=== PATIENT | female | born 1935 | race Caucasian/White ===

== ENCOUNTER 2020-02-01 05:01 | Outpatient (REF) | payer MEDICARE, SELFPAY ==
[2020-02-01 11:12] LABS: Red Blood Count 3.31 X10*6/uL (4.20-5.50)
[2020-02-01 11:15] LABS: Hematocrit 33.3 % (37-47); Hemoglobin 9.2 g/dl (12.0-16.0); Mean Corpuscular HGB Conc 27.6 g/dl (31.0-35.0); Mean Corpuscular Hemoglobin 27.8 pg (27.0-33.0); Mean Corpuscular Volume 100.6 fL (80-98); Platelet Count 144 X10*3/uL (160-400); Red Cell Distribution Width 21.3 % (11.0-16.0)
[2020-02-01 11:29] LABS: NRBC Pct Auto 1.9 /100WBC (0.0-0.2); PLT ABN DIST 1; WBC ABN SCTR FOR CBC 1
[2020-02-01 12:50] LABS: Band Neutrophils Percent 9 % (3-5); Blast Percent 2 %; Lymphocytes Percent Manual 9 % (20-40); Metamyelocytes Percent 5 %; Monocytes Percent Manual 3 % (2-11); Myelocytes Percent 2 %; Neutrophils Percent Manual 70 % (45-73); RBC Morphology NOTED
[2020-02-01 12:51] LABS: Macrocytosis 1+; Tear Drop Cells 1+
[2020-02-01 12:52] LABS: Acanthocytes 1+; Ovalocytes 1+; Schistocytes 1+
[2020-02-01 12:53] LABS: Platelet Estimate SLIGHTLY DECREASED (NORMAL)
[2020-02-01 13:25] LABS: Blastocytes Absolute 0.2 X10*3/uL; Lymphocytes Absolute Manual 0.7 X10*3/uL (0.6-4.8); Metamyelocytes Absolute 0.4 X10*3/uL; Monocytes Absolute Manual 0.2 X10*3/uL (0.0-1.2); Myelocytes Absolute 0.2 X10*/uL; Neutrophils Absolute Manual 6.2 X10*3/uL (2.2-7.9); White Blood Count 7.9 X10*3/uL (4.8-10.8)
[2020-02-01 13:27] LABS: Platelet Morphology Comment NORMAL
== END 2020-02-01 05:02 | disposition home or self-care (01) ==
LOC: HO.LHD 05:01
PROVIDERS: Visit Provider Internal Medicine Medical Oncology
DX: D64.9 Anemia, unspecified (principal)
CPT/HCPCS: 36415; 85007; 85025; 85027

== ENCOUNTER 2020-02-08 04:37 | Outpatient (REF) | payer MEDICARE, SELFPAY ==
[2020-02-08 10:26] LABS: Hemoglobin 9.6 g/dl (12.0-16.0); Mean Corpuscular Volume 99.7 fL (80-98)
[2020-02-08 10:28] LABS: Hematocrit 33.9 % (37-47); Mean Corpuscular HGB Conc 28.3 g/dl (31.0-35.0); Mean Corpuscular Hemoglobin 28.2 pg (27.0-33.0); PLT ABN DIST 1; Red Cell Distribution Width 21.4 % (11.0-16.0)
[2020-02-08 11:37] LABS: Atypical Lymphs Percent Manual 2 % (0-6); Band Neutrophils Percent 23 % (3-5); Basophils Percent Manual 1 % (0-1); Blast Percent 2 %; Eosinophils Percent Manual 1 % (0-4); Lymphocytes Percent Manual 6 % (20-40); Metamyelocytes Percent 4 %; Monocytes Percent Manual 2 % (2-11); Myelocytes Percent 2 %; Neutrophils Percent Manual 56 % (45-73); Nucleated Red Blood Cells 3 /100WBC (0-0); Promyelocytes Percent 1 %
[2020-02-08 11:38] LABS: Acanthocytes 1+; Macrocytosis 1+; Ovalocytes 1+; Platelet Estimate NORMAL (NORMAL); Platelet Morphology Comment NORMAL; Polychromasia 1+; RBC Morphology NOTED
[2020-02-08 11:39] LABS: Hypochromasia 1+; Large Platelet PRESENT; Stomatocytes 1+; Tear Drop Cells 1+
[2020-02-08 11:40] LABS: Atypical Lymph Absolute Manual 0.2 x10*3/uL; Basophils Abs Manual 0.1 X10*3/uL (0.0-0.3); Blastocytes Absolute 0.2 X10*3/uL; Eosinophils Absolute Manual 0.1 X10*3/UL (0.0-0.8); Lymphocytes Absolute Manual 0.6 X10*3/uL (0.6-4.8); Metamyelocytes Absolute 0.4 X10*3/uL; Monocytes Absolute Manual 0.2 X10*3/uL (0.0-1.2); Myelocytes Absolute 0.2 X10*/uL; Neutrophils Absolute Manual 7.9 X10*3/uL (2.2-7.9); Platelet Count 164 X10*3/uL (160-400); Promyelocytes Absolute 0.1 X10*3/uL
== END 2020-02-08 04:38 | disposition home or self-care (01) ==
LOC: HO.LHD 04:37
PROVIDERS: Visit Provider Internal Medicine Medical Oncology
DX: D46.9 Myelodysplastic syndrome, unspecified (principal)
CPT/HCPCS: 36415; 85007; 85027

== ENCOUNTER 2020-02-15 04:30 | Outpatient (REF) | payer MEDICARE, SELFPAY ==
[2020-02-15 10:44] LABS: Red Blood Count 3.52 X10*6/uL (4.20-5.50); Red Cell Distribution Width 21.2 % (11.0-16.0)
[2020-02-15 10:46] LABS: Hematocrit 35.4 % (37-47); Hemoglobin 9.8 g/dl (12.0-16.0); Mean Corpuscular HGB Conc 27.7 g/dl (31.0-35.0); Mean Corpuscular Hemoglobin 27.8 pg (27.0-33.0); Mean Corpuscular Volume 100.6 fL (80-98); Mean Platelet Volume 13.6 fL (9.4-12.3); Platelet Count 137 X10*3/uL (160-400); White Blood Count 8.5 X10*3/uL (4.8-10.8)
[2020-02-15 10:50] LABS: NRBC Pct Auto 1.2 /100WBC (0.0-0.2)
[2020-02-15 10:51] LABS: PLT ABN DIST 1
[2020-02-15 11:14] LABS: Alanine Aminotransferase 12 U/L (0-31); Albumin Level 3.8 g/dL (3.5-5.0); Alkaline Phosphatase 69 U/L (39-117); Anion Gap 13 (12-20); Aspartate Amino Transferase 16 U/L (5-31); Bilirubin Total 0.7 mg/dL (0.0-1.0); Blood Urea Nitrogen 14 mg/dL (9-16); Calcium 8.6 mg/dL (8.4-10.2); Carbon Dioxide 27 mmol/L (22-29); Chloride 105 mmol/L (96-108); Estimated Glomerular Filt Rate 58; Glucose Random 69 mg/dL (60-115); Potassium 3.9 mmol/l (3.3-5.1); Sodium 141 mmol/L (135-145); Total Protein 6.4 g/dL (6.5-8.0)
[2020-02-15 11:18] LABS: Band Neutrophils Percent 17 % (3-5); Basophils Abs Manual 0.1 X10*3/uL (0.0-0.3); Basophils Percent Manual 1 % (0-1); Blast Percent 1 %; Blastocytes Absolute 0.1 X10*3/uL; Eosinophils Absolute Manual 0.1 X10*3/UL (0.0-0.8); Eosinophils Percent Manual 1 % (0-4); Lymphocytes Absolute Manual 0.4 X10*3/uL (0.6-4.8); Lymphocytes Percent Manual 5 % (20-40); Metamyelocytes Absolute 0.3 X10*3/uL; Metamyelocytes Percent 3 %; Monocytes Absolute Manual 0.2 X10*3/uL (0.0-1.2); Monocytes Percent Manual 2 % (2-11); Myelocytes Absolute 0.3 X10*/uL; Myelocytes Percent 4 %; Neutrophils Percent Manual 65 % (45-73); Nucleated Red Blood Cells 1 /100WBC (0-0); Promyelocytes Absolute 0.1 X10*3/uL; Promyelocytes Percent 1 %
[2020-02-15 11:19] LABS: Macrocytosis 1+; Polychromasia 1+; RBC Morphology NOTED
[2020-02-15 11:20] LABS: Acanthocytes 1+; Giant Platelet PRESENT; Large Platelet PRESENT; Ovalocytes 1+; Platelet Estimate SLIGHTLY DECREASED (NORMAL); Platelet Morphology Comment NOTED; Schistocytes 1+
[2020-02-15 11:21] LABS: Tear Drop Cells 1+
== END 2020-02-15 04:31 | disposition home or self-care (01) ==
LOC: HO.LHD 04:30
PROVIDERS: Visit Provider Internal Medicine Medical Oncology
DX: D46.9 Myelodysplastic syndrome, unspecified (principal)
CPT/HCPCS: 36415; 80053; 85007; 85027

== ENCOUNTER 2020-02-22 | Outpatient (REF) | payer MEDICARE, SELFPAY ==
[2020-02-22 10:32] LABS: Hematocrit 33.5 % (37-47); Hemoglobin 9.6 g/dl (12.0-16.0); Mean Corpuscular HGB Conc 28.7 g/dl (31.0-35.0); Mean Corpuscular Hemoglobin 28.7 pg (27.0-33.0); Mean Platelet Volume 13.4 fL (9.4-12.3); Platelet Count 152 X10*3/uL (160-400); Red Blood Count 3.35 X10*6/uL (4.20-5.50); White Blood Count 10.4 X10*3/uL (4.8-10.8)
[2020-02-22 10:34] LABS: NRBC Pct Auto 1.4 /100WBC (0.0-0.2); PLT ABN DIST 1
[2020-02-22 11:10] LABS: Band Neutrophils Percent 12 % (3-5); Basophils Abs Manual 0.2 X10*3/uL (0.0-0.3); Basophils Percent Manual 2 % (0-1); Blast Percent 3 %; Blastocytes Absolute 0.3 X10*3/uL; Eosinophils Absolute Manual 0.1 X10*3/UL (0.0-0.8); Eosinophils Percent Manual 1 % (0-4); Lymphocytes Absolute Manual 0.7 X10*3/uL (0.6-4.8); Lymphocytes Percent Manual 7 % (20-40); Metamyelocytes Absolute 0.4 X10*3/uL; Metamyelocytes Percent 4 %; Myelocytes Absolute 0.3 X10*/uL; Myelocytes Percent 3 %; Neutrophils Absolute Manual 8.3 X10*3/uL (2.2-7.9); Neutrophils Percent Manual 68 % (45-73); Nucleated Red Blood Cells 1 /100WBC (0-0)
[2020-02-22 11:11] LABS: Giant Platelet PRESENT; Large Platelet PRESENT; Macrocytosis 1+; Platelet Estimate SLIGHTLY DECREASED (NORMAL); Platelet Morphology Comment NOTED; RBC Morphology NOTED
[2020-02-22 11:12] LABS: Acanthocytes 2+; Ovalocytes 2+; Polychromasia 2+; Stomatocytes 1+; Tear Drop Cells 2+
== END 2020-02-22 00:01 | disposition home or self-care (01) ==
LOC: HO.LHD
PROVIDERS: Visit Provider Internal Medicine Medical Oncology
DX: D64.9 Anemia, unspecified (principal); D46.9 Myelodysplastic syndrome, unspecified
CPT/HCPCS: 36415; 85007; 85027

== ENCOUNTER 2020-02-28 04:10 | Outpatient (REF) | payer MEDICARE, SELFPAY ==
[2020-02-28 10:53] LABS: Hematocrit 34.2 % (37-47); Hemoglobin 9.6 g/dl (12.0-16.0); Mean Corpuscular HGB Conc 28.1 g/dl (31.0-35.0); Mean Corpuscular Hemoglobin 28.3 pg (27.0-33.0); Mean Corpuscular Volume 100.9 fL (80-98); Mean Platelet Volume 13.3 fL (9.4-12.3); Platelet Count 141 X10*3/uL (160-400); Red Blood Count 3.39 X10*6/uL (4.20-5.50); Red Cell Distribution Width 20.5 % (11.0-16.0); White Blood Count 10.3 X10*3/uL (4.8-10.8)
[2020-02-28 10:54] LABS: NRBC Pct Auto 1.6 /100WBC (0.0-0.2)
[2020-02-28 11:08] LABS: Band Neutrophils Percent 3 % (3-5); Blast Percent 2 %; Blastocytes Absolute 0.2 X10*3/uL; Eosinophils Absolute Manual 0.2 X10*3/UL (0.0-0.8); Eosinophils Percent Manual 2 % (0-4); Lymphocytes Absolute Manual 0.7 X10*3/uL (0.6-4.8); Lymphocytes Percent Manual 7 % (20-40); Metamyelocytes Absolute 0.3 X10*3/uL; Metamyelocytes Percent 3 %; Myelocytes Absolute 0.5 X10*/uL; Myelocytes Percent 5 %; Neutrophils Absolute Manual 8.3 X10*3/uL (2.2-7.9); Neutrophils Percent Manual 78 % (45-73)
[2020-02-28 11:09] LABS: Macrocytosis 3+; RBC Morphology NOTED
[2020-02-28 11:10] LABS: Polychromasia 2+; Stomatocytes 1+; Tear Drop Cells 2+
[2020-02-28 11:11] LABS: Large Platelet PRESENT; Microcytosis 2+; Platelet Estimate DECREASED (NORMAL); Platelet Morphology Comment NOTED
== END 2020-02-28 04:11 | disposition home or self-care (01) ==
LOC: HO.LHD 04:10
PROVIDERS: Visit Provider Internal Medicine Medical Oncology
DX: D46.9 Myelodysplastic syndrome, unspecified (principal)
CPT/HCPCS: 36415; 85007; 85025; 85027

== ENCOUNTER 2020-03-07 06:44 | Outpatient (REF) | payer MEDICARE, SELFPAY ==
[2020-03-07 10:52] LABS: Hematocrit 35.5 % (37-47); Hemoglobin 10.2 g/dl (12.0-16.0); Mean Corpuscular HGB Conc 28.7 g/dl (31.0-35.0); Mean Corpuscular Hemoglobin 28.1 pg (27.0-33.0); Mean Corpuscular Volume 97.8 fL (80-98); Platelet Count 247 X10*3/uL (160-400); Red Blood Count 3.63 X10*6/uL (4.20-5.50); Red Cell Distribution Width 19.9 % (11.0-16.0); White Blood Count 10.8 X10*3/uL (4.8-10.8)
[2020-03-07 10:57] LABS: NRBC Pct Auto 1.3 /100WBC (0.0-0.2)
[2020-03-07 11:17] LABS: Band Neutrophils Percent 6 % (3-5); Blast Percent 4 %; Blastocytes Absolute 0.4 X10*3/uL; Lymphocytes Absolute Manual 0.8 X10*3/uL (0.6-4.8); Lymphocytes Percent Manual 7 % (20-40); Metamyelocytes Absolute 0.5 X10*3/uL; Metamyelocytes Percent 5 %; Monocytes Absolute Manual 0.3 X10*3/uL (0.0-1.2); Monocytes Percent Manual 3 % (2-11); Myelocytes Absolute 0.8 X10*/uL; Myelocytes Percent 7 %; Neutrophils Percent Manual 68 % (45-73); Nucleated Red Blood Cells 1 /100WBC (0-0)
[2020-03-07 11:18] LABS: Ovalocytes 1+; Polychromasia 2+; RBC Morphology NOTED; Tear Drop Cells 1+
[2020-03-07 11:19] LABS: Large Platelet PRESENT; Macrocytosis 1+; Platelet Estimate NORMAL (NORMAL); Platelet Morphology Comment NORMAL
== END 2020-03-07 06:45 | disposition home or self-care (01) ==
LOC: HO.LHD 06:44
PROVIDERS: Visit Provider Internal Medicine Medical Oncology
DX: D46.9 Myelodysplastic syndrome, unspecified (principal)
CPT/HCPCS: 36415; 85007; 85025; 85027

== ENCOUNTER 2020-03-14 05:18 | Outpatient (REF) | payer MEDICARE, SELFPAY ==
[2020-03-14 10:13] LABS: Hematocrit 31.3 % (37-47); Hemoglobin 9.2 g/dl (12.0-16.0); Mean Corpuscular HGB Conc 29.4 g/dl (31.0-35.0); Mean Corpuscular Hemoglobin 28.2 pg (27.0-33.0); Red Blood Count 3.26 X10*6/uL (4.20-5.50)
[2020-03-14 10:15] LABS: Mean Platelet Volume 13.1 fL (9.4-12.3); NRBC Pct Auto 0.8 /100WBC (0.0-0.2); Platelet Count 140 X10*3/uL (160-400); White Blood Count 11.2 X10*3/uL (4.8-10.8)
[2020-03-14 10:20] LABS: PLT ABN DIST 1
[2020-03-14 11:46] LABS: Band Neutrophils Percent 13 % (3-5); Basophils Abs Manual 0.2 X10*3/uL (0.0-0.3); Basophils Percent Manual 2 % (0-1); Blast Percent 3 %; Blastocytes Absolute 0.3 X10*3/uL; Eosinophils Absolute Manual 0.1 X10*3/UL (0.0-0.8); Eosinophils Percent Manual 1 % (0-4); Lymphocytes Absolute Manual 0.4 X10*3/uL (0.6-4.8); Lymphocytes Percent Manual 4 % (20-40); Metamyelocytes Absolute 0.3 X10*3/uL; Metamyelocytes Percent 3 %; Monocytes Absolute Manual 0.2 X10*3/uL (0.0-1.2); Monocytes Percent Manual 2 % (2-11); Myelocytes Absolute 0.2 X10*/uL; Myelocytes Percent 2 %; Neutrophils Absolute Manual 9.3 X10*3/uL (2.2-7.9); Neutrophils Percent Manual 70 % (45-73); Nucleated Red Blood Cells 1 /100WBC (0-0)
[2020-03-14 11:47] LABS: Macrocytosis 1+; RBC Morphology NOTED
[2020-03-14 11:48] LABS: Hypochromasia 1+; Ovalocytes 1+; Tear Drop Cells 1+
[2020-03-14 11:49] LABS: Large Platelet PRESENT; Platelet Estimate SLIGHTLY DECREASED (NORMAL); Platelet Morphology Comment NORMAL
== END 2020-03-14 05:19 | disposition home or self-care (01) ==
LOC: HO.LHD 05:18
PROVIDERS: Visit Provider Internal Medicine Medical Oncology
DX: D46.9 Myelodysplastic syndrome, unspecified (principal)
CPT/HCPCS: 36415; 85007; 85025; 85027

== ENCOUNTER 2020-03-21 | Outpatient (REF) | payer MEDICARE, SELFPAY ==
[2020-03-21 10:50] LABS: Hemoglobin 8.7 g/dl (12.0-16.0)
[2020-03-21 10:52] LABS: Hematocrit 30.4 % (37-47); Mean Corpuscular HGB Conc 28.6 g/dl (31.0-35.0); Mean Corpuscular Hemoglobin 27.6 pg (27.0-33.0); Mean Corpuscular Volume 96.5 fL (80-98); NRBC Pct Auto 0.5 /100WBC (0.0-0.2); Platelet Count 150 X10*3/uL (160-400); Red Blood Count 3.15 X10*6/uL (4.20-5.50); Red Cell Distribution Width 19.3 % (11.0-16.0); White Blood Count 16.1 X10*3/uL (4.8-10.8)
[2020-03-21 10:53] LABS: PLT ABN DIST 1
[2020-03-21 11:18] LABS: Alanine Aminotransferase 12 U/L (0-31); Albumin Level 3.5 g/dL (3.5-5.0); Alkaline Phosphatase 68 U/L (39-117); Anion Gap 11 (12-20); Aspartate Amino Transferase 16 U/L (5-31); Bilirubin Total 0.4 mg/dL (0.0-1.0); Blood Urea Nitrogen 15 mg/dL (9-16); Calcium 8.6 mg/dL (8.4-10.2); Carbon Dioxide 30 mmol/L (22-29); Chloride 102 mmol/L (96-108); Estimated Glomerular Filt Rate > 60; Glucose Random 75 mg/dL (60-115); Potassium 4.2 mmol/l (3.3-5.1); Sodium 139 mmol/L (135-145); Total Protein 6.1 g/dL (6.5-8.0)
[2020-03-21 11:19] LABS: Atypical Lymph Absolute Manual 0.3 x10*3/uL; Atypical Lymphs Percent Manual 2 % (0-6); Band Neutrophils Percent 14 % (3-5); Basophils Abs Manual 0.3 X10*3/uL (0.0-0.3); Basophils Percent Manual 2 % (0-1); Blast Percent 1 %; Blastocytes Absolute 0.2 X10*3/uL; Eosinophils Absolute Manual 0.2 X10*3/UL (0.0-0.8); Eosinophils Percent Manual 1 % (0-4); Lymphocytes Absolute Manual 0.6 X10*3/uL (0.6-4.8); Lymphocytes Percent Manual 4 % (20-40); Metamyelocytes Absolute 0.3 X10*3/uL; Metamyelocytes Percent 2 %; Monocytes Absolute Manual 0.3 X10*3/uL (0.0-1.2); Monocytes Percent Manual 2 % (2-11); Myelocytes Absolute 0.3 X10*/uL; Myelocytes Percent 2 %; Neutrophils Absolute Manual 13.5 X10*3/uL (2.2-7.9); Neutrophils Percent Manual 70 % (45-73); Nucleated Red Blood Cells 1 /100WBC (0-0)
[2020-03-21 11:21] LABS: Giant Platelet PRESENT; Hypochromasia 1+; Large Platelet PRESENT; Ovalocytes 1+; Platelet Estimate SLIGHTLY DECREASED (NORMAL); Platelet Morphology Comment NOTED; Polychromasia 1+; RBC Morphology NOTED; Tear Drop Cells 2+
== END 2020-03-21 00:01 | disposition home or self-care (01) ==
LOC: HO.LHD
PROVIDERS: Visit Provider Internal Medicine Medical Oncology
DX: D64.9 Anemia, unspecified (principal)
CPT/HCPCS: 36415; 80053; 85007; 85027

== ENCOUNTER 2020-03-27 05:15 | Outpatient (REF) | payer MEDICARE, SELFPAY ==
[2020-03-27 11:08] LABS: Hematocrit 30.2 % (37-47); Hemoglobin 8.6 g/dl (12.0-16.0); Mean Corpuscular HGB Conc 28.5 g/dl (31.0-35.0); Mean Corpuscular Hemoglobin 27.7 pg (27.0-33.0); Mean Corpuscular Volume 97.4 fL (80-98); Mean Platelet Volume 13.2 fL (9.4-12.3); Platelet Count 212 X10*3/uL (160-400); Red Cell Distribution Width 20.6 % (11.0-16.0); White Blood Count 17.4 X10*3/uL (4.8-10.8)
[2020-03-27 11:12] LABS: NRBC Pct Auto 1.5 /100WBC (0.0-0.2)
[2020-03-27 11:43] LABS: Band Neutrophils Percent 13 % (3-5); Basophils Abs Manual 0.2 X10*3/uL (0.0-0.3); Basophils Percent Manual 1 % (0-1); Blast Percent 4 %; Blastocytes Absolute 0.7 X10*3/uL; Eosinophils Absolute Manual 0.3 X10*3/UL (0.0-0.8); Eosinophils Percent Manual 2 % (0-4); Lymphocytes Percent Manual 6 % (20-40); Metamyelocytes Absolute 0.9 X10*3/uL; Metamyelocytes Percent 5 %; Monocytes Absolute Manual 0.2 X10*3/uL (0.0-1.2); Monocytes Percent Manual 1 % (2-11); Myelocytes Absolute 0.5 X10*/uL; Myelocytes Percent 3 %; Neutrophils Absolute Manual 13.6 X10*3/uL (2.2-7.9); Neutrophils Percent Manual 65 % (45-73); Nucleated Red Blood Cells 1 /100WBC (0-0)
[2020-03-27 11:47] LABS: Hypochromasia 2+; Large Platelet PRESENT; Macrocytosis 1+; Ovalocytes 1+; Platelet Estimate NORMAL (NORMAL); Platelet Morphology Comment NOTED; Polychromasia 1+; RBC Morphology NOTED; Tear Drop Cells 1+
== END 2020-03-27 05:16 | disposition home or self-care (01) ==
LOC: HO.LHD 05:15
PROVIDERS: Visit Provider Internal Medicine Medical Oncology
DX: D46.9 Myelodysplastic syndrome, unspecified (principal); D63.8 Anemia in other chronic diseases classified elsewhere
CPT/HCPCS: 36415; 85007; 85027

== ENCOUNTER 2020-04-04 | Outpatient (REF) | payer MEDICARE, SELFPAY ==
[2020-04-04 10:44] LABS: Hemoglobin 8.5 g/dl (12.0-16.0); Red Blood Count 3.04 X10*6/uL (4.20-5.50); Red Cell Distribution Width 19.9 % (11.0-16.0)
[2020-04-04 10:46] LABS: Hematocrit 29.7 % (37-47); Mean Corpuscular HGB Conc 28.6 g/dl (31.0-35.0); Mean Corpuscular Volume 97.7 fL (80-98); Platelet Count 151 X10*3/uL (160-400); White Blood Count 14.3 X10*3/uL (4.8-10.8)
[2020-04-04 10:50] LABS: NRBC Pct Auto 1.6 /100WBC (0.0-0.2); PLT ABN DIST 1
[2020-04-04 11:22] LABS: Band Neutrophils Percent 14 % (3-5); Blast Percent 1 %; Blastocytes Absolute 0.1 X10*3/uL; Lymphocytes Absolute Manual 0.7 X10*3/uL (0.6-4.8); Lymphocytes Percent Manual 5 % (20-40); Metamyelocytes Absolute 0.6 X10*3/uL; Metamyelocytes Percent 4 %; Monocytes Absolute Manual 0.6 X10*3/uL (0.0-1.2); Monocytes Percent Manual 4 % (2-11); Myelocytes Absolute 0.1 X10*/uL; Myelocytes Percent 1 %; Neutrophils Percent Manual 70 % (45-73); Promyelocytes Absolute 0.1 X10*3/uL; Promyelocytes Percent 1 %
[2020-04-04 11:23] LABS: Nucleated Red Blood Cells 1 /100WBC (0-0)
[2020-04-04 11:24] LABS: Large Platelet PRESENT; Macrocytosis 1+; Microcytosis 1+; Platelet Estimate SLIGHTLY DECREASED (NORMAL); Platelet Morphology Comment NOTED; RBC Morphology NOTED; Tear Drop Cells 1+
[2020-04-04 11:25] LABS: Basophilic Stippling 1+; Ovalocytes 1+
== END 2020-04-04 00:01 | disposition home or self-care (01) ==
LOC: HO.LHD
PROVIDERS: Visit Provider Internal Medicine Medical Oncology
DX: D46.9 Myelodysplastic syndrome, unspecified (principal)
CPT/HCPCS: 36415; 85007; 85027

== ENCOUNTER 2020-04-11 | Outpatient (REF) | payer MEDICARE, SELFPAY ==
[2020-04-11 11:08] LABS: Hemoglobin 8.6 g/dl (12.0-16.0)
[2020-04-11 11:10] LABS: Hematocrit 30.1 % (37-47); Mean Corpuscular HGB Conc 28.6 g/dl (31.0-35.0); PLT CLUMP 1; Red Blood Count 3.07 X10*6/uL (4.20-5.50); Red Cell Distribution Width 20.2 % (11.0-16.0)
[2020-04-11 11:13] LABS: NRBC Pct Auto 1.3 /100WBC (0.0-0.2); PLT ABN DIST 1; WBC ABN SCTR FOR CBC 1
[2020-04-11 11:35] LABS: Band Neutrophils Percent 12 % (3-5); Basophils Percent Manual 2 % (0-1); Blast Percent 4 %; Lymphocytes Percent Manual 4 % (20-40); Metamyelocytes Percent 3 %; Monocytes Percent Manual 4 % (2-11); Myelocytes Percent 4 %; Neutrophils Percent Manual 65 % (45-73); Nucleated Red Blood Cells 3 /100WBC (0-0); Platelet Estimate NORMAL (NORMAL); Promyelocytes Percent 2 %
[2020-04-11 11:36] LABS: Large Platelet PRESENT; Platelet Morphology Comment NOTED; RBC Morphology NOTED
[2020-04-11 11:38] LABS: Basophilic Stippling 1+; Ovalocytes 1+
[2020-04-11 11:39] LABS: Basophils Abs Manual 0.4 X10*3/uL (0.0-0.3); Blastocytes Absolute 0.8 X10*3/uL; Lymphocytes Absolute Manual 0.8 X10*3/uL (0.6-4.8); Metamyelocytes Absolute 0.6 X10*3/uL; Monocytes Absolute Manual 0.8 X10*3/uL (0.0-1.2); Myelocytes Absolute 0.8 X10*/uL; Neutrophils Absolute Manual 14.6 X10*3/uL (2.2-7.9); Platelet Count 180 X10*3/uL (160-400); Promyelocytes Absolute 0.4 X10*3/uL; Tear Drop Cells 1+; White Blood Count 18.9 X10*3/uL (4.8-10.8)
== END 2020-04-11 00:01 | disposition home or self-care (01) ==
LOC: HO.LHD
PROVIDERS: Visit Provider Internal Medicine Medical Oncology
DX: D46.9 Myelodysplastic syndrome, unspecified (principal)
CPT/HCPCS: 36415; 85007; 85027

== ENCOUNTER 2020-04-17 08:18 | Outpatient (REF) | payer MEDICARE, SELFPAY ==
[2020-04-17 10:56] LABS: Mean Platelet Volume 13.6 fL (9.4-12.3)
[2020-04-17 10:58] LABS: Hematocrit 31.1 % (37-47); Hemoglobin 8.8 g/dl (12.0-16.0); Mean Corpuscular HGB Conc 28.3 g/dl (31.0-35.0); Mean Corpuscular Hemoglobin 27.4 pg (27.0-33.0); Mean Corpuscular Volume 96.9 fL (80-98); Platelet Count 248 X10*3/uL (160-400); Red Blood Count 3.21 X10*6/uL (4.20-5.50); White Blood Count 22.4 X10*3/uL (4.8-10.8)
[2020-04-17 11:07] LABS: NRBC Pct Auto 2.2 /100WBC (0.0-0.2); PLT ABN DIST 1
[2020-04-17 11:24] LABS: Alanine Aminotransferase 9 U/L (0-31); Albumin Level 3.7 g/dL (3.5-5.0); Alkaline Phosphatase 71 U/L (39-117); Anion Gap 16 (12-20); Aspartate Amino Transferase 21 U/L (5-31); Bilirubin Total 0.3 mg/dL (0.0-1.0); Blood Urea Nitrogen 19 mg/dL (9-16); Calcium 8.9 mg/dL (8.4-10.2); Carbon Dioxide 23 mmol/L (22-29); Chloride 102 mmol/L (96-108); Estimated Glomerular Filt Rate 41; Glucose Random 73 mg/dL (60-115); Sodium 136 mmol/L (135-145); Total Protein 6.6 g/dL (6.5-8.0)
[2020-04-17 12:09] LABS: Band Neutrophils Percent 21 % (3-5); Basophils Abs Manual 0.2 X10*3/uL (0.0-0.3); Basophils Percent Manual 1 % (0-1); Blast Percent 4 %; Blastocytes Absolute 0.9 X10*3/uL; Lymphocytes Absolute Manual 0.7 X10*3/uL (0.6-4.8); Lymphocytes Percent Manual 3 % (20-40); Metamyelocytes Absolute 0.4 X10*3/uL; Metamyelocytes Percent 2 %; Myelocytes Absolute 0.7 X10*/uL; Myelocytes Percent 3 %; Neutrophils Absolute Manual 19.3 X10*3/uL (2.2-7.9); Neutrophils Percent Manual 65 % (45-73); Nucleated Red Blood Cells 2 /100WBC (0-0); Promyelocytes Absolute 0.2 X10*3/uL; Promyelocytes Percent 1 %
[2020-04-17 12:10] LABS: Hypochromasia 1+; Macrocytosis 1+; Microcytosis 1+; Polychromasia 1+; RBC Morphology NOTED; Tear Drop Cells 1+
[2020-04-17 12:11] LABS: Large Platelet PRESENT; Platelet Estimate NORMAL (NORMAL); Platelet Morphology Comment NORMAL; Schistocytes 1+
== END 2020-04-17 08:19 | disposition home or self-care (01) ==
LOC: HO.LHD 08:18
PROVIDERS: Visit Provider Internal Medicine Medical Oncology
DX: D46.9 Myelodysplastic syndrome, unspecified (principal)
CPT/HCPCS: 36415; 80053; 85007; 85025; 85027

== ENCOUNTER 2020-04-24 05:23 | Outpatient (REF) | payer MEDICARE, SELFPAY ==
[2020-04-24 10:56] LABS: Hematocrit 32.9 % (37-47); Hemoglobin 9.3 g/dl (12.0-16.0); Mean Corpuscular HGB Conc 28.3 g/dl (31.0-35.0); Mean Corpuscular Hemoglobin 28.2 pg (27.0-33.0); Mean Corpuscular Volume 99.7 fL (80-98); Platelet Count 159 X10*3/uL (160-400); Red Cell Distribution Width 21.3 % (11.0-16.0); White Blood Count 20.2 X10*3/uL (4.8-10.8)
[2020-04-24 10:58] LABS: NRBC Pct Auto 2.3 /100WBC (0.0-0.2); PLT ABN DIST 1
[2020-04-24 11:49] LABS: Band Neutrophils Percent 18 % (3-5); Basophils Abs Manual 0.2 X10*3/uL (0.0-0.3); Basophils Percent Manual 1 % (0-1); Blast Percent 1 %; Blastocytes Absolute 0.2 X10*3/uL; Eosinophils Absolute Manual 0.2 X10*3/UL (0.0-0.8); Eosinophils Percent Manual 1 % (0-4); Lymphocytes Absolute Manual 0.6 X10*3/uL (0.6-4.8); Lymphocytes Percent Manual 3 % (20-40); Metamyelocytes Absolute 1.2 X10*3/uL; Metamyelocytes Percent 6 %; Myelocytes Absolute 0.6 X10*/uL; Myelocytes Percent 3 %; Neutrophils Percent Manual 66 % (45-73); Nucleated Red Blood Cells 2 /100WBC (0-0); Promyelocytes Absolute 0.2 X10*3/uL; Promyelocytes Percent 1 %
[2020-04-24 11:52] LABS: Acanthocytes 1+; Hypochromasia 1+; Macrocytosis 1+; Microcytosis 1+; Ovalocytes 1+; Platelet Estimate NORMAL (NORMAL); Platelet Morphology Comment NORMAL; Polychromasia 2+; RBC Morphology NOTED; Tear Drop Cells 1+
== END 2020-04-24 05:24 | disposition home or self-care (01) ==
LOC: HO.LHD 05:23
PROVIDERS: Visit Provider Internal Medicine Medical Oncology
DX: D46.9 Myelodysplastic syndrome, unspecified (principal)
CPT/HCPCS: 36415; 85007; 85027

== ENCOUNTER 2020-05-01 10:24 | Outpatient (REF) | payer MEDICARE, SELFPAY ==
[2020-05-01 11:30] LABS: Red Cell Distribution Width 21.2 % (11.0-16.0)
[2020-05-01 11:32] LABS: Hematocrit 33.4 % (37-47); Hemoglobin 9.5 g/dl (12.0-16.0); Mean Corpuscular HGB Conc 28.4 g/dl (31.0-35.0); Mean Corpuscular Hemoglobin 28.4 pg (27.0-33.0); Mean Platelet Volume 13.5 fL (9.4-12.3); Platelet Count 189 X10*3/uL (160-400); Red Blood Count 3.34 X10*6/uL (4.20-5.50); White Blood Count 15.9 X10*3/uL (4.8-10.8)
[2020-05-01 11:33] LABS: NRBC Pct Auto 1.2 /100WBC (0.0-0.2); PLT ABN DIST 1
[2020-05-01 11:52] LABS: Band Neutrophils Percent 1 % (3-5); Basophils Abs Manual 0.3 X10*3/uL (0.0-0.3); Basophils Percent Manual 2 % (0-1); Blast Percent 1 %; Blastocytes Absolute 0.2 X10*3/uL; Eosinophils Absolute Manual 0.6 X10*3/UL (0.0-0.8); Eosinophils Percent Manual 4 % (0-4); Lymphocytes Absolute Manual 0.8 X10*3/uL (0.6-4.8); Lymphocytes Percent Manual 5 % (20-40); Metamyelocytes Absolute 0.6 X10*3/uL; Metamyelocytes Percent 4 %; Monocytes Absolute Manual 0.2 X10*3/uL (0.0-1.2); Monocytes Percent Manual 1 % (2-11); Myelocytes Absolute 1.1 X10*/uL; Myelocytes Percent 7 %; Neutrophils Absolute Manual 12.1 X10*3/uL (2.2-7.9); Neutrophils Percent Manual 75 % (45-73); Nucleated Red Blood Cells 3 /100WBC (0-0); RBC Morphology NOTED
[2020-05-01 11:53] LABS: Macrocytosis 1+; Ovalocytes 1+; Tear Drop Cells 2+
[2020-05-01 11:54] LABS: Large Platelet PRESENT; Platelet Estimate NORMAL (NORMAL); Platelet Morphology Comment NOTED; Polychromasia 2+
== END 2020-05-01 10:25 | disposition home or self-care (01) ==
LOC: HO.LHD 10:24
PROVIDERS: Visit Provider Internal Medicine Medical Oncology
DX: D64.9 Anemia, unspecified (principal); D46.9 Myelodysplastic syndrome, unspecified
CPT/HCPCS: 36415; 85007; 85027

== ENCOUNTER 2020-05-09 | Outpatient (REF) | payer MEDICARE, SELFPAY ==
[2020-05-09 10:44] LABS: Hemoglobin 9.1 g/dl (12.0-16.0); Red Cell Distribution Width 20.4 % (11.0-16.0)
[2020-05-09 10:46] LABS: Hematocrit 32.4 % (37-47); Mean Corpuscular HGB Conc 28.1 g/dl (31.0-35.0); Mean Corpuscular Hemoglobin 27.7 pg (27.0-33.0); Mean Corpuscular Volume 98.8 fL (80-98); PLT ABN DIST 1; Platelet Count 146 X10*3/uL (160-400); Red Blood Count 3.28 X10*6/uL (4.20-5.50); White Blood Count 20.4 X10*3/uL (4.8-10.8)
[2020-05-09 11:49] LABS: Band Neutrophils Percent 20 % (3-5); Blast Percent 2 %; Blastocytes Absolute 0.4 X10*3/uL; Lymphocytes Absolute Manual 1.2 X10*3/uL (0.6-4.8); Lymphocytes Percent Manual 6 % (20-40); Metamyelocytes Absolute 0.6 X10*3/uL; Metamyelocytes Percent 3 %; Neutrophils Absolute Manual 18.2 X10*3/uL (2.2-7.9); Neutrophils Percent Manual 69 % (45-73); Nucleated Red Blood Cells 2 /100WBC (0-0)
[2020-05-09 11:50] LABS: Macrocytosis 1+; RBC Morphology NOTED
[2020-05-09 11:51] LABS: Microcytosis 1+
[2020-05-09 11:52] LABS: Ovalocytes 1+; Tear Drop Cells 1+
[2020-05-09 11:53] LABS: Platelet Estimate SLIGHTLY DECREASED (NORMAL); Platelet Morphology Comment NORMAL; Polychromasia 1+
== END 2020-05-09 00:01 ==
LOC: HO.LHD
PROVIDERS: Visit Provider Internal Medicine Medical Oncology
DX: D46.9 Myelodysplastic syndrome, unspecified (principal)
CPT/HCPCS: 36415; 85007; 85027

== ENCOUNTER 2020-05-16 05:02 | Outpatient (REF) | payer MEDICARE, SELFPAY ==
[2020-05-16 11:20] LABS: Mean Corpuscular Volume 98.8 fL (80-98)
[2020-05-16 11:22] LABS: Hematocrit 33.3 % (37-47); Hemoglobin 9.5 g/dl (12.0-16.0); Mean Corpuscular HGB Conc 28.5 g/dl (31.0-35.0); Mean Corpuscular Hemoglobin 28.2 pg (27.0-33.0); Mean Platelet Volume 13.7 fL (9.4-12.3); PLT CLUMP 1; Red Blood Count 3.37 X10*6/uL (4.20-5.50)
[2020-05-16 11:23] LABS: NRBC Pct Auto 1.4 /100WBC (0.0-0.2); PLT ABN DIST 1; White Blood Count 24.2 X10*3/uL (4.8-10.8)
[2020-05-16 11:57] LABS: Band Neutrophils Percent 5 % (3-5); Basophils Abs Manual 0.2 X10*3/uL (0.0-0.3); Basophils Percent Manual 1 % (0-1); Blast Percent 1 %; Blastocytes Absolute 0.2 X10*3/uL; Lymphocytes Absolute Manual 0.2 X10*3/uL (0.6-4.8); Lymphocytes Percent Manual 1 % (20-40); Metamyelocytes Absolute 1.7 X10*3/uL; Metamyelocytes Percent 7 %; Myelocytes Absolute 1.2 X10*/uL; Myelocytes Percent 5 %; Neutrophils Absolute Manual 20.3 X10*3/uL (2.2-7.9); Neutrophils Percent Manual 79 % (45-73); Nucleated Red Blood Cells 2 /100WBC (0-0); Promyelocytes Absolute 0.2 X10*3/uL; Promyelocytes Percent 1 %
[2020-05-16 11:58] LABS: Basophilic Stippling 1+; Large Platelet PRESENT
[2020-05-16 11:59] LABS: Ovalocytes 1+; RBC Morphology NOTED; Tear Drop Cells 2+
[2020-05-16 12:00] LABS: Microcytosis 1+
[2020-05-16 12:02] LABS: Platelet Morphology Comment NOTE
[2020-05-16 12:03] LABS: Platelet Estimate NORMAL (NORMAL)
[2020-05-16 12:04] LABS: Polychromasia 1+
[2020-05-16 14:00] LABS: Platelet Count 163 X10*3/uL (160-400)
== END 2020-05-16 05:03 | disposition home or self-care (01) ==
LOC: HO.LHD 05:02
PROVIDERS: Visit Provider Internal Medicine Medical Oncology
DX: D64.9 Anemia, unspecified (principal); D46.9 Myelodysplastic syndrome, unspecified
CPT/HCPCS: 36415; 85007; 85027

== ENCOUNTER 2020-05-23 05:09 | Outpatient (REF) | payer MEDICARE, SELFPAY ==
[2020-05-23 11:44] LABS: Hematocrit 32.1 % (37-47); Hemoglobin 9.1 g/dl (12.0-16.0); Immature Retic Fraction 36.6 % (3.0-15.9); Mean Corpuscular HGB Conc 28.3 g/dl (31.0-35.0); Mean Corpuscular Hemoglobin 27.8 pg (27.0-33.0); Mean Corpuscular Volume 98.2 fL (80-98); Mean Platelet Volume 13.4 fL (9.4-12.3); NRBC Pct Auto 1.2 /100WBC (0.0-0.2); Platelet Count 169 X10*3/uL (160-400); Red Blood Count 3.27 X10*6/uL (4.20-5.50); Red Cell Distribution Width 19.8 % (11.0-16.0); Retic HGB Equivalent 23.2 pg (30.0-35.0); Reticulocyte Percent 6.1 % (0.5-1.8); Reticulocytes Absolute 0.201 X10*6/uL (0.026-0.095); White Blood Count 24.2 X10*3/uL (4.8-10.8)
[2020-05-23 11:49] LABS: Alanine Aminotransferase 10 U/L (0-31); Albumin Level 3.6 g/dL (3.5-5.0); Alkaline Phosphatase 65 U/L (39-117); Anion Gap 14 (12-20); Aspartate Amino Transferase 20 U/L (5-31); Bilirubin Total 0.5 mg/dL (0.0-1.0); Blood Urea Nitrogen 10 mg/dL (9-16); Calcium 8.5 mg/dL (8.4-10.2); Carbon Dioxide 29 mmol/L (22-29); Chloride 100 mmol/L (96-108); Estimated Glomerular Filt Rate > 60; Glucose Random 99 mg/dL (60-115); Potassium 4.1 mmol/l (3.3-5.1); Sodium 139 mmol/L (135-145); Total Protein 6.1 g/dL (6.5-8.0)
[2020-05-23 12:01] LABS: B Type Natriuretic Peptide 444 pg/mL (<100)
[2020-05-23 12:10] LABS: Ferritin 198 ng/mL (10-250); Free T4 (Free Thyroxine) 1.21 ng/dL (0.71-1.85); Thyroid Stimulating Hormone 2.09 uIU/mL (0.32-4.0); Vitamin D 25-OH Total 43.6 ng/mL (>30)
[2020-05-23 12:38] LABS: Folate 19.7 ng/mL (> or = 4.0); Vitamin B12 > 2000 pg/mL (200-900)
[2020-05-23 13:22] LABS: Atypical Lymph Absolute Manual 0.7 x10*3/uL; Atypical Lymphs Percent Manual 3 % (0-6); Band Neutrophils Percent 16 % (3-5); Basophils Abs Manual 0.2 X10*3/uL (0.0-0.3); Basophils Percent Manual 1 % (0-1); Blast Percent 3 %; Blastocytes Absolute 0.7 X10*3/uL; Eosinophils Absolute Manual 0.2 X10*3/UL (0.0-0.8); Eosinophils Percent Manual 1 % (0-4); Lymphocytes Absolute Manual 0.7 X10*3/uL (0.6-4.8); Lymphocytes Percent Manual 3 % (20-40); Metamyelocytes Absolute 1.5 X10*3/uL; Metamyelocytes Percent 6 %; Monocytes Absolute Manual 1.2 X10*3/uL (0.0-1.2); Monocytes Percent Manual 5 % (2-11); Myelocytes Absolute 0.2 X10*/uL; Myelocytes Percent 1 %; Neutrophils Absolute Manual 18.6 X10*3/uL (2.2-7.9); Neutrophils Percent Manual 61 % (45-73)
[2020-05-23 13:23] LABS: Hypochromasia 1+; Nucleated Red Blood Cells 1 /100WBC (0-0); RBC Morphology NOTED; Schistocytes 1+
[2020-05-23 13:24] LABS: Macrocytosis 1+; Microcytosis 1+; Ovalocytes 1+; Platelet Estimate NORMAL (NORMAL); Platelet Morphology Comment NOTED; Tear Drop Cells 1+
[2020-05-23 13:25] LABS: Large Platelet PRESENT
== END 2020-05-23 05:10 | disposition home or self-care (01) ==
LOC: HO.LHD 05:09
PROVIDERS: Internal Medicine; Visit Provider Internal Medicine Medical Oncology
DX: D46.9 Myelodysplastic syndrome, unspecified (principal); D64.9 Anemia, unspecified; I11.0 Hypertensive heart disease with heart failure; I50.22 Chronic systolic (congestive) heart failure; E03.9 Hypothyroidism, unspecified
CPT/HCPCS: 36415; 80053; 82306; 82607; 82728; 82746; 83880; 84439; 84443; 85007; 85027; 85045

== ENCOUNTER 2020-05-30 | Outpatient (REF) | payer MEDICARE, SELFPAY ==
[2020-05-30 09:53] LABS: Hematocrit 32.6 % (37-47); Hemoglobin 9.3 g/dl (12.0-16.0); Mean Corpuscular HGB Conc 28.5 g/dl (31.0-35.0); Mean Corpuscular Hemoglobin 27.8 pg (27.0-33.0); Mean Corpuscular Volume 97.3 fL (80-98); PLT CLUMP 1; Red Blood Count 3.35 X10*6/uL (4.20-5.50); Red Cell Distribution Width 19.4 % (11.0-16.0)
[2020-05-30 09:54] LABS: NRBC Pct Auto 1.3 /100WBC (0.0-0.2)
[2020-05-30 10:51] LABS: Band Neutrophils Percent 19 % (3-5); Basophils Percent Manual 1 % (0-1); Blast Percent 3 %; Lymphocytes Percent Manual 4 % (20-40); Metamyelocytes Percent 4 %; Monocytes Percent Manual 2 % (2-11); Neutrophils Percent Manual 64 % (45-73); Promyelocytes Percent 3 %
[2020-05-30 10:52] LABS: Macrocytosis 1+; Microcytosis 1+; RBC Morphology NOTED
[2020-05-30 10:53] LABS: Polychromasia 1+; Tear Drop Cells 1+
[2020-05-30 10:54] LABS: Hypochromasia 1+; Large Platelet PRESENT; Platelet Estimate SLIGHTLY DECREASED (NORMAL); Platelet Morphology Comment NOTED; Stomatocytes 1+
[2020-05-30 11:48] LABS: Basophils Abs Manual 0.2 X10*3/uL (0.0-0.3); Blastocytes Absolute 0.7 X10*3/uL; Mean Platelet Volume 13.4 fL (9.4-12.3); Monocytes Absolute Manual 0.5 X10*3/uL (0.0-1.2); Neutrophils Absolute Manual 20.4 X10*3/uL (2.2-7.9); Platelet Count 158 X10*3/uL (160-400); Promyelocytes Absolute 0.7 X10*3/uL; White Blood Count 24.6 X10*3/uL (4.8-10.8)
== END 2020-05-30 00:01 | disposition home or self-care (01) ==
LOC: HO.LHD
PROVIDERS: Visit Provider Internal Medicine Medical Oncology
DX: D46.9 Myelodysplastic syndrome, unspecified (principal)
CPT/HCPCS: 36415; 85007; 85027

== ENCOUNTER 2020-06-06 13:50 | Outpatient (REF) | payer MEDICARE, SELFPAY ==
[2020-06-06 11:19] LABS: Hematocrit 31.6 % (37-47); Hemoglobin 9.1 g/dl (12.0-16.0); Mean Corpuscular HGB Conc 28.8 g/dl (31.0-35.0); Mean Corpuscular Hemoglobin 27.7 pg (27.0-33.0); Mean Platelet Volume 13.9 fL (9.4-12.3); Platelet Count 171 X10*3/uL (160-400); Red Blood Count 3.29 X10*6/uL (4.20-5.50); Red Cell Distribution Width 19.6 % (11.0-16.0)
[2020-06-06 11:20] LABS: NRBC Pct Auto 1.7 /100WBC (0.0-0.2); PLT ABN DIST 1; WBC ABN SCTR FOR CBC 1
[2020-06-06 11:21] LABS: White Blood Count 26.1 X10*3/uL (4.8-10.8)
[2020-06-06 11:48] LABS: Band Neutrophils Percent 2 % (3-5); Basophils Abs Manual 0.8 X10*3/uL (0.0-0.3); Basophils Percent Manual 3 % (0-1); Eosinophils Absolute Manual 0.3 X10*3/UL (0.0-0.8); Eosinophils Percent Manual 1 % (0-4); Lymphocytes Percent Manual 4 % (20-40); Metamyelocytes Absolute 1.6 X10*3/uL; Metamyelocytes Percent 6 %; Myelocytes Absolute 1.8 X10*/uL; Myelocytes Percent 7 %; Neutrophils Absolute Manual 19.8 X10*3/uL (2.2-7.9); Neutrophils Percent Manual 74 % (45-73)
[2020-06-06 11:49] LABS: Blast Percent 3 %; Blastocytes Absolute 0.8 X10*3/uL; Nucleated Red Blood Cells 3 /100WBC (0-0); Ovalocytes 1+; RBC Morphology NOTED; Tear Drop Cells 2+
[2020-06-06 11:50] LABS: Large Platelet PRESENT; Macrocytosis 1+; Platelet Estimate NORMAL (NORMAL); Platelet Morphology Comment NOTED; Polychromasia 1+
== END 2020-06-06 13:51 | disposition home or self-care (01) ==
LOC: HO.LHD 13:50
PROVIDERS: Visit Provider Internal Medicine Medical Oncology
DX: D46.9 Myelodysplastic syndrome, unspecified (principal); D64.9 Anemia, unspecified
CPT/HCPCS: 36415; 85007; 85027

== ENCOUNTER 2020-06-13 05:08 | Outpatient (REF) | payer MEDICARE, SELFPAY ==
[2020-06-13 10:15] LABS: Hematocrit 31.3 % (37-47); Hemoglobin 9.1 g/dl (12.0-16.0); Mean Corpuscular HGB Conc 29.1 g/dl (31.0-35.0); Mean Corpuscular Hemoglobin 27.8 pg (27.0-33.0); Mean Corpuscular Volume 95.7 fL (80-98); Platelet Count 153 X10*3/uL (160-400); Red Blood Count 3.27 X10*6/uL (4.20-5.50); Red Cell Distribution Width 19.7 % (11.0-16.0); White Blood Count 24.3 X10*3/uL (4.8-10.8)
[2020-06-13 10:16] LABS: NRBC Pct Auto 2.1 /100WBC (0.0-0.2)
[2020-06-13 10:50] LABS: Atypical Lymph Absolute Manual 0.2 x10*3/uL; Atypical Lymphs Percent Manual 1 % (0-6); Band Neutrophils Percent 10 % (3-5); Basophils Abs Manual 0.5 X10*3/uL (0.0-0.3); Basophils Percent Manual 2 % (0-1); Blast Percent 2 %; Blastocytes Absolute 0.5 X10*3/uL; Lymphocytes Percent Manual 4 % (20-40); Metamyelocytes Percent 4 %; Monocytes Absolute Manual 1.2 X10*3/uL (0.0-1.2); Monocytes Percent Manual 5 % (2-11); Myelocytes Percent 4 %; Neutrophils Percent Manual 68 % (45-73); Nucleated Red Blood Cells 2 /100WBC (0-0)
[2020-06-13 10:55] LABS: Large Platelet PRESENT; Platelet Estimate SLIGHTLY DECREASED (NORMAL); RBC Morphology NOTED
[2020-06-13 10:56] LABS: Basophilic Stippling 1+; Hypochromasia 2+; Macrocytosis 1+; Microcytosis 1+; Platelet Morphology Comment NOTE; Polychromasia 1+; Tear Drop Cells 1+
== END 2020-06-13 05:09 | disposition home or self-care (01) ==
LOC: HO.LHD 05:08
PROVIDERS: Visit Provider Internal Medicine Medical Oncology
DX: D64.9 Anemia, unspecified (principal); D46.9 Myelodysplastic syndrome, unspecified
CPT/HCPCS: 36415; 85007; 85025; 85027

== ENCOUNTER 2020-06-20 05:00 | Outpatient (REF) | payer MEDICARE, SELFPAY ==
[2020-06-20 11:12] LABS: Mean Corpuscular Hemoglobin 27.8 pg (27.0-33.0); Mean Corpuscular Volume 95.8 fL (80-98); Red Cell Distribution Width 19.8 % (11.0-16.0)
[2020-06-20 11:14] LABS: Hematocrit 33.8 % (37-47); Hemoglobin 9.8 g/dl (12.0-16.0); Mean Platelet Volume 13.7 fL (9.4-12.3); PLT CLUMP 1; Red Blood Count 3.53 X10*6/uL (4.20-5.50)
[2020-06-20 11:16] LABS: NRBC Pct Auto 2.3 /100WBC (0.0-0.2)
[2020-06-20 11:17] LABS: PLT ABN DIST 1
[2020-06-20 11:35] LABS: Band Neutrophils Percent 6 % (3-5); Basophils Percent Manual 1 % (0-1); Blast Percent 2 %; Lymphocytes Percent Manual 2 % (20-40); Metamyelocytes Percent 6 %; Myelocytes Percent 7 %; Neutrophils Percent Manual 76 % (45-73); Nucleated Red Blood Cells 1 /100WBC (0-0)
[2020-06-20 11:36] LABS: Basophilic Stippling 1+; Polychromasia 2+; RBC Morphology NOTED
[2020-06-20 11:37] LABS: Large Platelet PRESENT; Macrocytosis 1+; Ovalocytes 1+; Platelet Estimate NORMAL (NORMAL); Platelet Morphology Comment NOTED; Tear Drop Cells 1+
[2020-06-20 11:38] LABS: Basophils Abs Manual 0.3 X10*3/uL (0.0-0.3); Blastocytes Absolute 0.5 X10*3/uL; Lymphocytes Absolute Manual 0.5 X10*3/uL (0.6-4.8); Metamyelocytes Absolute 1.6 X10*3/uL; Myelocytes Absolute 1.8 X10*/uL; Neutrophils Absolute Manual 21.6 X10*3/uL (2.2-7.9); Platelet Count 159 X10*3/uL (160-400); White Blood Count 26.4 X10*3/uL (4.8-10.8)
== END 2020-06-20 05:01 | disposition home or self-care (01) ==
LOC: HO.LHD 05:00
PROVIDERS: Visit Provider Internal Medicine Medical Oncology
DX: D46.9 Myelodysplastic syndrome, unspecified (principal)
CPT/HCPCS: 36415; 85007; 85027

== ENCOUNTER 2020-06-21 10:05 | Outpatient (REF) | payer MEDICARE, SELFPAY ==
--- NOTE | ~2020-06-21 | XR_ITS ---
EXAMINATION: XR SHOULDER, RIGHT CLINICAL INFORMATION: Right shoulder pain COMPARISON: None TECHNIQUE: Right shoulder is imaged in 3 views. FINDINGS: There is no fracture or dislocation or destructive process. There is mild narrowing glenohumeral joint with spurring inferior glenoid likely at origin inferior glenohumeral ligament. The acromioclavicular alignment is normal. There is some chondrocalcinosis acromioclavicular joint and benign-appearing mineralization superior periarticular soft tissues. No erosive change or periostitis. XR/XR shoulder RT min 2V IMPRESSION: 1. Mild degenerative changes glenohumeral joint and acromioclavicular joint. 2. Chondrocalcinosis acromioclavicular joint. 3. No rotator cuff calcification.
== END 2020-06-21 10:06 | disposition home or self-care (01) ==
LOC: HO.XRAY 10:05
PROVIDERS: Visit Provider Internal Medicine Medical Oncology
DX: M25.511 Pain in right shoulder (principal)
CPT/HCPCS: 73030

== ENCOUNTER 2020-06-27 01:55 | Outpatient (REF) | payer MEDICARE, SELFPAY ==
[2020-06-27 11:41] LABS: Hematocrit 33.5 % (37-47); Red Cell Distribution Width 19.9 % (11.0-16.0)
[2020-06-27 11:43] LABS: Hemoglobin 9.4 g/dl (12.0-16.0); Mean Corpuscular HGB Conc 28.1 g/dl (31.0-35.0); Mean Corpuscular Volume 96.3 fL (80-98); Mean Platelet Volume 13.5 fL (9.4-12.3); NRBC Pct Auto 1.8 /100WBC (0.0-0.2); PLT ABN DIST 1; PLT CLUMP 1; Red Blood Count 3.48 X10*6/uL (4.20-5.50); WBC ABN SCTR FOR CBC 1
[2020-06-27 13:38] LABS: Band Neutrophils Percent 12 % (3-5); Basophils Percent Manual 3 % (0-1); Blast Percent 2 %; Eosinophils Percent Manual 1 % (0-4); Lymphocytes Percent Manual 7 % (20-40); Metamyelocytes Percent 3 %; Monocytes Percent Manual 2 % (2-11); Myelocytes Percent 6 %; Neutrophils Percent Manual 64 % (45-73); Nucleated Red Blood Cells 3 /100WBC (0-0)
[2020-06-27 13:44] LABS: Macrocytosis 1+; Microcytosis 1+; RBC Morphology NOTED
[2020-06-27 13:45] LABS: Hypochromasia 1+; Ovalocytes 1+; Polychromasia 1+; Tear Drop Cells 1+
[2020-06-27 13:46] LABS: Platelet Estimate NORMAL (NORMAL); Stomatocytes 1+
[2020-06-27 13:47] LABS: Large Platelet PRESENT; Platelet Morphology Comment NOTED
[2020-06-27 13:49] LABS: Basophils Abs Manual 0.8 X10*3/uL (0.0-0.3); Blastocytes Absolute 0.5 X10*3/uL; Eosinophils Absolute Manual 0.3 X10*3/UL (0.0-0.8); Lymphocytes Absolute Manual 1.9 X10*3/uL (0.6-4.8); Metamyelocytes Absolute 0.8 X10*3/uL; Monocytes Absolute Manual 0.5 X10*3/uL (0.0-1.2); Myelocytes Absolute 1.6 X10*/uL; Neutrophils Absolute Manual 20.4 X10*3/uL (2.2-7.9); Platelet Count 154 X10*3/uL (160-400); White Blood Count 26.9 X10*3/uL (4.8-10.8)
== END 2020-06-27 01:56 | disposition home or self-care (01) ==
LOC: HO.LHD 01:55
PROVIDERS: Visit Provider Internal Medicine Medical Oncology
DX: D46.9 Myelodysplastic syndrome, unspecified (principal)
CPT/HCPCS: 36415; 85007; 85027

== ENCOUNTER 2020-07-04 00:26 | Outpatient (REF) | payer MEDICARE, SELFPAY ==
[2020-07-04 10:32] LABS: Mean Corpuscular Volume 95.3 fL (80-98); Platelet Count 137 X10*3/uL (160-400)
[2020-07-04 10:34] LABS: Hematocrit 32.7 % (37-47); Hemoglobin 9.5 g/dl (12.0-16.0); Mean Corpuscular HGB Conc 29.1 g/dl (31.0-35.0); Mean Corpuscular Hemoglobin 27.7 pg (27.0-33.0); Red Blood Count 3.43 X10*6/uL (4.20-5.50)
[2020-07-04 10:35] LABS: NRBC Pct Auto 1.9 /100WBC (0.0-0.2)
[2020-07-04 10:36] LABS: PLT ABN DIST 1; WBC ABN SCTR FOR CBC 1
[2020-07-04 11:08] LABS: Band Neutrophils Percent 23 % (3-5); Blast Percent 2 %; Lymphocytes Percent Manual 1 % (20-40); Metamyelocytes Percent 5 %; Monocytes Percent Manual 3 % (2-11); Myelocytes Percent 2 %; Neutrophils Percent Manual 61 % (45-73); Nucleated Red Blood Cells 5 /100WBC (0-0); Promyelocytes Percent 3 %
[2020-07-04 11:10] LABS: Platelet Estimate DECREASED (NORMAL)
[2020-07-04 11:13] LABS: Large Platelet PRESENT; Platelet Morphology Comment NOTED
[2020-07-04 11:14] LABS: Macrocytosis 1+; RBC Morphology NOTED
[2020-07-04 11:15] LABS: Acanthocytes 1+; Giant Platelet PRESENT; Ovalocytes 1+; Polychromasia 1+; Stomatocytes 1+; Tear Drop Cells 1+
[2020-07-04 11:18] LABS: Microcytosis 1+
[2020-07-04 12:26] LABS: Blastocytes Absolute 0.6 X10*3/uL; Lymphocytes Absolute Manual 0.3 X10*3/uL (0.6-4.8); Metamyelocytes Absolute 1.4 X10*3/uL; Monocytes Absolute Manual 0.8 X10*3/uL (0.0-1.2); Myelocytes Absolute 0.6 X10*/uL; Neutrophils Absolute Manual 23.8 X10*3/uL (2.2-7.9); Promyelocytes Absolute 0.8 X10*3/uL; White Blood Count 28.3 X10*3/uL (4.8-10.8)
== END 2020-07-04 00:27 | disposition home or self-care (01) ==
LOC: HO.LHD 00:26
PROVIDERS: Visit Provider Internal Medicine Medical Oncology
DX: D46.9 Myelodysplastic syndrome, unspecified (principal); D64.9 Anemia, unspecified
CPT/HCPCS: 36415; 85007; 85027

== ENCOUNTER → 2020-07-10 08:11 | Outpatient (BNVA) | payer MEDICARE, SELFPAY | PROVIDERS: PCP Internal Medicine; Visit Provider Nurse Practitioner Family | DX: M19.011 Primary osteoarthritis, right shoulder (principal); Z79.899 Other long term (current) drug therapy | CPT/HCPCS: 99202 ==

== ENCOUNTER 2020-07-11 00:13 | Outpatient (REF) | payer MEDICARE, SELFPAY ==
[2020-07-11 10:54] LABS: Hemoglobin 9.1 g/dl (12.0-16.0); PLT CLUMP 1
[2020-07-11 10:56] LABS: Hematocrit 31.4 % (37-47); Mean Corpuscular Hemoglobin 27.5 pg (27.0-33.0); Mean Corpuscular Volume 94.9 fL (80-98); Platelet Count 124 X10*3/uL (160-400); Red Blood Count 3.31 X10*6/uL (4.20-5.50)
[2020-07-11 10:57] LABS: NRBC Pct Auto 2.4 /100WBC (0.0-0.2); PLT ABN DIST 1; WBC ABN SCTR FOR CBC 1
[2020-07-11 11:43] LABS: Band Neutrophils Percent 16 % (3-5); Lymphocytes Percent Manual 2 % (20-40); Metamyelocytes Percent 6 %; Monocytes Percent Manual 3 % (2-11); Myelocytes Percent 4 %; Neutrophils Percent Manual 61 % (45-73); Promyelocytes Percent 3 %
[2020-07-11 11:44] LABS: Blast Percent 5 %; Nucleated Red Blood Cells 10 /100WBC (0-0)
[2020-07-11 11:46] LABS: Ovalocytes 1+; Platelet Estimate SLIGHTLY DECREASED (NORMAL); Platelet Morphology Comment NORMAL; RBC Morphology NOTED; Spherocytes 1+; Stomatocytes 1+; Tear Drop Cells 1+
[2020-07-11 11:47] LABS: Macrocytosis 1+; Polychromasia 1+
[2020-07-11 11:48] LABS: Microcytosis 1+
[2020-07-11 11:49] LABS: Blastocytes Absolute 1.2 X10*3/uL; Lymphocytes Absolute Manual 0.5 X10*3/uL (0.6-4.8); Metamyelocytes Absolute 1.5 X10*3/uL; Monocytes Absolute Manual 0.7 X10*3/uL (0.0-1.2); Neutrophils Absolute Manual 18.9 X10*3/uL (2.2-7.9); Promyelocytes Absolute 0.7 X10*3/uL; White Blood Count 24.6 X10*3/uL (4.8-10.8)
== END 2020-07-11 00:14 | disposition home or self-care (01) ==
LOC: HO.LHD 00:13
PROVIDERS: Visit Provider Internal Medicine Medical Oncology
DX: D46.9 Myelodysplastic syndrome, unspecified (principal)
CPT/HCPCS: 36415; 85007; 85027

== ENCOUNTER 2020-07-18 01:14 | Outpatient (REF) | payer MEDICARE, SELFPAY ==
[2020-07-18 11:30] LABS: Hematocrit 34.2 % (37-47)
[2020-07-18 11:31] LABS: Hemoglobin 9.8 g/dl (12.0-16.0); Mean Corpuscular HGB Conc 28.7 g/dl (31.0-35.0); Mean Corpuscular Hemoglobin 27.4 pg (27.0-33.0); Mean Corpuscular Volume 95.5 fL (80-98); PLT CLUMP 1; Red Blood Count 3.58 X10*6/uL (4.20-5.50); Red Cell Distribution Width 20.2 % (11.0-16.0)
[2020-07-18 11:32] LABS: NRBC Pct Auto 2.3 /100WBC (0.0-0.2); PLT ABN DIST 1; WBC ABN SCTR FOR CBC 1
[2020-07-18 12:59] LABS: Band Neutrophils Percent 21 % (3-5); Basophils Percent Manual 1 % (0-1); Blast Percent 3 %; Lymphocytes Percent Manual 4 % (20-40); Metamyelocytes Percent 4 %; Myelocytes Percent 1 %; Neutrophils Percent Manual 66 % (45-73); Nucleated Red Blood Cells 3 /100WBC (0-0)
[2020-07-18 13:01] LABS: Macrocytosis 1+ (5-14) /OIF; Microcytosis 1+ (5-14) /OIF; RBC Morphology NOTED
[2020-07-18 13:02] LABS: Platelet Estimate SLIGHTLY DECREASED (NORMAL); Schistocytes 1+ (0-2) /OIF; Stomatocytes 1+ (5-14) /OIF
[2020-07-18 13:03] LABS: Large Platelet PRESENT; Platelet Morphology Comment NOTED
[2020-07-18 13:14] LABS: Basophils Abs Manual 0.3 X10*3/uL (0.0-0.3); Blastocytes Absolute 0.8 X10*3/uL; Lymphocytes Absolute Manual 1.1 X10*3/uL (0.6-4.8); Metamyelocytes Absolute 1.1 X10*3/uL; Myelocytes Absolute 0.3 X10*/uL; Neutrophils Absolute Manual 24.1 X10*3/uL (2.2-7.9); Platelet Count 129 X10*3/uL (160-400); White Blood Count 27.7 X10*3/uL (4.8-10.8)
== END 2020-07-18 01:15 | disposition home or self-care (01) ==
LOC: HO.LHD 01:14
PROVIDERS: Visit Provider Internal Medicine Medical Oncology
DX: D46.9 Myelodysplastic syndrome, unspecified (principal)
CPT/HCPCS: 36415; 85007; 85027

== ENCOUNTER 2020-07-25 07:58 | Outpatient (REF) | payer MEDICARE, SELFPAY ==
[2020-07-25 12:06] LABS: Hematocrit 32.5 % (37-47); Hemoglobin 9.3 g/dl (12.0-16.0); Mean Corpuscular HGB Conc 28.6 g/dl (31.0-35.0); Mean Corpuscular Hemoglobin 27.2 pg (27.0-33.0); Platelet Count 139 X10*3/uL (160-400); Red Blood Count 3.42 X10*6/uL (4.20-5.50); Red Cell Distribution Width 20.7 % (11.0-16.0)
[2020-07-25 12:08] LABS: NRBC Pct Auto 2.8 /100WBC (0.0-0.2); WBC ABN SCTR FOR CBC 1
[2020-07-25 12:17] LABS: Alanine Aminotransferase 8 U/L (0-31); Albumin Level 3.7 g/dL (3.5-5.0); Alkaline Phosphatase 59 U/L (39-117); Anion Gap 14 (12-20); Aspartate Amino Transferase 21 U/L (5-31); Bilirubin Total 0.4 mg/dL (0.0-1.0); Blood Urea Nitrogen 14 mg/dL (9-16); Calcium 8.8 mg/dL (8.4-10.2); Carbon Dioxide 27 mmol/L (22-29); Chloride 103 mmol/L (96-108); Estimated Glomerular Filt Rate > 60; Glucose Random 72 mg/dL (60-115); Sodium 140 mmol/L (135-145); Total Protein 6.2 g/dL (6.5-8.0)
[2020-07-25 12:21] LABS: Band Neutrophils Percent 11 % (3-5); Blast Percent 5 %; Lymphocytes Percent Manual 3 % (20-40); Metamyelocytes Percent 5 %; Monocytes Percent Manual 1 % (2-11); Myelocytes Percent 3 %; Neutrophils Percent Manual 71 % (45-73); Nucleated Red Blood Cells 1 /100WBC (0-0); Promyelocytes Percent 1 %
[2020-07-25 12:22] LABS: Macrocytosis 1+ (5-14) /OIF; RBC Morphology NOTED
[2020-07-25 12:23] LABS: Hypochromasia 1+ (5-14) /OIF; Large Platelet PRESENT; Microcytosis 1+ (5-14) /OIF; Platelet Estimate SLIGHTLY DECREASED (NORMAL); Platelet Morphology Comment NOTED; Polychromasia 1+ (0-2) /OIF
[2020-07-25 12:24] LABS: Schistocytes 1+ (0-2) /OIF; Stomatocytes 1+ (5-14) /OIF
[2020-07-25 12:25] LABS: Blastocytes Absolute 1.5 X10*3/uL; Lymphocytes Absolute Manual 0.9 X10*3/uL (0.6-4.8); Metamyelocytes Absolute 1.5 X10*3/uL; Monocytes Absolute Manual 0.3 X10*3/uL (0.0-1.2); Myelocytes Absolute 0.9 X10*/uL; Neutrophils Absolute Manual 24.5 X10*3/uL (2.2-7.9); Promyelocytes Absolute 0.3 X10*3/uL; White Blood Count 29.9 X10*3/uL (4.8-10.8)
== END 2020-07-25 07:59 | disposition home or self-care (01) ==
LOC: HO.LHD 07:58
PROVIDERS: Visit Provider Internal Medicine
DX: D64.9 Anemia, unspecified (principal); I10 Essential (primary) hypertension
CPT/HCPCS: 36415; 80053; 85007; 85025; 85027

== ENCOUNTER 2020-08-01 07:15 | Outpatient (REF) | payer MEDICARE, SELFPAY ==
[2020-08-01 11:47] LABS: Hematocrit 34.3 % (37-47); Mean Corpuscular HGB Conc 29.2 g/dl (31.0-35.0); Mean Corpuscular Hemoglobin 27.2 pg (27.0-33.0); Mean Corpuscular Volume 93.5 fL (80-98); Platelet Count 138 X10*3/uL (160-400); Red Blood Count 3.67 X10*6/uL (4.20-5.50); Red Cell Distribution Width 20.1 % (11.0-16.0)
[2020-08-01 12:08] LABS: NRBC Pct Auto 2.5 /100WBC (0.0-0.2); WBC ABN SCTR FOR CBC 1
[2020-08-01 12:09] LABS: PLT ABN DIST 1
[2020-08-01 12:23] LABS: Band Neutrophils Percent 20 % (3-5); Basophils Abs Manual 0.3 X10*3/uL (0.0-0.3); Basophils Percent Manual 1 % (0-1); Blast Percent 2 %; Blastocytes Absolute 0.6 X10*3/uL; Lymphocytes Absolute Manual 1.2 X10*3/uL (0.6-4.8); Lymphocytes Percent Manual 4 % (20-40); Metamyelocytes Absolute 0.9 X10*3/uL; Metamyelocytes Percent 3 %; Monocytes Absolute Manual 0.9 X10*3/uL (0.0-1.2); Monocytes Percent Manual 3 % (2-11); Myelocytes Absolute 0.9 X10*/uL; Myelocytes Percent 3 %; Neutrophils Absolute Manual 25.4 X10*3/uL (2.2-7.9); Neutrophils Percent Manual 62 % (45-73); Nucleated Red Blood Cells 3 /100WBC (0-0); Promyelocytes Absolute 0.6 X10*3/uL; Promyelocytes Percent 2 %
[2020-08-01 12:24] LABS: Macrocytosis 1+ (5-14) /OIF; Microcytosis 1+ (5-14) /OIF; RBC Morphology NOTED; Stomatocytes 1+ (5-14) /OIF
[2020-08-01 12:25] LABS: Ovalocytes 1+ (5-14) /OIF; Platelet Estimate SLIGHTLY DECREASED (NORMAL); Spherocytes 1+ (0-2) /OIF; Tear Drop Cells 1+ (0-2) /OIF
[2020-08-01 12:26] LABS: Large Platelet PRESENT; Platelet Morphology Comment NOTED
== END 2020-08-01 07:16 | disposition home or self-care (01) ==
LOC: HO.LHD 07:15
PROVIDERS: Visit Provider Internal Medicine Medical Oncology
DX: D46.9 Myelodysplastic syndrome, unspecified (principal)
CPT/HCPCS: 36415; 85007; 85025; 85027

== ENCOUNTER 2020-08-08 01:02 | Outpatient (REF) | payer MEDICARE, SELFPAY ==
[2020-08-08 11:07] LABS: Hematocrit 33.4 % (37-47); Hemoglobin 9.6 g/dl (12.0-16.0); Mean Corpuscular HGB Conc 28.7 g/dl (31.0-35.0); Mean Corpuscular Volume 94.1 fL (80-98); Platelet Count 125 X10*3/uL (160-400); Red Blood Count 3.55 X10*6/uL (4.20-5.50); Red Cell Distribution Width 20.4 % (11.0-16.0)
[2020-08-08 11:08] LABS: NRBC Pct Auto 2.6 /100WBC (0.0-0.2); PLT ABN DIST 1; WBC ABN SCTR FOR CBC 1
[2020-08-08 11:50] LABS: Band Neutrophils Percent 18 % (3-5); Blast Percent 4 %; Lymphocytes Percent Manual 3 % (20-40); Metamyelocytes Percent 9 %; Monocytes Percent Manual 5 % (2-11); Myelocytes Percent 4 %; Neutrophils Percent Manual 56 % (45-73); Nucleated Red Blood Cells 2 /100WBC (0-0); Promyelocytes Percent 1 %
[2020-08-08 11:52] LABS: Macrocytosis 1+ (5-14) /OIF; RBC Morphology NOTED
[2020-08-08 11:53] LABS: Microcytosis 1+ (5-14) /OIF; Polychromasia 1+ (0-2) /OIF; Tear Drop Cells 1+ (0-2) /OIF
[2020-08-08 11:55] LABS: Ovalocytes 1+ (5-14) /OIF; Schistocytes 1+ (0-2) /OIF
[2020-08-08 11:56] LABS: Large Platelet PRESENT; Platelet Estimate NORMAL (NORMAL); Platelet Morphology Comment NOTED
[2020-08-08 11:58] LABS: Blastocytes Absolute 1.5 X10*3/uL; Lymphocytes Absolute Manual 1.1 X10*3/uL (0.6-4.8); Metamyelocytes Absolute 3.3 X10*3/uL; Monocytes Absolute Manual 1.8 X10*3/uL (0.0-1.2); Myelocytes Absolute 1.5 X10*/uL; Neutrophils Absolute Manual 27.2 X10*3/uL (2.2-7.9); Promyelocytes Absolute 0.4 X10*3/uL
[2020-08-08 12:05] LABS: White Blood Count 36.8 X10*3/uL (4.8-10.8)
== END 2020-08-08 01:03 | disposition home or self-care (01) ==
LOC: HO.LHD 01:02
PROVIDERS: Visit Provider Internal Medicine Medical Oncology
DX: D46.9 Myelodysplastic syndrome, unspecified (principal)
CPT/HCPCS: 36415; 85007; 85027

== ENCOUNTER 2020-08-13 06:25 | Outpatient (REF) | payer MEDICARE, SELFPAY ==
--- NOTE | ~2020-08-13 | FL_ITS ---
EXAMINATION: XR FLUOROSCOPY WITH IMAGES CLINICAL INFORMATION: Primary osteoarthritis right shoulder COMPARISON: Previous x-ray June 2020 TECHNIQUE: Fluoroscopy performed by Betsy Echeverria NP. Fluoroscopy time: 0.2 minutes DAP: 0.15 Gycm2 Images: 1 FINDINGS: Fluoroscopy guidance was provided for right shoulder arthrogram. FL/FL guidance in treatment room IMPRESSION: Fluoroscopy guidance for right shoulder arthrogram.
== END 2020-08-13 06:26 | disposition home or self-care (01) ==
LOC: HO.RADIR 06:25
PROVIDERS: Visit Provider Anesthesiology
DX: M19.011 Primary osteoarthritis, right shoulder (principal)
CPT/HCPCS: 20610; J3300; Q9967

== ENCOUNTER 2020-08-15 01:53 | Outpatient (REF) | payer MEDICARE, SELFPAY ==
[2020-08-15 13:08] LABS: Hemoglobin 9.4 g/dl (12.0-16.0)
[2020-08-15 13:10] LABS: Hematocrit 32.6 % (37-47); Mean Corpuscular HGB Conc 28.8 g/dl (31.0-35.0); Mean Corpuscular Hemoglobin 27.4 pg (27.0-33.0); Platelet Count 187 X10*3/uL (160-400); Red Blood Count 3.43 X10*6/uL (4.20-5.50); Red Cell Distribution Width 20.8 % (11.0-16.0)
[2020-08-15 13:28] LABS: PLT ABN DIST 1; WBC ABN SCTR FOR CBC 1
[2020-08-15 13:29] LABS: White Blood Count 86.4 X10*3/uL (4.8-10.8)
[2020-08-15 13:58] LABS: Band Neutrophils Percent 7 % (3-5); Basophils Abs Manual 0.9 X10*3/uL (0.0-0.3); Basophils Percent Manual 1 % (0-1); Blast Percent 1 %; Blastocytes Absolute 0.9 X10*3/uL; Lymphocytes Absolute Manual 1.7 X10*3/uL (0.6-4.8); Lymphocytes Percent Manual 2 % (20-40); Macrocytosis 1+ (5-14) /OIF; Metamyelocytes Absolute 2.6 X10*3/uL; Metamyelocytes Percent 3 %; Microcytosis 1+ (5-14) /OIF; Myelocytes Absolute 5.2 X10*/uL; Myelocytes Percent 6 %; Neutrophils Absolute Manual 75.2 X10*3/uL (2.2-7.9); Neutrophils Percent Manual 80 % (45-73); Polychromasia 1+ (0-2) /OIF; RBC Morphology NOTED; Tear Drop Cells 1+ (0-2) /OIF
[2020-08-15 13:59] LABS: Large Platelet PRESENT; Nucleated Red Blood Cells 1 /100WBC (0-0); Platelet Estimate NORMAL (NORMAL); Platelet Morphology Comment NORMAL
== END 2020-08-15 01:54 | disposition home or self-care (01) ==
LOC: HO.LHD 01:53
PROVIDERS: Visit Provider Internal Medicine Medical Oncology
DX: D46.9 Myelodysplastic syndrome, unspecified (principal)
CPT/HCPCS: 36415; 85007; 85025; 85027

== ENCOUNTER 2020-08-18 17:37 | Emergency (ER) | payer MEDICARE, SELFPAY ==
--- NOTE | ~2020-08-18 | US_ITS ---
EXAMINATION: US VENOUS ULTRASOUND WITH DOPPLER LOWER EXTREMITY, BILATERAL CLINICAL INFORMATION: Aches and pain COMPARISON: None TECHNIQUE: Ultrasound of the deep veins is performed from the hip to the calf with compression sonography and color and pulse Doppler assessment. Spectral analysis with color-flow imaging is performed. FINDINGS: RIGHT: There is normal venous compression and respiratory variation and augmented flow. The visualized common femoral vein, superficial femoral vein, profunda femoral vein, popliteal vein, and the trifurcation region shows no evidence of deep venous thrombosis. There is no significant popliteal fossa cyst. LEFT: There is normal venous compression and respiratory variation and augmented flow. The visualized common femoral vein, superficial femoral vein, profunda femoral vein, popliteal vein, and the trifurcation region shows no evidence of deep venous thrombosis. There is no significant popliteal fossa cyst. If the patient's symptoms persist, followup ultrasound in 5 days 7 days might be of value to exclude proximal propagation from a non-visualized calf vein. US/US venous duplex LE BI IMPRESSION: No DVT demonstrated in the both lower extremity.
--- NOTE | 2020-08-18 17:56 | ED.GENADULT ---
HPI - General Adult General Chief complaint: General Medical Stated complaint: bilateral leg pain Time Seen by Provider: 08/18/20 17:48 Source: patient and EMS Mode of arrival: EMS Limitations: no limitations History of Present Illness HPI narrative: 85 yo female from home with past medical history of Congestive heart failure, COPD (chronic obstructive pulmonary disease), CVA (cerebral vascular accident) w/ Left-sided weakness December 2008, Degenerative disc disease (Cervical and lumbar), left femoral neck fracture, Hypercholesterolemia, Hypertension, Hypothyroid, Lumbar stenosis March 2016/epidural injection, Myelodysplastic syndrome, Neurogenic bladder, Nonischemic cardiomyopathy, Osteoporosis, Peripheral neuropathy here with complaints of bilateral lower extremity muscle aches x 3 days. No calf pain, or swelling. No shortness of breath or chest pain. No fevers or chills. The patient is 2 weeks status post J and J vaccine. She tells me she is here to get checked out as she has a scheduled bone marrow biopsy on Wednesday with Dr. Lopez. 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 She is on Procrit. in the past not a candidate for chemotherapy. However increasing WBC counts with Concern for acute leukemia. Plan for repeat bone marrow biopsy on Wednesday Related Data Home Medications Medication Instructions Recorded Confirmed carvedilol 1 tab PO BID 03/15/20 08/14/20 fluticasone propion-salmeterol 1 puff PO BID 03/15/20 08/14/20 [Advair Diskus] hydrocortisone [Proctozone-HC] 1 applic NH BID 03/15/20 08/14/20 levothyroxine 1 tab PO QAM 03/15/20 08/14/20 naloxone [Narcan] 4 mg INTRANASAL DIRECTED 03/15/20 08/14/20 Previous Rx's Medication Instructions Recorded lisinopril 20 mg tablet 20 mg PO DAILY #90 cap 04/04/20 pregabalin 25 mg capsule 25 mg PO Q8H 30 Days #90 cap 07/19/20 oxycodone 5 mg tablet 5 mg PO Q4-6H 28 Days #168 tab 07/30/20 Allergies Allergy/AdvReac Type Severity Reaction Status Date / Time mercury (elemental) Allergy Severe SWELLING, Verified 08/13/20 08:43 [Mercury (Elemental)] GENERALIZED WELTS amoxicillin Allergy Unknown Diarrhea Verified 08/13/20 08:43 antibiotic ointment Allergy Unknown Swelling Verified 08/13/20 08:43 aspirin [Aggrenox] Allergy Unknown Gastrointestinal Verified 08/13/20 08:43 Upset atorvastatin [ATORVASTATIN] Allergy Unknown UNKNOWN Verified 08/13/20 08:43 clavulanic acid [Augmentin] Allergy Unknown Diarrhea Verified 08/13/20 08:43 clindamycin [CLINDAMYCIN] Allergy Unknown UNKNOWN Verified 08/13/20 08:43 dipyridamole [From AGGRENOX] Allergy Unknown HEADACHE Verified 08/13/20 08:43 duloxetine [Cymbalta] Allergy Unknown Unknown Verified 08/13/20 08:43 ezetimibe [From ZETIA] Allergy Unknown UNKNOWN Verified 08/13/20 08:43 nabumetone Allergy Unknown Unknown Verified 08/13/20 08:43 pravastatin [PRAVASTATIN] Allergy Unknown UNKNOWN Verified 08/13/20 08:43 silver sulfadiazine Allergy Unknown rash Verified 08/13/20 08:43 simvastatin [SIMVASTATIN] Allergy Unknown UNKNOWN Verified 08/13/20 08:43 zinc [ZINC] Allergy Unknown BURN, Verified 08/13/20 08:43 itching Review of Systems Review of Systems: Yes all other systems are reviewed and are negative Constitutional: Constitutional: Reports no additional constitutional complaints, Denies body ache(s), Denies chills, Denies fever(s), Denies headache(s) and Denies weakness Eyes: Eyes: Reports no additional eye complaints and Denies change in vision ENT: Reports system reviewed and no additional complaints, except as documented, Denies dizziness, Denies headache(s), Denies nasal congestion, Denies nasal discharge and Denies neck pain Cardiovascular: Cardiovascular: Reports no additional cardiovascular complaints, Denies chest pain, Denies leg edema and Denies dyspnea Respiratory: Respiratory: Reports no additional respiratory complaints, Denies cough and Denies dyspnea Gastrointestinal: Gastrointestinal: Reports no additional gastrointestinal complaints, Denies abdominal pain, Denies diarrhea, Denies nausea and Denies vomiting Genitourinary: Genitourinary: Reports no additional female genitourinary complaints and Denies urinary incontinence Musculoskeletal: Musculoskeletal: Reports no additional musculoskeletal complaints, Denies back pain, Denies arthralgias, Denies joint swelling, Denies neck pain, Denies numbness and Denies tingling Comments: +muscle aches Integumentary/Breasts: Skin/Breast: Reports system reviewed and no additional complaints, except as docu and Denies rash Neurologic: Reports system reviewed and no additional complaints, except as documented, Denies Abnormal speech present, Denies dizziness, Denies headache(s), Denies numbness, Denies tingling and Denies weakness [facility] Past Medical History Attestation statement: The following information was validated with the patient. Source: old records reviewed and nursing notes reviewed Medical History Congestive heart failure COPD (chronic obstructive pulmonary disease) CVA (cerebral vascular accident) Degenerative disc disease Femoral neck fracture Hypercholesterolemia Hypertension Hypothyroid Lumbar stenosis Myelodysplastic syndrome Neurogenic bladder Nonischemic cardiomyopathy Osteoporosis Peripheral neuropathy Right lower lobe pulmonary nodule Surgical History History of back surgery History of hip surgery Social History Social History Alcohol intake: former Smoking Status: Former smoker Advance Directives: No Advance Directives Information Provided: No Advance Directives Date on File: 02/01/20 Physical Exam Vital Signs: Vital Signs: Last Vital Signs Temp 97.9 F 08/18/20 18:35 Pulse 62 08/18/20 20:01 Resp 16 08/18/20 20:01 BP 184/73 H 08/18/20 20:01 Pulse Ox 95 08/18/20 20:01 Body Mass Index 17.2 Const: Other: Thin-appearing General: cooperative Orientation/consciousness: patient oriented x3 Limitations: no limitations HENMT: Head: Yes normal to inspection Ears: hearing grossly normal bilaterally General nose exam: Normal external nose present Face and sinus: Yes normal facial exam Mouth: Normal oral and palatal mucosa present Throat: Yes posterior oropharynx normal Eyes: General: appearance normal, both eyes and all related structures Pupils: Equal, round and reactive pupils present Neck: Neck: Yes normal visual inspection Chest: Chest palpation & inspection: normal inspection of the chest Resp: Effort & Inspection: normal respiratory effort Auscultation: clear to auscultation bilaterally Cardio: Rate: regular rate Rhythm: regular rhythm Peripheral pulses: Peripheral pulses 2+ throughout GI: Inspection: Yes normal to inspection Palpation (GI): Soft to palpation and nontender Auscultation: normal bowel sounds Back/Spine/Pelvis: Thoracic/Lumbar Spine: thoracic and lumbar spine normal to inspection Skin: General skin exam: no rashes or lesions noted Neuro: General: patient oriented x3, no focal motor deficits and normal sensation to monofilament Cranial nerves: Yes Equal, round and reactive pupils present Cognition (Neuro): normal cognition Speech: No Abnormal speech present Gait exam (Neuro): Normal gait present Motor exam (neuro): 5/5 motor strength present throughout Extrem: Other: Unable to elicit pain on exam General: Yes normal to inspection, Yes no pedal edema and Yes no calf tenderness Course Course Course Narrative: 85-year-old female here with the muscle aches the lower extremities x3 days with no injury or trauma. No leg swelling or calf pain on exam. Patient is 14 days status post J&J vaccine. Tells me she is here for an evaluation as she has an upcoming bone marrow biopsy and she wants to make sure that nothing is going to cause her to cancel this. Will check labs, ultrasound. 1944-ultrasound negative for DVT. Leukocytosis which is actually improved from previous and is likely secondary to underlying MDS versus leukemia which is being worked up outpatient. Platelets at baseline for patient. All other labs unremarkable. Reviewed findings with the patient. Reviewed worrisome signs and symptoms and when to return to the emergency department. Comfortable discharge home. Medical Decision Making Medical Records Medical records reviewed: Yes I reviewed the patient's medical records. Lab Data Lab results reviewed: Yes I reviewed the patient's lab results. Result diagrams: 08/18/20 18:56 08/18/20 18:56 Labs: Lab Results 08/18/20 08/18/20 08/18/20 Range/Units 18:56 18:56 18:56 WBC 54.6 H* (4.8-10.8) X10*3/uL RBC 3.85 L (4.20-5.50) X10*6/uL Hgb 10.4 L (12.0-16.0) g/dl Hct 36.3 L (37-47) % MCV 94.3 (80-98) fL MCH 27.0 (27.0-33.0) pg MCHC 28.7 L (31.0-35.0) g/dl RDW 21.1 H (11.0-16.0) % Plt Count 147 L (160-400) X10*3/uL MPV 13.5 H (9.4-12.3) fL Immature Gran % (Auto) Cancelled Neut % (Auto) Cancelled Lymph % (Auto) Cancelled [place] % (Auto) Cancelled Eos % (Auto) Cancelled Baso % (Auto) Cancelled Lymph # (Auto) Cancelled [place] # (Auto) Cancelled Eos # (Auto) Cancelled Baso # (Auto) Cancelled Abs Immat Gran (auto) Cancelled Absolute Neuts (auto) Cancelled Absolute Nucleated RBC 3.680 H (0.0-0.012) X10*3/uL Nucleated RBC % (auto) 6.7 H (0.0-0.2) /100WBC Neutrophils % (Manual) 77 H (45-73) % Band Neutrophils % 5 (3-5) % Lymphocytes % (Manual) 2 L (20-40) % Monocytes % (Manual) 3 (2-11) % Metamyelocytes % 7 % Myelocytes % 5 % Promyelocytes % 1 % Abs Neuts (Manual) 44.8 H (2.2-7.9) X10*3/uL Lymphocytes # (Manual) 1.1 (0.6-4.8) X10*3/uL Monocytes # (Manual) 1.6 H (0.0-1.2) X10*3/uL Metamyelocytes # 3.8 X10*3/uL Myelocytes # 2.7 X10*/uL Promyelocytes # 0.5 X10*3/uL Nucleated RBCs 6 H (0-0) /100WBC Platelet Estimate SLIGHTLY DECREASED (NORMAL) Plt Morphology Comment NORMAL RBC Morphology NOTED Polychromasia 2+ (3-5) /OIF Microcytosis 1+ (5-14) /OIF Macrocytosis 1+ (5-14) /OIF Tear Drop Cells 2+ (3-5) /OIF [place] Cells 2+ ( /OIF Hold Blue Top SEE NOTE Sodium 142 (135-145) mmol/L Potassium 3.4 (3.3-5.1) mmol/L Chloride 105 (96-108) mmol/L Carbon Dioxide 25 (22-29) mmol/L Anion Gap 15 (12-20) BUN 20 H (9-16) mg/dL Creatinine 0.95 (0.5-1.4) mg/dL Estim Creat Clear Calc 26.4 Estimated GFR 56 Random Glucose 82 (60-115) mg/dL Calcium 8.8 (8.4-10.2) mg/dL Magnesium 1.9 (1.6-2.6) mg/dL Total Bilirubin 0.8 (0.0-1.0) mg/dL Direct Bilirubin 0.3 (0.0-0.5) mg/dL AST 26 (5-31) U/L ALT 14 (0-31) U/L Alkaline Phosphatase 62 (39-117) U/L Total Creatine Kinase 13 L (26-140) U/L Total Protein 6.4 L (6.5-8.0) g/dL Albumin 3.7 (3.5-5.0) g/dL Imaging Data Venous US: Attestation: I personally reviewed and interpreted this imaging study as follows: Radiologist's impression: TECHNIQUE: Ultrasound of the deep veins is performed from the hip to the calf with compression sonography and color and pulse Doppler assessment. Spectral analysis with color-flow imaging is performed. FINDINGS: RIGHT: There is normal venous compression and respiratory variation and augmented flow. The visualized common femoral vein, superficial femoral vein, profunda femoral vein, popliteal vein, and the trifurcation region shows no evidence of deep venous thrombosis. There is no significant popliteal fossa cyst. LEFT: There is normal venous compression and respiratory variation and augmented flow. The visualized common femoral vein, superficial femoral vein, profunda femoral vein, popliteal vein, and the trifurcation region shows no evidence of deep venous thrombosis. There is no significant popliteal fossa cyst. If the patient's symptoms persist, followup ultrasound in 5 days 7 days might be of value to exclude proximal propagation from a non-visualized calf vein. US/US venous duplex LE BI IMPRESSION: No DVT demonstrated in the both lower extremity. Discharge Plan Discharge Clinical Impression: Muscle ache of extremity Patient Disposition: Home, Self-Care Instructions: Musculoskeletal Pain (ED) Additional Instructions: Your ultrasound was negative for a blood clot. Your blood work is at baseline for you. Prescriptions: No Action lisinopril 20 mg tablet 20 mg PO DAILY Qty: 90 RF: 3 pregabalin 25 mg capsule 25 mg PO Q8H 30 Days Qty: 90 RF: 1 oxycodone 5 mg tablet 5 mg PO Q4-6H 28 Days Qty: 168 RF: 0 carvedilol 25 mg tablet 1 tab PO BID RF: 0 hydrocortisone [Proctozone-HC] 2.5 % cream with perineal applicator 1 applic NH BID RF: 0 levothyroxine 50 mcg tablet 1 tab PO QAM RF: 0 fluticasone propion-salmeterol [Advair Diskus] 100-50 mcg/dose blister with device 1 puff PO BID RF: 0 Narcan 4 mg/actuation spray,non-aerosol 4 mg intranasal DIRECTED RF: 0 Referrals: Physician,Unknown [Primary Care Provider] - 2 days
[2020-08-18 17:57] VITALS: BP 175/86; PULSE 80; O2SAT 96
[2020-08-18 18:35] VITALS: BP 167/88; PULSE 90; RESP 18; TEMP 36.6; O2SAT 97; BMI 17.2
--- NOTE | 2020-08-18 18:50 | PC.NURSE ---
identification technician at bedside to obtain labs.
[2020-08-18 19:25] LABS: PLT CLUMP 1
[2020-08-18 19:27] LABS: Hematocrit 36.3 % (37-47); Hemoglobin 10.4 g/dl (12.0-16.0); Mean Corpuscular HGB Conc 28.7 g/dl (31.0-35.0); Mean Corpuscular Volume 94.3 fL (80-98); Mean Platelet Volume 13.5 fL (9.4-12.3); Platelet Count 147 X10*3/uL (160-400); Red Blood Count 3.85 X10*6/uL (4.20-5.50); Red Cell Distribution Width 21.1 % (11.0-16.0)
[2020-08-18 19:29] LABS: NRBC Pct Auto 6.7 /100WBC (0.0-0.2); PLT ABN DIST 1; WBC ABN SCTR FOR CBC 1
[2020-08-18 19:31] LABS: White Blood Count 54.6 X10*3/uL (4.8-10.8)
[2020-08-18 19:50] LABS: Alanine Aminotransferase 14 U/L (0-31); Albumin Level 3.7 g/dL (3.5-5.0); Alkaline Phosphatase 62 U/L (39-117); Anion Gap 15 (12-20); Aspartate Amino Transferase 26 U/L (5-31); Bilirubin Direct 0.3 mg/dL (0.0-0.5); Bilirubin Total 0.8 mg/dL (0.0-1.0); Blood Urea Nitrogen 20 mg/dL (9-16); Calcium 8.8 mg/dL (8.4-10.2); Carbon Dioxide 25 mmol/L (22-29); Chloride 105 mmol/L (96-108); Creatinine Clr Calc Pharmacy 26.4; Estimated Glomerular Filt Rate 56; Glucose Random 82 mg/dL (60-115); Magnesium 1.9 mg/dL (1.6-2.6); Potassium 3.4 mmol/L (3.3-5.1); Sodium 142 mmol/L (135-145); Total Protein 6.4 g/dL (6.5-8.0)
[2020-08-18 20:01] VITALS: BP 184/73; PULSE 62; RESP 16; O2SAT 95
[2020-08-18 20:21] LABS: Band Neutrophils Percent 5 % (3-5); Lymphocytes Absolute Manual 1.1 X10*3/uL (0.6-4.8); Lymphocytes Percent Manual 2 % (20-40); Macrocytosis 1+ (5-14) /OIF; Metamyelocytes Absolute 3.8 X10*3/uL; Metamyelocytes Percent 7 %; Microcytosis 1+ (5-14) /OIF; Monocytes Absolute Manual 1.6 X10*3/uL (0.0-1.2); Monocytes Percent Manual 3 % (2-11); Myelocytes Absolute 2.7 X10*/uL; Myelocytes Percent 5 %; Neutrophils Absolute Manual 44.8 X10*3/uL (2.2-7.9); Neutrophils Percent Manual 77 % (45-73); Nucleated Red Blood Cells 6 /100WBC (0-0); Polychromasia 2+ (3-5) /OIF; Promyelocytes Absolute 0.5 X10*3/uL; Promyelocytes Percent 1 %; RBC Morphology NOTED; Tear Drop Cells 2+ (3-5) /OIF
[2020-08-18 20:22] LABS: Platelet Estimate SLIGHTLY DECREASED (NORMAL); Platelet Morphology Comment NORMAL
== END 2020-08-18 20:45 | disposition home or self-care (01) ==
PROVIDERS: Nurse Practitioner Family; Emergency Provider Internal Medicine
DX: M79.605 Pain in left leg (principal); M79.604 Pain in right leg; R60.0 Localized edema; M79.10 Myalgia, unspecified site; I10 Essential (primary) hypertension; Z87.891 Personal history of nicotine dependence; Z79.899 Other long term (current) drug therapy
CPT/HCPCS: 36415; 80048; 80076; 82550; 83735; 85007; 85027; 93970; 99283

== ENCOUNTER 2020-08-20 12:58 | Day surgery (SDC) | payer MEDICARE, SELFPAY ==
[2020-08-20 13:44] VITALS: BMI 16.0
[2020-08-20 13:46] VITALS: BP 169/63; PULSE 66; RESP 20; TEMP 37.1; O2SAT 98
[2020-08-20 13:56] VITALS: BP 169/63; PULSE 66; RESP 20; TEMP 37.1; O2SAT 98
--- NOTE | 2020-08-20 14:01 | P.CONAN_ITS ---
[facility] Active Problems Active Problems: All Active Problems (Updated 08/19/20 @ 00:01 by Elías Abdi) Osteoarthritis of right shoulder (Acute) Chronic low back pain (Acute) RAEB (refractory anemia with excess blasts) (Acute) RAEB (refractory anemia with excess blasts) (Acute) Myelodysplastic syndrome (Acute) Hypothyroid (Acute) Degenerative disc disease (Acute) Hypertension (Acute) Congestive heart failure (Acute) Nonischemic cardiomyopathy (Acute) Hypercholesterolemia (Acute) COPD (chronic obstructive pulmonary disease) (Acute) Past Medical History Medical History Congestive heart failure COPD (chronic obstructive pulmonary disease) CVA (cerebral vascular accident) Degenerative disc disease Femoral neck fracture Hypercholesterolemia Hypertension Hypothyroid Lumbar stenosis Myelodysplastic syndrome Neurogenic bladder Nonischemic cardiomyopathy Osteoporosis Peripheral neuropathy Right lower lobe pulmonary nodule Surgical History Surgical History History of back surgery History of hip surgery Social History Social History Alcohol intake: former Smoking Status: Former smoker Smoking Quit Date: quit 45 years ago Use of substances other than those prescribed or required for medical reasons: No Advance Directives: Yes Advance Directives on File: Yes Advance Directives Date on File: 02/01/20 Meds Allergies Allergy/AdvReac Type Severity Reaction Status Date / Time mercury (elemental) Allergy Severe SWELLING, Verified 08/13/20 08:43 [Mercury (Elemental)] GENERALIZED WELTS amoxicillin Allergy Unknown Diarrhea Verified 08/13/20 08:43 antibiotic ointment Allergy Unknown Swelling Verified 08/13/20 08:43 aspirin [Aggrenox] Allergy Unknown Gastrointestinal Verified 08/13/20 08:43 Upset atorvastatin [ATORVASTATIN] Allergy Unknown UNKNOWN Verified 08/13/20 08:43 clavulanic acid [Augmentin] Allergy Unknown Diarrhea Verified 08/13/20 08:43 clindamycin [CLINDAMYCIN] Allergy Unknown UNKNOWN Verified 08/13/20 08:43 dipyridamole [From AGGRENOX] Allergy Unknown HEADACHE Verified 08/13/20 08:43 duloxetine [Cymbalta] Allergy Unknown Unknown Verified 08/13/20 08:43 ezetimibe [From ZETIA] Allergy Unknown UNKNOWN Verified 08/13/20 08:43 nabumetone Allergy Unknown Unknown Verified 08/13/20 08:43 pravastatin [PRAVASTATIN] Allergy Unknown UNKNOWN Verified 08/13/20 08:43 silver sulfadiazine Allergy Unknown rash Verified 08/13/20 08:43 simvastatin [SIMVASTATIN] Allergy Unknown UNKNOWN Verified 08/13/20 08:43 zinc [ZINC] Allergy Unknown BURN, Verified 08/13/20 08:43 itching Home Medications Medication Instructions Recorded Confirmed Last Taken Type carvedilol 1 tab PO BID 03/15/20 08/14/20 Unknown History fluticasone propion-salmeterol 1 puff PO BID 03/15/20 08/14/20 08/20/20 07:00 History [Advair Diskus] hydrocortisone [Proctozone-HC] 1 applic HI BID 03/15/20 08/14/20 Unknown History levothyroxine 1 tab PO QAM 03/15/20 08/14/20 Unknown History naloxone [Narcan] 4 mg INTRANASAL DIRECTED 03/15/20 08/14/20 Unknown History Exam Exam Date and Time: August 20, 2020 1401 Height,Weight and Vital Signs: Height 5 ft 2 in Weight 39.916 kg Last Vital Signs Temp 98.7 F 08/20/20 13:46 Pulse 66 08/20/20 13:46 Resp 20 08/20/20 13:46 BP 169/63 H 08/20/20 13:46 Pulse Ox 98 08/20/20 13:46 Airway Mallampati Class: II Partial: Upper Loose/Missing/Broken Teeth: Yes Heart: RRR Lungs: CTA Assessment and Plan Assessment Anesthesia Assessment: Anesthesia Plan Discussed and Chart Reviewed Final Anesthetic Review NPO: Yes ASA Class: III Final Preanesthetic Review: Meds/Allgs Chart Reviewed, Consent Obtained/Reviewed and Anes Risks/Benef Reviewed Patient Risk: Intermediate Procedure Risk: Low Anesthetic Plan Anesthetic Plan: MAC: Disposition: Standard PACU
[2020-08-20] MEDS: Lactated Ringers 1,000 ML 20 ML IVCONT (14:15)
[2020-08-20 14:58] VITALS: BP 163/73; PULSE 70; RESP 18; TEMP 37; O2SAT 98
[2020-08-20 15:03] VITALS: BP 154/62; PULSE 71; RESP 16; O2SAT 96
--- NOTE | 2020-08-20 15:09 | PM.HEMONCBM ---
Bone Marrow Aspiration - Bone Marrow Aspiration Procedure:: *Service Date: [08/20/20] Pre Op Diagnosis:: RAEB. Post Op Diagnosis:: RAEB. Surgeon:: Valerie Lopez Anesthesia:: MAC. Consent:: Informed consent obtained from the patient for the procedure. Pros and cons of biopsy explained. The patient was willing to proceed with the procedure under local anesthesia and MAC. Procedure in Detail:: *Service Date: 08/20/20. *Procedure: Bone marrow aspirate and a biopsy *Pre Op Dx: RAEB. *Post Op Dx: RAEB *Surgeon: Dr. Valerie Lopez. CBC today: WBC 39, HGB 9.3, HCT 32.6, PLT 119. The patient was positioned prone and the left posterior superior iliac spine prepped and draped. Under aseptic precautions, 5 ml of 1% lidocaine used for local anesthesia. Bone marrow aspirate was performed. It appeared diluted more like a dry tap. With the Jamshidi needle, a core biopsy obtained without any complications. Specimens were sent for [place] stain, flow cytometry and cytogenetics. Biopsy was sent for histology. The patient tolerated the procedure well. Bandage was applied and patient was positioned on her back for 10 to 15 minutes after the procedure. Will send peripheral blood for flow cytometry and cytogenetics as well. The patient was advised to call us if she develops any pain or swelling at the surgical site. Follow up in 1 week. Thanks, CC: Dr. Bangura
[2020-08-20 15:13] VITALS: BP 154/62; PULSE 71; RESP 17; O2SAT 97
[2020-08-20 15:16] LABS: Bone Marrow SEE SEPARATE REPORT
[2020-08-20 15:28] VITALS: BP 147/62; PULSE 63; RESP 17; TEMP 37; O2SAT 98
[2020-08-20 15:44] LABS: Hemoglobin 9.3 g/dl (12.0-16.0); PLT CLUMP 1
[2020-08-20 15:46] LABS: Hematocrit 32.6 % (37-47); Mean Corpuscular HGB Conc 28.5 g/dl (31.0-35.0); Mean Corpuscular Hemoglobin 27.1 pg (27.0-33.0); Platelet Count 119 X10*3/uL (160-400); Red Blood Count 3.43 X10*6/uL (4.20-5.50); Red Cell Distribution Width 21.6 % (11.0-16.0)
[2020-08-20 15:47] LABS: NRBC Pct Auto 4.7 /100WBC (0.0-0.2); PLT ABN DIST 1; WBC ABN SCTR FOR CBC 1
[2020-08-20 15:49] LABS: White Blood Count 39.1 X10*3/uL (4.8-10.8)
[2020-08-20 16:11] LABS: Alanine Aminotransferase 10 U/L (0-31); Albumin Level 3.6 g/dL (3.5-5.0); Alkaline Phosphatase 54 U/L (39-117); Anion Gap 12 (12-20); Aspartate Amino Transferase 23 U/L (5-31); Bilirubin Total 0.8 mg/dL (0.0-1.0); Blood Urea Nitrogen 18 mg/dL (9-16); Calcium 9.5 mg/dL (8.4-10.2); Carbon Dioxide 27 mmol/L (22-29); Chloride 105 mmol/L (96-108); Creatinine Clr Calc Pharmacy 31.2; Estimated Glomerular Filt Rate > 60; Glucose Random 81 mg/dL (60-115); Potassium 4.3 mmol/L (3.3-5.1); Sodium 140 mmol/L (135-145); Total Protein 6.1 g/dL (6.5-8.0)
[2020-08-20 16:12] LABS: Band Neutrophils Percent 10 % (3-5); Large Platelet PRESENT; Lymphocytes Absolute Manual 1.6 X10*3/uL (0.6-4.8); Lymphocytes Percent Manual 4 % (20-40); Metamyelocytes Absolute 2.7 X10*3/uL; Metamyelocytes Percent 7 %; Monocytes Absolute Manual 1.2 X10*3/uL (0.0-1.2); Monocytes Percent Manual 3 % (2-11); Myelocytes Absolute 1.6 X10*/uL; Myelocytes Percent 4 %; Neutrophils Absolute Manual 32.1 X10*3/uL (2.2-7.9); Neutrophils Percent Manual 72 % (45-73); Nucleated Red Blood Cells 4 /100WBC (0-0); Platelet Estimate NORMAL (NORMAL); Platelet Morphology Comment NORMAL; RBC Morphology NOTED; Tear Drop Cells 1+ (0-2) /OIF
== END 2020-08-20 16:30 | disposition home or self-care (01) ==
PROVIDERS: PCP Internal Medicine; Visit Provider Internal Medicine Medical Oncology
PROC: (CPT 38221; principal; 2020-08-20 14:00)
DX: D46.20 Refractory anemia with excess of blasts, unspecified (principal); J44.9 Chronic obstructive pulmonary disease, unspecified; I11.0 Hypertensive heart disease with heart failure; I50.9 Heart failure, unspecified; Z79.51 Long term (current) use of inhaled steroids; Z79.899 Other long term (current) drug therapy; Z87.891 Personal history of nicotine dependence; Z88.0 Allergy status to penicillin; Z88.8 Allergy status to other drugs, medicaments and biological substances
CPT/HCPCS: 38222; 36415; 80053; 81219; 81270; 81279; 81314; 81339; 85007; 85027; 85097; 88184; 88185; 88230; 88237; 88262; 88264; 88280; 88305; 88311; 88313; 88342; J1642; J3010

== ENCOUNTER 2020-08-22 06:46 | Outpatient (REF) | payer MEDICARE, SELFPAY ==
[2020-08-22 12:06] LABS: Hemoglobin 8.1 g/dl (12.0-16.0); Red Cell Distribution Width 21.3 % (11.0-16.0)
[2020-08-22 12:08] LABS: Hematocrit 27.7 % (37-47); Mean Corpuscular HGB Conc 29.2 g/dl (31.0-35.0); Mean Corpuscular Hemoglobin 27.8 pg (27.0-33.0); Mean Corpuscular Volume 95.2 fL (80-98); PLT CLUMP 1; Red Blood Count 2.91 X10*6/uL (4.20-5.50)
[2020-08-22 12:22] LABS: NRBC Pct Auto 4.1 /100WBC (0.0-0.2); PLT ABN DIST 1; Platelet Count 139 X10*3/uL (160-400)
[2020-08-22 12:24] LABS: White Blood Count 41.2 X10*3/uL (4.8-10.8)
[2020-08-22 12:57] LABS: Band Neutrophils Percent 13 % (3-5); Lymphocytes Absolute Manual 2.1 X10*3/uL (0.6-4.8); Lymphocytes Percent Manual 5 % (20-40); Macrocytosis 1+ (5-14) /OIF; Metamyelocytes Absolute 2.5 X10*3/uL; Metamyelocytes Percent 6 %; Microcytosis 2+ (15-30) /OIF; Myelocytes Absolute 1.6 X10*/uL; Myelocytes Percent 4 %; Neutrophils Absolute Manual 34.2 X10*3/uL (2.2-7.9); Neutrophils Percent Manual 70 % (45-73); Nucleated Red Blood Cells 6 /100WBC (0-0); Platelet Estimate NORMAL (NORMAL); Platelet Morphology Comment NORMAL; Polychromasia 1+ (0-2) /OIF; Promyelocytes Absolute 0.8 X10*3/uL; Promyelocytes Percent 2 %; RBC Morphology NOTED
[2020-08-22 12:58] LABS: Tear Drop Cells 2+ (3-5) /OIF
== END 2020-08-22 06:47 | disposition home or self-care (01) ==
LOC: HO.LHD 06:46
PROVIDERS: Visit Provider Internal Medicine Medical Oncology
DX: D64.9 Anemia, unspecified (principal)
CPT/HCPCS: 36415; 85007; 85025; 85027

== ENCOUNTER 2020-08-29 00:44 | Outpatient (REF) | payer MEDICARE, SELFPAY ==
[2020-08-29 11:40] LABS: Hematocrit 27.8 % (37-47); Hemoglobin 7.9 g/dl (12.0-16.0); Mean Corpuscular HGB Conc 28.4 g/dl (31.0-35.0); Mean Corpuscular Hemoglobin 27.8 pg (27.0-33.0); Mean Corpuscular Volume 97.9 fL (80-98); Mean Platelet Volume 12.8 fL (9.4-12.3); Platelet Count 133 X10*3/uL (160-400); Red Blood Count 2.84 X10*6/uL (4.20-5.50); Red Cell Distribution Width 22.7 % (11.0-16.0)
[2020-08-29 11:48] LABS: NRBC Pct Auto 2.2 /100WBC (0.0-0.2)
[2020-08-29 11:59] LABS: White Blood Count 33.2 X10*3/uL (4.8-10.8)
[2020-08-29 12:12] LABS: Band Neutrophils Percent 16 % (3-5); Basophils Abs Manual 0.7 X10*3/uL (0.0-0.3); Basophils Percent Manual 2 % (0-1); Lymphocytes Absolute Manual 1.3 X10*3/uL (0.6-4.8); Lymphocytes Percent Manual 4 % (20-40); Metamyelocytes Absolute 2.3 X10*3/uL; Metamyelocytes Percent 7 %; Monocytes Absolute Manual 0.7 X10*3/uL (0.0-1.2); Monocytes Percent Manual 2 % (2-11); Myelocytes Absolute 2.3 X10*/uL; Myelocytes Percent 7 %; Neutrophils Absolute Manual 25.6 X10*3/uL (2.2-7.9); Neutrophils Percent Manual 61 % (45-73); Nucleated Red Blood Cells 1 /100WBC (0-0); Promyelocytes Absolute 0.3 X10*3/uL; Promyelocytes Percent 1 %
[2020-08-29 12:14] LABS: Hypochromasia 1+ (5-14) /OIF; Large Platelet PRESENT; Macrocytosis 1+ (5-14) /OIF; Microcytosis 1+ (5-14) /OIF; Ovalocytes 1+ (5-14) /OIF; Platelet Estimate DECREASED (NORMAL); Platelet Morphology Comment NOTED; Polychromasia 1+ (0-2) /OIF; RBC Morphology NOTED; Tear Drop Cells 1+ (0-2) /OIF
== END 2020-08-29 00:45 | disposition home or self-care (01) ==
LOC: HO.LHD 00:44
PROVIDERS: Visit Provider Internal Medicine Medical Oncology
DX: D46.9 Myelodysplastic syndrome, unspecified (principal)
CPT/HCPCS: 36415; 85007; 85027

== ENCOUNTER 2020-09-05 00:53 | Outpatient (REF) | payer MEDICARE, SELFPAY ==
[2020-09-05 11:15] LABS: Mean Corpuscular HGB Conc 30.6 g/dl (31.0-35.0)
[2020-09-05 11:17] LABS: Hematocrit 39.6 % (37-47); Hemoglobin 12.1 g/dl (12.0-16.0); Mean Corpuscular Hemoglobin 29.1 pg (27.0-33.0); Mean Corpuscular Volume 95.2 fL (80-98); Mean Platelet Volume 13.9 fL (9.4-12.3); NRBC Pct Auto 0.3 /100WBC (0.0-0.2); PLT CLUMP 1; Red Blood Count 4.16 X10*6/uL (4.20-5.50)
[2020-09-05 11:34] LABS: PLT ABN DIST 1; WBC ABN SCTR FOR CBC 1
[2020-09-05 13:36] LABS: Band Neutrophils Percent 19 % (3-5); Blast Percent 2 %; Lymphocytes Percent Manual 3 % (20-40); Metamyelocytes Percent 8 %; Monocytes Percent Manual 2 % (2-11); Myelocytes Percent 2 %; Neutrophils Percent Manual 63 % (45-73); Promyelocytes Percent 1 %
[2020-09-05 13:39] LABS: Macrocytosis 1+ (5-14) /OIF; Microcytosis 1+ (5-14) /OIF; Platelet Estimate DECREASED (NORMAL); RBC Morphology NOTED
[2020-09-05 13:40] LABS: Acanthocytes 1+ (0-2) /OIF; Hypochromasia 1+ (5-14) /OIF; Ovalocytes 1+ (5-14) /OIF; Platelet Morphology Comment NORMAL; Tear Drop Cells 1+ (0-2) /OIF
[2020-09-05 13:41] LABS: Polychromasia 1+ (0-2) /OIF
[2020-09-05 13:43] LABS: Platelet Count 145 X10*3/uL (160-400)
[2020-09-05 13:45] LABS: Blastocytes Absolute 0.8 X10*3/uL; Lymphocytes Absolute Manual 1.2 X10*3/uL (0.6-4.8); Metamyelocytes Absolute 3.3 X10*3/uL; Monocytes Absolute Manual 0.8 X10*3/uL (0.0-1.2); Myelocytes Absolute 0.8 X10*/uL; Neutrophils Absolute Manual 33.5 X10*3/uL (2.2-7.9); Promyelocytes Absolute 0.4 X10*3/uL; White Blood Count 40.8 X10*3/uL (4.8-10.8)
== END 2020-09-05 00:54 | disposition home or self-care (01) ==
LOC: HO.LHD 00:53
PROVIDERS: Visit Provider Internal Medicine Medical Oncology
DX: D46.9 Myelodysplastic syndrome, unspecified (principal)
CPT/HCPCS: 36415; 85007; 85027

== ENCOUNTER 2020-09-12 00:51 | Outpatient (REF) | payer MEDICARE, SELFPAY ==
[2020-09-12 11:35] LABS: Hematocrit 36.6 % (37-47); Hemoglobin 11.1 g/dl (12.0-16.0); Mean Corpuscular HGB Conc 30.3 g/dl (31.0-35.0); Mean Corpuscular Hemoglobin 29.1 pg (27.0-33.0); Mean Corpuscular Volume 96.1 fL (80-98); Mean Platelet Volume 13.7 fL (9.4-12.3); NRBC Pct Auto 0.3 /100WBC (0.0-0.2); PLT CLUMP 1; Red Blood Count 3.81 X10*6/uL (4.20-5.50); Red Cell Distribution Width 18.4 % (11.0-16.0)
[2020-09-12 11:36] LABS: WBC ABN SCTR FOR CBC 1
[2020-09-12 12:05] LABS: Band Neutrophils Percent 24 % (3-5); Blast Percent 3 %; Lymphocytes Percent Manual 8 % (20-40); Metamyelocytes Percent 1 %; Monocytes Percent Manual 2 % (2-11); Myelocytes Percent 4 %; Neutrophils Percent Manual 57 % (45-73); Promyelocytes Percent 1 %
[2020-09-12 12:07] LABS: Giant Platelet PRESENT; Large Platelet PRESENT; Macrocytosis 1+ (5-14) /OIF; Microcytosis 1+ (5-14) /OIF; Platelet Estimate NORMAL (NORMAL); Platelet Morphology Comment NOTED; RBC Morphology NOTED
[2020-09-12 12:08] LABS: Acanthocytes 1+ (0-2) /OIF; Ovalocytes 1+ (5-14) /OIF; Schistocytes 2+ (3-5) /OIF; Tear Drop Cells 2+ (3-5) /OIF
[2020-09-12 12:09] LABS: Blastocytes Absolute 0.8 X10*3/uL; Lymphocytes Absolute Manual 2.2 X10*3/uL (0.6-4.8); Metamyelocytes Absolute 0.3 X10*3/uL; Monocytes Absolute Manual 0.6 X10*3/uL (0.0-1.2); Myelocytes Absolute 1.1 X10*/uL; Neutrophils Absolute Manual 22.4 X10*3/uL (2.2-7.9); Promyelocytes Absolute 0.3 X10*3/uL; White Blood Count 27.7 X10*3/uL (4.8-10.8)
[2020-09-12 12:10] LABS: Platelet Count 148 X10*3/uL (160-400)
== END 2020-09-12 00:52 | disposition home or self-care (01) ==
LOC: HO.LHD 00:51
PROVIDERS: Visit Provider Internal Medicine Medical Oncology
DX: D64.9 Anemia, unspecified (principal); D46.9 Myelodysplastic syndrome, unspecified
CPT/HCPCS: 36415; 85007; 85027

== ENCOUNTER → 2020-09-18 10:11 | Outpatient (BNVA) | payer MEDICARE, SELFPAY | PROVIDERS: PCP Internal Medicine; Visit Provider Nurse Practitioner Family | DX: M19.011 Primary osteoarthritis, right shoulder (principal) | CPT/HCPCS: Q3014 ==

== ENCOUNTER 2020-09-19 00:52 | Outpatient (REF) | payer MEDICARE, SELFPAY ==
[2020-09-19 12:25] LABS: Hematocrit 31.2 % (37-47); Hemoglobin 9.6 g/dl (12.0-16.0); Mean Corpuscular HGB Conc 30.8 g/dl (31.0-35.0); Mean Corpuscular Hemoglobin 29.2 pg (27.0-33.0); Mean Corpuscular Volume 94.8 fL (80-98); Red Blood Count 3.29 X10*6/uL (4.20-5.50); Red Cell Distribution Width 18.1 % (11.0-16.0)
[2020-09-19 12:27] LABS: NRBC Pct Auto 0.3 /100WBC (0.0-0.2); PLT ABN DIST 1; PLT CLUMP 1; WBC ABN SCTR FOR CBC 1
[2020-09-19 13:23] LABS: Band Neutrophils Percent 14 % (3-5); Basophils Percent Manual 1 % (0-1); Blast Percent 6 %; Large Platelet PRESENT; Lymphocytes Percent Manual 4 % (20-40); Macrocytosis 1+ (5-14) /OIF; Metamyelocytes Percent 3 %; Microcytosis 1+ (5-14) /OIF; Monocytes Percent Manual 1 % (2-11); Myelocytes Percent 6 %; Neutrophils Percent Manual 64 % (45-73); Platelet Estimate NORMAL (NORMAL); Platelet Morphology Comment NORMAL; Promyelocytes Percent 1 %; RBC Morphology NOTED; Schistocytes 2+ (3-5) /OIF; Tear Drop Cells 2+ (3-5) /OIF
[2020-09-19 14:11] LABS: Basophils Abs Manual 0.3 X10*3/uL (0.0-0.3); Blastocytes Absolute 1.8 X10*3/uL; Lymphocytes Absolute Manual 1.2 X10*3/uL (0.6-4.8); Metamyelocytes Absolute 0.9 X10*3/uL; Monocytes Absolute Manual 0.3 X10*3/uL (0.0-1.2); Myelocytes Absolute 1.8 X10*/uL; Neutrophils Absolute Manual 23.5 X10*3/uL (2.2-7.9); Platelet Count 127 X10*3/uL (160-400); Promyelocytes Absolute 0.3 X10*3/uL; White Blood Count 30.1 X10*3/uL (4.8-10.8)
== END 2020-09-19 00:53 | disposition home or self-care (01) ==
LOC: HO.LHD 00:52
PROVIDERS: Visit Provider Internal Medicine Medical Oncology
DX: D46.9 Myelodysplastic syndrome, unspecified (principal)
CPT/HCPCS: 36415; 85007; 85027

== ENCOUNTER 2020-09-26 01:05 | Outpatient (REF) | payer MEDICARE, SELFPAY ==
[2020-09-26 10:39] LABS: Hemoglobin 9.7 g/dl (12.0-16.0); Mean Platelet Volume 13.4 fL (9.4-12.3); Red Cell Distribution Width 18.7 % (11.0-16.0)
[2020-09-26 10:41] LABS: Hematocrit 31.9 % (37-47); Mean Corpuscular HGB Conc 30.4 g/dl (31.0-35.0); Mean Corpuscular Hemoglobin 28.7 pg (27.0-33.0); Mean Corpuscular Volume 94.4 fL (80-98); PLT CLUMP 1; Red Blood Count 3.38 X10*6/uL (4.20-5.50)
[2020-09-26 10:55] LABS: NRBC Pct Auto 1.3 /100WBC (0.0-0.2); PLT ABN DIST 1; WBC ABN SCTR FOR CBC 1
[2020-09-26 11:21] LABS: Band Neutrophils Percent 21 % (3-5); Basophils Percent Manual 1 % (0-1); Blast Percent 2 %; Lymphocytes Percent Manual 1 % (20-40); Metamyelocytes Percent 9 %; Monocytes Percent Manual 1 % (2-11); Myelocytes Percent 4 %; Neutrophils Percent Manual 59 % (45-73); Nucleated Red Blood Cells 4 /100WBC (0-0); Promyelocytes Percent 2 %
[2020-09-26 11:22] LABS: Large Platelet PRESENT; Platelet Estimate NORMAL (NORMAL)
[2020-09-26 11:24] LABS: RBC Morphology NOTED
[2020-09-26 11:25] LABS: Basophilic Stippling 1+ (0-2) /OIF; Macrocytosis 1+ (5-14) /OIF; Microcytosis 1+ (5-14) /OIF; Ovalocytes 1+ (5-14) /OIF; Platelet Morphology Comment NOTE; Polychromasia 1+ (0-2) /OIF; Tear Drop Cells 1+ (0-2) /OIF
[2020-09-26 11:26] LABS: Platelet Count 227 X10*3/uL (160-400)
[2020-09-26 11:30] LABS: Basophils Abs Manual 0.4 X10*3/uL (0.0-0.3); Blastocytes Absolute 0.9 X10*3/uL; Lymphocytes Absolute Manual 0.4 X10*3/uL (0.6-4.8); Monocytes Absolute Manual 0.4 X10*3/uL (0.0-1.2); Myelocytes Absolute 1.8 X10*/uL; Neutrophils Absolute Manual 35.7 X10*3/uL (2.2-7.9); Promyelocytes Absolute 0.9 X10*3/uL; White Blood Count 44.6 X10*3/uL (4.8-10.8)
== END 2020-09-26 01:06 | disposition home or self-care (01) ==
LOC: HO.LHD 01:05
PROVIDERS: Visit Provider Internal Medicine Medical Oncology
DX: D46.9 Myelodysplastic syndrome, unspecified (principal)
CPT/HCPCS: 36415; 85007; 85025; 85027

== ENCOUNTER 2020-10-03 00:17 | Outpatient (REF) | payer MEDICARE, SELFPAY ==
[2020-10-03 11:27] LABS: Hemoglobin 9.7 g/dl (12.0-16.0)
[2020-10-03 11:29] LABS: Hematocrit 32.6 % (37-47); Mean Corpuscular HGB Conc 29.8 g/dl (31.0-35.0); Mean Corpuscular Hemoglobin 28.9 pg (27.0-33.0); Mean Platelet Volume 13.3 fL (9.4-12.3); PLT CLUMP 1; Red Blood Count 3.36 X10*6/uL (4.20-5.50); Red Cell Distribution Width 20.5 % (11.0-16.0)
[2020-10-03 11:30] LABS: PLT ABN DIST 1; WBC ABN SCTR FOR CBC 1
[2020-10-03 12:11] LABS: Band Neutrophils Percent 28 % (3-5); Basophils Percent Manual 2 % (0-1); Blast Percent 2 %; Eosinophils Percent Manual 2 % (0-4); Lymphocytes Percent Manual 5 % (20-40); Metamyelocytes Percent 3 %; Monocytes Percent Manual 8 % (2-11); Myelocytes Percent 2 %; Neutrophils Percent Manual 46 % (45-73); Nucleated Red Blood Cells 4 /100WBC (0-0); Promyelocytes Percent 2 %
[2020-10-03 12:12] LABS: RBC Morphology NOTED
[2020-10-03 12:13] LABS: Howell Jolly Bodies PRESENT; Macrocytosis 1+ (5-14) /OIF
[2020-10-03 12:14] LABS: Acanthocytes 1+ (0-2) /OIF; Polychromasia 1+ (0-2) /OIF; Tear Drop Cells 1+ (0-2) /OIF
[2020-10-03 12:15] LABS: Large Platelet PRESENT; Platelet Estimate NORMAL (NORMAL); Platelet Morphology Comment NOTED
[2020-10-03 12:18] LABS: Lymphocytes Absolute Manual 2.4 X10*3/uL (0.6-4.8); Metamyelocytes Absolute 1.4 X10*3/uL; Monocytes Absolute Manual 3.8 X10*3/uL (0.0-1.2); Neutrophils Absolute Manual 35.2 X10*3/uL (2.2-7.9); White Blood Count 47.5 X10*3/uL (4.8-10.8)
[2020-10-03 12:19] LABS: Platelet Count 218 X10*3/uL (160-400)
== END 2020-10-03 00:18 | disposition home or self-care (01) ==
LOC: HO.LHD 00:17
PROVIDERS: Visit Provider Internal Medicine Medical Oncology
DX: D46.9 Myelodysplastic syndrome, unspecified (principal)
CPT/HCPCS: 36415; 85007; 85027

== ENCOUNTER 2020-10-10 06:35 | Outpatient (REF) | payer MEDICARE, SELFPAY ==
[2020-10-10 10:59] LABS: Mean Corpuscular Volume 98.6 fL (80-98)
[2020-10-10 11:01] LABS: Hematocrit 34.7 % (37-47); Hemoglobin 10.3 g/dl (12.0-16.0); Mean Corpuscular HGB Conc 29.7 g/dl (31.0-35.0); Mean Corpuscular Hemoglobin 29.3 pg (27.0-33.0); PLT CLUMP 1; Red Blood Count 3.52 X10*6/uL (4.20-5.50); Red Cell Distribution Width 21.1 % (11.0-16.0)
[2020-10-10 11:03] LABS: NRBC Pct Auto 3.5 /100WBC (0.0-0.2)
[2020-10-10 11:04] LABS: PLT ABN DIST 1; WBC ABN SCTR FOR CBC 1
[2020-10-10 11:35] LABS: Band Neutrophils Percent 25 % (3-5); Basophils Percent Manual 2 % (0-1); Blast Percent 3 %; Eosinophils Percent Manual 1 % (0-4); Lymphocytes Percent Manual 3 % (20-40); Metamyelocytes Percent 2 %; Monocytes Percent Manual 3 % (2-11); Myelocytes Percent 1 %; Neutrophils Percent Manual 57 % (45-73); Nucleated Red Blood Cells 2 /100WBC (0-0); Promyelocytes Percent 3 %
[2020-10-10 11:37] LABS: Macrocytosis 1+ (5-14) /OIF; RBC Morphology NOTED; Tear Drop Cells 1+ (0-2) /OIF
[2020-10-10 11:39] LABS: Basophilic Stippling 1+ (0-2) /OIF; Platelet Estimate SLIGHTLY DECREASED (NORMAL); Platelet Morphology Comment NORMAL; Polychromasia 1+ (0-2) /OIF
[2020-10-10 11:42] LABS: Blastocytes Absolute 1.4 X10*3/uL; Eosinophils Absolute Manual 0.5 X10*3/UL (0.0-0.8); Lymphocytes Absolute Manual 1.4 X10*3/uL (0.6-4.8); Monocytes Absolute Manual 1.4 X10*3/uL (0.0-1.2); Myelocytes Absolute 0.5 X10*/uL; Neutrophils Absolute Manual 39.5 X10*3/uL (2.2-7.9); Promyelocytes Absolute 1.4 X10*3/uL
[2020-10-10 11:43] LABS: Platelet Count 169 X10*3/uL (160-400)
[2020-10-10 11:58] LABS: White Blood Count 48.2 X10*3/uL (4.8-10.8)
== END 2020-10-10 06:36 | disposition home or self-care (01) ==
LOC: HO.LHD 06:35
PROVIDERS: Visit Provider Internal Medicine Medical Oncology
DX: D46.9 Myelodysplastic syndrome, unspecified (principal)
CPT/HCPCS: 36415; 85007; 85025; 85027

== ENCOUNTER 2020-10-17 00:19 | Outpatient (REF) | payer MEDICARE, SELFPAY ==
[2020-10-17 12:04] LABS: Mean Corpuscular Hemoglobin 28.5 pg (27.0-33.0)
[2020-10-17 12:06] LABS: Hematocrit 37.4 % (37-47); Hemoglobin 10.9 g/dl (12.0-16.0); Mean Corpuscular HGB Conc 29.1 g/dl (31.0-35.0); Mean Corpuscular Volume 97.9 fL (80-98); PLT CLUMP 1; Red Blood Count 3.82 X10*6/uL (4.20-5.50); Red Cell Distribution Width 19.5 % (11.0-16.0)
[2020-10-17 12:10] LABS: NRBC Pct Auto 1.7 /100WBC (0.0-0.2); PLT ABN DIST 1; WBC ABN SCTR FOR CBC 1
[2020-10-17 12:35] LABS: Band Neutrophils Percent 20 % (3-5); Basophils Percent Manual 1 % (0-1); Eosinophils Percent Manual 3 % (0-4); Lymphocytes Percent Manual 3 % (20-40); Metamyelocytes Percent 3 %; Monocytes Percent Manual 3 % (2-11); Myelocytes Percent 2 %; Neutrophils Percent Manual 56 % (45-73); Promyelocytes Percent 2 %
[2020-10-17 12:36] LABS: Blast Percent 7 %; Nucleated Red Blood Cells 1 /100WBC (0-0)
[2020-10-17 12:37] LABS: Large Platelet PRESENT; Platelet Estimate DECREASED (NORMAL); Platelet Morphology Comment NOTED
[2020-10-17 12:39] LABS: Macrocytosis 1+ (5-14) /OIF; Ovalocytes 1+ (5-14) /OIF; Polychromasia 1+ (0-2) /OIF; RBC Morphology NOTED; Tear Drop Cells 1+ (0-2) /OIF
[2020-10-17 12:40] LABS: Platelet Count 129 X10*3/uL (160-400)
[2020-10-17 13:14] LABS: Basophils Abs Manual 0.5 X10*3/uL (0.0-0.3); Blastocytes Absolute 3.6 X10*3/uL; Eosinophils Absolute Manual 1.5 X10*3/UL (0.0-0.8); Lymphocytes Absolute Manual 1.5 X10*3/uL (0.6-4.8); Metamyelocytes Absolute 1.5 X10*3/uL; Monocytes Absolute Manual 1.5 X10*3/uL (0.0-1.2); Neutrophils Absolute Manual 38.8 X10*3/uL (2.2-7.9)
== END 2020-10-17 00:20 | disposition home or self-care (01) ==
LOC: HO.LHD 00:19
PROVIDERS: Visit Provider Internal Medicine Medical Oncology
DX: D46.9 Myelodysplastic syndrome, unspecified (principal)
CPT/HCPCS: 36415; 85007; 85025; 85027

== ENCOUNTER 2020-10-24 00:32 | Outpatient (REF) | payer MEDICARE, SELFPAY ==
[2020-10-24 11:53] LABS: PLT CLUMP 1; Red Blood Count 3.39 X10*6/uL (4.20-5.50)
[2020-10-24 11:55] LABS: Hematocrit 32.2 % (37-47); Hemoglobin 9.7 g/dl (12.0-16.0); Mean Corpuscular HGB Conc 30.1 g/dl (31.0-35.0); Mean Corpuscular Hemoglobin 28.6 pg (27.0-33.0); NRBC Pct Auto 0.8 /100WBC (0.0-0.2); Red Cell Distribution Width 18.1 % (11.0-16.0)
[2020-10-24 11:58] LABS: Platelet Count 95 X10*3/uL (160-400); WBC ABN SCTR FOR CBC 1
[2020-10-24 11:59] LABS: PLT ABN DIST 1
[2020-10-24 12:00] LABS: White Blood Count 50.4 X10*3/uL (4.8-10.8)
[2020-10-24 12:16] LABS: Band Neutrophils Percent 12 % (3-5); Blast Percent 5 %; Blastocytes Absolute 2.5 X10*3/uL; Lymphocytes Absolute Manual 1.5 X10*3/uL (0.6-4.8); Lymphocytes Percent Manual 3 % (20-40); Metamyelocytes Absolute 3.5 X10*3/uL; Metamyelocytes Percent 7 %; Myelocytes Percent 2 %; Neutrophils Absolute Manual 40.3 X10*3/uL (2.2-7.9); Neutrophils Percent Manual 68 % (45-73); Promyelocytes Absolute 1.5 X10*3/uL; Promyelocytes Percent 3 %
[2020-10-24 12:18] LABS: Large Platelet PRESENT; Platelet Estimate DECREASED (NORMAL)
[2020-10-24 12:19] LABS: Basophilic Stippling 1+ (0-2) /OIF; Hypochromasia 1+ (5-14) /OIF
[2020-10-24 12:20] LABS: Macrocytosis 1+ (5-14) /OIF; RBC Morphology NOTED
[2020-10-24 12:21] LABS: Microcytosis 1+ (5-14) /OIF
[2020-10-24 12:22] LABS: Platelet Morphology Comment NOTE; Polychromasia 1+ (0-2) /OIF
[2020-10-24 12:23] LABS: Tear Drop Cells 1+ (0-2) /OIF
== END 2020-10-24 00:33 | disposition home or self-care (01) ==
LOC: HO.LHD 00:32
PROVIDERS: Visit Provider Internal Medicine Medical Oncology
DX: D46.9 Myelodysplastic syndrome, unspecified (principal)
CPT/HCPCS: 36415; 85007; 85027

== ENCOUNTER 2020-10-31 00:35 | Outpatient (REF) | payer MEDICARE, SELFPAY ==
[2020-10-31 10:55] LABS: Hematocrit 28.6 % (37-47); Hemoglobin 8.5 g/dl (12.0-16.0); Mean Corpuscular HGB Conc 29.7 g/dl (31.0-35.0); Mean Corpuscular Hemoglobin 28.2 pg (27.0-33.0); Red Blood Count 3.01 X10*6/uL (4.20-5.50); Red Cell Distribution Width 18.8 % (11.0-16.0)
[2020-10-31 10:56] LABS: Platelet Count 99 X10*3/uL (160-400); WBC ABN SCTR FOR CBC 1
[2020-10-31 11:59] LABS: Band Neutrophils Percent 23 % (3-5); Basophils Percent Manual 1 % (0-1); Blast Percent 2 %; Lymphocytes Percent Manual 2 % (20-40); Metamyelocytes Percent 5 %; Monocytes Percent Manual 5 % (2-11); Myelocytes Percent 3 %; Neutrophils Percent Manual 58 % (45-73); Nucleated Red Blood Cells 2 /100WBC (0-0); Promyelocytes Percent 1 %
[2020-10-31 12:00] LABS: RBC Morphology NOTED; Tear Drop Cells 1+ (0-2) /OIF
[2020-10-31 12:01] LABS: Polychromasia 1+ (0-2) /OIF
[2020-10-31 12:03] LABS: Basophilic Stippling 1+ (0-2) /OIF
[2020-10-31 12:04] LABS: Platelet Estimate SLIGHTLY DECREASED (NORMAL); Schistocytes 1+ (0-2) /OIF
[2020-10-31 12:05] LABS: Platelet Morphology Comment NORMAL
[2020-10-31 12:06] LABS: Large Platelet PRESENT
[2020-10-31 12:10] LABS: Basophils Abs Manual 0.5 X10*3/uL (0.0-0.3); Metamyelocytes Absolute 2.5 X10*3/uL; Monocytes Absolute Manual 2.5 X10*3/uL (0.0-1.2); Myelocytes Absolute 1.5 X10*/uL; Neutrophils Absolute Manual 40.5 X10*3/uL (2.2-7.9); Promyelocytes Absolute 0.5 X10*3/uL
== END 2020-10-31 00:36 | disposition home or self-care (01) ==
LOC: HO.LHD 00:35
PROVIDERS: Visit Provider Internal Medicine Medical Oncology
DX: D46.9 Myelodysplastic syndrome, unspecified (principal)
CPT/HCPCS: 36415; 85007; 85027

== ENCOUNTER 2020-11-07 01:02 | Outpatient (REF) | payer MEDICARE, SELFPAY ==
[2020-11-07 11:12] LABS: Mean Corpuscular Hemoglobin 28.4 pg (27.0-33.0)
[2020-11-07 11:14] LABS: Hematocrit 28.9 % (37-47); Hemoglobin 8.5 g/dl (12.0-16.0); Mean Corpuscular HGB Conc 29.4 g/dl (31.0-35.0); Mean Corpuscular Volume 96.7 fL (80-98); Mean Platelet Volume 13.4 fL (9.4-12.3); Platelet Count 138 X10*3/uL (160-400); Red Blood Count 2.99 X10*6/uL (4.20-5.50); Red Cell Distribution Width 19.9 % (11.0-16.0)
[2020-11-07 11:23] LABS: NRBC Pct Auto 4.2 /100WBC (0.0-0.2); PLT ABN DIST 1; WBC ABN SCTR FOR CBC 1
[2020-11-07 11:25] LABS: White Blood Count 46.4 X10*3/uL (4.8-10.8)
[2020-11-07 12:13] LABS: Band Neutrophils Percent 20 % (3-5); Blast Percent 2 %; Blastocytes Absolute 0.9 X10*3/uL; Eosinophils Absolute Manual 0.9 X10*3/UL (0.0-0.8); Eosinophils Percent Manual 2 % (0-4); Lymphocytes Absolute Manual 2.8 X10*3/uL (0.6-4.8); Lymphocytes Percent Manual 6 % (20-40); Metamyelocytes Absolute 4.6 X10*3/uL; Metamyelocytes Percent 10 %; Monocytes Absolute Manual 1.4 X10*3/uL (0.0-1.2); Monocytes Percent Manual 3 % (2-11); Myelocytes Absolute 1.4 X10*/uL; Myelocytes Percent 3 %; Neutrophils Absolute Manual 33.4 X10*3/uL (2.2-7.9); Neutrophils Percent Manual 52 % (45-73); Nucleated Red Blood Cells 4 /100WBC (0-0); Promyelocytes Absolute 0.9 X10*3/uL; Promyelocytes Percent 2 %
[2020-11-07 12:14] LABS: Platelet Estimate SLIGHTLY DECREASED (NORMAL); Platelet Morphology Comment NORMAL
[2020-11-07 12:16] LABS: Acanthocytes 1+ (0-2) /OIF; Macrocytosis 1+ (5-14) /OIF; RBC Morphology NOTED; Schistocytes 1+ (0-2) /OIF; Tear Drop Cells 1+ (0-2) /OIF
[2020-11-07 12:17] LABS: Basophilic Stippling 1+ (0-2) /OIF; Polychromasia 1+ (0-2) /OIF
== END 2020-11-07 01:03 | disposition home or self-care (01) ==
LOC: HO.LHD 01:02
PROVIDERS: Visit Provider Internal Medicine Medical Oncology
DX: D64.9 Anemia, unspecified (principal)
CPT/HCPCS: 36415; 85007; 85027

== ENCOUNTER 2020-11-14 | Outpatient (REF) | payer MEDICARE, SELFPAY ==
[2020-11-14 10:58] LABS: Hemoglobin 9.6 g/dl (12.0-16.0); PLT CLUMP 1
[2020-11-14 11:00] LABS: Hematocrit 33.8 % (37-47); Mean Corpuscular HGB Conc 28.4 g/dl (31.0-35.0); Mean Corpuscular Hemoglobin 28.2 pg (27.0-33.0); Mean Corpuscular Volume 99.4 fL (80-98); Platelet Count 142 X10*3/uL (160-400); Red Cell Distribution Width 20.5 % (11.0-16.0)
[2020-11-14 11:09] LABS: PLT ABN DIST 1
[2020-11-14 11:10] LABS: NRBC Pct Auto 4.5 /100WBC (0.0-0.2); WBC ABN SCTR FOR CBC 1
[2020-11-14 11:13] LABS: White Blood Count 48.2 X10*3/uL (4.8-10.8)
[2020-11-14 12:40] LABS: Acanthocytes 2+ (3-5) /OIF; Band Neutrophils Percent 24 % (3-5); Basophils Abs Manual 0.5 X10*3/uL (0.0-0.3); Basophils Percent Manual 1 % (0-1); Blast Percent 2 %; Lymphocytes Absolute Manual 0.5 X10*3/uL (0.6-4.8); Lymphocytes Percent Manual 1 % (20-40); Metamyelocytes Absolute 1.9 X10*3/uL; Metamyelocytes Percent 4 %; Monocytes Percent Manual 2 % (2-11); Myelocytes Percent 2 %; Neutrophils Percent Manual 59 % (45-73); Nucleated Red Blood Cells 13 /100WBC (0-0); Promyelocytes Absolute 2.4 X10*3/uL; Promyelocytes Percent 5 %; RBC Morphology NOTED
[2020-11-14 12:41] LABS: Basophilic Stippling 1+ (0-2) /OIF; Hypochromasia 1+ (5-14) /OIF; Ovalocytes 1+ (5-14) /OIF; Platelet Estimate SLIGHTLY DECREASED (NORMAL); Platelet Morphology Comment L; Schistocytes 1+ (0-2) /OIF
== END 2020-11-14 00:01 | disposition home or self-care (01) ==
LOC: HO.LHD
PROVIDERS: Visit Provider Internal Medicine Medical Oncology
DX: D46.9 Myelodysplastic syndrome, unspecified (principal)
CPT/HCPCS: 36415; 85007; 85025; 85027

== ENCOUNTER 2020-11-21 07:23 | Outpatient (REF) | payer MEDICARE, SELFPAY ==
[2020-11-21 12:16] LABS: Mean Corpuscular HGB Conc 27.9 g/dl (31.0-35.0); Mean Corpuscular Volume 100.6 fL (80-98)
[2020-11-21 12:18] LABS: Hematocrit 34.4 % (37-47); Hemoglobin 9.6 g/dl (12.0-16.0); Mean Corpuscular Hemoglobin 28.1 pg (27.0-33.0); Mean Platelet Volume 13.9 fL (9.4-12.3); PLT CLUMP 1; Red Blood Count 3.42 X10*6/uL (4.20-5.50); Red Cell Distribution Width 20.8 % (11.0-16.0)
[2020-11-21 12:26] LABS: NRBC Pct Auto 3.6 /100WBC (0.0-0.2); PLT ABN DIST 1; WBC ABN SCTR FOR CBC 1
[2020-11-21 12:27] LABS: Platelet Count 141 X10*3/uL (160-400)
[2020-11-21 12:29] LABS: White Blood Count 61.2 X10*3/uL (4.8-10.8)
[2020-11-21 12:53] LABS: Free T4 (Free Thyroxine) 0.94 ng/dL (0.71-1.85); Thyroid Stimulating Hormone 7.54 uIU/mL (0.32-4.0)
[2020-11-21 14:16] LABS: Band Neutrophils Percent 23 % (3-5); Basophils Abs Manual 1.8 X10*3/uL (0.0-0.3); Basophils Percent Manual 3 % (0-1); Blast Percent 4 %; Blastocytes Absolute 2.4 X10*3/uL; Eosinophils Absolute Manual 1.2 X10*3/UL (0.0-0.8); Eosinophils Percent Manual 2 % (0-4); Lymphocytes Absolute Manual 1.8 X10*3/uL (0.6-4.8); Lymphocytes Percent Manual 3 % (20-40); Metamyelocytes Absolute 4.3 X10*3/uL; Metamyelocytes Percent 7 %; Monocytes Absolute Manual 0.6 X10*3/uL (0.0-1.2); Monocytes Percent Manual 1 % (2-11); Myelocytes Absolute 1.2 X10*/uL; Myelocytes Percent 2 %; Neutrophils Absolute Manual 47.1 X10*3/uL (2.2-7.9); Neutrophils Percent Manual 54 % (45-73); Promyelocytes Absolute 0.6 X10*3/uL; Promyelocytes Percent 1 %
[2020-11-21 14:17] LABS: Macrocytosis 1+ (5-14) /OIF; Nucleated Red Blood Cells 4 /100WBC (0-0); RBC Morphology NOTED
[2020-11-21 14:18] LABS: Polychromasia 1+ (0-2) /OIF
[2020-11-21 14:19] LABS: Acanthocytes 1+ (0-2) /OIF; Ovalocytes 1+ (5-14) /OIF; Spherocytes 1+ (0-2) /OIF
[2020-11-21 14:20] LABS: Platelet Estimate SLIGHTLY DECREASED (NORMAL); Platelet Morphology Comment NORMAL; Tear Drop Cells 1+ (0-2) /OIF
== END 2020-11-21 07:24 | disposition home or self-care (01) ==
LOC: HO.LHD 07:23
PROVIDERS: Internal Medicine; Visit Provider Internal Medicine Medical Oncology
DX: E03.9 Hypothyroidism, unspecified (principal); D46.9 Myelodysplastic syndrome, unspecified
CPT/HCPCS: 36415; 84439; 84443; 85007; 85027

== ENCOUNTER 2020-11-28 07:07 | Outpatient (REF) | payer MEDICARE, SELFPAY ==
[2020-11-28 10:44] LABS: Hemoglobin 9.7 g/dl (12.0-16.0); PLT CLUMP 1; Red Cell Distribution Width 20.4 % (11.0-16.0)
[2020-11-28 10:46] LABS: Mean Corpuscular HGB Conc 28.5 g/dl (31.0-35.0); Mean Corpuscular Hemoglobin 27.7 pg (27.0-33.0); Mean Corpuscular Volume 97.1 fL (80-98); Platelet Count 140 X10*3/uL (160-400)
[2020-11-28 11:20] LABS: NRBC Pct Auto 3.1 /100WBC (0.0-0.2); PLT ABN DIST 1; WBC ABN SCTR FOR CBC 1
[2020-11-28 11:21] LABS: White Blood Count 51.9 X10*3/uL (4.8-10.8)
[2020-11-28 12:24] LABS: Band Neutrophils Percent 27 % (3-5); Basophils Abs Manual 0.5 X10*3/uL (0.0-0.3); Basophils Percent Manual 1 % (0-1); Blast Percent 4 %; Blastocytes Absolute 2.1 X10*3/uL; Lymphocytes Absolute Manual 0.5 X10*3/uL (0.6-4.8); Lymphocytes Percent Manual 1 % (20-40); Metamyelocytes Absolute 5.7 X10*3/uL; Metamyelocytes Percent 11 %; Monocytes Percent Manual 2 % (2-11); Myelocytes Absolute 3.6 X10*/uL; Myelocytes Percent 7 %; Neutrophils Absolute Manual 37.9 X10*3/uL (2.2-7.9); Neutrophils Percent Manual 46 % (45-73); Nucleated Red Blood Cells 3 /100WBC (0-0); Promyelocytes Absolute 0.5 X10*3/uL; Promyelocytes Percent 1 %
[2020-11-28 12:25] LABS: Large Platelet PRESENT; Platelet Estimate DECREASED (NORMAL); Platelet Morphology Comment NOTED
[2020-11-28 12:27] LABS: Acanthocytes 1+ (0-2) /OIF; Ovalocytes 1+ (5-14) /OIF; Polychromasia 1+ (0-2) /OIF; RBC Morphology NOTED; Spherocytes 1+ (0-2) /OIF; Tear Drop Cells 1+ (0-2) /OIF
== END 2020-11-28 07:08 | disposition home or self-care (01) ==
LOC: HO.LHD 07:07
PROVIDERS: Visit Provider Internal Medicine Medical Oncology
DX: D46.9 Myelodysplastic syndrome, unspecified (principal)
CPT/HCPCS: 36415; 85007; 85025; 85027

== ENCOUNTER 2020-12-05 07:15 | Outpatient (REF) | payer MEDICARE, SELFPAY ==
[2020-12-05 11:26] LABS: Red Cell Distribution Width 20.6 % (11.0-16.0)
[2020-12-05 11:28] LABS: Hematocrit 34.3 % (37-47); Hemoglobin 9.9 g/dl (12.0-16.0); Mean Corpuscular HGB Conc 28.9 g/dl (31.0-35.0); Mean Corpuscular Hemoglobin 28.2 pg (27.0-33.0); Mean Corpuscular Volume 97.7 fL (80-98); PLT CLUMP 1; Red Blood Count 3.51 X10*6/uL (4.20-5.50)
[2020-12-05 11:33] LABS: NRBC Pct Auto 3.6 /100WBC (0.0-0.2); PLT ABN DIST 1; WBC ABN SCTR FOR CBC 1
[2020-12-05 11:34] LABS: White Blood Count 51.9 X10*3/uL (4.8-10.8)
[2020-12-05 12:07] LABS: Band Neutrophils Percent 25 % (3-5); Blast Percent 3 %; Blastocytes Absolute 1.6 X10*3/uL; Lymphocytes Absolute Manual 2.6 X10*3/uL (0.6-4.8); Lymphocytes Percent Manual 5 % (20-40); Metamyelocytes Absolute 5.2 X10*3/uL; Metamyelocytes Percent 10 %; Monocytes Absolute Manual 0.5 X10*3/uL (0.0-1.2); Monocytes Percent Manual 1 % (2-11); Myelocytes Absolute 2.1 X10*/uL; Myelocytes Percent 4 %; Neutrophils Absolute Manual 39.4 X10*3/uL (2.2-7.9); Neutrophils Percent Manual 51 % (45-73); Nucleated Red Blood Cells 6 /100WBC (0-0); Promyelocytes Absolute 0.5 X10*3/uL; Promyelocytes Percent 1 %
[2020-12-05 12:10] LABS: Acanthocytes 1+ (0-2) /OIF; Large Platelet PRESENT; Macrocytosis 1+ (5-14) /OIF; Ovalocytes 1+ (5-14) /OIF; Platelet Estimate DECREASED (NORMAL); Platelet Morphology Comment NOTED; Polychromasia 1+ (0-2) /OIF; RBC Morphology NOTED; Spherocytes 1+ (0-2) /OIF
[2020-12-05 12:11] LABS: Platelet Count 130 X10*3/uL (160-400)
== END 2020-12-05 07:16 | disposition home or self-care (01) ==
LOC: HO.LHD 07:15
PROVIDERS: Visit Provider Internal Medicine Medical Oncology
DX: D46.9 Myelodysplastic syndrome, unspecified (principal)
CPT/HCPCS: 36415; 85007; 85027

== ENCOUNTER 2020-12-12 06:08 | Outpatient (REF) | payer MEDICARE, SELFPAY ==
[2020-12-12 10:56] LABS: PLT CLUMP 1
[2020-12-12 10:58] LABS: Hematocrit 33.9 % (37-47); Hemoglobin 9.8 g/dl (12.0-16.0); Mean Corpuscular HGB Conc 28.9 g/dl (31.0-35.0); Mean Corpuscular Hemoglobin 27.5 pg (27.0-33.0); Mean Corpuscular Volume 95.2 fL (80-98); Platelet Count 110 X10*3/uL (160-400); Red Blood Count 3.56 X10*6/uL (4.20-5.50); Red Cell Distribution Width 19.1 % (11.0-16.0)
[2020-12-12 10:59] LABS: NRBC Pct Auto 1.6 /100WBC (0.0-0.2); PLT ABN DIST 1; WBC ABN SCTR FOR CBC 1
[2020-12-12 11:00] LABS: White Blood Count 50.4 X10*3/uL (4.8-10.8)
[2020-12-12 12:12] LABS: Band Neutrophils Percent 21 % (3-5); Basophils Abs Manual 0.5 X10*3/uL (0.0-0.3); Basophils Percent Manual 1 % (0-1); Eosinophils Absolute Manual 0.5 X10*3/UL (0.0-0.8); Eosinophils Percent Manual 1 % (0-4); Lymphocytes Percent Manual 2 % (20-40); Metamyelocytes Absolute 3.5 X10*3/uL; Metamyelocytes Percent 7 %; Monocytes Absolute Manual 2.5 X10*3/uL (0.0-1.2); Monocytes Percent Manual 5 % (2-11); Myelocytes Percent 6 %; Neutrophils Absolute Manual 35.3 X10*3/uL (2.2-7.9); Neutrophils Percent Manual 49 % (45-73); Promyelocytes Percent 4 %
[2020-12-12 12:13] LABS: Blast Percent 4 %; Nucleated Red Blood Cells 3 /100WBC (0-0)
[2020-12-12 12:14] LABS: Macrocytosis 2+ (15-30) /OIF; Microcytosis 1+ (5-14) /OIF; RBC Morphology NOTED
[2020-12-12 12:15] LABS: Acanthocytes 3+ (>5) /OIF; Giant Platelet PRESENT; Large Platelet PRESENT; Ovalocytes 1+ (5-14) /OIF; Platelet Estimate NORMAL (NORMAL); Platelet Morphology Comment NOTED
[2020-12-12 12:16] LABS: Schistocytes 2+ (3-5) /OIF; Tear Drop Cells 2+ (3-5) /OIF
== END 2020-12-12 06:09 | disposition home or self-care (01) ==
LOC: HO.LHD 06:08
PROVIDERS: Visit Provider Internal Medicine Medical Oncology
DX: D46.9 Myelodysplastic syndrome, unspecified (principal)
CPT/HCPCS: 36415; 85007; 85025; 85027

== ENCOUNTER 2020-12-19 06:26 | Outpatient (REF) | payer MEDICARE, SELFPAY | END 2020-12-19 06:27 | disposition home or self-care (01) | LOC: HO.LHD 06:26 | PROVIDERS: Visit Provider Internal Medicine Medical Oncology | DX: Z13.89 Encounter for screening for other disorder (principal) ==

== ENCOUNTER 2020-12-24 08:31 | Inpatient (IN) | payer MEDICARE, SELFPAY ==
[2020-12-24] VITALS (7 sets, daily range): BP systolic 112–186; BP diastolic 55–85; PULSE 71–108; RESP 18–20; TEMP 36.5–37.3; O2SAT 94–100; BMI 15.1; BMI 15.7
--- NOTE | ~2020-12-24 | CT_ITS ---
EXAMINATION: CT ANGIOGRAM OF THE CHEST WITH AND WITHOUT CONTRAST (CT PULMONARY ANGIOGRAM FOR PE) CLINICAL INFORMATION: Reason for Exam dyspnea r/o mass, clot, PE COMPARISON: None TECHNIQUE: Prior to contrast administration, noncontrast localization images were obtained. Subsequently, multidetector volumetric imaging was performed from the thoracic inlet to below the diaphragms following the administration of 80 mL Omnipaque 350 intravenous contrast. No contrast reaction reported Sagittal, coronal, and MIP oblique sagittal reformatted images were obtained on the CT workstation, uploaded to PACS, and reviewed. This CT examination was performed using dose optimization techniques as appropriate, variously including the following: *Automated exposure control *Adjustment of mA and/or kV according to patient size (this includes techniques or standardized protocols for targeted exams where dose is matched to indication/reason for exam; i.e. extremities or head) *Use of iterative reconstruction technique Total exam dose-length product 184 mGy-cm FINDINGS: QUALITY OF STUDY/CONTRAST BOLUS: Satisfactory. PULMONARY ARTERIES: No central or segmental pulmonary emboli. THORACIC AORTA: No aneurysm or dissection. LUNG: There is centrilobular emphysema with bilateral apical pleural thickening and parenchymal scarring. PLEURA: There is small to moderate left pleural effusion. There is minimal right posterior pleural effusion. No pleural calcification seen. There is a loculated fluid in the right upper major fissure measuring 4. 504.2 cm long. MEDIASTINUM: The heart size enlarged. No pericardial effusion seen. Mild coronary artery calcifications are present. Central trachea and bronchi are widely patent. No abnormal size mediastinal or hilar lymph nodes seen. CHEST WALL/AXILLA: No axillary or internal mammary lymphadenopathy. OSSEOUS STRUCTURES: No lytic or sclerotic process seen. UPPER ABDOMEN: Visualized liver, spleen and left adrenal gland is unremarkable. No reflux of contrast into the hepatic veins to suggest elevated right heart pressures. CT/CT angio chest PE protocol IMPRESSION: No evidence of PE. No evidence of aortic aneurysm or dissection. Diffuse emphysema without acute consolidation. Small to moderate left and small right pleural effusions. Mild cardiomegaly. VTE: negative.
--- NOTE | 2020-12-24 08:41 | ECG_ITS ---
Test Reason : SOB Blood Pressure : / mmHG Vent. Rate : 081 BPM Atrial Rate : 081 BPM P-R Int : 132 ms QRS Dur : 092 ms QT Int : 384 ms P-R-T Axes : 048 019 060 degrees QTc Int : 446 ms Normal sinus rhythm Possible Left atrial enlargement Nonspecific T wave abnormality Abnormal ECG When compared with ECG of 16-JUN-2019 20:45, Nonspecific T wave abnormality, improved in Lateral leads Referred By: Laura Moses Electronically Signed By:NOREEN NAIK
--- NOTE | 2020-12-24 08:43 | ED.SOB ---
HPI - SOB/Dyspnea General Chief Complaint: Dyspnea Stated Complaint: SOB Time Seen by Provider: 12/24/20 08:40 Source: patient, EMS and old records reviewed Mode of arrival: EMS Limitations: no limitations History of Present Illness MD elicited complaint: shortness of breath Pertinent past history: asthma, congestive heart failure and pneumonia Onset (ago): week(s) (couple ) Context: other (states she had a cough for a few weeks but never got it checked out) Timing: intermittent and progressively worsening Severity: mild Exacerbating factors: coughing Relieving factors: rest Known history of: asthma and congestive heart failure Associated symptoms: cough Treatment prior to arrival: none Related Data Home Medications Medication Instructions Recorded Confirmed carvedilol 25 mg tablet 25 mg PO BID 03/15/20 12/24/20 fluticasone 100 mcg-salmeterol 50 1 puff PO BID 03/15/20 12/24/20 mcg/dose blistr powdr for inhalation (Advair Diskus) albuterol sulfate 90 mcg/actuation 2 puff INHALATION Q6H PRN 12/24/20 12/24/20 aerosol inhaler (ProAir HFA) geriatric [id number] 1 tab PO DAILY 12/24/20 12/24/20 oxycodone 5 mg tablet 5 mg PO Q4-6H PRN 12/24/20 12/24/20 Previous Rx's Medication Instructions Recorded lisinopril 20 mg tablet 20 mg PO DAILY #90 cap 04/04/20 ondansetron HCl 4 mg tablet 4 mg PO Q8H PRN #20 tab 11/20/20 pregabalin 25 mg capsule 25 mg PO TID 90 Days #270 cap 11/20/20 levothyroxine 75 mcg tablet 75 mcg PO QAM 90 Days #90 tab 11/21/20 Allergies Allergy/AdvReac Type Severity Reaction Status Date / Time mercury (elemental) Allergy Severe SWELLING, Verified 11/20/20 14:18 [Mercury (Elemental)] GENERALIZED WELTS amoxicillin Allergy Unknown Diarrhea Verified 11/20/20 14:18 antibiotic ointment Allergy Unknown Swelling Verified 11/20/20 14:18 aspirin [Aggrenox] Allergy Unknown Gastrointestinal Verified 11/20/20 14:18 Upset atorvastatin [ATORVASTATIN] Allergy Unknown UNKNOWN Verified 11/20/20 14:18 clavulanic acid [Augmentin] Allergy Unknown Diarrhea Verified 11/20/20 14:18 clindamycin [CLINDAMYCIN] Allergy Unknown UNKNOWN Verified 11/20/20 14:18 dipyridamole [From AGGRENOX] Allergy Unknown HEADACHE Verified 11/20/20 14:18 duloxetine [Cymbalta] Allergy Unknown Unknown Verified 11/20/20 14:18 ezetimibe [From ZETIA] Allergy Unknown UNKNOWN Verified 11/20/20 14:18 nabumetone Allergy Unknown Unknown Verified 11/20/20 14:18 pravastatin [PRAVASTATIN] Allergy Unknown UNKNOWN Verified 11/20/20 14:18 silver sulfadiazine Allergy Unknown rash Verified 11/20/20 14:18 simvastatin [SIMVASTATIN] Allergy Unknown UNKNOWN Verified 11/20/20 14:18 zinc [ZINC] Allergy Unknown BURN, Verified 11/20/20 14:18 itching dronabinol [From Marinol] AdvReac Intermediate Nausea Verified 11/20/20 14:52 Review of Systems Review of Systems: Constitutional : No Fever, No Chills ENT/Mouth : No sore throat, No Rhinorrhea, No Swallowing Difficulty Eyes: No Eye Pain, No Swelling, No Redness Cardiovascular : No Chest Pain, positive SOB, No Orthopnea, positive Edema Respiratory : pos Cough, No Sputum, No Wheezing, positive dyspnea Gastrointestinal : No Nausea, No Vomiting, No Diarrhea, No abdominal Pain, No Hematochezia, No Melena Genitourinary : No Dysuria, No Urinary Frequency, No Hematuria Musculoskeletal : No joint pain, pos Myalgias Skin : No Skin Lesions, No rash Neuro : No Weakness, No Numbness, No Dizziness, No Headache Psych : No Anxiety/Panic, No Depression Heme/Lymph: No Bruising, No Lymphadenopathy Endocrine : No Polyuria, No Polydipsia All other systems reviewed and are negative [facility] Past Medical History Attestation statement: The following information was validated with the patient. Medical History Congestive heart failure COPD (chronic obstructive pulmonary disease) CVA (cerebral vascular accident) Degenerative disc disease Femoral neck fracture Hypercholesterolemia Hypertension Hypothyroid Lumbar stenosis Myelodysplastic syndrome Neurogenic bladder Nonischemic cardiomyopathy Osteoporosis Peripheral neuropathy Right lower lobe pulmonary nodule Surgical History History of back surgery History of hip surgery Family History Family History (Updated 09/20/20 @ 09:15 by Shalonda So) Daughter Hypertension Son Hypertension Diabetes Maternal Grandfather Lymphoma Social History Social History Housing: House Alcohol intake: former Patient Tobacco Use Status: Former Tobacco user Tobacco use type: Cigarette e-Cigarette/Vaping Use: Never Used Second Hand Smoke Exposure: No Advance Directives: Yes Advance Directives Information Provided: No Advance Directives on File: No Advance Directives Date on File: 02/01/20 service: No Current occupational status: retired Physical Exam Vital Signs: Vital Signs: Last Vital Signs Temp 97.9 F 12/24/20 08:42 Pulse 85 12/24/20 08:42 Resp 18 12/24/20 08:42 BP 181/76 H 12/24/20 08:42 Pulse Ox 95 12/24/20 08:42 Body Mass Index 15.1 Appearance: Alert. Oriented X3. No acute distress. Eyes: Pupils equal, round and reactive to light. ENT: Pharynx normal. Neck: Normal inspection. Neck supple. CVS: Normal heart rate and rhythm. Pulses normal. Respiratory: No respiratory distress. Breath sounds rales noted left lung base Abdomen: Soft and non-tender. Skin: Skin warm and dry. pale skin color. Normal skin turgor. Extremities: No lower extremity edema. No calf ttp Neuro: Oriented X 3. No motor deficit. No sensory deficit. Course Course Course Narrative: WBC elevated due to MDS and not infection or severe sepsis markedly high BNP with effusions, IV lasix ordered admit for diuresis given sig increase in BNP with effusions MDM - SOB/Dyspnea MDM Narrative Medical decision making narrative: 85 yo female with MDS, chronic anemia, HTN, CHF, COPD, HLD, arthritis here with weeks of shortness of breath no chest pain - at this time could be CHF though clinically no LE edema, PE, mass, anemia from MDS - labs, CTA, cultures, COVID swab. Dispo per results and findings. Lab Data Result diagrams: 12/24/20 09:06 12/24/20 09:06 Labs: Lab Results 12/24/20 12/24/20 12/24/20 Range/Units 09:02 09:04 09:05 WBC (4.8-10.8) X10*3/uL RBC (4.20-5.50) X10*6/uL Hgb (12.0-16.0) g/dl Hct (37-47) % MCV (80-98) fL MCH (27.0-33.0) pg MCHC (31.0-35.0) g/dl RDW (11.0-16.0) % Plt Count (160-400) X10*3/uL MPV (9.4-12.3) fL Immature Gran % (Auto) Neut % (Auto) Lymph % (Auto) [place] % (Auto) Eos % (Auto) Baso % (Auto) Lymph # (Auto) [place] # (Auto) Eos # (Auto) Baso # (Auto) Abs Immat Gran (auto) Absolute Neuts (auto) Absolute Nucleated RBC (0.0-0.012) X10*3/uL Nucleated RBC % (auto) (0.0-0.2) /100WBC Neutrophils % (Manual) (45-73) % Band Neutrophils % (3-5) % Lymphocytes % (Manual) (20-40) % Monocytes % (Manual) (2-11) % Metamyelocytes % % Myelocytes % % Promyelocytes % % Abs Neuts (Manual) (2.2-7.9) X10*3/uL Lymphocytes # (Manual) (0.6-4.8) X10*3/uL Monocytes # (Manual) (0.0-1.2) X10*3/uL Metamyelocytes # X10*3/uL Myelocytes # X10*/uL Promyelocytes # X10*3/uL Nucleated RBCs (0-0) /100WBC Platelet Estimate (NORMAL) Large Platelets Plt Morphology Comment RBC Morphology Polychromasia /OIF Basophilic Stippling /OIF Tear Drop Cells /OIF Ovalocytes /OIF PT (9.9-13.0) SEC INR (0.9-1.1) APTT (24.1-38.0) SEC Sodium (135-145) mmol/L Potassium (3.3-5.1) mmol/L Chloride (96-108) mmol/L Carbon Dioxide (22-29) mmol/L Anion Gap (12-20) BUN (9-16) mg/dL Creatinine (0.5-1.4) mg/dL Estim Creat Clear Calc Estimated GFR Random Glucose (60-115) mg/dL Lactic Acid 1.1 (0.5-2.0) mmol/L Calcium (8.4-10.2) mg/dL Magnesium (1.6-2.6) mg/dL Total Bilirubin (0.0-1.0) mg/dL Direct Bilirubin (0.0-0.5) mg/dL AST (5-31) U/L ALT (0-31) U/L Alkaline Phosphatase (39-117) U/L Troponin I High Sens (<3.5-17.0) ng/L B-Natriuretic Peptide (<100) pg/mL Total Protein (6.5-8.0) g/dL Albumin (3.5-5.0) g/dL COVID-19 (CAROL) Negative (Negative) COVID-19 Clin Com See Note Blood Type A Positive Antibody Screen NEGATIVE 12/24/20 12/24/20 12/24/20 Range/Units 09:06 09:06 09:06 WBC 57.2 H* (4.8-10.8) X10*3/uL RBC 3.46 L (4.20-5.50) X10*6/uL Hgb 9.5 L (12.0-16.0) g/dl Hct 31.6 L (37-47) % MCV 91.3 (80-98) fL MCH 27.5 (27.0-33.0) pg MCHC 30.1 L (31.0-35.0) g/dl RDW 20.0 H (11.0-16.0) % Plt Count 174 D (160-400) X10*3/uL MPV 13.3 H (9.4-12.3) fL Immature Gran % (Auto) Cancelled Neut % (Auto) Cancelled Lymph % (Auto) Cancelled [place] % (Auto) Cancelled Eos % (Auto) Cancelled Baso % (Auto) Cancelled Lymph # (Auto) Cancelled [place] # (Auto) Cancelled Eos # (Auto) Cancelled Baso # (Auto) Cancelled Abs Immat Gran (auto) Cancelled Absolute Neuts (auto) Cancelled Absolute Nucleated RBC 1.370 H (0.0-0.012) X10*3/uL Nucleated RBC % (auto) 2.4 H (0.0-0.2) /100WBC Neutrophils % (Manual) 68 (45-73) % Band Neutrophils % 17 H (3-5) % Lymphocytes % (Manual) 5 L (20-40) % Monocytes % (Manual) 2 (2-11) % Metamyelocytes % 3 % Myelocytes % 4 % Promyelocytes % 1 % Abs Neuts (Manual) 48.6 H (2.2-7.9) X10*3/uL Lymphocytes # (Manual) 2.9 (0.6-4.8) X10*3/uL Monocytes # (Manual) 1.1 (0.0-1.2) X10*3/uL Metamyelocytes # 1.7 X10*3/uL Myelocytes # 2.3 X10*/uL Promyelocytes # 0.6 X10*3/uL Nucleated RBCs 2 H (0-0) /100WBC Platelet Estimate NORMAL (NORMAL) Large Platelets PRESENT Plt Morphology Comment Not Reportable RBC Morphology NOTED Polychromasia 2+ (3-5) /OIF Basophilic Stippling 1+ (0-2) /OIF Tear Drop Cells 1+ (0-2) /OIF Ovalocytes 1+ (5-14) /OIF PT 14.0 H (9.9-13.0) SEC INR 1.2 H (0.9-1.1) APTT 34.5 (24.1-38.0) SEC Sodium 137 (135-145) mmol/L Potassium 4.6 (3.3-5.1) mmol/L Chloride 105 (96-108) mmol/L Carbon Dioxide 19 L (22-29) mmol/L Anion Gap 18 (12-20) BUN 9 (9-16) mg/dL Creatinine 0.76 (0.5-1.4) mg/dL Estim Creat Clear Calc 32.1 Estimated GFR > 60 Random Glucose 98 (60-115) mg/dL Lactic Acid (0.5-2.0) mmol/L Calcium 8.6 D (8.4-10.2) mg/dL Magnesium 2.0 (1.6-2.6) mg/dL Total Bilirubin 0.8 (0.0-1.0) mg/dL Direct Bilirubin 0.2 (0.0-0.5) mg/dL AST 49 H D (5-31) U/L ALT 10 (0-31) U/L Alkaline Phosphatase 62 (39-117) U/L Troponin I High Sens (<3.5-17.0) ng/L B-Natriuretic Peptide (<100) pg/mL Total Protein 6.5 (6.5-8.0) g/dL Albumin 3.4 L (3.5-5.0) g/dL COVID-19 (CAROL) (Negative) COVID-19 Clin Com Blood Type Antibody Screen 12/24/20 Range/Units 09:06 WBC (4.8-10.8) X10*3/uL RBC (4.20-5.50) X10*6/uL Hgb (12.0-16.0) g/dl Hct (37-47) % MCV (80-98) fL MCH (27.0-33.0) pg MCHC (31.0-35.0) g/dl RDW (11.0-16.0) % Plt Count (160-400) X10*3/uL MPV (9.4-12.3) fL Immature Gran % (Auto) Neut % (Auto) Lymph % (Auto) [place] % (Auto) Eos % (Auto) Baso % (Auto) Lymph # (Auto) [place] # (Auto) Eos # (Auto) Baso # (Auto) Abs Immat Gran (auto) Absolute Neuts (auto) Absolute Nucleated RBC (0.0-0.012) X10*3/uL Nucleated RBC % (auto) (0.0-0.2) /100WBC Neutrophils % (Manual) (45-73) % Band Neutrophils % (3-5) % Lymphocytes % (Manual) (20-40) % Monocytes % (Manual) (2-11) % Metamyelocytes % % Myelocytes % % Promyelocytes % % Abs Neuts (Manual) (2.2-7.9) X10*3/uL Lymphocytes # (Manual) (0.6-4.8) X10*3/uL Monocytes # (Manual) (0.0-1.2) X10*3/uL Metamyelocytes # X10*3/uL Myelocytes # X10*/uL Promyelocytes # X10*3/uL Nucleated RBCs (0-0) /100WBC Platelet Estimate (NORMAL) Large Platelets Plt Morphology Comment RBC Morphology Polychromasia /OIF Basophilic Stippling /OIF Tear Drop Cells /OIF Ovalocytes /OIF PT (9.9-13.0) SEC INR (0.9-1.1) APTT (24.1-38.0) SEC Sodium (135-145) mmol/L Potassium (3.3-5.1) mmol/L Chloride (96-108) mmol/L Carbon Dioxide (22-29) mmol/L Anion Gap (12-20) BUN (9-16) mg/dL Creatinine (0.5-1.4) mg/dL Estim Creat Clear Calc Estimated GFR Random Glucose (60-115) mg/dL Lactic Acid (0.5-2.0) mmol/L Calcium (8.4-10.2) mg/dL Magnesium (1.6-2.6) mg/dL Total Bilirubin (0.0-1.0) mg/dL Direct Bilirubin (0.0-0.5) mg/dL AST (5-31) U/L ALT (0-31) U/L Alkaline Phosphatase (39-117) U/L Troponin I High Sens 11.9 (<3.5-17.0) ng/L B-Natriuretic Peptide 2348 H (<100) pg/mL Total Protein (6.5-8.0) g/dL Albumin (3.5-5.0) g/dL COVID-19 (CAROL) (Negative) COVID-19 Clin Com Blood Type Antibody Screen ECG Data Attestation: I personally reviewed and interpreted this ECG as follows: ECG interpretation date: 12/24/20 ECG interpretation time: 09:21 Interpretation: Rate: 81 Rhythm: NSR [place]: normal Normal P waves. Normal COLE. Normal QRS complex. ST T wave : nonspecific, no LILLIAN qTC: normal prior studies: no acute ischemia The study has been interpreted contemporaneously by me. . Discharge Plan Discharge Clinical Impression: Congestive heart failure, Acute dyspnea, Elevated WBC count Patient Disposition: Admitted As Inpatient Prescriptions: No Action lisinopril 20 mg tablet 20 mg PO DAILY Qty: 90 RF: 3 levothyroxine 75 mcg tablet 75 mcg PO QAM 90 Days Qty: 90 RF: 0 oxycodone 5 mg tablet 5 mg PO Q4-6H 28 Days Qty: 168 RF: 0 carvedilol 25 mg tablet 25 mg PO BID RF: 0 fluticasone propion-salmeterol [Advair Diskus] 100-50 mcg/dose blister with device 1 puff PO BID RF: 0 dronabinol [Marinol] 2.5 mg Capsule 2.5 mg PO BID Qty: 60 RF: 4 pregabalin 25 mg capsule 25 mg PO TID 90 Days Qty: 270 RF: 1 ondansetron HCl 4 mg tablet 4 mg PO Q8H PRN (Reason: nausea and vomiting) Qty: 20 RF: 0
[2020-12-24 09:12] LABS: Hemoglobin 9.5 g/dl (12.0-16.0); Mean Corpuscular Hemoglobin 27.5 pg (27.0-33.0); Red Blood Count 3.46 X10*6/uL (4.20-5.50)
[2020-12-24 09:14] LABS: Hematocrit 31.6 % (37-47); Mean Corpuscular HGB Conc 30.1 g/dl (31.0-35.0); Mean Corpuscular Volume 91.3 fL (80-98); Mean Platelet Volume 13.3 fL (9.4-12.3); PLT CLUMP 1
[2020-12-24 09:19] LABS: INTERNATIONAL NORM RATIO 1.2 (0.9-1.1); NRBC Pct Auto 2.4 /100WBC (0.0-0.2); PLT ABN DIST 1; Platelet Count 174 X10*3/uL (160-400); WBC ABN SCTR FOR CBC 1
[2020-12-24 09:20] LABS: White Blood Count 57.2 X10*3/uL (4.8-10.8)
[2020-12-24 09:22] LABS: Partial Thromboplastin Time 34.5 SEC (24.1-38.0)
[2020-12-24 09:29] LABS: COVID-19 Test Negative (Negative); IDNOW Serial# 9DD0AD1C
[2020-12-24 09:32] LABS: Lactic Acid 1.1 mmol/L (0.5-2.0)
[2020-12-24 09:36] LABS: Band Neutrophils Percent 17 % (3-5); Lymphocytes Absolute Manual 2.9 X10*3/uL (0.6-4.8); Lymphocytes Percent Manual 5 % (20-40); Metamyelocytes Absolute 1.7 X10*3/uL; Metamyelocytes Percent 3 %; Monocytes Absolute Manual 1.1 X10*3/uL (0.0-1.2); Monocytes Percent Manual 2 % (2-11); Myelocytes Absolute 2.3 X10*/uL; Myelocytes Percent 4 %; Neutrophils Absolute Manual 48.6 X10*3/uL (2.2-7.9); Neutrophils Percent Manual 68 % (45-73); Promyelocytes Absolute 0.6 X10*3/uL; Promyelocytes Percent 1 %
[2020-12-24 09:38] LABS: RBC Morphology NOTED
[2020-12-24 09:40] LABS: B Type Natriuretic Peptide 2348 pg/mL (<100); Troponin-I High Sensitivity 11.9 ng/L (<3.5-17.0)
[2020-12-24 09:42] LABS: Basophilic Stippling 1+ (0-2) /OIF; Ovalocytes 1+ (5-14) /OIF; Polychromasia 2+ (3-5) /OIF; Tear Drop Cells 1+ (0-2) /OIF
[2020-12-24 09:43] LABS: Alanine Aminotransferase 10 U/L (0-31); Albumin Level 3.4 g/dL (3.5-5.0); Alkaline Phosphatase 62 U/L (39-117); Anion Gap 18 (12-20); Aspartate Amino Transferase 49 U/L (5-31); Bilirubin Direct 0.2 mg/dL (0.0-0.5); Bilirubin Total 0.8 mg/dL (0.0-1.0); Blood Urea Nitrogen 9 mg/dL (9-16); Calcium 8.6 mg/dL (8.4-10.2); Carbon Dioxide 19 mmol/L (22-29); Chloride 105 mmol/L (96-108); Creatinine Clr Calc Pharmacy 32.1; Estimated Glomerular Filt Rate > 60; Glucose Random 98 mg/dL (60-115); Large Platelet PRESENT; Platelet Estimate NORMAL (NORMAL); Potassium 4.6 mmol/L (3.3-5.1); Sodium 137 mmol/L (135-145); Total Protein 6.5 g/dL (6.5-8.0)
[2020-12-24 09:44] LABS: Nucleated Red Blood Cells 2 /100WBC (0-0)
[2020-12-24] MEDS: iohexoL 350 MG/ML 100 ML INFUS..BTL IV (10:12)
--- NOTE | 2020-12-24 10:40 | PHA.MEDREC ---
Pharmacy Consult ? Medication Reconciliation Pharmacy has completed the medication reconciliation.
[2020-12-24] MEDS: Furosemide 20 MG/2 ML VIAL IVPUSH (10:59)
[2020-12-24 11:34] LABS: Glucose Urine UA NEG (NEG); Leukocyte Esterase Urine NEG (NEG); Nitrite Urine NEG (NEG); PH 6.5 (5.0-8.0); Specific Gravity - Urine <= 1.005 (1.005-1.025); Urine Blood NEG (NEG); Urine Ketones NEG (NEG); Urine Protein TRACE MG/DL (NEG-TRACE)
--- NOTE | 2020-12-24 11:34 | PM.IMHP ---
History of Present Illness Date of Service: 12/24/20 Chief Complaint: Progressive SOB This is an 85 yo F with a PMH of MDS, RAEB with weekly procrit injections who presents to the hospital with complaints of progressive shortness of breath over the last 1 week. Patient, who is mainly wheel chair bound, reports that she was unable to make it to her bathroom without significant STERLING nor was she able to have normal conversations without significant STERLING. SHe reports that she tried to ignore it for a week but it became severe so she presented to the hospital. She dnies any leg edema, PND, orthopnea -- in fact she says her symptoms are better when she lays flat. She endorses a previous diagnosis of CHF and used to follow up with Dr. Covarrubias, but has not done so in 1 year because she reports that she was stable from that perspective. She denies being on any current diuretic therapy. In the ED, she underwent work up which included a CTA which showed diffuse emphysema without acute consolidiations. There were bilateral pleural effusion L > R. Her cardiac BNP >2000. She was given IV lasix without improvement in her symptoms and so will be admitted for further testing and management. Review of Systems Review of Systems: General - denies fevers or chills, +weakness/generalized malaise, +weight loss HEENT -denies blurred vision, denies headache, denies sore throat Cardiovascular - denies chest pain or palpitations, denies edema, denies orthopnea / PND Respiratory - +shortness of breath, initially STERLING now even at rest Gastrointestinal - denies abdominal pain, nausea, vomiting, diarrhea - reports urgency, frequency -- started after IV lasix Musculoskeletal - denies back pain, denies hip pain, denies knee pain, denies shoulder pain Neurological - denies any focal weakness or numbness Skin, denies any bruising or redness Psychiatric - denies any suicidal ideation, hallucinations, homicidal ideation Endocrinology - denies intolerance to hot / cold temperatures [facility] Medical History Congestive heart failure COPD (chronic obstructive pulmonary disease) CVA (cerebral vascular accident) Degenerative disc disease Femoral neck fracture Hypercholesterolemia Hypertension Hypothyroid Lumbar stenosis Myelodysplastic syndrome Neurogenic bladder Nonischemic cardiomyopathy Osteoporosis Peripheral neuropathy Right lower lobe pulmonary nodule Family History (Updated 09/20/20 @ 09:15 by Shalonda So) Daughter Hypertension Son Hypertension Diabetes Maternal Grandfather Lymphoma Surgical History History of back surgery History of hip surgery Social History Housing: House Alcohol intake: former Patient Tobacco Use Status: Former Tobacco user Tobacco use type: Cigarette e-Cigarette/Vaping Use: Never Used Second Hand Smoke Exposure: No Advance Directives: Yes Advance Directives Information Provided: No Advance Directives on File: No Advance Directives Date on File: 02/01/20 service: No Current occupational status: retired Meds Allergies Allergy/AdvReac Type Severity Reaction Status Date / Time mercury (elemental) Allergy Severe SWELLING, Verified 11/20/20 14:18 [Mercury (Elemental)] GENERALIZED WELTS amoxicillin Allergy Unknown Diarrhea Verified 11/20/20 14:18 antibiotic ointment Allergy Unknown Swelling Verified 11/20/20 14:18 aspirin [Aggrenox] Allergy Unknown Gastrointestinal Verified 11/20/20 14:18 Upset atorvastatin [ATORVASTATIN] Allergy Unknown UNKNOWN Verified 11/20/20 14:18 clavulanic acid [Augmentin] Allergy Unknown Diarrhea Verified 11/20/20 14:18 clindamycin [CLINDAMYCIN] Allergy Unknown UNKNOWN Verified 11/20/20 14:18 dipyridamole [From AGGRENOX] Allergy Unknown HEADACHE Verified 11/20/20 14:18 duloxetine [Cymbalta] Allergy Unknown Unknown Verified 11/20/20 14:18 ezetimibe [From ZETIA] Allergy Unknown UNKNOWN Verified 11/20/20 14:18 nabumetone Allergy Unknown Unknown Verified 11/20/20 14:18 pravastatin [PRAVASTATIN] Allergy Unknown UNKNOWN Verified 11/20/20 14:18 silver sulfadiazine Allergy Unknown rash Verified 11/20/20 14:18 simvastatin [SIMVASTATIN] Allergy Unknown UNKNOWN Verified 11/20/20 14:18 zinc [ZINC] Allergy Unknown BURN, Verified 11/20/20 14:18 itching dronabinol [From Marinol] AdvReac Intermediate Nausea Verified 11/20/20 14:52 Active Medications: Current Medications Generic Name Dose Route Start Last Admin Trade Name Freq PRN Reason Stop Dose Admin Acetaminophen 650 mg 12/24/20 11:27 Acetaminophen 325 Mg Tablet PO Q6H PRN Pain, Mild (Pain Scale 1-3) Carvedilol 25 mg 12/24/20 21:00 Carvedilol 25 Mg Tablet PO BID [facility] Protocol Enoxaparin Sodium 40 mg 12/24/20 12:00 Enoxaparin Sodium 40 Mg/0.4 Ml Syringe SUBCUT Q24H [facility] Levothyroxine Sodium 75 mcg 12/25/20 06:30 Levothyroxine Sodium 75 Mcg Tablet PO QAM [facility] Lisinopril 20 mg 12/25/20 09:00 Lisinopril 20 Mg Tablet PO DAILY [facility] Protocol Ondansetron HCl 4 mg 12/24/20 11:27 Ondansetron Hcl 4 Mg/2 Ml Vial IVPUSH Q8H PRN Nausea and Vomiting Pharmacy Consult 1 each 12/24/20 08:40 Consult Rx Perform Med Rec MISCELLANE ONCE PRN Consult order Sodium Chloride 3 ml 12/24/20 16:00 0.9 % Sodium Chloride Flush 3 Ml Syringe IVFLUSH QSHIFT [facility] Home Medications Medication Instructions Recorded Confirmed Last Taken Type carvedilol 25 mg tablet 25 mg PO BID 03/15/20 12/24/20 12/24/20 History fluticasone 100 mcg-salmeterol 50 1 puff PO BID 03/15/20 12/24/20 12/24/20 History mcg/dose blistr powdr for inhalation (Advair Diskus) albuterol sulfate 90 mcg/actuation 2 puff INHALATION Q6H PRN 12/24/20 12/24/20 Unknown History aerosol inhaler (ProAir HFA) geriatric [id number] 1 tab PO DAILY 12/24/20 12/24/20 12/24/20 History oxycodone 5 mg tablet 5 mg PO Q4-6H PRN 12/24/20 12/24/20 12/24/20 History Physical Exam Vital Signs and Narrative: Vital Signs: Last Vital Signs Temp 97.9 F 12/24/20 11:04 Pulse 87 12/24/20 11:04 Resp 20 12/24/20 11:04 BP 183/78 H 12/24/20 11:04 Pulse Ox 94 12/24/20 11:04 Body Mass Index 15.1 Const: Other: Constitutional - Awake and Alert, No apparent distress Eyes - PERRLA, EOMI Cardiovascular - S1S2, RRR, No edema Respiratory - diminished sounds throughout, mild accessory muscle usage Gastrointestinal - NT / ND; +BS; No rebound or guarding - No CVA tenderness Extremities - no calf tenderness bilaterally, no swelling Musculoskeletal - Normal inspection, normal ROM Skin - Warm/Dry Neurological - Alert & oriented x3, No focal deficit Psychological - Appropriate affect Results Labs CBC and Chem 7: 12/24/20 09:06 12/24/20 09:06 Labs: Laboratory Results - last 24 hr 12/24/20 12/24/20 12/24/20 09:02 09:04 09:05 MCV MCH MCHC RDW Plt Count MPV Immature Gran % (Auto) Neut % (Auto) Lymph % (Auto) Dukes % (Auto) Eos % (Auto) Baso % (Auto) Lymph # (Auto) [place]ukes # (Auto) Eos # (Auto) Baso # (Auto) Abs Immat Gran (auto) Absolute Neuts (auto) Absolute Nucleated RBC Nucleated RBC % (auto) Neutrophils % (Manual) Band Neutrophils % Lymphocytes % (Manual) Monocytes % (Manual) Metamyelocytes % Myelocytes % Promyelocytes % Abs Neuts (Manual) Lymphocytes # (Manual) Monocytes # (Manual) Metamyelocytes # Myelocytes # Promyelocytes # Nucleated RBCs Platelet Estimate Large Platelets Plt Morphology Comment RBC Morphology Polychromasia Basophilic Stippling Tear Drop Cells Ovalocytes PT INR APTT Anion Gap Estim Creat Clear Calc Estimated GFR Random Glucose Lactic Acid 1.1 Calcium Magnesium Total Bilirubin Direct Bilirubin AST ALT Alkaline Phosphatase Troponin I High Sens B-Natriuretic Peptide Total Protein Albumin COVID-19 (CAROL) Negative COVID-19 Clin Com See Note Blood Type A Positive Antibody Screen NEGATIVE 12/24/20 12/24/20 12/24/20 09:06 09:06 09:06 MCV 91.3 MCH 27.5 MCHC 30.1 L RDW 20.0 H Plt Count 174 D MPV 13.3 H Immature Gran % (Auto) Cancelled Neut % (Auto) Cancelled Lymph % (Auto) Cancelled [place] % (Auto) Cancelled Eos % (Auto) Cancelled Baso % (Auto) Cancelled Lymph # (Auto) Cancelled [place] # (Auto) Cancelled Eos # (Auto) Cancelled Baso # (Auto) Cancelled Abs Immat Gran (auto) Cancelled Absolute Neuts (auto) Cancelled Absolute Nucleated RBC 1.370 H Nucleated RBC % (auto) 2.4 H Neutrophils % (Manual) 68 Band Neutrophils % 17 H Lymphocytes % (Manual) 5 L Monocytes % (Manual) 2 Metamyelocytes % 3 Myelocytes % 4 Promyelocytes % 1 Abs Neuts (Manual) 48.6 H Lymphocytes # (Manual) 2.9 Monocytes # (Manual) 1.1 Metamyelocytes # 1.7 Myelocytes # 2.3 Promyelocytes # 0.6 Nucleated RBCs 2 H Platelet Estimate NORMAL Large Platelets PRESENT Plt Morphology Comment Not Reportable RBC Morphology NOTED Polychromasia 2+ (3-5) Basophilic Stippling 1+ (0-2) Tear Drop Cells 1+ (0-2) Ovalocytes 1+ (5-14) PT 14.0 H INR 1.2 H APTT 34.5 Anion Gap 18 Estim Creat Clear Calc 32.1 Estimated GFR > 60 Random Glucose 98 Lactic Acid Calcium 8.6 D Magnesium 2.0 Total Bilirubin 0.8 Direct Bilirubin 0.2 AST 49 H D ALT 10 Alkaline Phosphatase 62 Troponin I High Sens B-Natriuretic Peptide Total Protein 6.5 Albumin 3.4 L COVID-19 (CAROL) COVID-[employer] Blood Type Antibody Screen 12/24/20 09:06 MCV MCH MCHC RDW Plt Count MPV Immature Gran % (Auto) Neut % (Auto) Lymph % (Auto) [place] % (Auto) Eos % (Auto) Baso % (Auto) Lymph # (Auto) [place]ukes # (Auto) Eos # (Auto) Baso # (Auto) Abs Immat Gran (auto) Absolute Neuts (auto) Absolute Nucleated RBC Nucleated RBC % (auto) Neutrophils % (Manual) Band Neutrophils % Lymphocytes % (Manual) Monocytes % (Manual) Metamyelocytes % Myelocytes % Promyelocytes % Abs Neuts (Manual) Lymphocytes # (Manual) Monocytes # (Manual) Metamyelocytes # Myelocytes # Promyelocytes # Nucleated RBCs Platelet Estimate Large Platelets Plt Morphology Comment RBC Morphology Polychromasia Basophilic Stippling Tear Drop Cells Ovalocytes PT INR APTT Anion Gap Estim Creat Clear Calc Estimated GFR Random Glucose Lactic Acid Calcium Magnesium Total Bilirubin Direct Bilirubin AST ALT Alkaline Phosphatase Troponin I High Sens 11.9 B-Natriuretic Peptide 2348 H Total Protein Albumin COVID-19 (CAROL) COVID-[employer] Blood Type Antibody Screen Imaging Radiologist's Impressions: Impressions Chest CTA 12/24/20 08:41 IMPRESSION: No evidence of PE. No evidence of aortic aneurysm or dissection. Diffuse emphysema without acute consolidation. Small to moderate left and small right pleural effusions. Mild cardiomegaly. VTE: negative. Assessment and Plan (1) Congestive heart failure: Status: Acute This is an 85 yo F with MDS / RAEB, CHF - presumed diastolic not currently on diuretic therapy, Emphysema by imaging studies, who presents to the hospital with complaints of progressive shortness of breath over the last 1 week. Her imaging studies and blood work reveal bilateral pleural effusion with an elevated BNP suggestive of CHF as the cause of her symptoms. However, clinically she does not appear to be significantly volume overloaded but is clearly in respiratory distress with minimal exertion, even talking. She will be admitted for further work up and treatment. 1. Progressive shortness of breath secondary to CHF vs COPD vs other cause will start empiric IV lasix and get 2d Echo + cardiology evaluation will also treat her COPD with PRN updrafts suspect more CHF over COPD given her elevation on BNP and plueral effusions 2. Uncontrolled BP restart her home meds, uptitrate as needed coreg + lisinopril 3. 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 COPD continue baseline inhalers, replace non-formularly ones duonebs PRN 5. Severe protein calorie malnutrition supplements 6. Neuropathy continue Pregabalin 7. Leukocytosis due to her MDS, not from infection DNR/DNI DVT pptx, Lovenox Daughter Zaira is HCP Quality Stroke Does the patient have a stroke diagnosis?: No VTE Prior VTE?: No VTE Risk Level:: Medical - moderate - high VTE Device Contraindication: Treatment Not Indicated VTE Drug Contraindication: N/A - Med Ordered
[2020-12-24 11:37] LABS: Appearance Urine CLEAR; Color Urine YELLOW
[2020-12-24] MEDS: Enoxaparin Sodium 40 MG/0.4 ML SYRINGE SUBCUT (11:50)
[2020-12-24] MEDS: Acetaminophen 325 MG TABLET 650 MG PO ×2 (11:50→20:37)
[2020-12-24] MEDS: oxyCODONE HCl Immed Release 5 MG TABLET PO ×2 (13:57→20:38)
[2020-12-24] MEDS: Pregabalin 25 MG CAPSULE PO ×2 (13:57→20:38)
[2020-12-24] MEDS: carvediloL 25 MG TABLET PO (20:38)
[2020-12-24] MEDS: 0.9 % Sodium Chloride Flush 3 ML SYRINGE IVFLUSH ×2 (20:41→20:43)
[2020-12-24] MEDS: traZODone HCL 25 MG HALFTAB PO (21:29)
[2020-12-25] VITALS (8 sets, daily range): BP systolic 112–170; BP diastolic 56–86; PULSE 60–87; RESP 16–20; TEMP 36.1–37.1; O2SAT 96–98; BMI 15.7
[2020-12-25] MEDS: oxyCODONE HCl Immed Release 5 MG TABLET PO ×4 (01:56→22:39)
[2020-12-25] MEDS: Acetaminophen 325 MG TABLET 650 MG PO ×2 (01:57→22:40)
[2020-12-25] MEDS: Levothyroxine Sodium 75 MCG TABLET PO (05:24)
[2020-12-25 06:43] LABS: Hemoglobin 8.3 g/dl (12.0-16.0)
[2020-12-25 06:45] LABS: Hematocrit 27.8 % (37-47); Mean Corpuscular HGB Conc 29.9 g/dl (31.0-35.0); Mean Corpuscular Volume 90.6 fL (80-98); Mean Platelet Volume 14.1 fL (9.4-12.3); PLT CLUMP 1; Red Blood Count 3.07 X10*6/uL (4.20-5.50); Red Cell Distribution Width 19.9 % (11.0-16.0)
[2020-12-25 06:58] LABS: NRBC Pct Auto 2.9 /100WBC (0.0-0.2); PLT ABN DIST 1; WBC ABN SCTR FOR CBC 1
[2020-12-25 07:14] LABS: Blood Urea Nitrogen 11 mg/dL (9-16); Calcium 8.4 mg/dL (8.4-10.2); Creatinine Clr Calc Pharmacy 34.1; Estimated Glomerular Filt Rate > 60; Glucose Random 72 mg/dL (60-115)
[2020-12-25 07:32] LABS: White Blood Count 44.4 X10*3/uL (4.8-10.8)
[2020-12-25 07:33] LABS: Platelet Count 156 X10*3/uL (160-400)
[2020-12-25 07:37] LABS: Band Neutrophils Percent 9 % (3-5); Basophils Abs Manual 0.4 X10*3/uL (0.0-0.3); Basophils Percent Manual 1 % (0-1); Blast Percent 3 %; Blastocytes Absolute 1.3 X10*3/uL; Lymphocytes Absolute Manual 1.8 X10*3/uL (0.6-4.8); Lymphocytes Percent Manual 4 % (20-40); Metamyelocytes Absolute 1.8 X10*3/uL; Metamyelocytes Percent 4 %; Monocytes Absolute Manual 1.8 X10*3/uL (0.0-1.2); Monocytes Percent Manual 4 % (2-11); Myelocytes Absolute 0.4 X10*/uL; Myelocytes Percent 1 %; Neutrophils Percent Manual 72 % (45-73); Nucleated Red Blood Cells 4 /100WBC (0-0); Promyelocytes Absolute 0.9 X10*3/uL; Promyelocytes Percent 2 %
[2020-12-25 07:43] LABS: Large Platelet PRESENT; Macrocytosis 1+ (5-14) /OIF; Microcytosis 1+ (5-14) /OIF; Platelet Estimate NORMAL (NORMAL)
[2020-12-25 07:44] LABS: Platelet Morphology Comment NOTE; RBC Morphology NOTED
[2020-12-25 07:45] LABS: Anion Gap 14 (12-20); Carbon Dioxide 25 mmol/L (22-29); Chloride 101 mmol/L (96-108); Potassium 2.9 mmol/L (3.3-5.1); Sodium 137 mmol/L (135-145)
[2020-12-25 07:46] LABS: Hypochromasia 1+ (5-14) /OIF; Polychromasia 1+ (0-2) /OIF; Tear Drop Cells 1+ (0-2) /OIF
[2020-12-25 07:47] LABS: Basophilic Stippling 1+ (0-2) /OIF
--- NOTE | 2020-12-25 09:35 | P.CDIC_ITS ---
CDI Concurrent Query Service Date: 12/25/20 Documentation Clarification: Please clarify if you are treating a proba ble/suspected/likely or confirmed: Labs: Hypokalemia Other, please specify if known Hypokalemia Provider Response: Other Other Diagnosis: Hypokalemia PLEASE DO NOT DELETE/MODIFY EXISTING CONTENT Additional information is needed in order to code to the highest accuracy and appropriate Severity of Illness (SOI). Please clarify the information noted below in your progress notes and discharge summary. Risk Factors/Clinical Indicators/Treatments LAB: potassium 2.9 L* IV Fluids CDS: María See [facility], [facility] Contact Number: [phone] Please Review the information above and exercise your independent professional judgment in responding to the query. If you concur, pleas document in the PROGRESS NOTES and DISCHARGE SUMMARY. If you do not agree with the query, please document in the query above. THIS QUERY IS PART OF THE PERMANENT MEDICAL RECORD
--- NOTE | 2020-12-25 09:37 | P.CDIC_ITS ---
CDI Concurrent Query Service Date: 12/25/20 Documentation Clarification: Please clarify if you are treating a proba ble/suspected/likely or confirmed: Chronic obstructive pulmonary disease Chronic obstructive pulmonary disease exacerbation Other, if known possible to specify COPD, as mentioned in the H&P Provider Response: COPD Other Diagnosis: COPD, as mentioned in the H&P PLEASE DO NOT DELETE/MODIFY EXISTING CONTENT Additional information is needed in order to code to the highest accuracy and appropriate Severity of Illness (SOI). Please clarify the information noted below in your progress notes and discharge summary. Risk Factors/Clinical Indicators/Treatments Respiratory distress/SOB/STERLING H&P - CHF - suspect more CHF vs. COPD, treat COPD with PRN updrafts. CTA showed diffuse emphysema. Bilateral pleural effusions. IV Lasix without improvement. CDS: María See [facility], [facility] Contact Number: [phone] Please Review the information above and exercise your independent professional judgment in responding to the query. If you concur, pleas document in the PROGRESS NOTES and DISCHARGE SUMMARY. If you do not agree with the query, please document in the query above. THIS QUERY IS PART OF THE PERMANENT MEDICAL RECORD
[2020-12-25] MEDS: Potassium Chloride Packet 20 MEQ PACKET 40 MEQ PO ×2 (09:41→13:23)
[2020-12-25] MEDS: Pregabalin 25 MG CAPSULE PO ×3 (09:42→20:36)
[2020-12-25] MEDS: lisinopriL 20 MG TABLET PO (09:42)
[2020-12-25] MEDS: carvediloL 25 MG TABLET PO ×2 (09:43→20:36)
[2020-12-25] MEDS: 0.9 % Sodium Chloride Flush 3 ML SYRINGE IVFLUSH ×2 (09:44→16:46)
--- NOTE | 2020-12-25 09:46 | MHC.CM.PN ---
IMM 12/25/20 Female 85 DX SOB Patient's son lives with her. He assists with Set up for ADLs. Patient is WC bound. She can transfer safely, per pt report. She has had [facility] in the past. If Home services are ordered, Pts preference is [facility]. They are following. HCP is on file. PCP is Dr Irwin. CM will follow.
--- NOTE | 2020-12-25 10:13 | HO.PM.IMPN ---
Subjective Subjective Date of Service: 12/25/20 Interval History: seen and examined this AM feels better says she is able to talk in full sentences without feeling SOB denies chest pain Review of Systems General - no fevers or chills Cardiovascular - no chest pain Respiratory - no shortness of breath or cough Abdominal- no abdominal pain, nausea, vomiting, diarrhea Physical Exam Vital Signs: Vital Signs: Last Vital Signs Temp 97 F 12/25/20 07:11 Pulse 76 12/25/20 09:43 Resp 20 12/25/20 07:11 BP 170/86 H 12/25/20 09:43 Pulse Ox 97 12/25/20 07:11 Body Mass Index 15.7 Const: Other: General - no acute distress, appears comfortable Cardiovascular - regular rate and rhythm, S1-S2 Lungs - normal respiratory effort, clear to auscultation bilaterally, no wheezing Abdomen - soft, nontender, no rebound or guarding Extremities - no edema bilaterally Neuro - awake and alert, no focal deficits Objective Data Current Medications Generic Name Dose Route Start Last Admin Trade Name Archieq PRN Reason Stop Dose Admin Acetaminophen 650 mg 12/24/20 11:27 12/25/20 01:57 Acetaminophen 325 Mg Tablet PO 650 mg Q6H PRN Administration Pain, Mild (Pain Scale 1-3) Carvedilol 25 mg 12/24/20 21:00 12/25/20 09:43 Carvedilol 25 Mg Tablet PO 25 mg BID [facility] Administration Protocol Enoxaparin Sodium 40 mg 12/24/20 12:00 12/24/20 11:50 Enoxaparin Sodium 40 Mg/0.4 Ml Syringe SUBCUT 40 mg Q24H BELIA Administration Fluticasone/Vilanterol 1 puff 12/25/20 08:00 Fluticasone/Vilanterol 100/25 Blst.W.Dev INHALE RDAILY [facility] Levothyroxine Sodium 75 mcg 12/25/20 06:30 12/25/20 05:24 Levothyroxine Sodium 75 Mcg Tablet PO 75 mcg DAILY@0630 BELIA Administration Lisinopril 20 mg 12/25/20 09:00 12/25/20 09:42 Lisinopril 20 Mg Tablet PO 20 mg DAILY [facility] Administration Protocol Ondansetron HCl 4 mg 12/24/20 11:27 Ondansetron Hcl 4 Mg/2 Ml Vial IVPUSH Q8H PRN Nausea and Vomiting Oxycodone HCl 5 mg 12/24/20 11:32 12/25/20 09:43 Oxycodone Hcl Immed Release 5 Mg Tablet PO 5 mg Q6H PRN Administration Pain (Scale Score 4-6) Pharmacy Consult 1 each 12/24/20 08:40 Consult Rx Perform Med Rec MISCELLANE ONCE PRN Consult order Potassium Chloride 40 meq 12/25/20 12:00 Potassium Chloride Packet 20 Meq Packet PO 12/25/20 12:01 ONCE ONE Pregabalin 25 mg 12/24/20 15:00 12/25/20 09:42 Pregabalin 25 Mg Capsule PO 25 mg TID BELIA Administration Sodium Chloride 3 ml 12/24/20 16:00 12/25/20 09:44 0.9 % Sodium Chloride Flush 3 Ml Syringe IVFLUSH 3 ml QSHIFT BELIA Administration Labs CBC & Chem 7: 12/25/20 05:20 12/25/20 05:20 Labs: Laboratory Results - last 24 hr 12/24/20 12/25/20 12/25/20 11:15 05:20 05:20 MCV 90.6 MCH 27.0 MCHC 29.9 L RDW 19.9 H Plt Count 156 L MPV 14.1 H Immature Gran % (Auto) Cancelled Neut % (Auto) Cancelled Lymph % (Auto) Cancelled [place] % (Auto) Cancelled Eos % (Auto) Cancelled Baso % (Auto) Cancelled Lymph # (Auto) Cancelled [place] # (Auto) Cancelled Eos # (Auto) Cancelled Baso # (Auto) Cancelled Abs Immat Gran (auto) Cancelled Absolute Neuts (auto) Cancelled Absolute Nucleated RBC 1.270 H Nucleated RBC % (auto) 2.9 H Neutrophils % (Manual) 72 Band Neutrophils % 9 H Lymphocytes % (Manual) 4 L Monocytes % (Manual) 4 Basophils % (Manual) 1 Metamyelocytes % 4 Myelocytes % 1 Promyelocytes % 2 Blast Cells % (Manual) 3 Abs Neuts (Manual) 36.0 H Lymphocytes # (Manual) 1.8 Monocytes # (Manual) 1.8 H Basophils # (Manual) 0.4 H Metamyelocytes # 1.8 Myelocytes # 0.4 Promyelocytes # 0.9 Blast Cells # 1.3 Nucleated RBCs 4 H Platelet Estimate NORMAL Large Platelets PRESENT Plt Morphology Comment NOTE RBC Morphology NOTED Polychromasia 1+ (0-2) Hypochromasia 1+ (5-14) Basophilic Stippling 1+ (0-2) Microcytosis 1+ (5-14) Macrocytosis 1+ (5-14) Tear Drop Cells 1+ (0-2) Anion Gap 14 Estim Creat Clear Calc 34.1 Estimated GFR > 60 Random Glucose 72 Calcium 8.4 Urine Color YELLOW Urine Appearance CLEAR Urine pH 6.5 Ur Specific [place] <= 1.005 Urine Protein TRACE Urine Glucose (UA) NEG Urine Ketones NEG Urine Blood NEG Urine Nitrite NEG Ur Leukocyte Esterase NEG Assessment and Plan (1) Congestive heart failure: Status: Acute Assessment and Plan: This is an 85 yo F with MDS / RAEB, CHF - presumed diastolic not currently on diuretic therapy, Emphysema by imaging studies, who presents to the hospital with complaints of progressive shortness of breath over the last 1 week. Her imaging studies and blood work reveal bilateral pleural effusion with an elevated BNP suggestive of CHF as the cause of her symptoms. However, clinically she does not appear to be significantly volume overloaded but is clearly in respiratory distress with minimal exertion, even talking. She will be admitted for further work up and treatment. 1. Progressive shortness of breath suspected due to acute CHF clinically improved continue IV lasix echo today, cardiology eval today 2. Uncontrolled BP continue coreg + lisinopril (will increase this from 20mg to 30mg) 3. 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 COPD, not in exacerbation continue baseline inhalers, replace non-formularly ones duonebs PRN 5. Severe protein calorie malnutrition supplements 6. Neuropathy continue Pregabalin 7. Leukocytosis due to her MDS, not from infection 8. HypoK, 2.9 replete oral 40meq x 2 check Mag DNR/DNI DVT pptx, Lovenox Daughter Zaira is HCP Quality Stroke Does the patient have a stroke diagnosis?: No VTE Prior VTE?: No VTE Risk Level:: Medical - moderate - high VTE Device Contraindication: Treatment Not Indicated VTE Drug Contraindication: N/A - Med Ordered
[2020-12-25] MEDS: Furosemide 20 MG/2 ML VIAL IVPUSH (11:18)
[2020-12-25] MEDS: lisinopriL 10 MG TABLET PO (11:18)
[2020-12-25] MEDS: Enoxaparin Sodium 40 MG/0.4 ML SYRINGE SUBCUT (13:25)
--- NOTE | 2020-12-25 15:49 | MHC.CLN ---
NUTRITION DISLIKES ENSURE ENLIVE SUPPLEMENT. CHANGED SUPPLEMENT TO ENSURE CLEAR 240 ML TID, PROVIDES 720 KCAL AND 24 G PROTEIN.
--- NOTE | 2020-12-25 15:59 | P.CONCA_ITS ---
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 She also has background of nonisch emic cardiomyopathy. She is presenting for shortness of breath. She was noticed to be in congestive heart failure. She was given IV diuretics and is feeling much better. She is not very active and mostly stays in wheelchair. She said she was unable to speak in full sentences and is improving now after diuretics. Blood pressure was elevated but improving. [facility] Past Medical History Medical History Congestive heart failure COPD (chronic obstructive pulmonary disease) CVA (cerebral vascular accident) Degenerative disc disease Femoral neck fracture Hypercholesterolemia Hypertension Hypothyroid Lumbar stenosis Myelodysplastic syndrome Neurogenic bladder Nonischemic cardiomyopathy Osteoporosis Peripheral neuropathy Right lower lobe pulmonary nodule Family History Family History Daughter Hypertension Son Hypertension Diabetes Maternal Grandfather Lymphoma Surgical History Surgical History History of back surgery History of hip surgery Social History Social History Household Members: Children Household Members Other:: son Housing: House Do you presently have visiting nurse or other home services: No Alcohol intake: former Patient Tobacco Use Status: Former Tobacco user Tobacco use type: Cigarette e-Cigarette/Vaping Use: Never Used Second Hand Smoke Exposure: No Advance Directives Date on File: 02/01/20 service: No Current occupational status: retired Meds Allergies Allergy/AdvReac Type Severity Reaction Status Date / Time mercury (elemental) Allergy Severe SWELLING, Verified 11/20/20 14:18 [Mercury (Elemental)] GENERALIZED WELTS amoxicillin Allergy Unknown Diarrhea Verified 11/20/20 14:18 antibiotic ointment Allergy Unknown Swelling Verified 11/20/20 14:18 aspirin [Aggrenox] Allergy Unknown Gastrointestinal Verified 11/20/20 14:18 Upset atorvastatin [ATORVASTATIN] Allergy Unknown UNKNOWN Verified 11/20/20 14:18 clavulanic acid [Augmentin] Allergy Unknown Diarrhea Verified 11/20/20 14:18 clindamycin [CLINDAMYCIN] Allergy Unknown UNKNOWN Verified 11/20/20 14:18 dipyridamole [From AGGRENOX] Allergy Unknown HEADACHE Verified 11/20/20 14:18 duloxetine [Cymbalta] Allergy Unknown Unknown Verified 11/20/20 14:18 ezetimibe [From ZETIA] Allergy Unknown UNKNOWN Verified 11/20/20 14:18 nabumetone Allergy Unknown Unknown Verified 11/20/20 14:18 pravastatin [PRAVASTATIN] Allergy Unknown UNKNOWN Verified 11/20/20 14:18 silver sulfadiazine Allergy Unknown rash Verified 11/20/20 14:18 simvastatin [SIMVASTATIN] Allergy Unknown UNKNOWN Verified 11/20/20 14:18 zinc [ZINC] Allergy Unknown BURN, Verified 11/20/20 14:18 itching dronabinol [From Marinol] AdvReac Intermediate Nausea Verified 11/20/20 14:52 Active Medications: Current Medications Generic Name Dose Route Start Last Admin Trade Name Freq PRN Reason Stop Dose Admin Acetaminophen 650 mg 12/24/20 11:27 12/25/20 01:57 Acetaminophen 325 Mg Tablet PO 650 mg Q6H PRN Administration Pain, Mild (Pain Scale 1-3) Carvedilol 25 mg 12/24/20 21:00 12/25/20 09:43 Carvedilol 25 Mg Tablet PO 25 mg BID BELIA Administration Protocol Enoxaparin Sodium 40 mg 12/24/20 12:00 12/25/20 13:25 Enoxaparin Sodium 40 Mg/0.4 Ml Syringe SUBCUT 40 mg Q24H BELIA Administration Fluticasone/Vilanterol 1 puff 12/25/20 08:00 Fluticasone/Vilanterol 100/25 Blst.W.Dev INHALE RDAILY BELIA Furosemide 20 mg 12/25/20 10:30 12/25/20 11:18 Furosemide 20 Mg/2 Ml Vial IVPUSH 20 mg DAILY BELIA Administration Protocol Levothyroxine Sodium 75 mcg 12/25/20 06:30 12/25/20 05:24 Levothyroxine Sodium 75 Mcg Tablet PO 75 mcg DAILY@0630 BELIA Administration Lisinopril 30 mg 12/26/20 09:00 Lisinopril 10 Mg Tablet PO DAILY BELIA Protocol Ondansetron HCl 4 mg 12/24/20 11:27 Ondansetron Hcl 4 Mg/2 Ml Vial IVPUSH Q8H PRN Nausea and Vomiting Oxycodone HCl 5 mg 12/24/20 11:32 12/25/20 09:43 Oxycodone Hcl Immed Release 5 Mg Tablet PO 5 mg Q6H PRN Administration Pain (Scale Score 4-6) Pharmacy Consult 1 each 12/24/20 08:40 Consult Rx Perform Med Rec MISCELLANE ONCE PRN Consult order Pregabalin 25 mg 12/24/20 15:00 12/25/20 09:42 Pregabalin 25 Mg Capsule PO 25 mg TID BELIA Administration Sodium Chloride 3 ml 12/24/20 16:00 12/25/20 09:44 0.9 % Sodium Chloride Flush 3 Ml Syringe IVFLUSH 3 ml QSHIFT BELIA Administration Home Medications Medication Instructions Recorded Confirmed Last Taken Type carvedilol 25 mg tablet 25 mg PO BID 03/15/20 12/24/20 12/24/20 History fluticasone 100 mcg-salmeterol 50 1 puff PO BID 03/15/20 12/24/20 12/24/20 History mcg/dose blistr powdr for inhalation (Advair Diskus) albuterol sulfate 90 mcg/actuation 2 puff INHALATION Q6H PRN 12/24/20 12/24/20 Unknown History aerosol inhaler (ProAir HFA) geriatric [id number] 1 tab PO DAILY 12/24/20 12/24/20 12/24/20 History oxycodone 5 mg tablet 5 mg PO Q4-6H PRN 12/24/20 12/24/20 12/24/20 History Physical Exam Vital Signs: Vital Signs: Last Vital Signs Temp 98.8 F 12/25/20 15:01 Pulse 79 12/25/20 15:01 Resp 18 12/25/20 15:01 BP 164/82 H 12/25/20 15:01 Pulse Ox 98 12/25/20 15:01 Body Mass Index 15.7 GENERAL APPEARANCE: in no acute distress, pleasant. Frail. NECK: no carotid bruit, no jugular venous distention. SKIN: no suspicious lesions, warm and dry. HEART: no murmurs, regular rate and rhythm. LUNGS: clear to auscultation bilaterally. ABDOMEN: soft, nontender. EXTREMITIES: no edema. PERIPHERAL PULSES: equal. NEUROLOGIC: No gross deficits, AAO X 3 Results Labs and Meds Result diagrams: 12/25/20 05:20 12/25/20 05:20 Lab results: Laboratory Results - last 24 hr 12/25/20 12/25/20 12/25/20 05:20 05:20 08:41 WBC 44.4 H* RBC 3.07 L Hgb 8.3 L Hct 27.8 L MCV 90.6 MCH 27.0 MCHC 29.9 L RDW 19.9 H Plt Count 156 L MPV 14.1 H Immature Gran % (Auto) Cancelled Neut % (Auto) Cancelled Lymph % (Auto) Cancelled [place] % (Auto) Cancelled Eos % (Auto) Cancelled Baso % (Auto) Cancelled Lymph # (Auto) Cancelled [place] # (Auto) Cancelled Eos # (Auto) Cancelled Baso # (Auto) Cancelled Abs Immat Gran (auto) Cancelled Absolute Neuts (auto) Cancelled Absolute Nucleated RBC 1.270 H Nucleated RBC % (auto) 2.9 H Neutrophils % (Manual) 72 Band Neutrophils % 9 H Lymphocytes % (Manual) 4 L Monocytes % (Manual) 4 Basophils % (Manual) 1 Metamyelocytes % 4 Myelocytes % 1 Promyelocytes % 2 Blast Cells % (Manual) 3 Abs Neuts (Manual) 36.0 H Lymphocytes # (Manual) 1.8 Monocytes # (Manual) 1.8 H Basophils # (Manual) 0.4 H Metamyelocytes # 1.8 Myelocytes # 0.4 Promyelocytes # 0.9 Blast Cells # 1.3 Nucleated RBCs 4 H Platelet Estimate NORMAL Large Platelets PRESENT Plt Morphology Comment NOTE RBC Morphology NOTED Polychromasia 1+ (0-2) Hypochromasia 1+ (5-14) Basophilic Stippling 1+ (0-2) Microcytosis 1+ (5-14) Macrocytosis 1+ (5-14) Tear Drop Cells 1+ (0-2) Sodium 137 Potassium 2.9 L D Chloride 101 Carbon Dioxide 25 Anion Gap 14 BUN 11 Creatinine 0.74 Estim Creat Clear Calc 34.1 Estimated GFR > 60 Random Glucose 72 Calcium 8.4 Magnesium 2.0 Assessment and Plan (1) Congestive heart failure: Status: Acute 85-year-old female with background of heart failure who is presenting for shortness of breath. She is wheelchair-bound and is quite frail. She said she had trouble speaking in full sentences. Clinically she was in heart failure. Also noticed to have elevated blood pressures. Elevated blood pressures are seen with Procrit injections. She seems clinically euvolemic right now. I think she can be changed to oral Lasix. Her blood pressure needs to be better controlled. Add 30 mg Imdur once a day. Thank you for allowing me to participate in the care of your patient. Please feel free to contact me if you have any questions. Procedures Date of Service Date of Service: 12/25/20
[2020-12-25] MEDS: Isosorbide Mononitrate 30 MG TAB.ER.24H PO (16:43)
--- NOTE | 2020-12-25 17:00 | CA_ITS ---
Transthoracic Echocardiogram Patient (Last, First, Middle): Nivia Porras B Gender: Female Date of : 1935 Age: 85 Procedure Date: 12/25/2020 Procedure Type: Transthoracic Echocardiogram Location: [facility] [place] Height: 157.48 cm Weight: 38.56 kg BSA: 1.33 m2 Heart Rate: bpm BP: 154 / 68 mmHg Fabric Worker Leader: KEVIN Referring MD: Jose Parsons MD Symptoms: shortness of breath, ? diastolic CHF Study Quality: Good ECG Rhythm: Sinus Conclusions: - The left ventricular systolic function is moderately decreased. The visually estimated ejection fraction is between 30-35%. - Normal right ventricular cavity size and systolic function. - The left atrium is severely dilated. - Mild pulmonary hypertension is present. - There is a small loculated pericardial effusion overlying the left ventricle. There are no definitive echocardiographic findings of tamponade physiology. Findings Left Ventricle Normal left ventricular cavity size. There is normal left ventricular wall thickness. The left ventricular systolic function is moderately decreased. The visually estimated ejection fraction is between 30-35%. Abnormal diastolic function is noted. Spectral Doppler is indicative of a pseudonormal filling pattern. E/E prime ratio is >15, consistent with elevated filling pressures. Right Ventricle Normal right ventricular cavity size and systolic function. Atria The left atrium is severely dilated. The right atrium is normal in size. Aortic Valve There is a normal trileaflet aortic valve. There is mild thickening of the aortic valve. There is no aortic valve stenosis. There is no aortic valve regurgitation. Mitral Valve There is mild anterior and posterior mitral leaflet thickening. There is moderate mitral valve regurgitation. There is no mitral valve stenosis. Pulmonic Valve The pulmonic valve is likely normal. Tricuspid Valve Normal tricuspid valve structure and function. There is trace tricuspid valve regurgitation. Normal right atrial pressure. Mild pulmonary hypertension is present. Great Vessels All visible segments of the aorta are normal in size. The visualized portions of the pulmonary artery and branches are normal. Venous The inferior vena cava is normal in size and collapses greater than 50% with inspiration. Pericardium/Pleural There is a small loculated pericardial effusion overlying the left ventricle. There are no definitive echocardiographic findings of tamponade physiology. Prior Study Comparison Changes noted compared to prior study dated: 07/29/2018. EF 30-35% now. Measurements 2D Linear Measurements IVSd: 0.81 0.6-0.9/0.6-1.0 cm LVIDd: 4.57 3.9-5.3/4.2-5.9 cm LVIDd Index: 3.44 2.4-3.2/2.2-3.1 cm/m2 LVIDs: 3.75 2.0-3.6 cm LVPWd: 0.83 0.7-1.1 cm Ao Root: 3.00 2.1-3.5 cm LA Diam: 3.70 2.7-3.8/3.0-4.0 cm LAIDs Index: 2.78 1.5-2.3 cm/m2 LV Mass: 149.68 67-162/88-224 g LV Mass Index: 112.54 43-95/49-115 g/m2 LVOT Diam: 2.00 3.0+(-)1.3 cm 2D Systolic Function EF 4C: 47.20 >55% EF 2C: 48.70 >55% Mitral Valve MV VTI: 0.25 MV Pk Luis Angel: 1.43 MV Mn Luis Angel: 0.73 MV Pk Grad: 8.00 MV Mn Grad: 2.00 MV Pk E: 1.17 MV PK A: 0.59 MV Decel Time: 192.00 E/A: 2.00 E'Lateral: 5.77 E'Medial: 4.24 E/E' Med: 27.60 E/E' Lat: 20.30 PHT: 56.00 MVA PHT: 3.93 MVA Continuity: 1.83 Decel Riley: 6.10 Aortic Valve AoV Pk Luis Angel: 1.30 AoV Mn Luis Angel: 0.87 AoV VTI: 0.24 AoV Pk Grad: 7.00 Aov Mn Grad: 3.00 CLAUDIO Cont.VTI: 1.92 LVOT LVOT Pk Luis Angel: 0.62 LVOT Mn Luis Angel: 0.42 LVOT VTI: 0.15 LVOT Pk Grad: 2.00 LVOT Mn Grad: 1.00 LVOT Diam: 2.00 LVOT Area: 3.14 Diastolic Function MV Pk E: 1.17 MV Pk A: 0.59 E/A: 2.00 E'Medial: 4.24 E/E' Med: 27.60 E' Laterial: 5.77 E/E' Lat: 20.30 Tricuspid Valve TR Pk Luis Angel: 3.19 TR Pk Grad: 41.00 RA Press: 3.00 RVSP: 44.00 Great Vessels Aorta Ao Root-2D: 3.00 2.0-3.7 cm Ao Asc: 2.80 2.1-3.4 cm Ao Arch: 2.10 Updated in Other Vendor System with Status of Final Harrison Mcrae MD electronically signed on 12/26/2020 10:31:48 AM with status of Final
[2020-12-26] MEDS: 0.9 % Sodium Chloride Flush 3 ML SYRINGE IVFLUSH ×2 (00:29→08:55)
[2020-12-26] MEDS: Melatonin 3 MG TABLET 6 MG PO (01:06)
[2020-12-26 03:28] VITALS: BP 149/71; PULSE 72; RESP 16; TEMP 36.5; O2SAT 98
[2020-12-26] MEDS: Levothyroxine Sodium 75 MCG TABLET PO (06:37)
[2020-12-26] MEDS: oxyCODONE HCl Immed Release 5 MG TABLET PO ×2 (06:37→12:17)
[2020-12-26 07:03] VITALS: BP 154/70; PULSE 82; RESP 18; TEMP 36.6; O2SAT 100
[2020-12-26 08:49] VITALS: PULSE 80; O2SAT 92
[2020-12-26] MEDS: Fluticasone/Vilanterol 100/25 BLST.W.DEV 1 PUFF INHALE (08:49)
[2020-12-26 08:55] VITALS: BP 154/70; PULSE 82
[2020-12-26] MEDS: lisinopriL 10 MG TABLET 30 MG PO (08:55)
[2020-12-26] MEDS: Pregabalin 25 MG CAPSULE PO (08:55)
[2020-12-26 08:56] VITALS: BP 154/70; PULSE 82
[2020-12-26] MEDS: carvediloL 25 MG TABLET PO (08:56)
[2020-12-26] MEDS: Isosorbide Mononitrate 30 MG TAB.ER.24H PO (08:56)
[2020-12-26 09:16] LABS: Hematocrit 30.6 % (37-47); Hemoglobin 9.2 g/dl (12.0-16.0); Mean Corpuscular HGB Conc 30.1 g/dl (31.0-35.0); Mean Corpuscular Hemoglobin 27.1 pg (27.0-33.0); Mean Corpuscular Volume 90.3 fL (80-98); Mean Platelet Volume 12.3 fL (9.4-12.3); Platelet Count 162 X10*3/uL (160-400); Red Blood Count 3.39 X10*6/uL (4.20-5.50); Red Cell Distribution Width 19.7 % (11.0-16.0)
[2020-12-26 09:29] LABS: WBC ABN SCTR FOR CBC 1
[2020-12-26 09:35] LABS: White Blood Count 61.5 X10*3/uL (4.8-10.8)
[2020-12-26 09:40] LABS: Anion Gap 13 (12-20); Blood Urea Nitrogen 12 mg/dL (9-16); Calcium 8.9 mg/dL (8.4-10.2); Carbon Dioxide 25 mmol/L (22-29); Chloride 101 mmol/L (96-108); Estimated Glomerular Filt Rate > 60; Glucose Random 138 mg/dL (60-115); Potassium 3.9 mmol/L (3.3-5.1); Sodium 135 mmol/L (135-145)
[2020-12-26] MEDS: Furosemide 20 MG TABLET PO (10:15)
--- NOTE | 2020-12-26 10:57 | P.DS_ITS ---
DS: Providers Provider Date of Service: 12/26/20 Date of admission: 12/24/20 11:27 Primary care physician: Elida Irwin MD Consults: 12/24/20 11:30 Consult to Cardiology Routine Consulting [place] [facility] [place] [facility] Reason for consultation: elevated bnp, sob, ? CHF DS: Diagnosis Discharge Diagnosis (1) Congestive heart failure: Status: Acute DS: Medications Discharge Medications Home Medications: Home Medications Medication Instructions Recorded Confirmed carvedilol 25 mg tablet 25 mg PO BID 03/15/20 12/24/20 fluticasone 100 mcg-salmeterol 50 1 puff PO BID 03/15/20 12/24/20 mcg/dose blistr powdr for inhalation (Advair Diskus) albuterol sulfate 90 mcg/actuation 2 puff INHALATION Q6H PRN 12/24/20 12/24/20 aerosol inhaler (ProAir HFA) geriatric [id number] 1 tab PO DAILY 12/24/20 12/24/20 oxycodone 5 mg tablet 5 mg PO Q4-6H PRN 12/24/20 12/24/20 Previous Rx's Medication Instructions Recorded ondansetron HCl 4 mg tablet 4 mg PO Q8H PRN #20 tab 11/20/20 pregabalin 25 mg capsule 25 mg PO TID 90 Days #270 cap 11/20/20 levothyroxine 75 mcg tablet 75 mcg PO QAM 90 Days #90 tab 11/21/20 furosemide 20 mg tablet 20 mg PO DAILY 30 Days #30 tab 12/26/20 isosorbide mononitrate 30 mg 30 mg PO DAILY 30 Days #30 tab 12/26/20 tablet,extended release 24 hr lisinopril 40 mg tablet 40 mg PO DAILY 30 Days #30 tab 12/26/20 DS: Summary Hospital Course Hospital Course: From H&P on day of admission This is an 85 yo F with a PMH of MDS, CHIRAG with weekly procrit injections who presents to the hospital with complaints of progressive shortness of breath over the last 1 week. Patient, who is mainly wheel chair bound, reports that she was unable to make it to her bathroom without significant STERLING nor was she able to have normal conversations without significant STERLING. SHe reports that she tried to ignore it for a week but it became severe so she presented to the hospital. She dnies any leg edema, PND, orthopnea -- in fact she says her symptoms are better when she lays flat. She endorses a previous diagnosis of CHF and used to follow up with Dr. Cvoarrubias, but has not done so in 1 year because she reports that she was stable from that perspective. She denies being on any current diuretic therapy. In the ED, she underwent work up which included a CTA which showed diffuse emphysema without acute consolidiations. There were bilateral pleural effusion L > R. Her cardiac BNP >2000. She was given IV lasix without improvement in her symptoms and so will be admitted for further testing and management. Acute on chronic systolic CHF. Patient was started on IV Lasix. Her respirato ry status improved with diuresis. She was evaluated by cardiology and had an echocardiogram which showed reduced ejection fraction 30-35%. She will be discharged home daily Lasix. She should call to schedule follow-up appointment with Cardiology. Uncontrolled hypertension. Her dose of Lasix has been increased and Imdur has been added to her regimen. Her blood pressure has improved. She should follow up with the musculoskeletal physician as an outpatient for further titration of blood pressure medication. TSH was elevated at 7.54, Free T4 0.94. Recommend repeating thyroid function in a few weeks. Her Leukocytosis was chronic in the setting of MDS/RAEB. There was no evidence of infection Time Spent with Patient Time attestation: Total time spent providing and/or coordinating discharge services: Discharge coordination time: Greater than 30 minutes Quality: Stroke Does the patient have a stroke diagnosis?: No Physical Exam Vital Signs: Vital Signs: Last Vital Signs Temp 97.8 F 12/26/20 07:03 Pulse 82 12/26/20 08:56 Resp 18 12/26/20 07:03 BP 154/70 H 12/26/20 08:56 Pulse Ox 100 12/26/20 07:03 Body Mass Index 15.7 Const: General: comfortable, no acute distress, alert and awake Nutritional Appearance: thin and underweight Orientation/consciousness: patient oriented x3 HENMT: Head: Yes normocephalic and Yes atraumatic Eyes: Sclerae: sclerae normal Resp: Effort & Inspection: normal respiratory effort and no respiratory distress Cardio: Rate: regular rate Rhythm: regular rhythm GI: Palpation (GI): Soft to palpation and nontender Neuro: General: patient oriented x3 Cranial nerves: Yes CN's II-XII intact bilaterally and Yes Bilaterally intact EOM present DS: Data Data Completed and Pending Labs on day of discharge: Laboratory Results - last 24 hr 12/26/20 12/26/20 09:04 09:04 WBC 61.5 H* RBC 3.39 L Hgb 9.2 L Hct 30.6 L MCV 90.3 MCH 27.1 MCHC 30.1 L RDW 19.7 H Plt Count 162 MPV 12.3 Absolute Nucleated RBC 1.240 H Nucleated RBC % (auto) 2.0 H Sodium 135 Potassium 3.9 D Chloride 101 Carbon Dioxide 25 Anion Gap 13 BUN 12 Creatinine 0.84 Estim Creat Clear Calc 30.0 Estimated GFR > 60 Random Glucose 138 H D Calcium 8.9 Discharge Plan Discharge Patient Disposition: Home, Self-Care Discharge Diagnosis: acute on chronic systolic heart failure uncontrolled HTN MDS Referrals: Po,Elida Borja MD [Primary Care Provider] - 1 Week Sal Covarrubias MD [Physician] - 1 Week Discharge Medications: New isosorbide mononitrate 30 mg Tablet Extended Release 24 Hr 30 mg PO DAILY 30 Days Qty: 30 RF: 0 furosemide 20 mg Tablet 20 mg PO DAILY 30 Days Qty: 30 RF: 0 lisinopril 40 mg tablet 40 mg PO DAILY 30 Days Qty: 30 RF: 0 Continued levothyroxine 75 mcg tablet 75 mcg PO QAM 90 Days Qty: 90 RF: 0 carvedilol 25 mg tablet 25 mg PO BID RF: 0 fluticasone propion-salmeterol [Advair Diskus] 100-50 mcg/dose blister with device 1 puff PO BID RF: 0 albuterol sulfate [ProAir HFA] 90 mcg/actuation Hfa Aerosol Inhaler 2 puff INHALATION Q6H PRN (Reason: Shortness Of Breath) RF: 0 geriatric iswdyaao-zwae-jamm Tablet 1 tab PO DAILY RF: 0 oxycodone 5 mg tablet 5 mg PO Q4-6H PRN (Reason: Pain (Scale Score 4-6)) RF: 0 pregabalin 25 mg capsule 25 mg PO TID 90 Days Qty: 270 RF: 1 ondansetron HCl 4 mg tablet 4 mg PO Q8H PRN (Reason: nausea and vomiting) Qty: 20 RF: 0 Discontinued lisinopril 20 mg tablet 20 mg PO DAILY Qty: 90 RF: 3 Discharge Orders: Discharge Order (Routine); Ordered 12/26/20 Ordered By: Nannette Mathur Activity on Discharge: As tolerated Stand Alone Forms: Patient Portal Discharge page Care Plan Goals: See below Health Concerns: Heart Failure Hypertension Plan of Treatment: Heart failure- you have been started on a water pill called Lasix. Please take daily as prescribed. Call to schedule a follow-up appointment with Dr. Covarrubias your musculoskeletal physician Hypertension - your blood pressure was elevated. Your dose of lisinopril has been increased to 40 mg daily, a new medication Imdur has been added as well. You should have your thyroid function recheck in a few weeks, call to schedule a follow up appointment with your PCP Assessment: See discharge summary
--- NOTE | 2020-12-26 11:02 | MHC.CM.PN ---
IMM 12/26/20 Female 85 DX HF is discharged today to home no services needed or ordered. Family will provide transportation home.
--- NOTE | 2020-12-26 11:10 | P.PNCA_ITS ---
Subjective Subjective Date of Service: 12/26/20 Principal diagnosis: CHF Interval history: Cardiology follow up for CHF. Seen at 0950. Today she reports that her breathing is better than normal . She denies PND, orthopnea, cough. Not needing O2 supplement. No chest pains, palpitations, dizziness, edema. Slept well, ate breakfast. Is hoping to be able to go home today. Review of Systems Review of Systems as above Yes all other systems are reviewed and are negative Physical Exam Vital Signs: Last Vital Signs Temp 97.8 F 12/26/20 07:03 Pulse 82 12/26/20 08:56 Resp 18 12/26/20 07:03 BP 154/70 H 12/26/20 08:56 Pulse Ox 100 12/26/20 07:03 Body Mass Index 15.7 Const Other: frail elderly female General: cooperative, no acute distress, alert and awake Orientation/consciousness: patient oriented x3 Neck Neck: Yes normal visual inspection and Yes no JVD Resp Effort & Inspection: normal respiratory effort, able to speak in complete sentences and not labored Auscultation: clear to auscultation bilaterally, rales (Few faint rales noted right base), no rhonchi and no wheezes Cardio Palpation: normal PMI Rate: regular rate Rhythm: regular rhythm Heart sounds: S1 normal heart sound present and S2 normal heart sound present Peripheral pulses: Peripheral pulses 2+ throughout GI Inspection: Yes normal to inspection Neuro General: patient oriented x3 Extrem General: Yes normal to inspection and No edema Results Labs and Meds Result diagrams: 12/26/20 09:04 12/26/20 09:04 Lab results: Laboratory Results - last 24 hr 12/26/20 12/26/20 09:04 09:04 WBC 61.5 H* RBC 3.39 L Hgb 9.2 L Hct 30.6 L MCV 90.3 MCH 27.1 MCHC 30.1 L RDW 19.7 H Plt Count 162 MPV 12.3 Absolute Nucleated RBC 1.240 H Nucleated RBC % (auto) 2.0 H Sodium 135 Potassium 3.9 D Chloride 101 Carbon Dioxide 25 Anion Gap 13 BUN 12 Creatinine 0.84 Estim Creat Clear Calc 30.0 Estimated GFR > 60 Random Glucose 138 H D Calcium 8.9 Progress Note: A&P Assessment and plan (1) Congestive heart failure: Status: Acute Assessment and Plan: Admit with increased sob and found to have acute on chronic systolic CHF. BNP up to 2348. Echo shows EF 30-35%, LA severely dilated, mild pulm HTN, small loculated pericardial effusion, no tamponade. Prior Echo 07/2018 shows EF 50- 55%. Hx of Nonischemic CMP. Was given IV lasix with improvement in condition. Today she reports breathing is better than her normal. Fluid balance neg 700 cc since admit. Now on low dose PO lasix. Imdur was added. RecAppears Euvolemic on exam. Had hypokalemia yesterday and did receive supplement. Recommend recheck. Can be discharged from a cardiology perspective. We will arrange for outpt cardiology follow up. (2) Nonischemic cardiomyopathy: Status: Acute Assessment and Plan: On Carvedilol and Lisinopril for neurohormonal modulation. Cr 0.74. Tele showing SR with isolated PVCs and brief runs of atrial tachycardia, rates typically are 60s- 90. (3) Hypertension: Status: Acute Assessment and Plan: BP elevated on admit. imdur added to her Carvedilol, lisinopril. Diuresed. BP this am 139/64 and 154/70. Continue current mgt. Fall Risk Details Current Medications: Current Medications Generic Name Dose Route Start Last Admin Trade Name Freq PRN Reason Stop Dose Admin Acetaminophen 650 mg 12/24/20 11:27 12/25/20 22:40 Acetaminophen 325 Mg Tablet PO 650 mg Q6H PRN Administration Pain, Mild (Pain Scale 1-3) Carvedilol 25 mg 12/24/20 21:00 12/26/20 08:56 Carvedilol 25 Mg Tablet PO 25 mg BID BELIA Administration Protocol Enoxaparin Sodium 40 mg 12/24/20 12:00 12/25/20 13:25 Enoxaparin Sodium 40 Mg/0.4 Ml Syringe SUBCUT 40 mg Q24H BELIA Administration Fluticasone/Vilanterol 1 puff 12/25/20 08:00 12/26/20 08:49 Fluticasone/Vilanterol 100/25 Blst.W.Dev INHALE 1 puff RDAILY BELIA Administration Furosemide 20 mg 12/26/20 09:00 12/26/20 10:15 Furosemide 20 Mg Tablet PO 20 mg DAILY BELIA Administration Protocol Isosorbide Mononitrate 30 mg 12/25/20 16:15 12/26/20 08:56 Isosorbide Mononitrate 30 Mg Tab.Er.24h PO 30 mg DAILY BELIA Administration Protocol Levothyroxine Sodium 75 mcg 12/25/20 06:30 12/26/20 06:37 Levothyroxine Sodium 75 Mcg Tablet PO 75 mcg DAILY@0630 BELIA Administration Lisinopril 30 mg 12/26/20 09:00 12/26/20 08:55 Lisinopril 10 Mg Tablet PO 30 mg DAILY BELIA Administration Protocol Ondansetron HCl 4 mg 12/24/20 11:27 Ondansetron Hcl 4 Mg/2 Ml Vial IVPUSH Q8H PRN Nausea and Vomiting Oxycodone HCl 5 mg 12/24/20 11:32 12/26/20 06:37 Oxycodone Hcl Immed Release 5 Mg Tablet PO 5 mg Q6H PRN Administration Pain (Scale Score 4-6) Pharmacy Consult 1 each 12/24/20 08:40 Consult Rx Perform Med Rec MISCELLANE ONCE PRN Consult order Pregabalin 25 mg 12/24/20 15:00 12/26/20 08:55 Pregabalin 25 Mg Capsule PO 25 mg TID BELIA Administration Sodium Chloride 3 ml 12/24/20 16:00 12/26/20 08:55 0.9 % Sodium Chloride Flush 3 Ml Syringe IVFLUSH 3 ml QSHIFT BELIA Administration Time Spent With Patient Time: Total time spent is greater than 50% in coordination of care (as documented) at patient's floor/unit and/or counseling patient: Time with patient: 15 - 24 minutes Progress Note: Quality Stroke Does the patient have a stroke diagnosis?: No Procedures Date of Service Date of Service: 12/26/20
[2020-12-26 11:38] VITALS: BP 110/55; PULSE 81; RESP 17; TEMP 37.2; O2SAT 98
[2020-12-26] MEDS: Enoxaparin Sodium 40 MG/0.4 ML SYRINGE SUBCUT (12:14)
== END 2020-12-26 14:03 | disposition home or self-care (01) | DRG 291 ==
LOC: HO.ED 10:42 → HO.EDOVER 11:44 → HO.IMC 11:58
PROVIDERS: Physician Assistant Medical; Admitting Provider Family Medicine; Emergency Provider Emergency Medicine; PCP Internal Medicine; Visit Provider Family Medicine
DX: I11.0 Hypertensive heart disease with heart failure (principal); E43 Unspecified severe protein-calorie malnutrition; I69.954 Hemiplegia and hemiparesis following unspecified cerebrovascular disease affecting left non-dominant side; Z68.1 Body mass index [BMI] 19.9 or less, adult; E03.9 Hypothyroidism, unspecified; I50.23 Acute on chronic systolic (congestive) heart failure; E87.6 Hypokalemia; D46.20 Refractory anemia with excess of blasts, unspecified; J43.9 Emphysema, unspecified; Z20.822 Contact with and (suspected) exposure to COVID-19; Z87.891 Personal history of nicotine dependence; Z99.3 Dependence on wheelchair; Z79.51 Long term (current) use of inhaled steroids; Z79.890 Hormone replacement therapy; Z79.891 Long term (current) use of opiate analgesic; Z79.899 Other long term (current) drug therapy; Z66 Do not resuscitate
CPT/HCPCS: 36415; 71275; 80048; 80076; 81003; 83605; 83735; 83880; 84484; 85007; 85025; 85027; 85610; 85730; 86850; 86900; 86901; 87635; 93005; 93306; 96375; 99284; 99285; J1650; J1940; Q9967

== ENCOUNTER 2020-12-27 09:00 | Outpatient (RCR) | payer MEDICARE, SELFPAY ==
[2020-02-02 09:33] VITALS: BMI 16.7
[2020-02-02 09:34] VITALS: BP 157/67; PULSE 83; RESP 16; TEMP 36.6; O2SAT 98
[2020-02-02] MEDS: Epoetin Alfa 40,000 UNIT/ML VIAL 40000 UNIT SUBCUT (09:46)
--- NOTE | 2020-02-02 09:52 | MHC.HEMONC ---
pt here for Procrit. Labs from home draw yesterday reviewed. HGB 9.2. Procrit given today per Dr Lopez. Return next week.
[2020-02-09 09:22] VITALS: BP 162/71; PULSE 79; RESP 18; TEMP 36.6; O2SAT 97; BMI 16.8
[2020-02-09] MEDS: Epoetin Alfa 40,000 UNIT/ML VIAL 40000 UNIT SUBCUT (09:26)
--- NOTE | 2020-02-09 09:31 | MHC.HEMONC ---
home lab draw yesterday - HGB 9.6. Pt for Procrit injection today.
[2020-02-16 09:22] VITALS: PULSE 77; RESP 20; TEMP 36.3; O2SAT 97
[2020-02-16 09:23] VITALS: BP 146/82
[2020-02-16] MEDS: Epoetin Alfa 40,000 UNIT/ML VIAL 40000 UNIT SUBCUT (09:24)
--- NOTE | 2020-02-16 09:33 | MHC.HEMONC ---
HGB 9.8 yesterday. Procrit given today per Dr Lopez. No new c/o today.
[2020-02-16 09:34] VITALS: BMI 16.7
[2020-02-23 09:02] VITALS: BP 171/77; PULSE 85; RESP 16; TEMP 36.7; O2SAT 96
[2020-02-23 09:06] VITALS: BMI 16.7
[2020-02-23 09:21] VITALS: BP 160/70
[2020-02-23] MEDS: Epoetin Alfa 40,000 UNIT/ML VIAL 40000 UNIT SUBCUT (09:27)
--- NOTE | 2020-02-23 09:35 | MHC.HEMONC ---
pt labs from 02/21 reviewed. HGB 9.6. Procrit ordered and given. Pt PCP has increased frequency of her pain rx. No new concerns today.
[2020-03-01 09:40] VITALS: BP 152/76; PULSE 80; RESP 16
[2020-03-01] MEDS: Epoetin Alfa 40,000 UNIT/ML VIAL 40000 UNIT SUBCUT (09:45)
--- NOTE | 2020-03-01 09:52 | MHC.HEMONC ---
Pt here for Tyra. Lab from Wed reviewed. HGB 9.6. DEVYN baseline. Has more pain relief with new dosing of narcotic per Po. May be going to Pain Clinic Consult.
[2020-03-15 09:16] VITALS: BP 169/72; PULSE 78; RESP 18; TEMP 36.6; O2SAT 98
[2020-03-15 09:18] VITALS: BMI 16.7
[2020-03-15] MEDS: Epoetin Alfa 40,000 UNIT/ML VIAL 40000 UNIT SUBCUT (09:37)
--- NOTE | 2020-03-15 10:20 | P.PNHO_ITS ---
Medical Summary - Medical Summary Chief complaint: follow-up for MDS. Medical Summary: DIAGNOSIS: RAEB. CURRENT THERAPY: PROCRIT WEEKLY. Interval History Interval history: This is a pleasant 84-year-old lady here for a follow-up visit and for her P rocrit. She tells me she has more energy, now that the pain in her joints has improved. She has history of arthritis of shoulders and upper arms. She has had pain in her left leg and foot. She has neuropathy really bad. She has been taking oxycodone every 6 hours, and an extra 1 in the middle of night if she has pain. She denies headache nor dizziness. She has no fever nor chills. No chest pain or trouble breathing. Denies abdominal pain nausea vomiting heartburn indigestion. Her bowels are working without any gross blood in it. Her appetite is good. Her weight is stable. She is in good spirits. Rest of the review of systems is unremarkable. Review of Systems - Constitutional Reports system reviewed and no additional complaints, except as documented, Reports fatigue, Denies fever(s) - Eyes Reports system reviewed and no additional complaints, except as documented - ENT Reports system reviewed and no additional complaints, except as documented - Cardiovascular Reports system reviewed and no additional complaints, except as documented - Respiratory Reports no additional respiratory complaints - Gastrointestinal Reports system reviewed and no additional complaints, except as documented - Genitourinary Reports no additional female genitourinary complaints - Integumentary/Breasts Skin/Breast: Reports no additional skin complaints - Neurologic Reports system reviewed and no additional complaints, except as documented - Psychiatric Reports system reviewed and no additional complaints, except as documented - Endocrine Reports no additional endocrine complaints Home Medications and Allergies Home Medications Medication Instructions Recorded Confirmed Type carvedilol 1 tab PO BID 03/15/20 03/15/20 History fluticasone propion-salmeterol 1 puff PO BID 03/15/20 03/15/20 History [Advair Diskus] hydrocortisone [Proctozone-HC] 1 applic ME BID 03/15/20 03/15/20 History levothyroxine 1 tab PO QAM 03/15/20 03/15/20 History levothyroxine 1 tab PO QAM 03/15/20 03/15/20 History lisinopril 1 tab PO DAILY 03/15/20 03/15/20 History naloxone [Narcan] 4 mg INTRANASAL DIRECTED 03/15/20 03/15/20 History oxycodone 1 tab PO Q6H PRN 03/15/20 03/15/20 History pregabalin 25 mg PO TID 03/15/20 03/15/20 History Allergies Allergy/AdvReac Type Severity Reaction Status Date / Time mercury (elemental) Allergy Severe SWELLING, Unverified 01/18/20 14:37 [Mercury (Elemental)] GENERALIZED WELTS amoxicillin Allergy Unknown Unverified 09/29/19 00:00 antibiotic ointment Allergy Unknown Unverified 09/29/19 00:00 aspirin [Aggrenox] Allergy Unknown Verified 09/29/19 00:00 atorvastatin [ATORVASTATIN] Allergy Unknown UNKNOWN Unverified 01/18/20 14:37 clavulanic acid [Augmentin] Allergy Unknown Verified 09/29/19 00:00 clindamycin [CLINDAMYCIN] Allergy Unknown UNKNOWN Unverified 01/18/20 14:37 Clindamycin HCl Allergy Unknown Unverified 09/29/19 00:00 dipyridamole [From AGGRENOX] Allergy Unknown HEADACHE Unverified 01/18/20 14:37 duloxetine [Cymbalta] Allergy Unknown Verified 09/29/19 00:00 ezetimibe [From ZETIA] Allergy Unknown UNKNOWN Unverified 01/18/20 14:37 Mercury Ammoniated Allergy Unknown Unverified 09/29/19 00:00 nabumetone Allergy Unknown Verified 12/30/18 00:00 pravastatin [PRAVASTATIN] Allergy Unknown UNKNOWN Unverified 01/18/20 14:37 silver sulfadiazine Allergy Unknown rash Verified 09/29/19 00:00 simvastatin [SIMVASTATIN] Allergy Unknown UNKNOWN Unverified 01/18/20 14:37 zinc [ZINC] Allergy Unknown BURN, Unverified 01/18/20 14:37 itching Mercury Detox Allergy Unknown Uncoded 12/30/18 00:00 Nabumetone Allergy Unknown Uncoded 09/29/19 00:00 Statins Support Allergy Unknown Uncoded 12/30/18 00:00 Zinc Allergy Unknown rash,itch Uncoded 09/29/19 00:00 Exam Vital signs: Vital Signs Temp 97.8 F 03/15/20 09:16 Pulse 78 03/15/20 09:16 Resp 18 03/15/20 09:16 BP 169/72 H 03/15/20 09:16 Pulse Ox 98 03/15/20 09:16 Intake & Output 03/14/20 03/15/20 03/15/20 18:59 06:59 18:59 Other: Weight 41.6 kg Weight 41.6 kg Body Mass Index 16.7 - Constitutional Present: no acute distress - Routine HEENT Exam Head: Present: normal inspection ENT: Present: mucous membranes moist - Routine Neck Exam Present: full ROM - Routine Respiratory Exam Present: CTAB - Routine Cardiovascular Exam Cardiovascular: Present: RRR, S1, S2 - Routine Extremities Exam Present: nontender - Routine Skin Exam Present: intact - Routine Neurological Exam Present: alert, oriented X3 - Detailed Neurological Exam: Coma Scale Eye Opening: Spontaneous (4) - Routine Psychiatric Exam Present: normal affect Progress Note: A/P (1) RAEB (refractory anemia with excess blasts) Status: Acute Assessment and plan: This is a very pleasant 84 year-old lady who presented to the hospital in July of last year, with rather acute attacks , of weakness, achiness, headaches, that progressed to fever. She was noted to have a Pneumonia. Septic parameters were elevated, including lactic acid and Procalcitonin. She was noted to have an elevated white count 70,000. She had the left shift, with 18% bands and vacoules in the neutrophils, indicative of acute infection. 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 I checked BCR/ABL gene transcript on the peripheral blood. This came back as zero. LDH: 331. She was pancultured and started on broad-spectrum antibiotics, Zosyn. Her WBC count showed a downward trend. Lactic acid went down.This was a sign of response to antibiotics. However her Hemoglobin declined. It went down to 6.4. She required 2 units of packed RBCs July 28, 2018. Her peripheral smear revealed some abnormalities including: Mild granulocytic dysplasia (hypogranular cells,pseudo Pelger Huet cells,abnormal segmentation. Also seen are frequent immature granulocytes (myelocytes stage). Hypersegmented neutrophils are also present. Reactive appearing lymphocytes and large granular T-cells and large platelets. 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 A bone marrow exam, revealed RAEB-1. She had flow cytometry sent on peripheral blood on February 17th, this revealed: GRANULOCYTOSIS WITH LEFT-SHIFT, 1% BLASTS. Granulocytes are increased with an increase in immature/left-shifted forms. However, no aberrant marker expression is noted. Blasts comprise 1% of WBCs. She was deemed not a candidate for chemotherapy, in view of her age and frailty. 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 It does appear to have helped. Her last transfusion was back in July, of last year, although she did need a transfusion back on June 17, while in house. She is doing really well. I reassured her that her blast count has not gone up, which is reassuring. Her energy level has improved. The Procrit is helping to maintain her quality of life. DATA BASE; From 03/14: WBC 11.2, HGB 9.2, HCT 31.3, PLT 140. Profile: lytes: WNL, BUN 14, CONTINUOUS IMPROVEMENT FACILITATOR 0.92. LFTs: 0.3/69/16/12. PLAN: Her hemoglobin was 8.4, yesterday. She is here for to receive the Procrit therapy. The plan is to keep hemoglobin over 10 grams. Will continue to follow her CBC weekly at home, to assess the need for Procrit. Will check her profile monthly. She will return in one month for a follow-up visit. All her questions were answered to her satisfaction. Thank you, CC: Dr. Irwin. - Time Spent With Patient Total time spent is greater than 50% in coordination of care (as documented) at patient's floor/unit and/or counseling patient: 25 - 35 minutes
--- NOTE | 2020-03-15 14:05 | MHC.HEMONC ---
Pt here for Procrit injection. HGB 9.2. Tolerated injection well. Feeling well today, taking oxycodone as needed for pain.
[2020-03-22 09:29] VITALS: BMI 16.9
[2020-03-22 09:30] VITALS: BP 156/67; PULSE 80; RESP 18; TEMP 37.1; O2SAT 97
[2020-03-22] MEDS: Epoetin Alfa 40,000 UNIT/ML VIAL 40000 UNIT SUBCUT (09:36)
--- NOTE | 2020-03-22 10:38 | MHC.HEMONC ---
Pt here for Procrit injection. States feeling well today. Tolerated injection well.
--- NOTE | 2020-04-01 13:44 | MHC.HEMONCMA ---
Patient called and inquired about her bloodwork results. She wanted to know what her hemoglobin was, i let her know that it was 8.6.
[2020-04-05 09:22] VITALS: BP 128/56; PULSE 80; RESP 18; TEMP 37; O2SAT 98; BMI 17.1
[2020-04-05] MEDS: Epoetin Alfa 40,000 UNIT/ML VIAL 40000 UNIT SUBCUT (09:27)
--- NOTE | 2020-04-05 09:37 | MHC.HEMONC ---
Patient arrived for Procrit injection. Injection given as documented. Follow-ups booked for two weeks.
--- NOTE | 2020-04-11 13:07 | MHC.HEMONCMA ---
PAtient called to see what her blood work showed for today, I let her know that her hemoglobin was 8.3 and that she is good for tomorrow's Procrit injection.
[2020-04-12 09:21] VITALS: BP 140/60; PULSE 86; RESP 18; TEMP 37.1; O2SAT 100
[2020-04-12] MEDS: Epoetin Alfa 40,000 UNIT/ML VIAL 40000 UNIT SUBCUT (09:47)
--- NOTE | 2020-04-12 11:19 | MHC.HEMONC ---
Pt here for procrit injection. Hematocrit 8.6. Pt does c/o pain to right shoulder, which she attributes to arthritis. Has referral to pain clinic by Dr Irwin, which is scheduled for 07/2020. To return in one week for procrit
[2020-04-19] MEDS: Epoetin Alfa 40,000 UNIT/ML VIAL 40000 UNIT SUBCUT (09:34)
[2020-04-19 09:37] VITALS: BP 152/58; PULSE 70; RESP 18; TEMP 36.9; O2SAT 98; BMI 16.2
--- NOTE | 2020-04-19 09:41 | MHC.HEMONC ---
Patient seen for injection. Vitals, height,weight and injection given as documented. Follow-up given.
[2020-04-25 09:21] VITALS: BP 197/72; PULSE 73; RESP 18; TEMP 37.1; O2SAT 99; BMI 16.9
[2020-04-25 09:25] VITALS: BP 160/62
[2020-04-25] MEDS: Epoetin Alfa 40,000 UNIT/ML VIAL 40000 UNIT SUBCUT (09:26)
--- NOTE | 2020-04-25 09:32 | MHC.HEMONC ---
BP baseline. HGB 9.3 yesterday. Procrit a/o.
[2020-05-02 09:20] VITALS: BP 122/57; PULSE 73; RESP 18; TEMP 36.6; O2SAT 97; BMI 16.9
[2020-05-02] MEDS: Epoetin Alfa 40,000 UNIT/ML VIAL 40000 UNIT SUBCUT (09:26)
--- NOTE | 2020-05-09 14:27 | MHC.HEMONCMA ---
Patient called in for her hemoglobin levels, i let her know that her hemoglobin is 9.1. She will be in tomorrow for her procrit.
[2020-05-10 09:48] VITALS: BP 172/74; PULSE 79; RESP 16
[2020-05-10] MEDS: Epoetin Alfa 40,000 UNIT/ML VIAL 40000 UNIT SUBCUT (09:49)
--- NOTE | 2020-05-10 10:02 | MHC.HEMONC ---
Pt here for Procrit. HGB 9.1 yesterday. BP was elevated - Dr Lopez aware. OK to proceed with injection. She had been upset prior to coming in over another MD televisit.
[2020-05-17] MEDS: Epoetin Alfa 40,000 UNIT/ML VIAL 40000 UNIT SUBCUT (09:29)
[2020-05-17 09:52] VITALS: BP 151/64; PULSE 81; RESP 81; TEMP 37.2; O2SAT 95
[2020-05-24 09:28] VITALS: BP 190/84; PULSE 78; RESP 18; TEMP 36.9; O2SAT 98; BMI 16.5
[2020-05-24] MEDS: Epoetin Alfa 40,000 UNIT/ML VIAL 40000 UNIT SUBCUT (09:30)
--- NOTE | 2020-05-24 09:36 | MHC.HEMONC ---
Patient here for injection. Injection given as ordered/documented. Follow-up given.
[2020-05-31 09:36] VITALS: BP 152/80; PULSE 82; RESP 16; TEMP 36.8; O2SAT 98; BMI 16.7
[2020-05-31] MEDS: Epoetin Alfa 40,000 UNIT/ML VIAL 40000 UNIT SUBCUT (09:46)
--- NOTE | 2020-05-31 09:55 | MHC.HEMONC ---
Pt here for procrit injection. 9.3. Dr Lopez aware. Procrit given as ordered. Follow up appointment made
[2020-06-07 09:34] VITALS: BP 168/74; PULSE 77; RESP 18; TEMP 36.3; O2SAT 98; BMI 16.2
[2020-06-07] MEDS: Epoetin Alfa 40,000 UNIT/ML VIAL 40000 UNIT SUBCUT (09:40)
[2020-06-07 09:43] VITALS: BP 158/70
--- NOTE | 2020-06-07 09:59 | MHC.HEMONC ---
Hemoglobin 9.1 - POrocrit administered to right upper arm and well tolerated.
[2020-06-14 09:33] VITALS: BP 164/78; PULSE 80; RESP 16
[2020-06-14] MEDS: Epoetin Alfa 40,000 UNIT/ML VIAL 40000 UNIT SUBCUT (09:37)
--- NOTE | 2020-06-14 09:47 | MHC.HEMONC ---
pt VSS. Here for Procrit B 9.[address] Lopez next week.
[2020-06-21 09:27] VITALS: BP 160/67; PULSE 74; RESP 18; TEMP 37; O2SAT 99; BMI 16.2
[2020-06-21] MEDS: Epoetin Alfa 40,000 UNIT/ML VIAL 40000 UNIT SUBCUT (09:37)
--- NOTE | 2020-06-21 10:05 | MHC.HEMONC ---
Patient here for follow-up and injection. Injection given as ordered/documented for lab result. Clinical summary updated with nurse. Provider seen patient.
--- NOTE | 2020-06-21 12:01 | P.PNHO_ITS ---
Medical Summary - Medical Summary Date of Service: 06/21/20 Chief complaint: Follow-up for: MDS. RAEB. Medical Summary: DIAGNOSIS: RAEB. CURRENT THERAPY: PROCRIT WEEKLY. Interval History Interval history: This is a pleasant 84-year-old lady here for a follow-up visit and for her Procrit. She tells me she has more energy, now that the pain in her joints has improved. However her right shoulder has been hurting her. It gets really painful. Sometimes it is towards the back sometimes on top and sometimes up into the arm. She has history of arthritis of shoulders and upper arms. Her neuropathy bothers her at times. She has been taking oxycodone every 6 hours, and an extra 1 in the middle of night if she has pain. She denies headache nor dizziness. She has no fever nor chills. No chest pain or trouble breathing. Denies abdominal pain nausea vomiting heartburn indigestion. Her bowels are working without any gross blood in it. Her appetite is good. Her weight is stable. She is in good spirits. Rest of the review of systems is unremarkable. Review of Systems - Constitutional Reports no additional constitutional complaints, Reports lack of energy - Eyes Reports no additional eye complaints - ENT Reports no additional ear, nose, mouth, and throat complaints - Cardiovascular Reports no additional cardiovascular complaints - Respiratory Reports no additional respiratory complaints - Gastrointestinal Reports no additional gastrointestinal complaints - Genitourinary Reports no additional female genitourinary complaints - Musculoskeletal Reports no additional musculoskeletal complaints, Reports joint pain Comments: Pain in her right shoulder. - Integumentary/Breasts Skin/Breast: Reports no additional skin complaints - Neurologic Reports no additional neurologic complaints - Psychiatric Reports no additional psychiatric complaints - Endocrine Reports no additional endocrine complaints - Hematologic/Lymphatic Reports no additional hematologic/lymphatic complaints - Allergic/Immunologic Reports no additional allergic/immunologic complaints [facility] Medical History: Medical History (Last Reviewed 06/21/20 @ 09:32 by Jesenia Barraza RN) Congestive heart failure COPD (chronic obstructive pulmonary disease) CVA (cerebral vascular accident) Degenerative disc disease Femoral neck fracture Hypercholesterolemia Hypertension Hypothyroid Lumbar stenosis Myelodysplastic syndrome Neurogenic bladder Nonischemic cardiomyopathy Osteoporosis Peripheral neuropathy Right lower lobe pulmonary nodule Functional capacity: wheelchair bound Patient : No Surgical History: Surgical History (Last Updated 06/21/20 @ 09:32 by Jesenia Barraza RN) History of back surgery History of hip surgery Social History: Social History (Last Updated 06/21/20 @ 09:33 by Jesenia Barraza RN) Alcohol History: Alcohol intake: former Advance Directives: Advance Directives Date on File: 02/01/20 Smoking status: Former smoker Home Medications and Allergies Home Medications Medication Instructions Recorded Confirmed Type carvedilol 1 tab PO BID 03/15/20 06/21/20 History fluticasone propion-salmeterol 1 puff PO BID 03/15/20 06/21/20 History [Advair Diskus] hydrocortisone [Proctozone-HC] 1 applic [place] BID 03/15/20 06/21/20 History levothyroxine 1 tab PO QAM 03/15/20 06/21/20 History naloxone [Narcan] 4 mg INTRANASAL DIRECTED 03/15/20 06/21/20 History Allergies Allergy/AdvReac Type Severity Reaction Status Date / Time mercury (elemental) Allergy Severe SWELLING, Verified 06/21/20 09:34 [Mercury (Elemental)] GENERALIZED WELTS amoxicillin Allergy Unknown Diarrhea Verified 06/21/20 09:34 antibiotic ointment Allergy Unknown Swelling Verified 06/21/20 09:34 aspirin [Aggrenox] Allergy Unknown Gastrointestinal Verified 06/21/20 09:34 Upset atorvastatin [ATORVASTATIN] Allergy Unknown UNKNOWN Verified 06/21/20 09:34 clavulanic acid [Augmentin] Allergy Unknown Diarrhea Verified 06/21/20 09:34 clindamycin [CLINDAMYCIN] Allergy Unknown UNKNOWN Verified 06/21/20 09:34 Clindamycin HCl Allergy Unknown Diarrhea Verified 06/21/20 09:34 dipyridamole [From AGGRENOX] Allergy Unknown HEADACHE Verified 06/21/20 09:34 duloxetine [Cymbalta] Allergy Unknown Unknown Verified 06/21/20 09:34 ezetimibe [From ZETIA] Allergy Unknown UNKNOWN Verified 06/21/20 09:34 Mercury Ammoniated Allergy Unknown Swelling Verified 06/21/20 09:34 nabumetone Allergy Unknown Unknown Verified 06/21/20 09:34 pravastatin [PRAVASTATIN] Allergy Unknown UNKNOWN Verified 06/21/20 09:34 silver sulfadiazine Allergy Unknown rash Verified 06/21/20 09:34 simvastatin [SIMVASTATIN] Allergy Unknown UNKNOWN Verified 06/21/20 09:34 zinc [ZINC] Allergy Unknown BURN, Verified 06/21/20 09:34 itching Mercury Detox Allergy Unknown Swelling Uncoded 06/21/20 09:34 Nabumetone Allergy Unknown Unknown Uncoded 06/21/20 09:34 Statins Support Allergy Unknown Muscle Pain Uncoded 06/21/20 09:34 Zinc Allergy Unknown rash,itch Uncoded 06/21/20 09:34 Exam Vital signs: Vital Signs Temp 98.6 F 06/21/20 09:27 Pulse 74 06/21/20 09:27 Resp 18 06/21/20 09:27 BP 160/67 H 06/21/20 09:27 Pulse Ox 99 06/21/20 09:27 Intake & Output 06/20/20 06/21/20 06/21/20 18:59 06:59 18:59 Other: Weight 40.4 kg Lavinia Weight in Grams 28324 Weight 40.4 kg Body Mass Index 16.2 - Constitutional Present: no acute distress - Routine HEENT Exam Head: Present: normal inspection Eye: Present: normal appearance ENT: Present: mucous membranes moist - Routine Neck Exam Present: full ROM - Routine Respiratory Exam Present: CTAB - Routine Cardiovascular Exam Cardiovascular: Present: RRR, S1, S2 - Routine Abdominal Exam Present: soft, nontender - Routine Rectal Exam Patient deferred: digital exam - Routine Extremities Exam Present: nontender - Routine Back/Spine/Pelvis Exam Back/Spine: Present: full ROM - Routine Skin Exam Present: intact - Routine Neurological Exam Present: alert, oriented X3 - Detailed Neurological Exam: Coma Scale Eye Opening: Spontaneous (4) - Routine Psychiatric Exam Present: normal affect Data - Labs Labs: 02/02/20 09:45 Epoetin Alexy [Procrit] 40,000 unit SUBCUT ONCE ONE 02/09/20 08:15 Epoetin Alexy [Procrit] 40,000 unit SUBCUT ONCE ONE 02/16/20 09:00 Epoetin Alexy [Procrit] 40,000 unit SUBCUT ONCE ONE 02/23/20 09:15 Epoetin Alexy [Procrit] 40,000 unit SUBCUT ONCE ONE 03/01/20 09:45 Epoetin Alexy [Procrit] 40,000 unit SUBCUT ONCE ONE 03/15/20 09:30 Epoetin Alexy [Procrit] 40,000 unit SUBCUT ONCE ONE 03/22/20 09:14 SARS-COV-2 PCR Routine 03/22/20 09:30 Epoetin Alexy [Procrit] 40,000 unit SUBCUT ONCE ONE 04/05/20 09:00 Epoetin Alexy [Procrit] 40,000 unit SUBCUT ONCE ONE 04/12/20 09:45 Epoetin Alexy [Procrit] 40,000 unit SUBCUT ONCE ONE 04/19/20 09:30 Epoetin Alexy [Procrit] 40,000 unit SUBCUT ONCE ONE 04/25/20 09:15 Epoetin Alexy [Procrit] 40,000 unit SUBCUT ONCE ONE 05/02/20 09:00 Epoetin Alexy [Procrit] 40,000 unit SUBCUT ONCE ONE 05/10/20 09:30 Epoetin Alexy [Procrit] 40,000 unit SUBCUT ONCE ONE 05/17/20 09:30 Epoetin Alexy [Procrit] 40,000 unit SUBCUT ONCE ONE 05/24/20 09:00 Epoetin Alexy [Procrit] 40,000 unit SUBCUT ONCE ONE 05/31/20 09:30 Epoetin Alexy [Procrit] 40,000 unit SUBCUT ONCE ONE 06/07/20 09:20 Epoetin Alexy [Procrit] 40,000 unit SUBCUT ONCE ONE 06/07/20 09:30 Epoetin Alexy [Procrit] 40,000 unit SUBCUT ONCE ONE 06/14/20 09:30 Epoetin Alexy [Procrit] 40,000 unit SUBCUT ONCE ONE 06/21/20 09:15 Epoetin Alexy [Procrit] 40,000 unit SUBCUT ONCE ONE Laboratory Last Values COVID-19 PCR NOT DETECTED (NOT DETECTED) 03/22/20 09:14 Progress Note: A/P (1) RAEB (refractory anemia with excess blasts) Status: Acute (2) RAEB (refractory anemia with excess blasts) Status: Acute Assessment and plan: Database: CBC from yesterday: WBC 26.4, HGB 9.8, HCT 33.8, PLT 159. This is a very pleasant 84 year-old lady who presented to the hospital in July of last year, with rather acute attacks , of weakness, achiness, headaches, that progressed to fever. She was noted to have a Pneumonia. Septic parameters were elevated, including lactic acid and Procalcitonin. She was noted to have an elevated white count 70,000. She had the left shift, with 18% bands and vacoules in the neutrophils, indicative of acute infection. 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 I checked BCR/ABL gene transcript on the peripheral blood. This came back as zero. LDH: 331. She was pancultured and started on broad-spectrum antibiotics, Zosyn. Her WBC count showed a downward trend. Lactic acid went down.This was a sign of response to antibiotics. However her Hemoglobin declined. It went down to 6.4. She required 2 units of packed RBCs July 28, 2018. Her peripheral smear revealed some abnormalities including: Mild granulocytic dysplasia (hypogranular cells,pseudo Pelger Huet cells,abnormal segmentation. Also seen are frequent immature granulocytes (myelocytes stage). Hypersegmented neutrophils are also present. Reactive appearing lymphocytes and large granular T-cells and large platelets. 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 A bone marrow exam, revealed RAEB-1. She had flow cytometry sent on peripheral blood on June 19, this revealed: GRANULOCYTOSIS WITH LEFT-SHIFT, 1% BLASTS. Granulocytes are increased with an increase in immature/left-shifted forms. However, no aberrant marker expression is noted. Blasts comprise 1% of WBCs. She was deemed not a candidate for chemotherapy, in view of her age and frailty. 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 It does appear to have helped. Her last transfusion was back in July, of last year, although she did need a transfusion back on June 17, while in house. She is doing really well. I reassured her that her blast count has not gone up, which is reassuring. Her energy level has improved. The Procrit is helping to maintain her quality of life. DATA BAS: From 03/14: WBC 11.2, HGB 9.2, HCT 31.3, PLT 140. 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 LFTs: 0.3/69/16/12. PLAN: She was sent up for the x-ray of the right shoulder. This revealed: 1. Mild degenerative changes glenohumeral joint and acromioclavicular joint. 2. Chondrocalcinosis acromioclavicular joint. 3. No rotator cuff calcification. This will be forwarded to Dr. Irwin, to see if an orthopedist referral is in order for intra-articular injection. Her hemoglobin was 9.8. yesterday. She is here for to receive the Procrit therapy. The plan is to keep hemoglobin over 10 grams. Will continue to follow her CBC weekly at home, to assess the need for Procrit. Will check her profile monthly. She will return in one month for a follow-up visit. All her questions were answered to her satisfaction. Thank you, CC: Dr. Irwin. - Time Spent With Patient Total time spent is greater than 50% in coordination of care (as documented) at patient's floor/unit and/or counseling patient: 25 - 35 minutes
--- NOTE | 2020-06-21 12:42 | MHC.HEMONC ---
XRay report faxed to Dr Irwin's office per Dr Glez.
[2020-06-28 09:22] VITALS: BP 158/71; PULSE 80; RESP 18; TEMP 36.8; O2SAT 97; BMI 16.5
[2020-06-28] MEDS: Epoetin Alfa 40,000 UNIT/ML VIAL 40000 UNIT SUBCUT (09:23)
--- NOTE | 2020-06-28 09:41 | MHC.HEMONC ---
HGB 9.4 yesterday at home draw. No new changes. Her VSS Procrit given a/o.
[2020-07-05 09:14] VITALS: BP 165/71; PULSE 74; RESP 18; TEMP 36.3; O2SAT 98; BMI 16.2
[2020-07-05] MEDS: Epoetin Alfa 40,000 UNIT/ML VIAL 40000 UNIT SUBCUT (09:27)
--- NOTE | 2020-07-05 09:36 | MHC.HEMONC ---
Pt here for Procrit. HGB 9.5 yesterday. She is going for Pain Clinic Consult next week for shoulder pain.
--- NOTE | 2020-07-11 13:59 | MHC.HEMONCSW ---
procrit, no pa needed. insurance is medicare as primary.
[2020-07-12 09:36] VITALS: BP 160/70; PULSE 73; RESP 18; TEMP 36.7; O2SAT 98; BMI 16.6
[2020-07-12] MEDS: Epoetin Alfa 40,000 UNIT/ML VIAL 40000 UNIT SUBCUT (09:40)
--- NOTE | 2020-07-12 09:50 | MHC.HEMONC ---
Procrit given for hgb 9.1 yesterday. Pt to have steroid injection in shoulder upcoming
[2020-07-19 09:07] VITALS: BP 166/70; PULSE 80; RESP 18; TEMP 36.4; O2SAT 98; BMI 16.3
[2020-07-19] MEDS: Epoetin Alfa 40,000 UNIT/ML VIAL 40000 UNIT SUBCUT (09:23)
--- NOTE | 2020-07-19 09:28 | MHC.HEMONC ---
Pt here for injection. Injection given for hgb level as documented/ordered. Follow-up given.
--- NOTE | 2020-07-25 12:59 | HO.HEMONCPA ---
PA not required due to patient having Medicare as insurance
[2020-07-26 09:11] VITALS: BP 160/70; PULSE 76; RESP 18; TEMP 36.9; O2SAT 97
[2020-07-26] MEDS: Epoetin Alfa 40,000 UNIT/ML VIAL 40000 UNIT SUBCUT (09:12)
--- NOTE | 2020-07-26 09:20 | MHC.HEMONC ---
Pt here for injection. Injection given as ordered/documented. Follow-up given.
[2020-08-02 09:24] VITALS: BP 168/74; PULSE 81; RESP 18; TEMP 36.9
[2020-08-02] MEDS: Epoetin Alfa 40,000 UNIT/ML VIAL 40000 UNIT SUBCUT (09:25)
--- NOTE | 2020-08-02 09:40 | MHC.HEMONC ---
Pt here for injection. labs drawn at home. Injection given as ordered/documented per orders. Follow-up given. Pt and son made aware that she will also have a follow-up with Dr Lopez with next weeks appointment.
--- NOTE | 2020-08-08 12:20 | MHC.HEMONC ---
Critical WBC 36.8, Dr Lopez notified. Patient coming to office tomorrow for Procrit. HGB 9.6
[2020-08-09 09:35] VITALS: BP 171/80; PULSE 77; RESP 18; TEMP 36.6; O2SAT 98; BMI 16.1
[2020-08-09 09:42] VITALS: BP 160/68
[2020-08-09] MEDS: Epoetin Alfa 40,000 UNIT/ML VIAL 40000 UNIT SUBCUT (09:44)
--- NOTE | 2020-08-09 10:10 | P.PNHO_ITS ---
Medical Summary - Medical Summary Date of Service: 08/09/20 Chief complaint: Follow-up for: RAEB. Medical Summary: DIAGNOSIS: RAEB. CURRENT THERAPY: PROCRIT WEEKLY. Interval History Interval history: This is a pleasant 85 year-old lady here for a follow-up visit and for her Procrit. She tells me she feels about the same. Her energy, is about the same. The pain in her joints has improved. However her right shoulder has been hurting her. It gets really painful. Sometimes it is towards the back sometimes on top and sometimes up into the arm. She has history of arthritis of shoulders and upper arms. She will be going for a cortisone shot soon. She has been taking oxycodone every 6 hours, and an extra one in the middle of the night, if she has pain. Her neuropathy bothers her at times. She denies headache nor dizziness. She has no fever nor chills. No chest pain or trouble breathing. Denies abdominal pain nausea vomiting heartburn indigestion. Her bowels are working without any gross blood in it. Her appetite is good. Her weight is stable. She is in good spirits. Rest of the review of systems is unremarkable. Review of Systems - Constitutional Reports system reviewed and no additional complaints, except as documented, Reports lack of energy, Reports malaise - Eyes Reports system reviewed and no additional complaints, except as documented - ENT Reports system reviewed and no additional complaints, except as documented - Cardiovascular Reports system reviewed and no additional complaints, except as documented - Respiratory Reports no additional respiratory complaints - Gastrointestinal Reports system reviewed and no additional complaints, except as documented - Genitourinary Reports no additional female genitourinary complaints - Musculoskeletal Reports system reviewed and no additional complaints, except as documented - Integumentary/Breasts Skin/Breast: Reports no additional skin complaints - Neurologic Reports system reviewed and no additional complaints, except as documented - Psychiatric Reports system reviewed and no additional complaints, except as documented - Endocrine Reports no additional endocrine complaints - Hematologic/Lymphatic Reports system reviewed and no additional complaints, except as documented - Allergic/Immunologic Reports system reviewed and no additional complaints, except as documented PMF Medical History: Medical History (Last Reviewed 08/09/20 @ 09:37 by Jesenia Barraza RN) Congestive heart failure COPD (chronic obstructive pulmonary disease) CVA (cerebral vascular accident) Degenerative disc disease Femoral neck fracture Hypercholesterolemia Hypertension Hypothyroid Lumbar stenosis Myelodysplastic syndrome Neurogenic bladder Nonischemic cardiomyopathy Osteoporosis Peripheral neuropathy Right lower lobe pulmonary nodule Functional capacity: wheelchair bound Patient : No Surgical History: Surgical History (Last Reviewed 08/09/20 @ 09:37 by Jesenia Barraza RN) History of back surgery History of hip surgery Social History: Social History (Last Reviewed 08/09/20 @ 09:37 by Jesenia Barraza RN) Alcohol History: Alcohol intake: former Tobacco History: Smoking Status: Former smoker Advance Directives: Advance Directives: Yes Advance Directives on File: Yes Advance Directives Date on File: 02/01/20 Nutrition Assessment: Patient : No Smoking status: Former smoker Oncology Screenings - ECOG Performance Status ECOG Performance Status: 1 Home Medications and Allergies Home Medications Medication Instructions Recorded Confirmed Type carvedilol 1 tab PO BID 03/15/20 08/09/20 History fluticasone propion-salmeterol 1 puff PO BID 03/15/20 08/09/20 History [Advair Diskus] hydrocortisone [Proctozone-HC] 1 applic NM BID 03/15/20 08/09/20 History levothyroxine 1 tab PO QAM 03/15/20 08/09/20 History naloxone [Narcan] 4 mg INTRANASAL DIRECTED 03/15/20 08/09/20 History Allergies Allergy/AdvReac Type Severity Reaction Status Date / Time mercury (elemental) Allergy Severe SWELLING, Verified 08/09/20 09:38 [Mercury (Elemental)] GENERALIZED WELTS amoxicillin Allergy Unknown Diarrhea Verified 08/09/20 09:38 antibiotic ointment Allergy Unknown Swelling Verified 08/09/20 09:38 aspirin [Aggrenox] Allergy Unknown Gastrointestinal Verified 08/09/20 09:38 Upset atorvastatin [ATORVASTATIN] Allergy Unknown UNKNOWN Verified 08/09/20 09:38 clavulanic acid [Augmentin] Allergy Unknown Diarrhea Verified 08/09/20 09:38 clindamycin [CLINDAMYCIN] Allergy Unknown UNKNOWN Verified 08/09/20 09:38 dipyridamole [From AGGRENOX] Allergy Unknown HEADACHE Verified 08/09/20 09:38 duloxetine [Cymbalta] Allergy Unknown Unknown Verified 08/09/20 09:38 ezetimibe [From ZETIA] Allergy Unknown UNKNOWN Verified 08/09/20 09:38 nabumetone Allergy Unknown Unknown Verified 08/09/20 09:38 pravastatin [PRAVASTATIN] Allergy Unknown UNKNOWN Verified 08/09/20 09:38 silver sulfadiazine Allergy Unknown rash Verified 08/09/20 09:38 simvastatin [SIMVASTATIN] Allergy Unknown UNKNOWN Verified 08/09/20 09:38 zinc [ZINC] Allergy Unknown BURN, Verified 08/09/20 09:38 itching Exam Vital signs: Vital Signs Temp 97.9 F 08/09/20 09:35 Pulse 77 08/09/20 09:35 Resp 18 08/09/20 09:35 BP 160/68 H 08/09/20 09:42 Pulse Ox 98 08/09/20 09:35 Intake & Output 08/08/20 08/09/20 08/09/20 18:59 06:59 18:59 Other: Weight 40 kg Weight in Grams 15477 Weight 40 kg Body Mass Index 16.1 - Constitutional Present: no acute distress - Routine HEENT Exam Head: Present: normal inspection Eye: Present: normal appearance ENT: Present: mucous membranes moist - Routine Neck Exam Present: full ROM - Routine Respiratory Exam Present: CTAB - Routine Cardiovascular Exam Cardiovascular: Present: RRR, S1, S2 - Routine Abdominal Exam Present: soft, nontender - Routine Rectal Exam Patient deferred: digital exam - Routine Extremities Exam Present: nontender - Routine Back/Spine/Pelvis Exam Back/Spine: Present: full ROM - Routine Skin Exam Present: intact - Routine Neurological Exam Present: alert, oriented X3 - Detailed Neurological Exam: Coma Scale Eye Opening: Spontaneous (4) - Routine Psychiatric Exam Present: normal affect Data - Labs Labs: 02/02/20 09:45 Epoetin Alexy [Procrit] 40,000 unit SUBCUT ONCE ONE 02/09/20 08:15 Epoetin Alexy [Procrit] 40,000 unit SUBCUT ONCE ONE 02/16/20 09:00 Epoetin Alexy [Procrit] 40,000 unit SUBCUT ONCE ONE 02/23/20 09:15 Epoetin Alexy [Procrit] 40,000 unit SUBCUT ONCE ONE 03/01/20 09:45 Epoetin Alexy [Procrit] 40,000 unit SUBCUT ONCE ONE 03/15/20 09:30 Epoetin Alexy [Procrit] 40,000 unit SUBCUT ONCE ONE 03/22/20 09:14 SARS-COV-2 PCR Routine 03/22/20 09:30 Epoetin Alexy [Procrit] 40,000 unit SUBCUT ONCE ONE 04/05/20 09:00 Epoetin Alexy [Procrit] 40,000 unit SUBCUT ONCE ONE 04/12/20 09:45 Epoetin Alexy [Procrit] 40,000 unit SUBCUT ONCE ONE 04/19/20 09:30 Epoetin Alexy [Procrit] 40,000 unit SUBCUT ONCE ONE 04/25/20 09:15 Epoetin Alexy [Procrit] 40,000 unit SUBCUT ONCE ONE 05/02/20 09:00 Epoetin Alexy [Procrit] 40,000 unit SUBCUT ONCE ONE 05/10/20 09:30 Epoetin Alexy [Procrit] 40,000 unit SUBCUT ONCE ONE 05/17/20 09:30 Epoetin Alexy [Procrit] 40,000 unit SUBCUT ONCE ONE 05/24/20 09:00 Epoetin Alexy [Procrit] 40,000 unit SUBCUT ONCE ONE 05/31/20 09:30 Epoetin Alexy [Procrit] 40,000 unit SUBCUT ONCE ONE 06/07/20 09:20 Epoetin Alexy [Procrit] 40,000 unit SUBCUT ONCE ONE 06/07/20 09:30 Epoetin Alexy [Procrit] 40,000 unit SUBCUT ONCE ONE 06/14/20 09:30 Epoetin Alexy [Procrit] 40,000 unit SUBCUT ONCE ONE 06/21/20 09:15 Epoetin Alexy [Procrit] 40,000 unit SUBCUT ONCE ONE Laboratory Last Values COVID-19 PCR NOT DETECTED (NOT DETECTED) 03/22/20 09:14 Progress Note: A/P (1) RAEB (refractory anemia with excess blasts) Status: Acute (2) RAEB (refractory anemia with excess blasts) Status: Acute Assessment and plan: Database: CBC from yesterday: WBC 26.4, HGB 9.8, HCT 33.8, PLT 159. This is a very pleasant 84 year-old lady who presented to the hospital in July of last year, with rather acute attacks , of weakness, achiness, headaches, that progressed to fever. She was noted to have a Pneumonia. Septic parameters were elevated, including lactic acid and Procalcitonin. She was noted to have an elevated white count 70,000. She had the left shift, with 18% bands and vacoules in the neutrophils, indicative of acute infection. 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 I checked BCR/ABL gene transcript on the peripheral blood. This came back as zero. LDH: 331. She was pancultured and started on broad-spectrum antibiotics, Zosyn. Her WBC count showed a downward trend. Lactic acid went down.This was a sign of response to antibiotics. However her Hemoglobin declined. It went down to 6.4. She required 2 units of packed RBCs July 28, 2018. Her peripheral smear revealed some abnormalities including: Mild granulocytic dysplasia (hypogranular cells,pseudo Pelger Huet cells,abnormal segmentation. Also seen are frequent immature granulocytes (myelocytes stage). Hypersegmented neutrophils are also present. Reactive appearing lymphocytes and large granular T-cells and large platelets. 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 A bone marrow exam, revealed RAEB-1. She had flow cytometry sent on peripheral blood on June 19, this revealed: GRANULOCYTOSIS WITH LEFT-SHIFT, 1% BLASTS. Granulocytes are increased with an increase in immature/left-shifted forms. However, no aberrant marker expression is noted. Blasts comprise 1% of WBCs. She was deemed not a candidate for chemotherapy, in view of her age and frailty. 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 It does appear to have helped. Her last transfusion was back in July, of last year, although she did need a transfusion back on June 17, while in house. She is doing really well. I reassured her that her blast count has not gone up, which is reassuring. Her energy level has improved. The Procrit is helping to maintain her quality of life. DATA BASE: From 03/14: WBC 11.2, HGB 9.2, HCT 31.3, PLT 140. Profile: lytes: WNL, BUN 14, RAT EXTERMINATOR 0.92. LFTs: 0.3/69/16/12. She had x-ray of the right shoulder. This revealed: 1. Mild degenerative changes glenohumeral joint and acromioclavicular joint. 2. Chondrocalcinosis acromioclavicular joint. 3. No rotator cuff calcification. CBC: WBC 36.8, HGB 9.6, HCT 33.3, PLT 125. Her diff revealed a left shift and 4% blasts. PLAN: She is here for to receive the Procrit therapy. The plan is to keep hemoglobin over 10 grams. I shared the information with her son. I mention my concern that her disease is progressing. Offered her 5 azacitidine based therapy. She was given written information. She will give it some thought and let me know of her decision next week. Will continue to follow her CBC weekly at home, to assess the need for Procrit. Will check her profile monthly. She will return in one month for a follow-up visit. All her questions were answered to her satisfaction. Thank you, CC: Dr. Irwin. - Time Spent With Patient Total time spent is greater than 50% in coordination of care (as documented) at patient's floor/unit and/or counseling patient: 25 - 35 minutes
--- NOTE | 2020-08-09 10:35 | MHC.HEMONC ---
Pt here for injection and follow-up. labs drawn at home. Injection given as documented. Clinical summary updated with nurse. Provider seen patient. Follow-ups given.
[2020-08-16 09:13] VITALS: BP 170/80; PULSE 76; RESP 12; TEMP 36.8; O2SAT 99; BMI 15.3
[2020-08-16] MEDS: Epoetin Alfa 40,000 UNIT/ML VIAL 40000 UNIT SUBCUT (09:31)
--- NOTE | 2020-08-16 09:31 | P.PNHO_ITS ---
Medical Summary - Medical Summary Date of Service: 08/16/20 Chief complaint: Follow-up for: RAEB. Medical Summary: DIAGNOSIS: RAEB. CURRENT THERAPY: PROCRIT WEEKLY. Interval History Interval history: This is a pleasant 85 year-old lady here for a follow-up visit and for her Procrit. She tells me she feels pretty good. Her energy, is about the same. The pain in her joints has improved. She used to get right shoulder pain. However she got a cortisone shot a couple of days ago. Since then her pain has gotten so much better and she is able to move the shoulder around. She has history of arthritis of shoulders and upper arms. She has been taking oxycodone every 6 hours, and an extra one in the middle of the night, if she has pain. She denies headache nor dizziness. She has no fever nor chills. No chest pain or trouble breathing. Denies abdominal pain nausea vomiting heartburn indigestion. Her bowels are working without any gross blood in it. Her appetite is good. Her weight is stable. Her neuropathy bothers her at times. She is in good spirits. Rest of the review of systems is unremarkable. Review of Systems - Constitutional Reports no additional constitutional complaints, Reports lack of energy - Eyes Reports no additional eye complaints - ENT Reports no additional ear, nose, mouth, and throat complaints - Cardiovascular Reports no additional cardiovascular complaints - Respiratory Reports no additional respiratory complaints - Gastrointestinal Reports no additional gastrointestinal complaints - Genitourinary Reports no additional female genitourinary complaints - Musculoskeletal Reports no additional musculoskeletal complaints - Integumentary/Breasts Skin/Breast: Reports no additional skin complaints - Neurologic Reports no additional neurologic complaints - Psychiatric Reports no additional psychiatric complaints - Endocrine Reports no additional endocrine complaints - Hematologic/Lymphatic Reports no additional hematologic/lymphatic complaints - Allergic/Immunologic Reports no additional allergic/immunologic complaints [facility] Medical History: Medical History (Last Reviewed 08/16/20 @ 09:15 by Shalonda So) Congestive heart failure COPD (chronic obstructive pulmonary disease) CVA (cerebral vascular accident) Degenerative disc disease Femoral neck fracture Hypercholesterolemia Hypertension Hypothyroid Lumbar stenosis Myelodysplastic syndrome Neurogenic bladder Nonischemic cardiomyopathy Osteoporosis Peripheral neuropathy Right lower lobe pulmonary nodule Functional capacity: wheelchair bound Patient : No Surgical History: Surgical History (Last Reviewed 08/16/20 @ 09:15 by Shalonda So) History of back surgery History of hip surgery Social History: Social History (Last Reviewed 08/16/20 @ 09:15 by Shalonda So) Alcohol History: Alcohol intake: former Advance Directives: Advance Directives Date on File: 02/01/20 Smoking status: Former smoker Oncology Screenings - ECOG Performance Status ECOG Performance Status: 2 Home Medications and Allergies Current Medications: Current Medications Generic Name Dose Route Start Last Admin Trade Name Freq PRN Reason Stop Dose Admin Epoetin Alexy 40,000 unit 08/16/20 09:30 Epoetin Alexy 40,000 Unit/Ml Vial SUBCUT 08/16/20 09:31 ONCE ONE Home Medications Medication Instructions Recorded Confirmed Type carvedilol 1 tab PO BID 03/15/20 08/14/20 History fluticasone propion-salmeterol 1 puff PO BID 03/15/20 08/14/20 History [Advair Diskus] hydrocortisone [Proctozone-HC] 1 applic IA BID 03/15/20 08/14/20 History levothyroxine 1 tab PO QAM 03/15/20 08/14/20 History naloxone [Narcan] 4 mg INTRANASAL DIRECTED 03/15/20 08/14/20 History Allergies Allergy/AdvReac Type Severity Reaction Status Date / Time mercury (elemental) Allergy Severe SWELLING, Verified 08/13/20 08:43 [Mercury (Elemental)] GENERALIZED WELTS amoxicillin Allergy Unknown Diarrhea Verified 08/13/20 08:43 antibiotic ointment Allergy Unknown Swelling Verified 08/13/20 08:43 aspirin [Aggrenox] Allergy Unknown Gastrointestinal Verified 08/13/20 08:43 Upset atorvastatin [ATORVASTATIN] Allergy Unknown UNKNOWN Verified 08/13/20 08:43 clavulanic acid [Augmentin] Allergy Unknown Diarrhea Verified 08/13/20 08:43 clindamycin [CLINDAMYCIN] Allergy Unknown UNKNOWN Verified 08/13/20 08:43 dipyridamole [From AGGRENOX] Allergy Unknown HEADACHE Verified 08/13/20 08:43 duloxetine [Cymbalta] Allergy Unknown Unknown Verified 08/13/20 08:43 ezetimibe [From ZETIA] Allergy Unknown UNKNOWN Verified 08/13/20 08:43 nabumetone Allergy Unknown Unknown Verified 08/13/20 08:43 pravastatin [PRAVASTATIN] Allergy Unknown UNKNOWN Verified 08/13/20 08:43 silver sulfadiazine Allergy Unknown rash Verified 08/13/20 08:43 simvastatin [SIMVASTATIN] Allergy Unknown UNKNOWN Verified 08/13/20 08:43 zinc [ZINC] Allergy Unknown BURN, Verified 08/13/20 08:43 itching Exam Vital signs: Vital Signs Temp 98.2 F 08/16/20 09:13 Pulse 76 08/16/20 09:13 Resp 12 08/16/20 09:13 BP 170/80 H 08/16/20 09:13 Pulse Ox 99 08/16/20 09:13 Intake & Output 08/15/20 08/16/20 08/16/20 18:59 06:59 18:59 Other: Weight 38 kg Weight in Grams 48828 Weight 38 kg Body Mass Index 15.3 - Constitutional Present: no acute distress - Routine HEENT Exam Head: Present: normal inspection Eye: Present: normal appearance ENT: Present: mucous membranes moist - Routine Neck Exam Present: full ROM - Routine Respiratory Exam Present: CTAB - Routine Cardiovascular Exam Cardiovascular: Present: RRR, S1, S2 - Routine Abdominal Exam Present: soft, nontender - Routine Rectal Exam Patient deferred: digital exam - Routine Extremities Exam Present: nontender - Routine Back/Spine/Pelvis Exam Back/Spine: Present: full ROM - Routine Skin Exam Present: intact - Routine Neurological Exam Present: alert, oriented X3 - Detailed Neurological Exam: Coma Scale Eye Opening: Spontaneous (4) - Routine Psychiatric Exam Present: normal affect Data - Labs Labs: 02/02/20 09:45 Epoetin Alexy [Procrit] 40,000 unit SUBCUT ONCE ONE 02/09/20 08:15 Epoetin Alexy [Procrit] 40,000 unit SUBCUT ONCE ONE 02/16/20 09:00 Epoetin Alexy [Procrit] 40,000 unit SUBCUT ONCE ONE 02/23/20 09:15 Epoetin Alexy [Procrit] 40,000 unit SUBCUT ONCE ONE 03/01/20 09:45 Epoetin Alexy [Procrit] 40,000 unit SUBCUT ONCE ONE 03/15/20 09:30 Epoetin Alexy [Procrit] 40,000 unit SUBCUT ONCE ONE 03/22/20 09:14 SARS-COV-2 PCR Routine 03/22/20 09:30 Epoetin Alexy [Procrit] 40,000 unit SUBCUT ONCE ONE 04/05/20 09:00 Epoetin Alexy [Procrit] 40,000 unit SUBCUT ONCE ONE 04/12/20 09:45 Epoetin Alexy [Procrit] 40,000 unit SUBCUT ONCE ONE 04/19/20 09:30 Epoetin Alexy [Procrit] 40,000 unit SUBCUT ONCE ONE 04/25/20 09:15 Epoetin Alexy [Procrit] 40,000 unit SUBCUT ONCE ONE 05/02/20 09:00 Epoetin Alexy [Procrit] 40,000 unit SUBCUT ONCE ONE 05/10/20 09:30 Epoetin Alexy [Procrit] 40,000 unit SUBCUT ONCE ONE 05/17/20 09:30 Epoetin Alexy [Procrit] 40,000 unit SUBCUT ONCE ONE 05/24/20 09:00 Epoetin Alexy [Procrit] 40,000 unit SUBCUT ONCE ONE 05/31/20 09:30 Epoetin Alexy [Procrit] 40,000 unit SUBCUT ONCE ONE 06/07/20 09:20 Epoetin Alexy [Procrit] 40,000 unit SUBCUT ONCE ONE 06/07/20 09:30 Epoetin Alexy [Procrit] 40,000 unit SUBCUT ONCE ONE 06/14/20 09:30 Epoetin Alexy [Procrit] 40,000 unit SUBCUT ONCE ONE 06/21/20 09:15 Epoetin Alexy [Procrit] 40,000 unit SUBCUT ONCE ONE Laboratory Last Values COVID-19 PCR NOT DETECTED (NOT DETECTED) 03/22/20 09:14 Progress Note: A/P (1) RAEB (refractory anemia with excess blasts) Status: Acute (2) RAEB (refractory anemia with excess blasts) Status: Acute Assessment and plan: Database: CBC from yesterday: WBC 26.4, HGB 9.8, HCT 33.8, PLT 159. This is a very pleasant 84 year-old lady who presented to the hospital in July of last year, with rather acute attacks , of weakness, achiness, headaches, that progressed to fever. She was noted to have a Pneumonia. Septic parameters were elevated, including lactic acid and Procalcitonin. She was noted to have an elevated white count 70,000. She had the left shift, with 18% bands and vacoules in the neutrophils, indicative of acute infection. 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 I checked BCR/ABL gene transcript on the peripheral blood. This came back as zero. LDH: 331. She was pancultured and started on broad-spectrum antibiotics, Zosyn. Her WBC count showed a downward trend. Lactic acid went down.This was a sign of response to antibiotics. However her Hemoglobin declined. It went down to 6.4. She required 2 units of packed RBCs July 28, 2018. Her peripheral smear revealed some abnormalities including: Mild granulocytic dysplasia (hypogranular cells,pseudo Pelger Huet cells,abnormal segmentation. Also seen are frequent immature granulocytes (myelocytes stage). Hypersegmented neutrophils are also present. Reactive appearing lymphocytes and large granular T-cells and large platelets. 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 A bone marrow exam, revealed RAEB-1. She had flow cytometry sent on peripheral blood on June 19, this revealed: GRANULOCYTOSIS WITH LEFT-SHIFT, 1% BLASTS. Granulocytes are increased with an increase in immature/left-shifted forms. However, no aberrant marker expression is noted. Blasts comprise 1% of WBCs. She was deemed not a candidate for chemotherapy, in view of her age and frailty. 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 It does appear to have helped. Her last transfusion was back in July, of last year, although she did need a transfusion back on June 17, while in house. She is doing really well. I reassured her that her blast count has not gone up, which is reassuring. Her energy level has improved. The Procrit is helping to maintain her quality of life. DATA BASE: From 03/14: WBC 11.2, HGB 9.2, HCT 31.3, PLT 140. Profile: lytes: WNL, BUN 14, INVESTMENT DIRECTOR 0.92. LFTs: 0.3/69/16/12. She had x-ray of the right shoulder. This revealed: 1. Mild degenerative changes glenohumeral joint and acromioclavicular joint. 2. Chondrocalcinosis acromioclavicular joint. 3. No rotator cuff calcification. CBC: From 08/06 : WBC 36.8, HGB 9.6, HCT 33.3, PLT 125. Her diff revealed a left shift and 4% blasts. CBC: From today: WBC 86.4, HGB 9.4, HCT 32.6, PLT 187. It is surprising that her WBC count has more than doubled within a week. She does not have a fever nor are there any other signs of infection. She had mention something in the perianal area. I examined there she has hemorrhoids but no obvious perianal collection/abscess. My concern is that her RAEB has really taken off. 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 I had shared information regarding 5 azacitidine last week. Today her daughter is here as well and I gave her the information as well. I presented the option of proceeding with a bone marrow exam for definitive diagnosis and then to consider chemotherapy. She is willing. PLAN: Bone marrow has been scheduled for Wednesday at 02:30 under [facility]. She will receive the Procrit therapy. The plan is to keep hemoglobin over 10 grams. If she decides to go ahead with the 5 azacitidine will get prior authorization and set it up for the following week. In the meantime, will continue to follow her CBC weekly at home, to assess the need for Procrit. Will check her profile monthly. She will return in next week for a follow-up visit. All her her son and daughter's questions were answered to her satisfaction. Thank you, CC: Dr. Irwin. - Time Spent With Patient Total time spent is greater than 50% in coordination of care (as documented) at patient's floor/unit and/or counseling patient: 25 - 35 minutes
--- NOTE | 2020-08-16 11:09 | MHC.HEMONCMA ---
Pt presents to f/u for anemia. History reviewed and labs were done previous to office visit.
--- NOTE | 2020-08-16 12:44 | MHC.HEMONCMA ---
Patient told Dr Lopez that she is finally consenting to the bone marrow biopsy. I scheduled her for 08/20/2020 at 2pm in the OR under MAC. The patient is aware.
[2020-08-23 09:29] VITALS: BP 139/65; PULSE 80; RESP 18; TEMP 36.6; O2SAT 100; BMI 16.0
[2020-08-23] MEDS: Epoetin Alfa 40,000 UNIT/ML VIAL 40000 UNIT SUBCUT (09:31)
--- NOTE | 2020-08-23 09:41 | MHC.HEMONC ---
Pt here following home draw yesterday. Procrit eligible. She is baseline fatigued and will call if she feels she needs blood tx as her HGB is down significantly this week. Dr Lopez met with her and her son and dtr to discuss pending bone marrow bx results and proposed chemo. Return next week.
[2020-08-30] VITALS (7 sets, daily range): BP systolic 138–182; BP diastolic 51–85; PULSE 73–90; RESP 12–18; TEMP 36–37.3; O2SAT 97
[2020-08-30 14:52] LABS: Glucose Urine UA NEG (NEG); Leukocyte Esterase Urine NEG (NEG); Nitrite Urine NEG (NEG); PH 6.5 (5.0-8.0); Urine Blood NEG (NEG); Urine Ketones NEG (NEG); Urine Protein NEG (NEG-TRACE)
[2020-08-30 14:53] LABS: Appearance Urine CLEAR; Color Urine YELLOW
--- NOTE | 2020-08-30 15:57 | MHC.HEMONC ---
H/H 7.9/27.8- 2 units of RBCS ordered with type and screen. Consent obtained. Patient states she feels tired but denies SOB. 2 units well tolerated. No signs of transfusion reaction noted. No respiratory distress. Patient to return next for procrit depending on lab results. Patient instructed to call office if symptoms arise before next scheduled appt.
[2020-09-20 09:07] VITALS: BP 136/62; PULSE 82; RESP 12; TEMP 37.3; O2SAT 97; BMI 15.3
--- NOTE | 2020-09-20 09:11 | P.PNHO_ITS ---
Medical Summary - Medical Summary Date of Service: 09/20/20 Chief complaint: Follow-up for: MDS. Medical Summary: DIAGNOSIS: RAEB. CURRENT THERAPY: PROCRIT WEEKLY. Interval History Interval history: This is a pleasant 85 year-old lady here for a follow-up visit and for her Procrit. She tells me she feels about the same. Her energy, is rather low. The pain in her joints has improved. She used to get right shoulder pain. However she got a cortisone shot a couple of weeks ago. Since then her pain has gotten so much better and she is able to move the shoulder around. She has history of arthritis of shoulders. She has been taking oxycodone every 6 hours, and an extra one in the middle of the night, if she has pain. She denies headache nor dizziness. She has no fever nor chills. No chest pain or trouble breathing. Denies abdominal pain nausea vomiting heartburn indigestion. Her bowels are working without any gross blood in it. She does not have an appetite, at all. She has been losing her weight. Her neuropathy bothers her at times. She is in good spirits. Rest of the review of systems is unremarkable. Review of Systems - Constitutional Reports no additional constitutional complaints, Reports lack of energy, Reports malaise, Reports poor appetite, Reports weight loss - Eyes Reports no additional eye complaints - ENT Reports no additional ear, nose, mouth, and throat complaints - Cardiovascular Reports no additional cardiovascular complaints - Respiratory Reports no additional respiratory complaints - Gastrointestinal Reports no additional gastrointestinal complaints - Genitourinary Reports no additional female genitourinary complaints - Musculoskeletal Reports no additional musculoskeletal complaints Comments: Shoulder pain. - Integumentary/Breasts Skin/Breast: Reports no additional skin complaints - Neurologic Reports no additional neurologic complaints Comments: Neuropathy. - Psychiatric Reports no additional psychiatric complaints - Endocrine Reports no additional endocrine complaints - Hematologic/Lymphatic Reports no additional hematologic/lymphatic complaints - Allergic/Immunologic Reports no additional allergic/immunologic complaints [facility] Medical History: Medical History (Last Reviewed 09/20/20 @ 09:13 by Shalonda So) Congestive heart failure COPD (chronic obstructive pulmonary disease) CVA (cerebral vascular accident) Degenerative disc disease Femoral neck fracture Hypercholesterolemia Hypertension Hypothyroid Lumbar stenosis Myelodysplastic syndrome Neurogenic bladder Nonischemic cardiomyopathy Osteoporosis Peripheral neuropathy Right lower lobe pulmonary nodule Functional capacity: wheelchair bound Patient : No Family History: Family History (Last Updated 09/20/20 @ 09:15 by Shalonda So) Daughter Hypertension Son Hypertension Diabetes Maternal Grandfather Lymphoma Surgical History: Surgical History (Last Reviewed 09/20/20 @ 09:13 by Shalonda So) History of back surgery History of hip surgery Social History: Social History (Last Reviewed 09/20/20 @ 09:13 by Shalonda So) Alcohol History: Alcohol intake: former Tobacco History: Smoking Status: Former smoker Advance Directives: Advance Directives: Yes Advance Directives on File: Yes Advance Directives Date on File: 02/01/20 Nutrition Assessment: Patient : No Smoking status: Former smoker Oncology Screenings - ECOG Performance Status ECOG Performance Status: 2 Home Medications and Allergies Current Medications: Current Medications Generic Name Dose Route Start Last Admin Trade Name Freq PRN Reason Stop Dose Admin Epoetin Alexy 40,000 unit 09/20/20 09:15 Epoetin Alexy 40,000 Unit/Ml Vial SUBCUT 09/20/20 09:16 ONCE ONE Home Medications Medication Instructions Recorded Confirmed Type carvedilol 1 tab PO BID 03/15/20 09/18/20 History fluticasone propion-salmeterol 1 puff PO BID 03/15/20 09/18/20 History [Advair Diskus] levothyroxine 1 tab PO QAM 03/15/20 09/18/20 History Allergies Allergy/AdvReac Type Severity Reaction Status Date / Time mercury (elemental) Allergy Severe SWELLING, Verified 09/18/20 10:12 [Mercury (Elemental)] GENERALIZED WELTS amoxicillin Allergy Unknown Diarrhea Verified 09/18/20 10:12 antibiotic ointment Allergy Unknown Swelling Verified 09/18/20 10:12 aspirin [Aggrenox] Allergy Unknown Gastrointestinal Verified 09/18/20 10:12 Upset atorvastatin [ATORVASTATIN] Allergy Unknown UNKNOWN Verified 09/18/20 10:12 clavulanic acid [Augmentin] Allergy Unknown Diarrhea Verified 09/18/20 10:12 clindamycin [CLINDAMYCIN] Allergy Unknown UNKNOWN Verified 09/18/20 10:12 dipyridamole [From AGGRENOX] Allergy Unknown HEADACHE Verified 09/18/20 10:12 duloxetine [Cymbalta] Allergy Unknown Unknown Verified 09/18/20 10:12 ezetimibe [From ZETIA] Allergy Unknown UNKNOWN Verified 09/18/20 10:12 nabumetone Allergy Unknown Unknown Verified 09/18/20 10:12 pravastatin [PRAVASTATIN] Allergy Unknown UNKNOWN Verified 09/18/20 10:12 silver sulfadiazine Allergy Unknown rash Verified 09/18/20 10:12 simvastatin [SIMVASTATIN] Allergy Unknown UNKNOWN Verified 09/18/20 10:12 zinc [ZINC] Allergy Unknown BURN, Verified 09/18/20 10:12 itching Exam Vital signs: Vital Signs Temp 96.8 F 08/30/20 15:42 Pulse 90 08/30/20 15:42 Resp 18 08/30/20 15:42 BP 182/66 H 08/30/20 15:42 Pulse Ox 97 08/30/20 09:18 Weight 39.8 kg Body Mass Index 16.0 - Constitutional Present: no acute distress - Routine HEENT Exam Head: Present: normal inspection Eye: Present: normal appearance ENT: Present: mucous membranes moist - Routine Neck Exam Present: full ROM - Routine Respiratory Exam Present: CTAB - Routine Cardiovascular Exam Cardiovascular: Present: RRR, S1, S2 - Routine Abdominal Exam Present: soft, nontender - Routine Rectal Exam Patient deferred: digital exam - Routine Extremities Exam Present: nontender - Routine Back/Spine/Pelvis Exam Back/Spine: Present: full ROM - Routine Skin Exam Present: intact - Routine Neurological Exam Present: alert, oriented X3 - Detailed Neurological Exam: Coma Scale Eye Opening: Spontaneous (4) - Routine Psychiatric Exam Present: normal affect Data - Labs Labs: 02/02/20 09:45 Epoetin Alexy [Procrit] 40,000 unit SUBCUT ONCE ONE 02/09/20 08:15 Epoetin Alexy [Procrit] 40,000 unit SUBCUT ONCE ONE 02/16/20 09:00 Epoetin Alexy [Procrit] 40,000 unit SUBCUT ONCE ONE 02/23/20 09:15 Epoetin Alexy [Procrit] 40,000 unit SUBCUT ONCE ONE 03/01/20 09:45 Epoetin Alexy [Procrit] 40,000 unit SUBCUT ONCE ONE 03/15/20 09:30 Epoetin Alexy [Procrit] 40,000 unit SUBCUT ONCE ONE 03/22/20 09:14 SARS-COV-2 PCR Routine 03/22/20 09:30 Epoetin Alexy [Procrit] 40,000 unit SUBCUT ONCE ONE 04/05/20 09:00 Epoetin Alexy [Procrit] 40,000 unit SUBCUT ONCE ONE 04/12/20 09:45 Epoetin Alexy [Procrit] 40,000 unit SUBCUT ONCE ONE 04/19/20 09:30 Epoetin Alexy [Procrit] 40,000 unit SUBCUT ONCE ONE 04/25/20 09:15 Epoetin Alexy [Procrit] 40,000 unit SUBCUT ONCE ONE 05/02/20 09:00 Epoetin Alexy [Procrit] 40,000 unit SUBCUT ONCE ONE 05/10/20 09:30 Epoetin Alexy [Procrit] 40,000 unit SUBCUT ONCE ONE 05/17/20 09:30 Epoetin Alexy [Procrit] 40,000 unit SUBCUT ONCE ONE 05/24/20 09:00 Epoetin Alexy [Procrit] 40,000 unit SUBCUT ONCE ONE 05/31/20 09:30 Epoetin Alexy [Procrit] 40,000 unit SUBCUT ONCE ONE 06/07/20 09:20 Epoetin Alexy [Procrit] 40,000 unit SUBCUT ONCE ONE 06/07/20 09:30 Epoetin Alexy [Procrit] 40,000 unit SUBCUT ONCE ONE 06/14/20 09:30 Epoetin Alexy [Procrit] 40,000 unit SUBCUT ONCE ONE 06/21/20 09:15 Epoetin Alexy [Procrit] 40,000 unit SUBCUT ONCE ONE Laboratory Last Values COVID-19 PCR NOT DETECTED (NOT DETECTED) 03/22/20 09:14 Progress Note: A/P (1) RAEB (refractory anemia with excess blasts) Status: Acute (2) RAEB (refractory anemia with excess blasts) Status: Acute Assessment and plan: Database: CBC from yesterday: WBC 26.4, HGB 9.8, HCT 33.8, PLT 159. This is a very pleasant 84 year-old lady who presented to the hospital in July of last year, with rather acute attacks , of weakness, achiness, headaches, that progressed to fever. She was noted to have a Pneumonia. Septic parameters were elevated, including lactic acid and Procalcitonin. She was noted to have an elevated white count 70,000. She had the left shift, with 18% bands and vacoules in the neutrophils, indicative of acute infection. 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 I checked BCR/ABL gene transcript on the peripheral blood. This came back as zero. LDH: 331. She was pancultured and started on broad-spectrum antibiotics, Zosyn. Her WBC count showed a downward trend. Lactic acid went down.This was a sign of response to antibiotics. However her Hemoglobin declined. It went down to 6.4. She required 2 units of packed RBCs July 28, 2018. Her peripheral smear revealed some abnormalities including: Mild granulocytic dysplasia (hypogranular cells,pseudo Pelger Huet cells,abnormal segmentation. Also seen are frequent immature granulocytes (myelocytes stage). Hypersegmented neutrophils are also present. Reactive appearing lymphocytes and large granular T-cells and large platelets. 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 A bone marrow exam, revealed RAEB-1. She had flow cytometry sent on peripheral blood on June 19, this revealed: GRANULOCYTOSIS WITH LEFT-SHIFT, 1% BLASTS. Granulocytes are increased with an increase in immature/left-shifted forms. However, no aberrant marker expression is noted. Blasts comprise 1% of WBCs. She was deemed not a candidate for chemotherapy, in view of her age and frailty. 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 It does appear to have helped. Her last transfusion was back in July, of last year, although she did need a transfusion back on June 17, while in house. She is doing really well. I reassured her that her blast count has not gone up, which is reassuring. Her energy level has improved. The Procrit is helping to maintain her quality of life. DATA BASE: From 03/14: WBC 11.2, HGB 9.2, HCT 31.3, PLT 140. Profile: lytes: WNL, BUN 14, LOCKSTITCH SLEEVE SETTER 0.92. LFTs: 0.3/69/16/. She had x-ray of the right shoulder. This revealed: 1. Mild degenerative changes glenohumeral joint and acromioclavicular joint. 2. Chondrocalcinosis acromioclavicular joint. 3. No rotator cuff calcification. CBC: From 08/06 : WBC 36.8, HGB 9.6, HCT 33.3, PLT 125. Her diff revealed a left shift and 4% blasts. CBC: From 08/15: WBC 86.4, HGB 9.4, HCT 32.6, PLT 187. Her CBC from today: WBC 30.1, HGB 9.6, HCT 31.2, PLT 127. CMP: Lytes: Within normal limits, BUN 18, creatinine 0.83, GLU on O2. Ca L9 0.5,. LFTs: 0.8/54/23/10. It is surprising that her WBC count had more than doubled within a week. She did not have a fever nor were there any other signs of infection. She had mention something in the perianal area. I examined there she had hemorrhoids but no obvious perianal collection/abscess. My concern was that her RAEB has really taken off and she has progressed to acute leukemia. I proceeded with a bone marrow exam, for further evaluation. This revealed: RAEB: Kidney hypercellular marrow with left-shifted dysgranulopoiesis, and increased blasts. 9%. Flow cytometry: 9% blast and 4% CD 34 positive events. Aberrant antigen expression/maturation in granulocytes. B and T cells without aberrant antigen expression. Cytogenetics: 46 XX: Normal female karyotype. Molecular genetics: MPL mutation: Not detected. Calreticulin mutation: Not detected. JAK2 mutation: Not detected. JAK2 Axon 12-13 mutation: Not detected. PDGFR mutation: Not detected. Brian- TYPE analysis: NextGen myeloid disorders profile: ASXL 1 mutation: present. NRAS: Present. SETBP 1 present. SRSF2: Present. TET2: Present. Taken together, the morphologic features combined with ancillary tests are consistent with a combined MDS/MPN. 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 I had shared information regarding 5 azacitidine. Today her son and daughter are here as well and I gave them the information as well. She is willing, to consider it. She will think it over and let me know of her decision. Meanwhile, she has had a poor appetite, due to her underlying condition. She does need to be built up prior to receiving chemotherapy. I offered Megace however she does not want a liquid. That is hard for her to swallow. I gave her Marinol 2.5 mg p.o. b.i.d. to try. PLAN: She will receive the Procrit therapy. The plan is to keep hemoglobin over 10 grams. If she decides to go ahead with the 5 azacitidine, will get prior authorization and set it up after that. In the meantime, will start her on Marinol to help build up her appetite and strength, prior to starting the chemotherapy. I will continue to follow her CBC weekly at home, to assess the need for Procrit. Will check her profile monthly. She will return in next week for a follow-up visit. All her her son and daughter's questions were answered to her satisfaction. Thank you, CC: Dr. Irwin. - Time Spent With Patient Total time spent is greater than 50% in coordination of care (as documented) at patient's floor/unit and/or counseling patient: 25 - 35 minutes
[2020-09-20] MEDS: Epoetin Alfa 40,000 UNIT/ML VIAL 40000 UNIT SUBCUT (09:24)
--- NOTE | 2020-09-20 10:01 | MHC.HEMONC ---
pt here for Tyra and appt. HGB 9.6 yesterday (home draw). She asked for appetite stimulant rx prior to starting any Vidaza. Dr Lopez to order. No other changes.
--- NOTE | 2020-09-20 12:04 | MHC.HEMONCMA ---
Pt presents to f/u on anemia. History reviewed.
[2020-09-27] MEDS: Epoetin Alfa 40,000 UNIT/ML VIAL 40000 UNIT SUBCUT (09:29)
[2020-09-27 09:42] VITALS: BP 150/74
--- NOTE | 2020-09-27 13:05 | P.PNHO_ITS ---
Medical Summary - Medical Summary Date of Service: 09/27/20 Chief complaint: FOLLOW-UP FOR:1. MDS. 2. ATYPICAL CML. Medical Summary: DIAGNOSIS: RAEB. CURRENT THERAPY: PROCRIT WEEKLY. Interval History Interval history: This is a pleasant 85 year-old lady here for a follow-up visit and for her Procrit. She tells me she feels about the same. She tried the Marinol. The 2nd day she felt a bit dizzy. The 3rd day she was fine. However her family has noted some change behavior. She is somewhat drowsy. Her energy, is rather low. The pain in her joints has improved. She used to get right shoulder pain. However she got a cortisone shot a couple of weeks ago. Since then her pain has gotten so much better and she is able to move the shoulder around. She has history of arthritis of shoulders. She has been taking oxycodone every 6 hours, and an extra one in the middle of the night, if she has pain. She denies headache nor dizziness. She has no fever nor chills. No chest pain or trouble breathing. Denies abdominal pain nausea vomiting heartburn indigestion. Her bowels are working without any gross blood in it. Her appetite, has not changed yet. She has been losing her weight. Her neuropathy bothers her at times. She is in good spirits. Rest of the review of systems is unremarkable. Review of Systems - Constitutional Reports no additional constitutional complaints, Reports daytime sleepiness, Reports lack of energy, Reports poor appetite, Reports weight loss - Eyes Reports no additional eye complaints - ENT Reports no additional ear, nose, mouth, and throat complaints - Cardiovascular Reports no additional cardiovascular complaints - Respiratory Reports no additional respiratory complaints - Gastrointestinal Reports no additional gastrointestinal complaints - Genitourinary Reports no additional female genitourinary complaints - Musculoskeletal Reports no additional musculoskeletal complaints - Integumentary/Breasts Skin/Breast: Reports no additional skin complaints - Neurologic Reports no additional neurologic complaints - Psychiatric Reports no additional psychiatric complaints - Endocrine Reports no additional endocrine complaints - Hematologic/Lymphatic Reports no additional hematologic/lymphatic complaints - Allergic/Immunologic Reports no additional allergic/immunologic complaints [facility] Medical History: Medical History (Last Reviewed 09/20/20 @ 09:13 by Shalonda So) Congestive heart failure COPD (chronic obstructive pulmonary disease) CVA (cerebral vascular accident) Degenerative disc disease Femoral neck fracture Hypercholesterolemia Hypertension Hypothyroid Lumbar stenosis Myelodysplastic syndrome Neurogenic bladder Nonischemic cardiomyopathy Osteoporosis Peripheral neuropathy Right lower lobe pulmonary nodule Functional capacity: wheelchair bound Patient : No Family History: Family History (Last Updated 09/20/20 @ 09:15 by Shalonda So) Daughter Hypertension Son Hypertension Diabetes Maternal Grandfather Lymphoma Surgical History: Surgical History (Last Reviewed 09/20/20 @ 09:13 by Shalonda So) History of back surgery History of hip surgery Social History: Social History (Last Reviewed 09/20/20 @ 09:13 by Shalonda So) Alcohol History: Alcohol intake: former Advance Directives: Advance Directives: Yes Advance Directives on File: Yes Advance Directives Date on File: 02/01/20 Nutrition Assessment: Patient : No Oncology Screenings - ECOG Performance Status ECOG Performance Status: 2 Home Medications and Allergies Home Medications Medication Instructions Recorded Confirmed Type carvedilol 1 tab PO BID 03/15/20 09/18/20 History fluticasone propion-salmeterol 1 puff PO BID 03/15/20 09/18/20 History [Advair Diskus] levothyroxine 1 tab PO QAM 03/15/20 09/18/20 History Allergies Allergy/AdvReac Type Severity Reaction Status Date / Time mercury (elemental) Allergy Severe SWELLING, Verified 09/18/20 10:12 [Mercury (Elemental)] GENERALIZED WELTS amoxicillin Allergy Unknown Diarrhea Verified 09/18/20 10:12 antibiotic ointment Allergy Unknown Swelling Verified 09/18/20 10:12 aspirin [Aggrenox] Allergy Unknown Gastrointestinal Verified 09/18/20 10:12 Upset atorvastatin [ATORVASTATIN] Allergy Unknown UNKNOWN Verified 09/18/20 10:12 clavulanic acid [Augmentin] Allergy Unknown Diarrhea Verified 09/18/20 10:12 clindamycin [CLINDAMYCIN] Allergy Unknown UNKNOWN Verified 09/18/20 10:12 dipyridamole [From AGGRENOX] Allergy Unknown HEADACHE Verified 09/18/20 10:12 duloxetine [Cymbalta] Allergy Unknown Unknown Verified 09/18/20 10:12 ezetimibe [From ZETIA] Allergy Unknown UNKNOWN Verified 09/18/20 10:12 nabumetone Allergy Unknown Unknown Verified 09/18/20 10:12 pravastatin [PRAVASTATIN] Allergy Unknown UNKNOWN Verified 09/18/20 10:12 silver sulfadiazine Allergy Unknown rash Verified 09/18/20 10:12 simvastatin [SIMVASTATIN] Allergy Unknown UNKNOWN Verified 09/18/20 10:12 zinc [ZINC] Allergy Unknown BURN, Verified 09/18/20 10:12 itching Exam Vital signs: Vital Signs Temp 99.2 F 09/20/20 09:07 Pulse 82 09/20/20 09:07 Resp 12 09/20/20 09:07 BP 150/74 H 09/27/20 09:42 Pulse Ox 97 09/20/20 09:07 Weight 38 kg Body Mass Index 15.3 - Constitutional Present: no acute distress - Routine HEENT Exam Head: Present: normal inspection Eye: Present: normal appearance ENT: Present: mucous membranes moist - Routine Neck Exam Present: full ROM - Routine Respiratory Exam Present: CTAB - Routine Cardiovascular Exam Cardiovascular: Present: RRR, S1, S2 - Routine Abdominal Exam Present: soft, nontender - Routine Rectal Exam Patient deferred: digital exam - Routine Extremities Exam Present: nontender - Routine Back/Spine/Pelvis Exam Back/Spine: Present: full ROM - Routine Skin Exam Present: intact - Routine Neurological Exam Present: alert, oriented X3 - Detailed Neurological Exam: Coma Scale Eye Opening: Spontaneous (4) - Routine Psychiatric Exam Present: normal affect Data - Labs Labs: 02/02/20 09:45 Epoetin Alexy [Procrit] 40,000 unit SUBCUT ONCE ONE 02/09/20 08:15 Epoetin Alexy [Procrit] 40,000 unit SUBCUT ONCE ONE 02/16/20 09:00 Epoetin Alexy [Procrit] 40,000 unit SUBCUT ONCE ONE 02/23/20 09:15 Epoetin Alexy [Procrit] 40,000 unit SUBCUT ONCE ONE 03/01/20 09:45 Epoetin Alexy [Procrit] 40,000 unit SUBCUT ONCE ONE 03/15/20 09:30 Epoetin Alexy [Procrit] 40,000 unit SUBCUT ONCE ONE 03/22/20 09:14 SARS-COV-2 PCR Routine 03/22/20 09:30 Epoetin Alexy [Procrit] 40,000 unit SUBCUT ONCE ONE 04/05/20 09:00 Epoetin Alexy [Procrit] 40,000 unit SUBCUT ONCE ONE 04/12/20 09:45 Epoetin Alexy [Procrit] 40,000 unit SUBCUT ONCE ONE 04/19/20 09:30 Epoetin Alexy [Procrit] 40,000 unit SUBCUT ONCE ONE 04/25/20 09:15 Epoetin Alexy [Procrit] 40,000 unit SUBCUT ONCE ONE 05/02/20 09:00 Epoetin Alexy [Procrit] 40,000 unit SUBCUT ONCE ONE 05/10/20 09:30 Epoetin Alexy [Procrit] 40,000 unit SUBCUT ONCE ONE 05/17/20 09:30 Epoetin Alexy [Procrit] 40,000 unit SUBCUT ONCE ONE 05/24/20 09:00 Epoetin Alexy [Procrit] 40,000 unit SUBCUT ONCE ONE 05/31/20 09:30 Epoetin Alexy [Procrit] 40,000 unit SUBCUT ONCE ONE 06/07/20 09:20 Epoetin Alexy [Procrit] 40,000 unit SUBCUT ONCE ONE 06/07/20 09:30 Epoetin Alexy [Procrit] 40,000 unit SUBCUT ONCE ONE 06/14/20 09:30 Epoetin Alexy [Procrit] 40,000 unit SUBCUT ONCE ONE 06/21/20 09:15 Epoetin Alexy [Procrit] 40,000 unit SUBCUT ONCE ONE Laboratory Last Values COVID-19 PCR NOT DETECTED (NOT DETECTED) 03/22/20 09:14 Progress Note: A/P (1) RAEB (refractory anemia with excess blasts) Status: Acute (2) RAEB (refractory anemia with excess blasts) Status: Acute Assessment and plan: Database: CBC from yesterday: WBC 26.4, HGB 9.8, HCT 33.8, PLT 159. This is a very pleasant 84 year-old lady who presented to the hospital in July of last year, with rather acute attacks , of weakness, achiness, headaches, that progressed to fever. She was noted to have a Pneumonia. Septic parameters were elevated, including lactic acid and Procalcitonin. She was noted to have an elevated white count 70,000. She had the left shift, with 18% bands and vacoules in the neutrophils, indicative of acute infection. 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 I checked BCR/ABL gene transcript on the peripheral blood. This came back as zero. LDH: 331. She was pancultured and started on broad-spectrum antibiotics, Zosyn. Her WBC count showed a downward trend. Lactic acid went down.This was a sign of response to antibiotics. However her Hemoglobin declined. It went down to 6.4. She required 2 units of packed RBCs July 28, 2018. Her peripheral smear revealed some abnormalities including: Mild granulocytic dysplasia (hypogranular cells,pseudo Pelger Huet cells,abnormal segmentation. Also seen are frequent immature granulocytes (myelocytes stage). Hypersegmented neutrophils are also present. Reactive appearing lymphocytes and large granular T-cells and large platelets. 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 A bone marrow exam, revealed RAEB-1. She had flow cytometry sent on peripheral blood on June 19, this revealed: GRANULOCYTOSIS WITH LEFT-SHIFT, 1% BLASTS. Granulocytes are increased with an increase in immature/left-shifted forms. However, no aberrant marker expression is noted. Blasts comprise 1% of WBCs. She was deemed not a candidate for chemotherapy, in view of her age and frailty. 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 It does appear to have helped. Her last transfusion was back in July, of last year, although she did need a transfusion back on June 17, while in house. She is doing really well. I reassured her that her blast count has not gone up, which is reassuring. Her energy level has improved. The Procrit is helping to maintain her quality of life. DATA BASE: From 03/14: WBC 11.2, HGB 9.2, HCT 31.3, PLT 140. Profile: lytes: WNL, BUN 14, ULTRASONIC TESTER 0.92. LFTs: 0.3/69/16/. She had x-ray of the right shoulder. This revealed: 1. Mild degenerative changes glenohumeral joint and acromioclavicular joint. 2. Chondrocalcinosis acromioclavicular joint. 3. No rotator cuff calcification. CBC: From 08/06 : WBC 36.8, HGB 9.6, HCT 33.3, PLT 125. Her diff revealed a left shift and 4% blasts. CBC: From 08/15: WBC 86.4, HGB 9.4, HCT 32.6, PLT 187. Her CBC from today: WBC 30.1, HGB 9.6, HCT 31.2, PLT 127. CMP: Lytes: Within normal limits, BUN 18, creatinine 0.83, GLU on O2. Ca L9 0.5,. LFTs: 0.8/54/23/10. It is surprising that her WBC count had more than doubled within a week. She did not have a fever nor were there any other signs of infection. She had mention something in the perianal area. I examined there she had hemorrhoids but no obvious perianal collection/abscess. My concern was that her RAEB has really taken off and she has progressed to acute leukemia. I proceeded with a bone marrow exam, for further evaluation. This revealed: RAEB: Kidney hypercellular marrow with left-shifted dysgranulopoiesis, and increased blasts. 9%. Flow cytometry: 9% blast and 4% CD 34 positive events. Aberrant antigen expression/maturation in granulocytes. B and T cells without aberrant antigen expression. Cytogenetics: 46 XX: Normal female karyotype. Molecular genetics: MPL mutation: Not detected. Calreticulin mutation: Not detected. JAK2 mutation: Not detected. JAK2 Axon 12-13 mutation: Not detected. PDGFR mutation: Not detected. Brian- TYPE analysis: NextGen myeloid disorders profile: ASXL 1 mutation: present. NRAS: Present. SETBP 1 present. SRSF2: Present. T ET2: Present. Taken together, the morphologic features combined with ancillary tests are consistent with a combined MDS/MPN. 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 I had shared information regarding 5 azacitidine. Today her son and daughter are here as well and I gave them the information as well. She is willing, to consider it. She will think it over and let me know of her decision. Meanwhile, she has had a poor appetite, due to her underlying condition. She does need to be built up prior to receiving chemotherapy. I offered Megace however she does not want a liquid. That is hard for her to swallow. I gave her Marinol 2.5 mg p.o. b.i.d. to try. However the family has noticed some change in her behavior. 09/26 CBC: WBC 44.6, HGB 9.7, HCT 31, PLT 227. CMP: LYTES:WNL, BUN 18,babcock tester 0.83, ghada 9.5, Alb 3.6. LFTs: 0.8/54/23/10. PLAN: I advised her to take it once a day, instead of b.i.d. to ameliorate some of the side effects. She will receive the Procrit therapy. The plan is to keep hemoglobin over 10 grams. I asked her if she had made up her mind about the chemotherapy. She said she has not decided. She was concerned about burdening someone, to bring her everyday. I will look into arranging for the hospital transportation. If she decides to go ahead with the 5 azacitidine, will get prior authorization and set it up after that. In the meantime, she will take one Marinol dose a day, to help build up her appetite and strength, prior to starting the chemotherapy. I will continue to follow her CBC weekly at home, to assess the need for Procrit. Will check her profile monthly. She will return in next week for a follow-up visit. All her her son's questions were answered to her satisfaction. Thank you, CC: Dr. Irwin. - Time Spent With Patient Total time spent is greater than 50% in coordination of care (as documented) at patient's floor/unit and/or counseling patient: 25 - 35 minutes
[2020-10-04 09:13] VITALS: BP 181/80; PULSE 80; RESP 18; TEMP 36.4; O2SAT 97; BMI 15.7
[2020-10-04] MEDS: Epoetin Alfa 40,000 UNIT/ML VIAL 40000 UNIT SUBCUT (09:23)
[2020-10-04 09:29] VITALS: BP 158/74
--- NOTE | 2020-10-04 11:56 | MHC.HEMONC ---
HGB 9.7- Procrit well tolerated. Patient stated she does not want treatment. Dr. Lopez updated and will call family later for further discussion.
--- NOTE | 2020-10-17 13:39 | MHC.HEMONC ---
Pt called with HGB 10.9. No Procrit needed tomorrow. WBC 51. Pt also aware. She said that she was feeling a bit better. Some increase in appetite. Will have home draw again next week.
[2020-10-25 09:32] VITALS: BP 140/82
[2020-10-25] MEDS: Epoetin Alfa 40,000 UNIT/ML VIAL 40000 UNIT SUBCUT (09:33)
--- NOTE | 2020-10-25 10:06 | MHC.HEMONC ---
HGB 9.7. Pt given Procrit a/o. She looks frail but reports recent increase in appetite and po intake.
[2020-11-01 09:22] VITALS: BP 147/66; PULSE 80; RESP 18; TEMP 36.2; O2SAT 97; BMI 15.5
[2020-11-01] MEDS: Epoetin Alfa 40,000 UNIT/ML VIAL 40000 UNIT SUBCUT (09:38)
--- NOTE | 2020-11-01 09:42 | MHC.HEMONC ---
Procrit administered to left upper arm, well tolerated. VSS. HGB 8.5. Patient to return in one week for injection.
[2020-11-08 09:30] VITALS: BP 175/72; PULSE 77; RESP 18; TEMP 36.4; O2SAT 97; BMI 15.7
[2020-11-08] MEDS: Epoetin Alfa 40,000 UNIT/ML VIAL 40000 UNIT SUBCUT (09:40)
--- NOTE | 2020-11-08 09:47 | MHC.HEMONC ---
Hgb 8.5, procrit given as ordered
[2020-11-15 09:15] VITALS: BP 171/72; PULSE 84; RESP 18; TEMP 36.7; O2SAT 97; BMI 15.3
[2020-11-15] MEDS: Epoetin Alfa 40,000 UNIT/ML VIAL 40000 UNIT SUBCUT (09:22)
--- NOTE | 2020-11-15 09:29 | MHC.HEMONC ---
Procrit injection given as ordered. Hgb 9.6. Scheduled for next procrit in 1 week.
[2020-11-22 09:34] VITALS: BP 198/88; PULSE 82; RESP 18; TEMP 36.6; O2SAT 97; BMI 15.5
[2020-11-22] MEDS: Epoetin Alfa 40,000 UNIT/ML VIAL 40000 UNIT SUBCUT (09:38)
--- NOTE | 2020-11-22 09:46 | MHC.HEMONC ---
Pt here for Procrit injection. H & H 9.6/34.4 Platelets 141. Procrit injection given SC in right arm. Dr Lopez into chat with pt briefly. Discharge packet given. Follow up appointments scheduled. Discharged home.
[2020-11-29 09:25] VITALS: BP 173/74; PULSE 80; RESP 18; TEMP 36.6; O2SAT 94; BMI 15.3
[2020-11-29] MEDS: Epoetin Alfa 40,000 UNIT/ML VIAL 40000 UNIT SUBCUT (09:36)
[2020-11-29 09:45] VITALS: BP 158/72
--- NOTE | 2020-11-29 12:01 | MHC.HEMONC ---
hgb 9.7, provrit given f/u in 1 week.
[2020-12-13 09:25] VITALS: BP 162/67; PULSE 82; RESP 18; TEMP 36.5; O2SAT 97; BMI 14.8
[2020-12-13] MEDS: Epoetin Alfa 40,000 UNIT/ML VIAL 40000 UNIT SUBCUT (09:40)
--- NOTE | 2020-12-13 11:07 | MHC.HEMONC ---
hgb 9.8 procrit given, follow up in 1 week.
--- NOTE | 2020-12-13 11:24 | P.PNHO_ITS ---
Medical Summary - Medical Summary Date of Service: 12/13/20 Chief complaint: Follow-up for: ANH. RAEB. Medical Summary: DIAGNOSIS: RAEB. CURRENT THERAPY: PROCRIT WEEKLY. Interval History Interval history: This is a pleasant 85 year-old lady here for a follow-up visit and for her Procrit. She tells me she feels rather fatigued most of the time. Some days she has more energy. She is good in the morning, till 11 or 12. She takes a nap 2 and 4 in the afternoon. She denies headache nor dizziness. She has no fever nor chills. No chest pain. The other night she woke up with shortness of breath. She has history of asthma. She has used inhalers which help. Denies abdominal pain nausea vomiting heartburn indigestion. Her bowels are working without any gross blood in it. Her appetite, has not changed yet. She has been losing her weight. She has history of arthritis of shoulders. She has been taking oxycodone every 6 hours, and an extra one in the middle of the night, if she has pain. Her neuropathy bothers her at times. Her legs keeps falling asleep. Her toes get tingly. She had stabbed her left foot. The left big toe is rather bruised. The nail is discolored. She is in good spirits. Rest of the review of systems is unremarkable. Review of Systems - Constitutional Reports no additional constitutional complaints, Reports fatigue, Denies fever(s), Denies headache(s), Reports lack of energy, Reports malaise, Reports poor appetite - Eyes Reports no additional eye complaints - ENT Reports no additional ear, nose, mouth, and throat complaints - Cardiovascular Reports no additional cardiovascular complaints - Respiratory Reports no additional respiratory complaints - Gastrointestinal Reports no additional gastrointestinal complaints - Genitourinary Reports no additional female genitourinary complaints - Musculoskeletal Reports no additional musculoskeletal complaints - Integumentary/Breasts Skin/Breast: Reports no additional skin complaints - Neurologic Reports no additional neurologic complaints - Psychiatric Reports no additional psychiatric complaints - Endocrine Reports no additional endocrine complaints - Hematologic/Lymphatic Reports no additional hematologic/lymphatic complaints - Allergic/Immunologic Reports no additional allergic/immunologic complaints [facility] Medical History: Medical History (Last Updated 11/20/20 @ 14:41 by Elida Irwin MD) Congestive heart failure COPD (chronic obstructive pulmonary disease) CVA (cerebral vascular accident) Degenerative disc disease Femoral neck fracture Hypercholesterolemia Hypertension Hypothyroid Lumbar stenosis Myelodysplastic syndrome Neurogenic bladder Nonischemic cardiomyopathy Osteoporosis Peripheral neuropathy Right lower lobe pulmonary nodule Functional capacity: wheelchair bound Patient : No Family History: Family History (Last Updated 09/20/20 @ 09:15 by Shalonda So) Daughter Hypertension Son Hypertension Diabetes Maternal Grandfather Lymphoma Surgical History: Surgical History (Last Reviewed 09/20/20 @ 09:13 by Shalonda So) History of back surgery History of hip surgery Social History: Social History (Last Reviewed 09/20/20 @ 09:13 by Shalonda So) Living Situation History: Housing: House Alcohol History: Alcohol intake: former Tobacco History: Patient Tobacco Use Status: Former Tobacco user Tobacco use type: Cigarette e-Cigarette/Vaping Use: Never Used Second Hand Smoke Exposure: No Advance Directives: Advance Directives: Yes Advance Directives on File: Yes Advance Directives Date on File: 02/01/20 Nutrition Assessment: Patient : No Occupation Assessmet: service: No Current occupational status: retired Oncology Screenings - ECOG Performance Status ECOG Performance Status: 2 Home Medications and Allergies Home Medications Medication Instructions Recorded Confirmed Type carvedilol 25 mg tablet 1 tab PO BID 03/15/20 11/20/20 History fluticasone 100 mcg-salmeterol 50 1 puff PO BID 03/15/20 11/20/20 History mcg/dose blistr powdr for inhalation (Advair Diskus) Allergies Allergy/AdvReac Type Severity Reaction Status Date / Time mercury (elemental) Allergy Severe SWELLING, Verified 11/20/20 14:18 [Mercury (Elemental)] GENERALIZED WELTS amoxicillin Allergy Unknown Diarrhea Verified 11/20/20 14:18 antibiotic ointment Allergy Unknown Swelling Verified 11/20/20 14:18 aspirin [Aggrenox] Allergy Unknown Gastrointestinal Verified 11/20/20 14:18 Upset atorvastatin [ATORVASTATIN] Allergy Unknown UNKNOWN Verified 11/20/20 14:18 clavulanic acid [Augmentin] Allergy Unknown Diarrhea Verified 11/20/20 14:18 clindamycin [CLINDAMYCIN] Allergy Unknown UNKNOWN Verified 11/20/20 14:18 dipyridamole [From AGGRENOX] Allergy Unknown HEADACHE Verified 11/20/20 14:18 duloxetine [Cymbalta] Allergy Unknown Unknown Verified 11/20/20 14:18 ezetimibe [From ZETIA] Allergy Unknown UNKNOWN Verified 11/20/20 14:18 nabumetone Allergy Unknown Unknown Verified 11/20/20 14:18 pravastatin [PRAVASTATIN] Allergy Unknown UNKNOWN Verified 11/20/20 14:18 silver sulfadiazine Allergy Unknown rash Verified 11/20/20 14:18 simvastatin [SIMVASTATIN] Allergy Unknown UNKNOWN Verified 11/20/20 14:18 zinc [ZINC] Allergy Unknown BURN, Verified 11/20/20 14:18 itching dronabinol [From Marinol] AdvReac Intermediate Nausea Verified 11/20/20 14:52 Exam Vital signs: Vital Signs Temp 97.7 F 12/13/20 09:25 Pulse 82 12/13/20 09:25 Resp 18 12/13/20 09:25 BP 162/67 H 12/13/20 09:25 Pulse Ox 97 12/13/20 09:25 Intake & Output 12/12/20 12/13/20 12/13/20 18:59 06:59 18:59 Other: Weight 36.9 kg Weight in Grams 19027 Weight 36.9 kg Body Mass Index 14.8 - Constitutional Present: no acute distress - Routine HEENT Exam Head: Present: normal inspection Eye: Present: normal appearance ENT: Present: mucous membranes moist - Routine Neck Exam Present: full ROM - Routine Respiratory Exam Present: CTAB - Routine Cardiovascular Exam Cardiovascular: Present: RRR, S1, S2 - Routine Abdominal Exam Present: soft, nontender - Routine Rectal Exam Patient deferred: digital exam - Routine Extremities Exam Present: nontender Comments: Bruised left big toe. - Routine Back/Spine/Pelvis Exam Back/Spine: Present: full ROM - Routine Skin Exam Present: intact - Routine Neurological Exam Present: alert, oriented X3 - Detailed Neurological Exam: Coma Scale Eye Opening: Spontaneous (4) - Routine Psychiatric Exam Present: normal affect Data - Labs Labs: 02/02/20 09:45 Epoetin Alexy [Procrit] 40,000 unit SUBCUT ONCE ONE 02/09/20 08:15 Epoetin Alexy [Procrit] 40,000 unit SUBCUT ONCE ONE 02/16/20 09:00 Epoetin Alexy [Procrit] 40,000 unit SUBCUT ONCE ONE 02/23/20 09:15 Epoetin Alexy [Procrit] 40,000 unit SUBCUT ONCE ONE 03/01/20 09:45 Epoetin Alexy [Procrit] 40,000 unit SUBCUT ONCE ONE 03/15/20 09:30 Epoetin Alexy [Procrit] 40,000 unit SUBCUT ONCE ONE 03/22/20 09:14 SARS-COV-2 PCR Routine 03/22/20 09:30 Epoetin Alexy [Procrit] 40,000 unit SUBCUT ONCE ONE 04/05/20 09:00 Epoetin Alexy [Procrit] 40,000 unit SUBCUT ONCE ONE 04/12/20 09:45 Epoetin Alexy [Procrit] 40,000 unit SUBCUT ONCE ONE 04/19/20 09:30 Epoetin Alexy [Procrit] 40,000 unit SUBCUT ONCE ONE 04/25/20 09:15 Epoetin Alexy [Procrit] 40,000 unit SUBCUT ONCE ONE 05/02/20 09:00 Epoetin Alexy [Procrit] 40,000 unit SUBCUT ONCE ONE 05/10/20 09:30 Epoetin Alexy [Procrit] 40,000 unit SUBCUT ONCE ONE 05/17/20 09:30 Epoetin Alexy [Procrit] 40,000 unit SUBCUT ONCE ONE 05/24/20 09:00 Epoetin Alexy [Procrit] 40,000 unit SUBCUT ONCE ONE 05/31/20 09:30 Epoetin Alexy [Procrit] 40,000 unit SUBCUT ONCE ONE 06/07/20 09:20 Epoetin Alexy [Procrit] 40,000 unit SUBCUT ONCE ONE 06/07/20 09:30 Epoetin Alexy [Procrit] 40,000 unit SUBCUT ONCE ONE 06/14/20 09:30 Epoetin Alexy [Procrit] 40,000 unit SUBCUT ONCE ONE 06/21/20 09:15 Epoetin Alexy [Procrit] 40,000 unit SUBCUT ONCE ONE Laboratory Last Values COVID-19 PCR NOT DETECTED (NOT DETECTED) 03/22/20 09:14 Progress Note: A/P (1) RAEB (refractory anemia with excess blasts) Status: Acute (2) RAEB (refractory anemia with excess blasts) Status: Acute Assessment and plan: Database: CBC from yesterday: WBC 26.4, HGB 9.8, HCT 33.8, PLT 159. This is a very pleasant 84 year-old lady who presented to the hospital in July of last year, with rather acute attacks , of weakness, achiness, headaches, that progressed to fever. She was noted to have a Pneumonia. Septic parameters were elevated, including lactic acid and Procalcitonin. She was noted to have an elevated white count 70,000. She had the left shift, with 18% bands and vacoules in the neutrophils, indicative of acute infection. 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 I checked BCR/ABL gene transcript on the peripheral blood. This came back as zero. LDH: 331. She was pancultured and started on broad-spectrum antibiotics, Zosyn. Her WBC count showed a downward trend. Lactic acid went down.This was a sign of response to antibiotics. However her Hemoglobin declined. It went down to 6.4. She required 2 units of packed RBCs July 28, 2018. Her peripheral smear revealed some abnormalities including: Mild granulocytic dysplasia (hypogranular cells,pseudo Pelger Huet cells,abnormal segmentation. Also seen are frequent immature granulocytes (myelocytes stage). Hypersegmented neutrophils are also present. Reactive appearing lymphocytes and large granular T-cells and large platelets. 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 A bone marrow exam, revealed RAEB-1. She had flow cytometry sent on peripheral blood on June 19, this revealed: GRANULOCYTOSIS WITH LEFT-SHIFT, 1% BLASTS. Granulocytes are increased with an increase in immature/left-shifted forms. However, no aberrant marker expression is noted. Blasts comprise 1% of WBCs. She was deemed not a candidate for chemotherapy, in view of her age and frailty. 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 It does appear to have helped. Her last transfusion was back in July, of last year, although she did need a transfusion back on June 17, while in house. She is doing really well. I reassured her that her blast count has not gone up, which is reassuring. Her energy level has improved. The Procrit is helping to maintain her quality of life. DATA BASE: From 03/14: WBC 11.2, HGB 9.2, HCT 31.3, PLT 140. Profile: lytes: WNL, BUN 14, HEEL SLUGGER 0.92. LFTs: 0.3/69/16/12. She had x-ray of the right shoulder. This revealed: 1. Mild degenerative changes glenohumeral joint and acromioclavicular joint. 2. Chondrocalcinosis acromioclavicular joint. 3. No rotator cuff calcification. CBC: From 08/06 : WBC 36.8, HGB 9.6, HCT 33.3, PLT 125. Her diff revealed a left shift and 4% blasts. CBC: From 08/15: WBC 86.4, HGB 9.4, HCT 32.6, PLT 187. Her CBC from today: WBC 30.1, HGB 9.6, HCT 31.2, PLT 127. CMP: Lytes: Within normal limits, BUN 18, creatinine 0.83, GLU on O2. Ca L9 0.5,. LFTs: 0.8/54/23/10. It is surprising that her WBC count had more than doubled within a week. She did not have a fever nor were there any other signs of infection. She had mention something in the perianal area. I examined there she had hemorrhoids but no obvious perianal collection/abscess. My concern was that her RAEB has really taken off and she has progressed to acute leukemia. I proceeded with a bone marrow exam, for further evaluation. This revealed: RAEB: Kidney hypercellular marrow with left-shifted dysgranulopoiesis, and increased blasts. 9%. Flow cytometry: 9% blast and 4% CD 34 positive events. Aberrant antigen expression/maturation in granulocytes. B and T cells without aberrant antigen expression. Cytogenetics: 46 XX: Normal female karyotype. Molecular genetics: MPL mutation: Not detected. Calreticulin mutation: Not detected. JAK2 mutation: Not detected. JAK2 Axon 12-13 mutation: Not detected. PDGFR mutation: Not detected. Brian- TYPE analysis: NextGen myeloid disorders profile: ASXL 1 mutation: present. NRAS: Present. SETBP 1 present. SRSF2: Present. TET2: Present. Taken together, the morphologic features combined with ancillary tests are consistent with a combined MDS/MPN. 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 I had shared information regarding 5 azacitidine. Today her son and daughter are here as well and I gave them the information as well. She is willing, to consider it. She will think it over and let me know of her decision. Meanwhile, she has had a poor appetite, due to her underlying condition. She does need to be built up prior to receiving chemotherapy. I offered Megace however she does not want a liquid. That is hard for her to swallow. I gave her Marinol 2.5 mg p.o. b.i.d. to try. However the family has noticed some change in her behavior. 09/26 CBC: WBC 44.6, HGB 9.7, HCT 31, PLT 227. CMP: LYTES:WNL, BUN 18,director cardiovascular 0.83, ghada 9.5, Alb 3.6. LFTs: 0.8/54/23/10. Labs from 12/12: CBC WBC 50.4, HGB 9.5, HCT 33.9, PLT 110. She feels rather fatigued. WBC is up at 50. After reviewing her options, paying the risks and benefit of chemotherapy, she has elected not to go through with it. She was concerned about burdening someone, to bring her everyday. She would want to continue on the Procrit therapy. PLAN: She will receive the Procrit therapy. The plan is to keep hemoglobin over 10 grams. She will take one Marinol dose a day, to help build up her appetite and strength, prior to starting the chemotherapy. I will continue to follow her CBC weekly at home, to assess the need for Procrit. Will check her profile monthly. She will return in next week for her Procrit and in a month, for a follow-up visit. All her her son's questions were answered to her satisfaction. Thank you, CC: Dr. Irwin. - Time Spent With Patient Time Spent with Patient (in minutes): 30
--- NOTE | 2020-12-19 08:24 | MHC.HEMONC ---
Received call from lab stating Nivia Porras's son called to cancel home draw for today. Will call pt today
--- NOTE | 2020-12-19 08:53 | MHC.HEMONC ---
Patient cx home draw. patient states has a headache with nausea. Will call tomorrow to cx procrit injection if not feeling better.
--- NOTE | 2020-12-20 08:12 | MHC.HEMONC ---
Patient states has no energery and her feet are hurting her. currently taking lyrica and oxycodone for the pain. Follow up for labs and procrit in 1 week.
[2020-12-27 09:06] VITALS: BP 130/64; PULSE 88; RESP 18; TEMP 36.7; O2SAT 98; BMI 14.8
[2020-12-27] MEDS: Epoetin Alfa 40,000 UNIT/ML VIAL 40000 UNIT SUBCUT (09:24)
--- NOTE | 2020-12-27 11:58 | MHC.HEMONC ---
Patient present for procrit given hgb 9.2, follow up in 1 week. patient has purple bruise to midsternum, patient states happened from ekg lead removal while admitted. patient educated to apply ice if needed and call with any increased swelling, bruising or pain.
--- NOTE | 2021-01-03 15:47 | MHC.HEMONC ---
pt seen by [facility] RN today and they will be making weekly visits to monitor VS and CP status and give Procrit per Medicare guidelines (labs drawn at home day before injection).
--- NOTE | 2021-01-09 16:03 | MHC.HEMONC ---
Pt called and given her hgb results of 8.8. Will receive her procrit injection by [facility] on Wednesday 01/10
--- NOTE | 2021-02-12 17:07 | MHC.HEMONC ---
pt son, Vikram stopped by clinic to say that his mom wasn't doing well, is weak and nauseous with minimal intake including fluids. I spoke with him about transition to Hospice but he wants her to make that call. She currently has [facility] and they are administering Procrit. Dr Lpoez also spoke to him about comfort care and she is likely having disease progression. At 4:30 pt son called us to say that they were calling ambulance to take his mother to [facility] for eval and treatment. She is vomiting and can't stand. Dr Lopez notified and she will call up there to speak with ER MD.
--- NOTE | 2021-03-13 10:58 | MHC.HEMONC ---
Wbc 58.[address] Beckman who is covering for Dr Hare
--- NOTE | 2021-03-20 11:16 | MHC.HEMONC ---
Nurse received t/c from Casandra at the lab, pt had critical lab result, WBC of 59.6. Nurse reported result to Dr. Lopez.
--- NOTE | 2021-04-17 09:51 | MHC.HEMONC ---
spoke to pt on phone for telehealth. pt has a couple of days left on bactrim for uti and feeling better on it. wbc improving on hydrea once a day. son will be with pt all day dr gregg will call back later today. pt had no questions or complaints
--- NOTE | 2021-04-17 09:57 | HO.HEMONCTE1 ---
[facility] Telehealth - Telehealth Location of Provider rendering services: Hem/onc office. Location of Patient: Home Patient Identification confirmed using: Name, : Yes Telehealth Method: Via telephone. Patient verbally consented to treatment: Yes Patient verbally consented to billing insurance company: Yes Patient informed of any privacy concerns related to visit: Yes Medical Summary - Medical Summary Date of Service: 04/17/21 Chief complaint: Follow-up for: RAEB. Medical Summary: DIAGNOSIS: RAEB. CURRENT THERAPY: PROCRIT WEEKLY. Interval History Interval history: This is a pleasant 85 year-old lady with whom a televisit was held. She tells me she has good days and bad days. Although lately she has had more good days this week. Some days she feels rather fatigued. She just goes and takes a nap. She recently came down with a UTI urine culture revealed: Klebsiella oxytoca. She was given Bactrim. Her symptoms have improved. She has 2 more days of antibiotics. She has a little bit of discoloration in the urine but otherwise okay. She denies headache nor dizziness. She has no fever nor chills. No chest pain. The other night she woke up with shortness of breath. She has history of asthma. She has used inhalers which help. Denies abdominal pain nausea vomiting heartburn indigestion. Her bowels are working without any gross blood in it. Her appetite, has been good. She has been eating well and gaining weight. She has history of arthritis of shoulders. She has been taking oxycodone every 6 hours, as needed when she has pain. Her neuropathy bothers her at times. Her legs keeps falling asleep. Her toes get tingly. Overall she is feeling quite stable. She is in good spirits. Rest of the review of systems is unremarkable. Review of Systems - Constitutional Reports system reviewed and no additional complaints, except as documented, Reports daytime sleepiness, Reports lack of energy, Reports malaise, Reports poor appetite, Reports weakness, Reports weight loss, Denies frequent falls - Eyes Reports system reviewed and no additional complaints, except as documented - ENT Reports system reviewed and no additional complaints, except as documented - Cardiovascular Reports system reviewed and no additional complaints, except as documented - Respiratory Reports no additional respiratory complaints - Gastrointestinal Reports system reviewed and no additional complaints, except as documented - Genitourinary Reports no additional female genitourinary complaints - Musculoskeletal Reports system reviewed and no additional complaints, except as documented - Integumentary/Breasts Skin/Breast: Reports no additional skin complaints - Neurologic Reports system reviewed and no additional complaints, except as documented, Denies headache(s) - Psychiatric Reports system reviewed and no additional complaints, except as documented - Endocrine Reports no additional endocrine complaints - Hematologic/Lymphatic Reports system reviewed and no additional complaints, except as documented - Allergic/Immunologic Reports system reviewed and no additional complaints, except as documented Oncology Screenings - ECOG Performance Status ECOG Performance Status: 2 Home Medications and Allergies Home Medications Medication Instructions Recorded Confirmed Type geriatric [id number] 1 tab PO DAILY 12/24/20 01/21/21 History calcium carbonate 600 mg calcium 600 mg PO DAILY 01/21/21 01/21/21 History (1,500 mg) tablet (Calcium) Allergies Allergy/AdvReac Type Severity Reaction Status Date / Time mercury (elemental) Allergy Severe SWELLING, Verified 03/21/21 12:54 [Mercury (Elemental)] GENERALIZED WELTS amoxicillin Allergy Unknown Diarrhea Verified 03/21/21 12:54 antibiotic ointment Allergy Unknown Swelling Verified 03/21/21 12:54 aspirin [Aggrenox] Allergy Unknown Gastrointestinal Verified 03/21/21 12:54 Upset atorvastatin [ATORVASTATIN] Allergy Unknown UNKNOWN Verified 03/21/21 12:54 clavulanic acid [Augmentin] Allergy Unknown Diarrhea Verified 03/21/21 12:54 clindamycin [CLINDAMYCIN] Allergy Unknown UNKNOWN Verified 03/21/21 12:54 dipyridamole [From AGGRENOX] Allergy Unknown HEADACHE Verified 03/21/21 12:54 duloxetine [Cymbalta] Allergy Unknown Unknown Verified 03/21/21 12:54 ezetimibe [From ZETIA] Allergy Unknown UNKNOWN Verified 03/21/21 12:54 nabumetone Allergy Unknown Unknown Verified 03/21/21 12:54 pravastatin [PRAVASTATIN] Allergy Unknown UNKNOWN Verified 03/21/21 12:54 silver sulfadiazine Allergy Unknown rash Verified 03/21/21 12:54 simvastatin [SIMVASTATIN] Allergy Unknown UNKNOWN Verified 03/21/21 12:54 zinc [ZINC] Allergy Unknown BURN, Verified 03/21/21 12:54 itching dronabinol [From Marinol] AdvReac Intermediate Nausea Verified 03/21/21 12:54 nitrofurantoin AdvReac Intermediate not Verified 04/11/21 18:41 [From Macrodantin] specified Exam Vital signs: Vital Signs Temp 98.0 F 12/27/20 09:06 Pulse 88 12/27/20 09:06 Resp 18 12/27/20 09:06 BP 130/64 12/27/20 09:06 Pulse Ox 98 12/27/20 09:06 Weight 36.9 kg BMI result Body Mass Index 14.8 - Constitutional Present: no acute distress - Routine HEENT Exam Head: Present: normal inspection - Routine Neck Exam Present: full ROM - Routine Respiratory Exam Present: CTAB - Routine Cardiovascular Exam Cardiovascular: Present: RRR, S1, S2 - Routine Abdominal Exam Present: soft, nontender - Routine Rectal Exam Patient deferred: digital exam - Routine Extremities Exam Present: nontender - Routine Back/Spine/Pelvis Exam Back/Spine: Present: full ROM - Routine Skin Exam Present: intact - Routine Neurological Exam Present: alert, oriented X3 - Detailed Neurological Exam: Coma Scale Eye Opening: Spontaneous (4) - Routine Psychiatric Exam Present: normal affect Assessment and Plan Patient Active problem list reviewed?: Yes (1) RAEB (refractory anemia with excess blasts) Status: Acute (2) RAEB (refractory anemia with excess blasts) Status: Acute Assessment and plan: Database: CBC from yesterday: WBC 26.4, HGB 9.8, HCT 33.8, PLT 159. This is a very pleasant 84 year-old lady who presented to the hospital in July of last year, with rather acute attacks , of weakness, achiness, headaches, that progressed to fever. She was noted to have a Pneumonia. Septic parameters were elevated, including lactic acid and Procalcitonin. She was noted to have an elevated white count 70,000. She had the left shift, with 18% bands and vacoules in the neutrophils, indicative of acute infection. 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 I checked BCR/ABL gene transcript on the peripheral blood. This came back as zero. LDH: 331. She was pancultured and started on broad-spectrum antibiotics, Zosyn. Her WBC count showed a downward trend. Lactic acid went down.This was a sign of response to antibiotics. However her Hemoglobin declined. It went down to 6.4. She required 2 units of packed RBCs July 28, 2018. Her peripheral smear revealed some abnormalities including: Mild granulocytic dysplasia (hypogranular cells,pseudo Pelger Huet cells,abnormal segmentation. Also seen are frequent immature granulocytes (myelocytes stage). Hypersegmented neutrophils are also present. Reactive appearing lymphocytes and large granular T-cells and large platelets. 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 A bone marrow exam, revealed RAEB-1. She had flow cytometry sent on peripheral blood on June 19, this revealed: GRANULOCYTOSIS WITH LEFT-SHIFT, 1% BLASTS. Granulocytes are increased with an increase in immature/left-shifted forms. However, no aberrant marker expression is noted. Blasts comprise 1% of WBCs. She was deemed not a candidate for chemotherapy, in view of her age and frailty. 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 It does appear to have helped. Her last transfusion was back in July, of last year, although she did need a transfusion back on June 17, while in house. She is doing really well. I reassured her that her blast count has not gone up, which is reassuring. Her energy level has improved. The Procrit is helping to maintain her quality of life. DATA BASE: From 03/14: WBC 11.2, HGB 9.2, HCT 31.3, PLT 140. Profile: lytes: WNL, BUN 14, LIQUOR DEPARTMENT MANAGER 0.92. LFTs: 0.3/69/16/12. She had x-ray of the right shoulder. This revealed: 1. Mild degenerative changes glenohumeral joint and acromioclavicular joint. 2. Chondrocalcinosis acromioclavicular joint. 3. No rotator cuff calcification. CBC: From 08/06 : WBC 36.8, HGB 9.6, HCT 33.3, PLT 125. Her diff revealed a left shift and 4% blasts. CBC: From 08/15: WBC 86.4, HGB 9.4, HCT 32.6, PLT 187. Her CBC from today: WBC 30.1, HGB 9.6, HCT 31.2, PLT 127. CMP: Lytes: Within normal limits, BUN 18, creatinine 0.83, GLU on O2. Ca L9 0.5,. LFTs: 0.8/54/23/10. It is surprising that her WBC count had more than doubled within a week. She did not have a fever nor were there any other signs of infection. She had mention something in the perianal area. I examined there she had hemorrhoids but no obvious perianal collection/abscess. My concern was that her RAEB has really taken off and she has progressed to acute leukemia. I proceeded with a bone marrow exam, for further evaluation. This revealed: RAEB: Kidney hypercellular marrow with left-shifted dysgranulopoiesis, and increased blasts. 9%. Flow cytometry: 9% blast and 4% CD 34 positive events. Aberrant antigen expression/maturation in granulocytes. B and T cells without aberrant antigen expression. Cytogenetics: 46 XX: Normal female karyotype. Molecular genetics: MPL mutation: Not detected. Calreticulin mutation: Not detected. JAK2 mutation: Not detected. JAK2 Axon 12-13 mutation: Not detected. PDGFR mutation: Not detected. Brian- TYPE analysis: [employer] myeloid disorders profile: ASXL 1 mutation: present. NRAS: Present. SETBP 1 present. SRSF2: Present. TET2: Present. Taken together, the morphologic features combined with ancillary tests are consistent with a combined MDS/MPN. 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 I had shared information regarding 5 azacitidine. Today her son and daughter are here as well and I gave them the information as well. She is willing, to consider it. She will think it over and let me know of her decision. Meanwhile, she has had a poor appetite, due to her underlying condition. She does need to be built up prior to receiving chemotherapy. I offered Megace however she does not want a liquid. That is hard for her to swallow. I gave her Marinol 2.5 mg p.o. b.i.d. to try. However the family has noticed some change in her behavior. 09/26 CBC: WBC 44.6, HGB 9.7, HCT 31, PLT 227. CMP: LYTES:WNL, BUN 18,rounding and backing machine operator 0.83, ghada 9.5, Alb 3.6. LFTs: 0.8/54/23/10. Labs from 12/12: CBC WBC 50.4, HGB 9.5, HCT 33.9, PLT 110. She feels rather fatigued. WBC is up at 50. Database: From 04/10 CBC: WBC 11.1, HGB 8.9, HCT 29.3, MCV 92.7, PLT 101. From 04/17: CBC: WBC 2.1, HGB 8.7, HCT 28.8, PLT 105. After reviewing her options, paying the risks and benefit of chemotherapy, she has elected not to go through with it. She was concerned about burdening someone, to bring her everyday. She does wish to continue on the Procrit therapy. Her WBC count was elevated so I added Hydrea 500 mg daily. PLAN: WBC is low today. Will hold the Hydrea for a week and recheck her blood count. She will continue to receive the Procrit therapy, at home. The plan is to keep hemoglobin over 10 grams. She is taking a Marinol dose a day, to help build up her appetite and strength. I will continue to follow her CBC weekly at home, to assess the need for Procrit. Will check her profile monthly. All her her son's questions were answered to her satisfaction. 25 minutes was spent coordinating her care including the tele visit, review of labs, review of imaging and counseling the patient. Thank you, CC: Dr. Irwin. - Time Spent With Patient Time Spent with Patient (in minutes): 25
--- NOTE | 2021-04-17 13:35 | MHC.HEMONC ---
No more Hydrea for now per Dr Lopez after reviewing pt labs from home draw this morning. I communicated this to pt and her son as well as reporting her hemoglobin. Procrit tomorrow per [facility].
--- NOTE | 2021-04-24 15:13 | MHC.HEMONC ---
Dr Lopez notified of H & H of ., WBC 3.7. Pt called with H & H ., WBC 3.7. Instructed not to take Hydrea as directed until she here's from office. Dale to receive Procrit today
--- NOTE | 2021-05-08 13:15 | MHC.HEMONC ---
Received call from lab with critical WBC 61.0-reported to Dr Lopez-no new orders
--- NOTE | 2021-05-08 15:04 | MHC.HEMONC ---
Called pt's son Vikram regarding lab results per his request. Son questioning restart of oral chemotherapy to improve elevated WBC's. Dr Lopez notified.
--- NOTE | 2021-05-08 15:33 | MHC.HEMONC ---
Dr Lopez called pt's son Vikram to discuss re starting Hydrea secondary to elevated WBC's. Plan to restart Hydrea tomorrow 05/09/21. Pt to take Hydrea on Wednesday, Wednesday, Wednesday. Son aware.
--- NOTE | 2021-05-15 12:37 | MHC.HEMONC ---
Critical WBC result of 44.[address] Lopez. Pt to increase hydrea to 4 times per week from 3. Called and spoke with pts son Vikram, and he states understanding.
--- NOTE | 2021-05-22 15:23 | MHC.HEMONC ---
Lab results called to pts son Vikram
--- NOTE | 2021-06-19 14:00 | MHC.HEMONC ---
Pt called with blood work results wbc 11.6, H & H 8.9/30.8
--- NOTE | 2021-07-17 14:37 | MHC.HEMONC ---
Pt's son called requesting results of today's lab draw. Pt called and notified of results 10.3/36.1 wbc 9.5
--- NOTE | 2021-07-31 14:51 | MHC.HEMONC ---
Lab results given to pts son Vikram
--- NOTE | 2021-08-07 12:31 | MHC.HEMONC ---
Called pt and reported hgb 9.5, and wbc 8.7
--- NOTE | 2021-08-11 09:23 | MHC.HEMONC ---
Request for Insurance Auth for Procrit sent to [facility].
--- NOTE | 2021-08-28 14:25 | MHC.HEMONC ---
Son Vikram called- WBC and HGB reported to son per his request.
--- NOTE | 2021-09-12 09:13 | MHC.HEMONC ---
WBC 30.[address] Lopez. Pt has rash on chest which provider is aware. Plan to have pt take benadryl 25mg for rash and resume Hydrea. Will call son (Vikram) to notify.
--- NOTE | 2021-09-18 10:05 | MHC.HEMONC ---
Received call from Chemistry critical WBC 60.3-reported to Dr Lopez. Pt to start taking Hydrea BID per Dr Lopez. Pt's son Vikram called with WBC 60.3-Instructed to have pt take Hydrea twice a day starting today per Dr Lopez. Son (Vikram) notified pt (his mother)
--- NOTE | 2021-09-22 16:10 | MHC.HEMONC ---
Pt son, Vikram called. Pt cannot tolerate Hydrea. She has rash, loose stools and fatigue. He said there's no quality of life .I spoke with Dr Lopez and she said that pt should stop Hydrea. I asked if there were alternative treatments but they had refused that in the past. I called later and explained all of this to Vikram and Nivia. They will stop her Hydrea and continue with weekly labs and Procrit. I offered them to come and talk with Dr Lopez re: chemo options or other questions they may have re: her prognosis. They will think about it and let us know.
--- NOTE | 2021-10-17 14:16 | MHC.HEMONC ---
Spoke with pts son Vikram. Pt is now taking hydrea at bedtime QOD
--- NOTE | 2021-11-06 09:44 | MHC.HEMONC ---
Received call from lab WBC 161.[address] Lopez-no new orders
--- NOTE | 2021-11-06 12:29 | MHC.HEMONC ---
Dr Lopez called pt's son regarding discontinuing lab draws at home. Son states they will have a family meeting to decided and will get back to us
--- NOTE | 2021-11-13 16:44 | MHC.HEMONC ---
Nurse took call from Nurse Blank at [facility], who said she was performing a hospice admission for this pt, and the pt is reporting her pain is not being managed, she takes oxycodone 5mg PO Q4-6 hrs, but it does not improve her pain at all. She recommended pt be ordered fentanyl patch 12 mcg Q72 hr and liquid morphine 100 mg/5ml - 0.25 ml Q3H PRN for pain or SOB, said that Hospice provider, Dr. Rousseau, is unable to sent digital scrips, asked if Dr. Lopez could help. She also noted that pt is having increased confusion and urinary urgency, and that she has a hx of recurrent UTIs, requested PO bactrim 800-160 Q12H x7 days, as apparently pt cannot tolerate other abx or has allergies. She also asked for liquid bactrim if possible. She called back to say that pt's pharmacy at [facility] [address] does not have these in stock, but they have called around, and [facility] on [address] in [place] does. Nurse updated pt's preferred pharmacy to be this [facility]. Dr. Lopez sent scrip for fentanyl patches 12 mcg Q72H, liquid bactrim, and liquid morphine 100 mg/5mL - 0.5 mL Q4H PRN for pain or SOB. Nurse spoke w/ pharmacist, who was able to fill bactrim order as liquid, and was able to fill order for liquid morphine, but only 15 mL total, which would only last x5 days. Nurse said to proceed w/ that as pt will hopefully be an active hospice pt by that time. Pharmacist said that pt's insurance is medicare at present, so the fentanyl patch scrip would require PA, and she sent a request back to this clinic. Nurse asked [employer] to request PA, but then nurse spoke w/ Rosamaria at [facility], who said they were attempting to change pt's insurance to Hospice insurance, so scrip could be filled through [facility]. Yelitza said we should not request PA as pt's insurance is in process of being changed. Nurse updated nurse Blank and Dr. Lopez, and Hospice will attempt to use Dr. Lopez's prescription at [facility] once pt's insurance is changed to hospice insurance.
== END 2021-11-16 | disposition home or self-care (01) ==
LOC: HO.ONC 09:00
PROVIDERS: PCP Internal Medicine; Visit Provider Internal Medicine Medical Oncology
DX: D46.21 Refractory anemia with excess of blasts 1 (principal)
CPT/HCPCS: 36415; 36430; 81003; 81450; 86850; 86900; 86901; 86923; 96372; 96401; 99214; J0885; P9016; Q3014; U0003

== ENCOUNTER 2021-01-02 08:05 | Outpatient (REF) | payer MEDICARE, SELFPAY ==
[2021-01-02 10:45] LABS: Hematocrit 32.7 % (37-47); Hemoglobin 9.6 g/dl (12.0-16.0); Mean Corpuscular HGB Conc 29.4 g/dl (31.0-35.0); Mean Corpuscular Hemoglobin 27.4 pg (27.0-33.0); Mean Corpuscular Volume 93.2 fL (80-98); PLT CLUMP 1; Red Blood Count 3.51 X10*6/uL (4.20-5.50); Red Cell Distribution Width 20.2 % (11.0-16.0)
[2021-01-02 10:47] LABS: NRBC Pct Auto 2.4 /100WBC (0.0-0.2); WBC ABN SCTR FOR CBC 1
[2021-01-02 10:53] LABS: White Blood Count 50.7 X10*3/uL (4.8-10.8)
[2021-01-02 11:24] LABS: Free T4 (Free Thyroxine) 1.17 ng/dL (0.71-1.85); Thyroid Stimulating Hormone 2.77 uIU/mL (0.32-4.0)
[2021-01-02 11:49] LABS: Promyelocytes Absolute 1.5 X10*3/uL; Promyelocytes Percent 3 %
[2021-01-02 11:53] LABS: RBC Morphology NOTED
[2021-01-02 11:54] LABS: Band Neutrophils Percent 19 % (3-5); Blast Percent 3 %; Blastocytes Absolute 1.5 X10*3/uL; Lymphocytes Percent Manual 4 % (20-40); Macrocytosis 1+ (5-14) /OIF; Metamyelocytes Absolute 3.5 X10*3/uL; Metamyelocytes Percent 7 %; Monocytes Percent Manual 2 % (2-11); Myelocytes Percent 4 %; Neutrophils Percent Manual 58 % (45-73); Platelet Estimate NORMAL (NORMAL); Polychromasia 1+ (0-2) /OIF
[2021-01-02 11:55] LABS: Microcytosis 1+ (5-14) /OIF; Platelet Morphology Comment NORM; Tear Drop Cells 2+ (3-5) /OIF
[2021-01-02 11:59] LABS: Platelet Count 189 X10*3/uL (160-400)
== END 2021-01-02 08:06 | disposition home or self-care (01) ==
LOC: HO.LHD 08:05
PROVIDERS: Absent Provider Internal Medicine; Visit Provider Internal Medicine Medical Oncology
DX: E03.9 Hypothyroidism, unspecified (principal); D46.9 Myelodysplastic syndrome, unspecified
CPT/HCPCS: 36415; 84439; 84443; 85007; 85027

== ENCOUNTER 2021-01-09 05:00 | Outpatient (REF) | payer MEDICARE, SELFPAY ==
[2021-01-09 10:30] LABS: Mean Corpuscular HGB Conc 29.2 g/dl (31.0-35.0)
[2021-01-09 10:31] LABS: Hematocrit 30.1 % (37-47); Hemoglobin 8.8 g/dl (12.0-16.0); Mean Corpuscular Hemoglobin 27.2 pg (27.0-33.0); Mean Corpuscular Volume 93.2 fL (80-98); PLT CLUMP 1; Red Blood Count 3.23 X10*6/uL (4.20-5.50); Red Cell Distribution Width 20.8 % (11.0-16.0)
[2021-01-09 10:32] LABS: NRBC Pct Auto 2.3 /100WBC (0.0-0.2); PLT ABN DIST 1; Platelet Count 165 X10*3/uL (160-400); WBC ABN SCTR FOR CBC 1
[2021-01-09 10:34] LABS: White Blood Count 43.7 X10*3/uL (4.8-10.8)
[2021-01-09 11:42] LABS: Atypical Lymph Absolute Manual 0.4 x10*3/uL; Atypical Lymphs Percent Manual 1 % (0-6); Band Neutrophils Percent 18 % (3-5); Basophils Abs Manual 0.4 X10*3/uL (0.0-0.3); Basophils Percent Manual 1 % (0-1); Lymphocytes Absolute Manual 1.3 X10*3/uL (0.6-4.8); Lymphocytes Percent Manual 3 % (20-40); Metamyelocytes Absolute 1.3 X10*3/uL; Metamyelocytes Percent 3 %; Monocytes Absolute Manual 2.6 X10*3/uL (0.0-1.2); Monocytes Percent Manual 6 % (2-11); Myelocytes Absolute 3.9 X10*/uL; Myelocytes Percent 9 %; Neutrophils Absolute Manual 33.2 X10*3/uL (2.2-7.9); Neutrophils Percent Manual 58 % (45-73)
[2021-01-09 11:43] LABS: Blast Percent 1 %; Blastocytes Absolute 0.4 X10*3/uL; Nucleated Red Blood Cells 3 /100WBC (0-0)
[2021-01-09 11:49] LABS: Hypochromasia 1+ (5-14) /OIF; Macrocytosis 1+ (5-14) /OIF; Microcytosis 1+ (5-14) /OIF; Ovalocytes 1+ (5-14) /OIF; RBC Morphology NOTED; Schistocytes 1+ (0-2) /OIF; Tear Drop Cells 1+ (0-2) /OIF
[2021-01-09 11:50] LABS: Large Platelet PRESENT; Platelet Estimate NORMAL (NORMAL); Platelet Morphology Comment NOTED; Polychromasia 1+ (0-2) /OIF
== END 2021-01-09 05:01 ==
LOC: HO.LHD 05:00
PROVIDERS: Visit Provider Internal Medicine Medical Oncology
DX: D46.9 Myelodysplastic syndrome, unspecified (principal)
CPT/HCPCS: 36415; 85007; 85027

== ENCOUNTER 2021-01-16 07:17 | Outpatient (REF) | payer MEDICARE, SELFPAY ==
[2021-01-16 09:55] LABS: PLT CLUMP 1; Red Blood Count 3.28 X10*6/uL (4.20-5.50); Red Cell Distribution Width 21.5 % (11.0-16.0)
[2021-01-16 09:56] LABS: Hematocrit 30.7 % (37-47); Hemoglobin 9.1 g/dl (12.0-16.0); Mean Corpuscular HGB Conc 29.6 g/dl (31.0-35.0); Mean Corpuscular Hemoglobin 27.7 pg (27.0-33.0); Mean Corpuscular Volume 93.6 fL (80-98); Platelet Count 120 X10*3/uL (160-400)
[2021-01-16 10:12] LABS: NRBC Pct Auto 3.2 /100WBC (0.0-0.2); PLT ABN DIST 1; WBC ABN SCTR FOR CBC 1
[2021-01-16 10:13] LABS: White Blood Count 51.5 X10*3/uL (4.8-10.8)
[2021-01-16 10:43] LABS: Band Neutrophils Percent 25 % (3-5); Basophils Abs Manual 0.5 X10*3/uL (0.0-0.3); Basophils Percent Manual 1 % (0-1); Blast Percent 2 %; Metamyelocytes Absolute 3.1 X10*3/uL; Metamyelocytes Percent 6 %; Monocytes Absolute Manual 1.5 X10*3/uL (0.0-1.2); Monocytes Percent Manual 3 % (2-11); Myelocytes Percent 2 %; Neutrophils Absolute Manual 43.3 X10*3/uL (2.2-7.9); Neutrophils Percent Manual 59 % (45-73); Nucleated Red Blood Cells 2 /100WBC (0-0); Promyelocytes Percent 2 %
[2021-01-16 10:45] LABS: RBC Morphology NOTED
[2021-01-16 10:46] LABS: Polychromasia 1+ (0-2) /OIF; Tear Drop Cells 1+ (0-2) /OIF
[2021-01-16 10:48] LABS: Acanthocytes 2+ (3-5) /OIF
[2021-01-16 10:49] LABS: Ovalocytes 1+ (5-14) /OIF; Platelet Estimate DECREASED (NORMAL); Platelet Morphology Comment NORMAL
== END 2021-01-16 07:18 | disposition home or self-care (01) ==
LOC: HO.LDS 07:17
PROVIDERS: Visit Provider Internal Medicine Medical Oncology
DX: D46.9 Myelodysplastic syndrome, unspecified (principal)
CPT/HCPCS: 36415; 85007; 85025; 85027

== ENCOUNTER → 2021-01-21 14:00 | Outpatient (BNVA) | payer MEDICARE, SELFPAY | PROVIDERS: Visit Provider Nurse Practitioner Family | DX: Z13.89 Encounter for screening for other disorder (principal) | CPT/HCPCS: 99212 ==

== ENCOUNTER 2021-01-23 10:53 | Outpatient (REF) | payer MEDICARE, SELFPAY ==
[2021-01-23 09:54] LABS: PLT CLUMP 1
[2021-01-23 09:56] LABS: Hematocrit 32.5 % (37-47); Hemoglobin 9.4 g/dl (12.0-16.0); Mean Corpuscular HGB Conc 28.9 g/dl (31.0-35.0); Mean Corpuscular Hemoglobin 27.5 pg (27.0-33.0); Red Blood Count 3.42 X10*6/uL (4.20-5.50)
[2021-01-23 09:57] LABS: NRBC Pct Auto 3.7 /100WBC (0.0-0.2); PLT ABN DIST 1; WBC ABN SCTR FOR CBC 1
[2021-01-23 10:55] LABS: Band Neutrophils Percent 26 % (3-5); Blast Percent 6 %; Eosinophils Percent Manual 1 % (0-4); Lymphocytes Percent Manual 3 % (20-40); Metamyelocytes Percent 9 %; Monocytes Percent Manual 7 % (2-11); Myelocytes Percent 2 %; Neutrophils Percent Manual 43 % (45-73); Nucleated Red Blood Cells 4 /100WBC (0-0); Promyelocytes Percent 3 %
[2021-01-23 10:57] LABS: Macrocytosis 1+ (5-14) /OIF; Ovalocytes 1+ (5-14) /OIF; RBC Morphology NOTED; Tear Drop Cells 2+ (3-5) /OIF
[2021-01-23 10:58] LABS: Polychromasia 2+ (3-5) /OIF; Spherocytes 1+ (0-2) /OIF
[2021-01-23 10:59] LABS: Acanthocytes 1+ (0-2) /OIF; Platelet Estimate NORMAL (NORMAL)
[2021-01-23 11:00] LABS: Large Platelet PRESENT; Platelet Morphology Comment NOTED
[2021-01-23 11:02] LABS: Blastocytes Absolute 3.3 X10*3/uL; Eosinophils Absolute Manual 0.6 X10*3/UL (0.0-0.8); Lymphocytes Absolute Manual 1.7 X10*3/uL (0.6-4.8); Monocytes Absolute Manual 3.9 X10*3/uL (0.0-1.2); Myelocytes Absolute 1.1 X10*/uL; Neutrophils Absolute Manual 38.1 X10*3/uL (2.2-7.9); Platelet Count 127 X10*3/uL (160-400); Promyelocytes Absolute 1.7 X10*3/uL
[2021-01-23 11:04] LABS: White Blood Count 55.2 X10*3/uL (4.8-10.8)
== END 2021-01-23 10:54 | disposition home or self-care (01) ==
LOC: HO.LHD 10:53
PROVIDERS: Visit Provider Internal Medicine Medical Oncology
DX: D46.9 Myelodysplastic syndrome, unspecified (principal)
CPT/HCPCS: 36415; 85007; 85027

== ENCOUNTER 2021-01-28 13:14 | Outpatient (REF) | payer MEDICARE, SELFPAY ==
[2021-01-28 13:56] LABS: Appearance Urine HAZY; Color Urine YELLOW; Glucose Urine UA NEG (NEG); Leukocyte Esterase Urine NEG (NEG); Nitrite Urine NEG (NEG); PH 5.5 (5.0-8.0); Specific Gravity - Urine 1.025 (1.005-1.025); Urine Blood NEG (NEG); Urine Ketones 5 MG/DL (NEG); Urine Protein TRACE MG/DL (NEG-TRACE)
== END 2021-01-28 13:15 | disposition home or self-care (01) ==
LOC: HO.LNP 13:14
PROVIDERS: Visit Provider Internal Medicine
DX: R30.0 Dysuria (principal)
CPT/HCPCS: 81003

== ENCOUNTER 2021-01-30 10:44 | Outpatient (REF) | payer MEDICARE, SELFPAY ==
[2021-01-30 09:12] LABS: Hematocrit 34.3 % (37-47); Mean Corpuscular HGB Conc 29.2 g/dl (31.0-35.0); PLT CLUMP 1
[2021-01-30 09:14] LABS: Mean Corpuscular Hemoglobin 27.6 pg (27.0-33.0); Mean Corpuscular Volume 94.8 fL (80-98); Red Blood Count 3.62 X10*6/uL (4.20-5.50); Red Cell Distribution Width 22.1 % (11.0-16.0)
[2021-01-30 09:19] LABS: NRBC Pct Auto 4.3 /100WBC (0.0-0.2); PLT ABN DIST 1; WBC ABN SCTR FOR CBC 1
[2021-01-30 09:20] LABS: White Blood Count 58.4 X10*3/uL (4.8-10.8)
[2021-01-30 10:17] LABS: Band Neutrophils Percent 11 % (3-5); Blast Percent 6 %; Blastocytes Absolute 3.5 X10*3/uL; Lymphocytes Absolute Manual 1.2 X10*3/uL (0.6-4.8); Lymphocytes Percent Manual 2 % (20-40); Metamyelocytes Absolute 6.4 X10*3/uL; Metamyelocytes Percent 11 %; Myelocytes Absolute 3.5 X10*/uL; Myelocytes Percent 6 %; Neutrophils Absolute Manual 43.2 X10*3/uL (2.2-7.9); Neutrophils Percent Manual 63 % (45-73); Nucleated Red Blood Cells 5 /100WBC (0-0); Promyelocytes Absolute 0.6 X10*3/uL; Promyelocytes Percent 1 %
[2021-01-30 10:19] LABS: Hypochromasia 1+ (5-14) /OIF; Macrocytosis 1+ (5-14) /OIF; Microcytosis 1+ (5-14) /OIF; Ovalocytes 1+ (5-14) /OIF; Platelet Estimate DECREASED (NORMAL); Platelet Morphology Comment NORMAL; Polychromasia 1+ (0-2) /OIF; RBC Morphology NOTED; Tear Drop Cells 1+ (0-2) /OIF
[2021-01-30 10:21] LABS: Spherocytes 1+ (0-2) /OIF
[2021-01-30 10:22] LABS: Platelet Count 125 X10*3/uL (160-400)
== END 2021-01-30 10:45 | disposition home or self-care (01) ==
LOC: HO.LHD 10:44
PROVIDERS: Visit Provider Internal Medicine Medical Oncology
DX: D64.9 Anemia, unspecified (principal); D46.9 Myelodysplastic syndrome, unspecified
CPT/HCPCS: 36415; 85007; 85027

== ENCOUNTER 2021-02-06 11:48 | Outpatient (REF) | payer MEDICARE, SELFPAY ==
[2021-02-06 11:38] LABS: Hemoglobin 9.8 g/dl (12.0-16.0); Mean Corpuscular Hemoglobin 27.8 pg (27.0-33.0); PLT CLUMP 1
[2021-02-06 11:40] LABS: Hematocrit 34.1 % (37-47); Mean Corpuscular HGB Conc 28.7 g/dl (31.0-35.0); Mean Corpuscular Volume 96.6 fL (80-98); Platelet Count 132 X10*3/uL (160-400); Red Blood Count 3.53 X10*6/uL (4.20-5.50); Red Cell Distribution Width 22.2 % (11.0-16.0)
[2021-02-06 12:08] LABS: NRBC Pct Auto 3.1 /100WBC (0.0-0.2); PLT ABN DIST 1; WBC ABN SCTR FOR CBC 1
[2021-02-06 12:10] LABS: White Blood Count 60.9 X10*3/uL (4.8-10.8)
[2021-02-06 13:27] LABS: Band Neutrophils Percent 18 % (3-5); Lymphocytes Absolute Manual 1.2 X10*3/uL (0.6-4.8); Lymphocytes Percent Manual 2 % (20-40); Metamyelocytes Absolute 4.3 X10*3/uL; Metamyelocytes Percent 7 %; Monocytes Absolute Manual 0.6 X10*3/uL (0.0-1.2); Monocytes Percent Manual 1 % (2-11); Myelocytes Absolute 2.4 X10*/uL; Myelocytes Percent 4 %; Neutrophils Absolute Manual 49.9 X10*3/uL (2.2-7.9); Neutrophils Percent Manual 64 % (45-73); Promyelocytes Absolute 0.6 X10*3/uL; Promyelocytes Percent 1 %
[2021-02-06 13:28] LABS: Blast Percent 3 %; Blastocytes Absolute 1.8 X10*3/uL; Nucleated Red Blood Cells 3 /100WBC (0-0)
[2021-02-06 13:30] LABS: Acanthocytes 1+ (0-2) /OIF; Macrocytosis 1+ (5-14) /OIF; Microcytosis 1+ (5-14) /OIF; Ovalocytes 1+ (5-14) /OIF; RBC Morphology NOTED
[2021-02-06 13:31] LABS: Platelet Estimate DECREASED (NORMAL); Platelet Morphology Comment NORMAL; Polychromasia 1+ (0-2) /OIF; Spherocytes 1+ (0-2) /OIF; Tear Drop Cells 1+ (0-2) /OIF
== END 2021-02-06 11:49 | disposition home or self-care (01) ==
LOC: HO.LHD 11:48
PROVIDERS: Visit Provider Internal Medicine Medical Oncology
DX: D46.9 Myelodysplastic syndrome, unspecified (principal)
CPT/HCPCS: 36415; 85007; 85025; 85027

== ENCOUNTER 2021-02-07 09:56 | Outpatient (REF) | payer MEDICARE, SELFPAY ==
[2021-02-07 10:24] LABS: IDNOW Serial# 08D9AD1C
[2021-02-07 10:25] LABS: Strep A Nucleic Acid Negative (Negative)
== END 2021-02-07 09:57 | disposition home or self-care (01) ==
LOC: HO.HVNA 09:56
PROVIDERS: Visit Provider Internal Medicine
DX: Z13.9 Encounter for screening, unspecified (principal); J02.9 Acute pharyngitis, unspecified
CPT/HCPCS: 36415; 87651

== ENCOUNTER 2021-02-12 17:30 | Emergency (ER) | payer MEDICARE, SELFPAY ==
--- NOTE | ~2021-02-12 | XR_ITS ---
EXAMINATION: XR CHEST CLINICAL INFORMATION: Shortness of breath. Elevated WBC of 70. COMPARISON: Chest CT from 12/25/2019. CXR from 06/16/2019. TECHNIQUE: 2 views of the chest were obtained. FINDINGS: The emphysematous lungs are well expanded and there appears to be chronic thickening of the bronchial [place]. The peripheral pleural-parenchymal opacity in the superior lateral right lung apex has the appearance of scarring, and this can be seen on the prior chest CT exams from 06/11/2019 and 12/24/2020. There appears to be chronic interstitial fibrotic thickening in the right lung base. A small right pleural effusion is similar in size compared to 12/24/2020. On the left, the pleural effusion is small, but is larger than the right effusion. No pneumothorax. Cardiac silhouette is mildly enlarged. Thoracic aorta has atherosclerotic calcification. Bones are diffusely osteopenic. Mild spondylosis of the thoracic spine. XR/XR chest 2V IMPRESSION: * Chronic obstructive pulmonary disease. * Small pleural effusions (left larger than right), remain similar compared to 12/24/2020. * Chronic pleural-parenchymal opacity of scarring is present in the right lung apex, and there is chronic reticular opacity of fibrosis in the right lung base. * The base of the left lung is partially obscured by the pleural effusion. * Stable cardiomegaly.
[2021-02-12 17:47] VITALS: BP 198/87; BP 202/120; PULSE 84; PULSE 87; RESP 18; TEMP 36.6; O2SAT 96; O2SAT 97; BMI 14.6
--- NOTE | 2021-02-12 17:51 | ED_ITS ---
HPI - Nausea/Vomiting/Diarrhea General Chief complaint: Nausea/Vomiting/Diarrhea Stated complaint: SOB/WEAKNESS Time Seen by Provider: 02/12/21 17:51 Source: patient Mode of arrival: EMS Limitations: no limitations History of Present Illness HPI Narrative: Nausea off and on for 1 week. symptoms started with sore throat and now diffuse myalgias. MD elicited complaint: nausea Onset (ago): week(s) Associated nausea: Yes Pain consistency: intermittent Severity: mild Related Data Home Medications Medication Instructions Recorded Confirmed fluticasone 100 mcg-salmeterol 50 1 puff PO BID 03/15/20 01/21/21 mcg/dose blistr powdr for inhalation (Advair Diskus) albuterol sulfate 90 mcg/actuation 2 puff INHALATION Q6H PRN 12/24/20 01/21/21 aerosol inhaler (ProAir HFA) geriatric [id number] 1 tab PO DAILY 12/24/20 01/21/21 calcium carbonate 600 mg calcium 600 mg PO DAILY 01/21/21 01/21/21 (1,500 mg) tablet (Calcium) Previous Rx's Medication Instructions Recorded ondansetron HCl 4 mg tablet 4 mg PO Q8H PRN #20 tab 11/20/20 pregabalin 25 mg capsule 25 mg PO TID 90 Days #270 cap 11/20/20 levothyroxine 75 mcg tablet 75 mcg PO QAM 90 Days #90 tab 11/21/20 epoetin shameka 40,000 unit/mL 40,000 unit SUBCUT QWEEK #4 ml 12/27/20 injection solution (Procrit) furosemide 20 mg tablet 20 mg PO DAILY 30 Days #30 tab 01/27/21 isosorbide mononitrate 30 mg 30 mg PO DAILY 30 Days #30 tab 01/27/21 tablet,extended release 24 hr carvedilol 25 mg tablet 25 mg PO BID #180 tab 02/03/21 oxycodone 5 mg tablet 5 mg PO Q4-6H PRN #168 tab 02/03/21 lisinopril 40 mg tablet 40 mg PO DAILY 90 Days #90 tab 02/04/21 Allergies Allergy/AdvReac Type Severity Reaction Status Date / Time mercury (elemental) Allergy Severe SWELLING, Verified 01/21/21 14:02 [Mercury (Elemental)] GENERALIZED WELTS amoxicillin Allergy Unknown Diarrhea Verified 01/21/21 14:02 antibiotic ointment Allergy Unknown Swelling Verified 01/21/21 14:02 aspirin [Aggrenox] Allergy Unknown Gastrointestinal Verified 01/21/21 14:02 Upset atorvastatin [ATORVASTATIN] Allergy Unknown UNKNOWN Verified 01/21/21 14:02 clavulanic acid [Augmentin] Allergy Unknown Diarrhea Verified 01/21/21 14:02 clindamycin [CLINDAMYCIN] Allergy Unknown UNKNOWN Verified 01/21/21 14:02 dipyridamole [From AGGRENOX] Allergy Unknown HEADACHE Verified 01/21/21 14:02 duloxetine [Cymbalta] Allergy Unknown Unknown Verified 01/21/21 14:02 ezetimibe [From ZETIA] Allergy Unknown UNKNOWN Verified 01/21/21 14:02 nabumetone Allergy Unknown Unknown Verified 01/21/21 14:02 pravastatin [PRAVASTATIN] Allergy Unknown UNKNOWN Verified 01/21/21 14:02 silver sulfadiazine Allergy Unknown rash Verified 01/21/21 14:02 simvastatin [SIMVASTATIN] Allergy Unknown UNKNOWN Verified 01/21/21 14:02 zinc [ZINC] Allergy Unknown BURN, Verified 01/21/21 14:02 itching dronabinol [From Marinol] AdvReac Intermediate Nausea Verified 01/21/21 14:02 Review of Systems Constitutional: Constitutional: Reports no additional constitutional complaints Eyes: Eyes: Reports no additional eye complaints ENT: Denies dizziness Cardiovascular: Cardiovascular: Reports no additional cardiovascular complaints Respiratory: Respiratory: Reports as per HPI Gastrointestinal: Gastrointestinal: Reports nausea Genitourinary: Genitourinary: Reports no additional female genitourinary complaints Musculoskeletal: Musculoskeletal: Reports no additional musculoskeletal complaints Integumentary/Breasts: Skin/Breast: Denies rash Neurologic: Reports system reviewed and no additional complaints, except as documented, Denies dizziness and Denies Sensory deficit (Neuro) Psychiatric: Psychiatric: Denies anxiety [facility] Past Medical History Medical History Congestive heart failure COPD (chronic obstructive pulmonary disease) CVA (cerebral vascular accident) Degenerative disc disease Femoral neck fracture Hypercholesterolemia Hypertension Hypothyroid Lumbar stenosis Myelodysplastic syndrome Neurogenic bladder Nonischemic cardiomyopathy Osteoporosis Peripheral neuropathy Right lower lobe pulmonary nodule Surgical History History of back surgery History of hip surgery Family History Family History Daughter Hypertension Son Hypertension Diabetes Maternal Grandfather Lymphoma Social History Social History Household Members: Children Household Members Other:: son Housing: House Do you presently have visiting nurse or other home services: No Alcohol intake: former Patient Tobacco Use Status: Former Tobacco user Tobacco use type: Cigarette e-Cigarette/Vaping Use: Never Used Second Hand Smoke Exposure: No Advance Directives: Yes Advance Directives on File: Yes Advance Directives Date on File: 02/01/20 service: No Current occupational status: retired Physical Exam Vital Signs: Vital Signs: Last Vital Signs Temp 99.2 F 02/12/21 21:21 Pulse 90 02/12/21 21:21 Resp 18 02/12/21 21:21 BP 176/79 H 02/12/21 21:21 Pulse Ox 93 02/12/21 21:21 Body Mass Index 14.6 Const: Other: elderly female in no acute distress Nutritional Appearance: cachectic Orientation/consciousness: oriented to person and patient oriented x3 Limitations: no limitations HENMT: Head: Yes normal to inspection Ears: external ears normal General nose exam: Normal external nose present Mouth: Normal oral and palatal mucosa present and oropharynx normal Throat: Yes posterior oropharynx normal Eyes: General: appearance normal, both eyes and all related structures Neck: Other: supple Neck: Yes normal visual inspection Chest: Chest palpation & inspection: normal inspection of the chest Resp: Auscultation: clear to auscultation bilaterally Cardio: Jugular venous distension: no JVD Rate: regular rate Rhythm: regular rhythm Heart sounds: S1 normal heart sound present and S2 normal heart sound present GI: Inspection: Yes normal to inspection Palpation (GI): Soft to palpation, nontender and No hepatosplenomegaly present Auscultation: normal bowel sounds : General: Yes no CVA tenderness Back/Spine/Pelvis: Back: no CVA tenderness Skin: General skin exam: no rashes or lesions noted Neuro: General: oriented to person and patient oriented x3 Cranial nerves: Yes CN's II-XII intact bilaterally Motor exam (neuro): 5/5 motor strength present throughout Sensory Exam: No Sensory deficit (Neuro) Extrem: General: Yes normal to inspection Psych: Appearance: grossly normal Course Reevaluation(s) Reevaluation #1: Discussed with patient and family, patient with known CML getting worse, patient cachectic. Did not find any acute infection or electrolyte abnormalities. Family is fine with taking this patient home. They know she is dying. Time: 23:49 MDM - Nausea/Vomiting/Diarrhea Lab Data Result diagrams: 02/12/21 18:47 02/12/21 18:47 Labs: Lab Results 02/12/21 02/12/21 02/12/21 Range/Units 18:47 18:47 18:47 WBC 73.1 H* (4.8-10.8) X10*3/uL RBC 3.88 L (4.20-5.50) X10*6/uL Hgb 10.6 L (12.0-16.0) g/dl Hct 35.1 L (37-47) % MCV 90.5 D (80-98) fL MCH 27.3 (27.0-33.0) pg MCHC 30.2 L (31.0-35.0) g/dl RDW 21.3 H (11.0-16.0) % Plt Count 256 D (160-400) X10*3/uL MPV TNP Immature Gran % (Auto) Cancelled Neut % (Auto) Cancelled Lymph % (Auto) Cancelled Clark % (Auto) Cancelled Eos % (Auto) Cancelled Baso % (Auto) Cancelled Lymph # (Auto) Cancelled Clark # (Auto) Cancelled Eos # (Auto) Cancelled Baso # (Auto) Cancelled Abs Immat Gran (auto) Cancelled Absolute Neuts (auto) Cancelled Absolute Nucleated RBC 2.070 H (0.0-0.012) X10*3/uL Nucleated RBC % (auto) 2.8 H (0.0-0.2) /100WBC Neutrophils % (Manual) 58 (45-73) % Band Neutrophils % 21 H (3-5) % Lymphocytes % (Manual) 2 L (20-40) % Basophils % (Manual) 1 (0-1) % Metamyelocytes % 10 % Myelocytes % 4 % Blast Cells % (Manual) 4 % Abs Neuts (Manual) 57.7 H (2.2-7.9) X10*3/uL Lymphocytes # (Manual) 1.5 (0.6-4.8) X10*3/uL Basophils # (Manual) 0.7 H (0.0-0.3) X10*3/uL Metamyelocytes # 7.3 X10*3/uL Myelocytes # 2.9 X10*/uL Blast Cells # 2.9 X10*3/uL Nucleated RBCs 11 H (0-0) /100WBC Platelet Estimate NORMAL (NORMAL) Large Platelets PRESENT Plt Morphology Comment NORMAL RBC Morphology NORMAL Polychromasia 1+ (0-2) /OIF Hypochromasia 1+ (5-14) /OIF Microcytosis 1+ (5-14) /OIF Macrocytosis 1+ (5-14) /OIF Spherocytes 1+ (0-2) /OIF Tear Drop Cells 1+ (0-2) /OIF Sodium 136 (135-145) mmol/L Potassium 2.8 L D (3.3-5.1) mmol/L Chloride 101 (96-108) mmol/L Carbon Dioxide 24 (22-29) mmol/L Anion Gap 14 (12-20) BUN 11 (9-16) mg/dL Creatinine 0.68 (0.5-1.4) mg/dL Estim Creat Clear Calc 34.6 Estimated GFR > 60 Random Glucose 84 (60-115) mg/dL Calcium 7.9 L D (8.4-10.2) mg/dL Total Bilirubin 0.7 (0.0-1.0) mg/dL Direct Bilirubin 0.4 (0.0-0.5) mg/dL AST 34 H (5-31) U/L ALT 10 (0-31) U/L Alkaline Phosphatase 70 (39-117) U/L Troponin I High Sens 8.2 (<3.5-17.0) ng/L Total Protein 6.0 L (6.5-8.0) g/dL Albumin 3.2 L (3.5-5.0) g/dL Lipase 8 (8-78) U/L Urine Color Urine Appearance Urine pH (5.0-8.0) Ur Specific [place] (1.005-1.025) Urine Protein (NEG-TRACE) MG/DL Urine Glucose (UA) (NEG) MG/DL Urine Ketones (NEG) MG/DL Urine Blood (NEG) Urine Nitrite (NEG) Ur Leukocyte Esterase (NEG) Urine RBC (0) /HPF Urine WBC (0-4) /HPF Ur Squamous Epith Cells /LPF Urine Bacteria /LPF 02/12/21 Range/Units 22:37 WBC (4.8-10.8) X10*3/uL RBC (4.20-5.50) X10*6/uL Hgb (12.0-16.0) g/dl Hct (37-47) % MCV (80-98) fL MCH (27.0-33.0) pg MCHC (31.0-35.0) g/dl RDW (11.0-16.0) % Plt Count (160-400) X10*3/uL MPV Immature Gran % (Auto) Neut % (Auto) Lymph % (Auto) Clark % (Auto) Eos % (Auto) Baso % (Auto) Lymph # (Auto) Clark # (Auto) Eos # (Auto) Baso # (Auto) Abs Immat Gran (auto) Absolute Neuts (auto) Absolute Nucleated RBC (0.0-0.012) X10*3/uL Nucleated RBC % (auto) (0.0-0.2) /100WBC Neutrophils % (Manual) (45-73) % Band Neutrophils % (3-5) % Lymphocytes % (Manual) (20-40) % Basophils % (Manual) (0-1) % Metamyelocytes % % Myelocytes % % Blast Cells % (Manual) % Abs Neuts (Manual) (2.2-7.9) X10*3/uL Lymphocytes # (Manual) (0.6-4.8) X10*3/uL Basophils # (Manual) (0.0-0.3) X10*3/uL Metamyelocytes # X10*3/uL Myelocytes # X10*/uL Blast Cells # X10*3/uL Nucleated RBCs (0-0) /100WBC Platelet Estimate (NORMAL) Large Platelets Plt Morphology Comment RBC Morphology Polychromasia /OIF Hypochromasia /OIF Microcytosis /OIF Macrocytosis /OIF Spherocytes /OIF Tear Drop Cells /OIF Sodium (135-145) mmol/L Potassium (3.3-5.1) mmol/L Chloride (96-108) mmol/L Carbon Dioxide (22-29) mmol/L Anion Gap (12-20) BUN (9-16) mg/dL Creatinine (0.5-1.4) mg/dL Estim Creat Clear Calc Estimated GFR Random Glucose (60-115) mg/dL Calcium (8.4-10.2) mg/dL Total Bilirubin (0.0-1.0) mg/dL Direct Bilirubin (0.0-0.5) mg/dL AST (5-31) U/L ALT (0-31) U/L Alkaline Phosphatase (39-117) U/L Troponin I High Sens (<3.5-17.0) ng/L Total Protein (6.5-8.0) g/dL Albumin (3.5-5.0) g/dL Lipase (8-78) U/L Urine Color YELLOW Urine Appearance CLEAR Urine pH 6.0 (5.0-8.0) Ur Specific [place] 1.015 (1.005-1.025) Urine Protein 1+ H (NEG-TRACE) MG/DL Urine Glucose (UA) NEG (NEG) MG/DL Urine Ketones 15 (NEG) MG/DL Urine Blood NEG (NEG) Urine Nitrite NEG (NEG) Ur Leukocyte Esterase NEG (NEG) Urine RBC 1-4 (0) /HPF Urine WBC 0 (0-4) /HPF Ur Squamous Epith Cells NONE /LPF Urine Bacteria 1+ /LPF Imaging Data Chest x-ray: Radiologist's impression: IMPRESSION: *? Chronic obstructive pulmonary disease. *? Small pleural effusions (left larger than right), remain similar compared to 12/24/2020. *? Chronic pleural-parenchymal opacity of scarring is present in the right lung apex, and there is chronic reticular opacity of fibrosis in the right lung base. *? The base of the left lung is partially obscured by the pleural effusion. *? Stable cardiomegaly. Discharge Plan Discharge Clinical Impression: Accelerated phase of chronic myelogenous leukemia, Myelodysplastic syndrome Patient Disposition: Home, Self-Care Instructions: Chronic Myeloid Leukemia (DC), Myelodysplastic Syndromes (ED) Prescriptions: No Action levothyroxine 75 mcg tablet 75 mcg PO QAM 90 Days Qty: 90 RF: 0 furosemide 20 mg tablet 20 mg PO DAILY 30 Days Qty: 30 RF: 0 isosorbide mononitrate 30 mg tablet extended release 24 hr 30 mg PO DAILY 30 Days Qty: 30 RF: 0 carvedilol 25 mg tablet 25 mg PO BID Qty: 180 RF: 2 oxycodone 5 mg tablet 5 mg PO Q4-6H PRN (Reason: Pain (Scale Score 4-6)) Qty: 168 RF: 0 lisinopril 40 mg tablet 40 mg PO DAILY 90 Days Qty: 90 RF: 3 fluticasone propion-salmeterol [Advair Diskus] 100-50 mcg/dose blister with device 1 puff PO BID RF: 0 Procrit 40,000 unit/mL Solution 40,000 unit subcut QWEEK Qty: 4 RF: 3 albuterol sulfate [ProAir HFA] 90 mcg/actuation Hfa Aerosol Inhaler 2 puff INHALATION Q6H PRN (Reason: Shortness Of Breath) RF: 0 geriatric [id number] Tablet 1 tab PO DAILY RF: 0 pregabalin 25 mg capsule 25 mg PO TID 90 Days Qty: 270 RF: 1 ondansetron HCl 4 mg tablet 4 mg PO Q8H PRN (Reason: nausea and vomiting) Qty: 20 RF: 0 calcium carbonate [Calcium 600] 600 mg calcium (1,500 mg) tablet 600 mg PO DAILY RF: 0 Referrals: Valerie Lopez MD [Physician] - 5 days Po,Elida Borja MD [Primary Care Provider] - 5 days
--- NOTE | 2021-02-12 18:32 | ECG_ITS ---
Test Reason : chest pain Blood Pressure : / mmHG Vent. Rate : 080 BPM Atrial Rate : 080 BPM P-R Int : 116 ms QRS Dur : 090 ms QT Int : 392 ms P-R-T Axes : 064 028 046 degrees QTc Int : 452 ms Sinus rhythm with occasional Premature ventricular complexes Possible Left atrial enlargement Nonspecific ST abnormality Left ventricular hypertrophy with repolarization abnormality ( Bryant product ) Abnormal ECG When compared with ECG of 24-DEC-2020 09:00, Premature ventricular complexes are now Present Nonspecific ST abnormality is new Premature ventricular complexes are new Referred By: Harpreet Mata Electronically Signed By:SHAE SWENSON MD
[2021-02-12] MEDS: ondansetron HCL 4 MG/2 ML VIAL IVPUSH (18:53)
[2021-02-12] MEDS: 0.9 % Sodium Chloride 1,000 ML 200 ML IVCONT (18:54)
[2021-02-12 18:56] LABS: Mean Corpuscular Hemoglobin 27.3 pg (27.0-33.0)
[2021-02-12 18:58] LABS: Hematocrit 35.1 % (37-47); Hemoglobin 10.6 g/dl (12.0-16.0); Mean Corpuscular HGB Conc 30.2 g/dl (31.0-35.0); Mean Corpuscular Volume 90.5 fL (80-98); Red Blood Count 3.88 X10*6/uL (4.20-5.50); Red Cell Distribution Width 21.3 % (11.0-16.0)
[2021-02-12 19:06] LABS: NRBC Pct Auto 2.8 /100WBC (0.0-0.2); PLT ABN DIST 1; WBC ABN SCTR FOR CBC 1
[2021-02-12 19:21] LABS: Troponin-I High Sensitivity 8.2 ng/L (<3.5-17.0)
[2021-02-12 19:27] LABS: Alanine Aminotransferase 10 U/L (0-31); Albumin Level 3.2 g/dL (3.5-5.0); Alkaline Phosphatase 70 U/L (39-117); Anion Gap 14 (12-20); Aspartate Amino Transferase 34 U/L (5-31); Bilirubin Direct 0.4 mg/dL (0.0-0.5); Bilirubin Total 0.7 mg/dL (0.0-1.0); Blood Urea Nitrogen 11 mg/dL (9-16); Calcium 7.9 mg/dL (8.4-10.2); Carbon Dioxide 24 mmol/L (22-29); Chloride 101 mmol/L (96-108); Creatinine Clr Calc Pharmacy 34.6; Estimated Glomerular Filt Rate > 60; Glucose Random 84 mg/dL (60-115); Lipase 8 U/L (8-78); Potassium 2.8 mmol/L (3.3-5.1); Sodium 136 mmol/L (135-145)
[2021-02-12 19:35] LABS: Band Neutrophils Percent 21 % (3-5); Basophils Percent Manual 1 % (0-1); Blast Percent 4 %; Lymphocytes Percent Manual 2 % (20-40); Macrocytosis 1+ (5-14) /OIF; Metamyelocytes Percent 10 %; Microcytosis 1+ (5-14) /OIF; Myelocytes Percent 4 %; Neutrophils Percent Manual 58 % (45-73); Polychromasia 1+ (0-2) /OIF; RBC Morphology NORMAL; Spherocytes 1+ (0-2) /OIF; Tear Drop Cells 1+ (0-2) /OIF
[2021-02-12 19:36] LABS: Hypochromasia 1+ (5-14) /OIF; Large Platelet PRESENT; Platelet Estimate NORMAL (NORMAL); Platelet Morphology Comment NORMAL
[2021-02-12 19:37] LABS: Basophils Abs Manual 0.7 X10*3/uL (0.0-0.3); Blastocytes Absolute 2.9 X10*3/uL; Lymphocytes Absolute Manual 1.5 X10*3/uL (0.6-4.8); Metamyelocytes Absolute 7.3 X10*3/uL; Myelocytes Absolute 2.9 X10*/uL; Neutrophils Absolute Manual 57.7 X10*3/uL (2.2-7.9); Nucleated Red Blood Cells 11 /100WBC (0-0); Platelet Count 256 X10*3/uL (160-400)
[2021-02-12 19:41] LABS: White Blood Count 73.1 X10*3/uL (4.8-10.8)
[2021-02-12 21:21] VITALS: BP 176/79; PULSE 90; RESP 18; TEMP 37.3; O2SAT 93
[2021-02-12 22:42] LABS: Appearance Urine CLEAR; Color Urine YELLOW; Glucose Urine UA NEG (NEG); Leukocyte Esterase Urine NEG (NEG); Nitrite Urine NEG (NEG); Specific Gravity - Urine 1.015 (1.005-1.025); UACC Culture Trigger NO; Urine Blood NEG (NEG); Urine Ketones 15 MG/DL (NEG); Urine Protein 1+ MG/DL (NEG-TRACE)
[2021-02-12 22:49] LABS: Bacteria Urine 1+ /LPF; WBC Urine 0 /HPF (0-4)
--- NOTE | 2021-02-12 23:36 | PC.NURSE ---
RN assumed care at 2300. Pt alert and oriented x4, clam and cooperative. Pt denies new onset pain at this time and states she has her chronic pain which is baseline for her. Pt denies N/V, states it has resolved. Pt educated on results. Pt states she is comfortable with being discharged. Son Vikram called at 2335, voicemail left. Will continue to monitor.
[2021-02-12 23:50] VITALS: BP 180/84; PULSE 86; RESP 18; TEMP 36.9; O2SAT 92
--- NOTE | 2021-02-12 23:56 | PC.NURSE ---
Pt and son Vikram educated on discharge teaching. Pt and son agree to discharge plan. Pt denies pain, N/V. IV removed, vital stable. Pt wheeled out to private car with son.
--- NOTE | 2021-02-14 12:36 | MHC.HEMONC ---
Rosamaria from [facility] called pt potassium 2.8, Dr. Lopez made aware p.o. replacement sent to patients pharmacy and follow labs to be drawn at home next week. patients son made aware.
== END 2021-02-13 00:16 | disposition home or self-care (01) ==
PROVIDERS: Emergency Provider Emergency Medicine; PCP Internal Medicine
DX: C92.10 Chronic myeloid leukemia, BCR/ABL-positive, not having achieved remission (principal); D46.9 Myelodysplastic syndrome, unspecified; R06.02 Shortness of breath; I11.0 Hypertensive heart disease with heart failure; I50.9 Heart failure, unspecified; J44.9 Chronic obstructive pulmonary disease, unspecified; Z86.73 Personal history of transient ischemic attack (TIA), and cerebral infarction without residual deficits
CPT/HCPCS: 36415; 71046; 80048; 80076; 81001; 83690; 84484; 85007; 85025; 85027; 93005; 96361; 96374; 99284; J2405

== ENCOUNTER 2021-02-20 06:37 | Outpatient (REF) | payer MEDICARE, SELFPAY ==
[2021-02-20 10:10] LABS: Mean Corpuscular Hemoglobin 27.4 pg (27.0-33.0); Red Cell Distribution Width 21.3 % (11.0-16.0)
[2021-02-20 10:12] LABS: Hemoglobin 9.8 g/dl (12.0-16.0); Mean Corpuscular HGB Conc 29.7 g/dl (31.0-35.0); Mean Corpuscular Volume 92.2 fL (80-98); PLT CLUMP 1; Red Blood Count 3.58 X10*6/uL (4.20-5.50)
[2021-02-20 10:15] LABS: PLT ABN DIST 1; WBC ABN SCTR FOR CBC 1
[2021-02-20 10:19] LABS: White Blood Count 77.4 X10*3/uL (4.8-10.8)
[2021-02-20 11:59] LABS: Band Neutrophils Percent 23 % (3-5); Basophils Abs Manual 1.5 X10*3/uL (0.0-0.3); Basophils Percent Manual 2 % (0-1); Blast Percent 3 %; Blastocytes Absolute 2.3 X10*3/uL; Lymphocytes Absolute Manual 2.3 X10*3/uL (0.6-4.8); Lymphocytes Percent Manual 3 % (20-40); Metamyelocytes Absolute 5.4 X10*3/uL; Metamyelocytes Percent 7 %; Monocytes Absolute Manual 1.5 X10*3/uL (0.0-1.2); Monocytes Percent Manual 2 % (2-11); Myelocytes Absolute 2.3 X10*/uL; Myelocytes Percent 3 %; Neutrophils Absolute Manual 61.1 X10*3/uL (2.2-7.9); Neutrophils Percent Manual 56 % (45-73); Nucleated Red Blood Cells 4 /100WBC (0-0); Promyelocytes Absolute 0.8 X10*3/uL; Promyelocytes Percent 1 %
[2021-02-20 12:01] LABS: Microcytosis 1+ (5-14) /OIF; Polychromasia 1+ (0-2) /OIF; RBC Morphology NOTED
[2021-02-20 12:02] LABS: Acanthocytes 1+ (0-2) /OIF; Tear Drop Cells 1+ (0-2) /OIF
[2021-02-20 12:03] LABS: Platelet Count 210 X10*3/uL (160-400); Platelet Estimate NORMAL (NORMAL); Platelet Morphology Comment NORMAL
== END 2021-02-20 06:38 | disposition home or self-care (01) ==
LOC: HO.LHD 06:37
PROVIDERS: Visit Provider Internal Medicine Medical Oncology
DX: D46.9 Myelodysplastic syndrome, unspecified (principal)
CPT/HCPCS: 36415; 85007; 85027

== ENCOUNTER 2021-02-21 14:18 | Outpatient (REF) | payer MEDICARE, SELFPAY ==
--- NOTE | ~2021-02-21 | US_ITS ---
EXAMINATION: US VENOUS ULTRASOUND WITH DOPPLER LOWER EXTREMITY, LEFT CLINICAL INFORMATION: Left foot pain COMPARISON: August 18, 2020 and May 02, 2018 TECHNIQUE: Ultrasound of the deep veins is performed from the hip to the calf with compression sonography and color and pulse Doppler assessment. Spectral analysis with color-flow imaging is performed. FINDINGS: There is normal venous compression and respiratory variation and augmented flow. The visualized common femoral vein, superficial femoral vein, profunda femoral vein, popliteal vein, and the trifurcation region shows no evidence of deep venous thrombosis. There is no significant popliteal fossa cyst. No popliteal artery aneurysm. US/US venous duplex LE LT IMPRESSION: No acute DVT demonstrated in the left lower extremity.
--- NOTE | ~2021-02-21 | XR_ITS ---
EXAMINATION: XR FOOT, LEFT CLINICAL INFORMATION: Soft tissue disorder. Left foot pain. COMPARISON: None. TECHNIQUE: AP, lateral, and oblique views of the left foot. FINDINGS: Moderate disuse osteopenia. Normal alignment. Mild joint space narrowing is seen in the midfoot. Mild narrowing of the first MTP joint with mild degenerative change. No acute fracture or dislocation is seen. Extensive vascular calcifications. XR/XR foot LT 2V IMPRESSION: Osteopenia with mild joint space narrowing. No acute osseous abnormality.
[2021-02-21 15:15] LABS: Hematocrit 32.2 % (37-47); Hemoglobin 9.8 g/dl (12.0-16.0); Mean Corpuscular HGB Conc 30.4 g/dl (31.0-35.0); Mean Corpuscular Hemoglobin 27.6 pg (27.0-33.0); Mean Corpuscular Volume 90.7 fL (80-98); PLT CLUMP 1; Red Blood Count 3.55 X10*6/uL (4.20-5.50); Red Cell Distribution Width 21.2 % (11.0-16.0)
[2021-02-21 15:17] LABS: NRBC Pct Auto 3.8 /100WBC (0.0-0.2); WBC ABN SCTR FOR CBC 1
[2021-02-21 15:49] LABS: Band Neutrophils Percent 14 % (3-5); Basophils Percent Manual 1 % (0-1); Lymphocytes Percent Manual 2 % (20-40); Metamyelocytes Percent 11 %; Monocytes Percent Manual 4 % (2-11); Myelocytes Percent 2 %; Neutrophils Percent Manual 66 % (45-73); Nucleated Red Blood Cells 4 /100WBC (0-0)
[2021-02-21 15:52] LABS: RBC Morphology NOTED
[2021-02-21 15:53] LABS: Tear Drop Cells 1+ (0-2) /OIF
[2021-02-21 15:54] LABS: Polychromasia 1+ (0-2) /OIF
[2021-02-21 15:55] LABS: Burr Cells 1+ (0-2) /OIF; Large Platelet PRESENT; Platelet Estimate NORMAL (NORMAL); Platelet Morphology Comment NOTED
[2021-02-21 16:01] LABS: Alanine Aminotransferase 12 U/L (0-31); Albumin Level 3.3 g/dL (3.5-5.0); Alkaline Phosphatase 64 U/L (39-117); Anion Gap 16 (12-20); Aspartate Amino Transferase 38 U/L (5-31); Bilirubin Total 0.7 mg/dL (0.0-1.0); Blood Urea Nitrogen 12 mg/dL (9-16); Calcium 9.3 mg/dL (8.4-10.2); Carbon Dioxide 23 mmol/L (22-29); Chloride 101 mmol/L (96-108); Estimated Glomerular Filt Rate > 60; Glucose Random 84 mg/dL (60-115); Platelet Count 128 X10*3/uL (160-400); Potassium 4.5 mmol/L (3.3-5.1); Sodium 135 mmol/L (135-145); Total Protein 5.9 g/dL (6.5-8.0)
[2021-02-21 16:03] LABS: B Type Natriuretic Peptide 1647 pg/mL (<100)
[2021-02-21 16:37] LABS: Basophils Abs Manual 0.8 X10*3/uL (0.0-0.3); Lymphocytes Absolute Manual 1.6 X10*3/uL (0.6-4.8); Monocytes Absolute Manual 3.1 X10*3/uL (0.0-1.2); Myelocytes Absolute 1.6 X10*/uL
[2021-02-21 16:39] LABS: Metamyelocytes Absolute 8.7 X10*3/uL; White Blood Count 78.7 X10*3/uL (4.8-10.8)
== END 2021-02-21 14:19 | disposition home or self-care (01) ==
LOC: HO.US 14:18
PROVIDERS: PCP Internal Medicine; Visit Provider Internal Medicine
DX: M79.89 Other specified soft tissue disorders (principal); I50.9 Heart failure, unspecified
CPT/HCPCS: 36415; 73620; 80053; 83880; 85007; 85025; 85027; 93971

== ENCOUNTER 2021-02-28 07:46 | Outpatient (REF) | payer MEDICARE, SELFPAY ==
[2021-02-27 11:13] LABS: Hematocrit 30.6 % (37-47); Hemoglobin 9.2 g/dl (12.0-16.0); Mean Corpuscular HGB Conc 30.1 g/dl (31.0-35.0); Mean Corpuscular Hemoglobin 27.9 pg (27.0-33.0); Mean Corpuscular Volume 92.7 fL (80-98); Platelet Count 160 X10*3/uL (160-400); Red Cell Distribution Width 22.1 % (11.0-16.0)
[2021-02-27 11:14] LABS: Appearance Urine CLOUDY; Color Urine YELLOW; Glucose Urine UA NEG (NEG); Leukocyte Esterase Urine 1+ (NEG); Nitrite Urine POS (NEG); Specific Gravity - Urine 1.015 (1.005-1.025); UACC Culture Trigger YES; Urine Blood NEG (NEG); Urine Ketones NEG (NEG); Urine Protein NEG (NEG-TRACE)
[2021-02-27 11:16] LABS: NRBC Pct Auto 3.1 /100WBC (0.0-0.2); WBC ABN SCTR FOR CBC 1
[2021-02-27 11:17] LABS: White Blood Count 59.4 X10*3/uL (4.8-10.8)
[2021-02-27 11:32] LABS: Squamous Epithelial Cell Urine TRACE /LPF
[2021-02-27 11:33] LABS: Bacteria Urine 3+ /LPF; WBC Urine 30-49 /HPF (0-4)
[2021-02-27 11:34] LABS: Calcium Oxalate Crystals Urine 1+ /LPF; Uric Acid Crystals Urine 3+ /LPF
[2021-02-27 11:43] LABS: Band Neutrophils Percent 11 % (3-5); Basophils Abs Manual 0.6 X10*3/uL (0.0-0.3); Basophils Percent Manual 1 % (0-1); Lymphocytes Absolute Manual 1.2 X10*3/uL (0.6-4.8); Lymphocytes Percent Manual 2 % (20-40); Metamyelocytes Absolute 1.2 X10*3/uL; Metamyelocytes Percent 2 %; Monocytes Percent Manual 5 % (2-11); Myelocytes Absolute 7.1 X10*/uL; Myelocytes Percent 12 %; Neutrophils Absolute Manual 41.6 X10*3/uL (2.2-7.9); Neutrophils Percent Manual 59 % (45-73); Nucleated Red Blood Cells 4 /100WBC (0-0); Promyelocytes Absolute 1.2 X10*3/uL; Promyelocytes Percent 2 %
[2021-02-27 11:44] LABS: Blast Percent 6 %; Blastocytes Absolute 3.6 X10*3/uL; Plasma Cells % 0 %
[2021-02-27 11:54] LABS: Macrocytosis 1+ (5-14) /OIF; Microcytosis 1+ (5-14) /OIF; Ovalocytes 1+ (5-14) /OIF; RBC Morphology NOTED; Spherocytes 1+ (0-2) /OIF; Tear Drop Cells 2+ (3-5) /OIF
[2021-02-27 11:55] LABS: Hypochromasia 1+ (5-14) /OIF; Large Platelet PRESENT; Platelet Estimate NORMAL (NORMAL); Platelet Morphology Comment NOTED; Stomatocytes 1+ (5-14) /OIF
[2021-02-27 12:38] LABS: Influenza A PCR NEGATIVE (Negative); Influenza B PCR NEGATIVE (Negative); Resp Syncy Virus RNA Qual PCR NEGATIVE (Negative); SARS COV2 PCR INHOUSE NEGATIVE (Negative)
[2021-02-27 14:33] LABS: Alanine Aminotransferase 10 U/L (0-31); Albumin Level 3.2 g/dL (3.5-5.0); Alkaline Phosphatase 56 U/L (39-117); Anion Gap 13 (12-20); Aspartate Amino Transferase 26 U/L (5-31); Bilirubin Total 0.5 mg/dL (0.0-1.0); Blood Urea Nitrogen 11 mg/dL (9-16); Carbon Dioxide 25 mmol/L (22-29); Chloride 103 mmol/L (96-108); Estimated Glomerular Filt Rate > 60; Glucose Random 78 mg/dL (60-115); Sodium 137 mmol/L (135-145); Total Protein 5.8 g/dL (6.5-8.0)
== END 2021-02-28 07:47 | disposition home or self-care (01) ==
LOC: HO.LHD 07:46
PROVIDERS: Internal Medicine; Visit Provider Internal Medicine Medical Oncology
DX: Z20.822 Contact with and (suspected) exposure to COVID-19 (principal); D46.9 Myelodysplastic syndrome, unspecified; J02.9 Acute pharyngitis, unspecified
CPT/HCPCS: 0241U; 36415; 80053; 81001; 85007; 85027; 87086; 87088; 87186

== ENCOUNTER 2021-03-06 06:50 | Outpatient (REF) | payer MEDICARE, SELFPAY ==
[2021-03-06 09:34] LABS: Hematocrit 33.9 % (37.0-47.0); Hemoglobin 9.8 g/dl (12.0-16.0); Mean Corpuscular HGB Conc 28.9 g/dl (31.0-35.0); Mean Corpuscular Hemoglobin 27.5 pg (27.0-33.0); PLT CLUMP 1; Red Blood Count 3.57 X10*6/uL (4.20-5.50); Red Cell Distribution Width 23.1 % (11.0-16.0)
[2021-03-06 09:38] LABS: NRBC Pct Auto 4.7 /100WBC (0.0-0.2); WBC ABN SCTR FOR CBC 1
[2021-03-06 09:48] LABS: Platelet Count 155 X10*3/uL (160-400)
[2021-03-06 09:49] LABS: White Blood Count 68.5 X10*3/uL (4.8-10.8)
[2021-03-06 09:58] LABS: Band Neutrophils Percent 27 % (3-5); Blast Percent 2 %; Blastocytes Absolute 1.4 X10*3/uL; Lymphocytes Absolute Manual 0.7 X10*3/uL (1.2-4.9); Lymphocytes Percent Manual 1 % (20-40); Metamyelocytes Absolute 3.4 X10*3/uL; Metamyelocytes Percent 5 %; Monocytes Absolute Manual 0.7 X10*3/uL (0.1-1.2); Monocytes Percent Manual 1 % (2-11); Myelocytes Absolute 2.1 X10*/uL; Myelocytes Percent 3 %; Neutrophils Absolute Manual 58.9 X10*3/uL (2.0-8.3); Neutrophils Percent Manual 59 % (45-73); Nucleated Red Blood Cells 8 /100WBC (0-0); Promyelocytes Absolute 1.4 X10*3/uL; Promyelocytes Percent 2 %
[2021-03-06 10:00] LABS: Acanthocytes 1+ (0-2) /OIF; Hypochromasia 1+ (5-14) /OIF; Large Platelet PRESENT; Ovalocytes 1+ (5-14) /OIF; Platelet Estimate SLIGHTLY DECREASED (NORMAL); Polychromasia 1+ (0-2) /OIF; RBC Morphology NOTED; Tear Drop Cells 1+ (0-2) /OIF
[2021-03-06 10:01] LABS: Macrocytosis 1+ (5-14) /OIF; Microcytosis 1+ (5-14) /OIF
[2021-03-06 10:02] LABS: Platelet Morphology Comment NOTE; Spherocytes 1+ (0-2) /OIF
[2021-03-06 10:49] LABS: Alanine Aminotransferase 10 U/L (0-31); Albumin Level 3.4 g/dL (3.5-5.0); Alkaline Phosphatase 53 U/L (39-117); Anion Gap 13 (12-20); Aspartate Amino Transferase 25 U/L (5-31); Bilirubin Total 0.3 mg/dL (0.0-1.0); Blood Urea Nitrogen 16 mg/dL (9-16); Calcium 8.7 mg/dL (8.4-10.2); Carbon Dioxide 24 mmol/L (22-29); Chloride 102 mmol/L (96-108); Estimated Glomerular Filt Rate 40; Glucose Random 70 mg/dL (60-115); Potassium 4.5 mmol/L (3.3-5.1); Sodium 134 mmol/L (135-145); Total Protein 5.9 g/dL (6.5-8.0)
[2021-03-06 13:22] LABS: Appearance Urine CLEAR; Color Urine YELLOW; Glucose Urine UA NEG (NEG); Leukocyte Esterase Urine NEG (NEG); Nitrite Urine NEG (NEG); Specific Gravity - Urine 1.025 (1.005-1.025); Urine Blood NEG (NEG); Urine Ketones NEG (NEG); Urine Protein NEG (NEG-TRACE)
== END 2021-03-06 06:51 | disposition home or self-care (01) ==
LOC: HO.LHD 06:50
PROVIDERS: Internal Medicine; Visit Provider Internal Medicine Medical Oncology
DX: D46.9 Myelodysplastic syndrome, unspecified (principal); R30.0 Dysuria
CPT/HCPCS: 36415; 80053; 81003; 85007; 85027

== ENCOUNTER 2021-03-13 | Outpatient (REF) | payer MEDICARE, SELFPAY ==
[2021-03-13 10:00] LABS: Hematocrit 36.9 % (37.0-47.0); PLT CLUMP 1
[2021-03-13 10:02] LABS: Hemoglobin 10.6 g/dl (12.0-16.0); Mean Corpuscular HGB Conc 28.7 g/dl (31.0-35.0); Mean Corpuscular Hemoglobin 28.1 pg (27.0-33.0); Mean Corpuscular Volume 97.9 fL (80.0-98.0); Platelet Count 124 X10*3/uL (160-400); Red Blood Count 3.77 X10*6/uL (4.20-5.50); Red Cell Distribution Width 23.6 % (11.0-16.0)
[2021-03-13 10:14] LABS: NRBC Pct Auto 3.7 /100WBC (0.0-0.2); PLT ABN DIST 1; WBC ABN SCTR FOR CBC 1
[2021-03-13 10:40] LABS: Band Neutrophils Percent 23 % (3-5); Basophils Percent Manual 1 % (0-2); Blast Percent 5 %; Lymphocytes Percent Manual 2 % (20-40); Metamyelocytes Percent 8 %; Monocytes Percent Manual 2 % (2-11); Myelocytes Percent 5 %; Neutrophils Percent Manual 54 % (45-73); Nucleated Red Blood Cells 3 /100WBC (0-0)
[2021-03-13 10:43] LABS: Acanthocytes 1+ (0-2) /OIF; Hypochromasia 1+ (5-14) /OIF; Large Platelet PRESENT; Macrocytosis 1+ (5-14) /OIF; Microcytosis 1+ (5-14) /OIF; Ovalocytes 1+ (5-14) /OIF; Platelet Estimate DECREASED (NORMAL); Platelet Morphology Comment NOTED; Polychromasia 1+ (0-2) /OIF; RBC Morphology NOTED; Tear Drop Cells 1+ (0-2) /OIF
[2021-03-13 10:46] LABS: Basophils Abs Manual 0.6 X10*3/uL (0.0-0.2); Blastocytes Absolute 2.9 X10*3/uL; Lymphocytes Absolute Manual 1.2 X10*3/uL (1.2-4.9); Metamyelocytes Absolute 4.7 X10*3/uL; Monocytes Absolute Manual 1.2 X10*3/uL (0.1-1.2); Myelocytes Absolute 2.9 X10*/uL; Neutrophils Absolute Manual 45.1 X10*3/uL (2.0-8.3); White Blood Count 58.6 X10*3/uL (4.8-10.8)
[2021-03-13 10:50] LABS: Alanine Aminotransferase 10 U/L (0-31); Albumin Level 3.3 g/dL (3.5-5.0); Alkaline Phosphatase 48 U/L (39-117); Anion Gap 12 (12-20); Aspartate Amino Transferase 26 U/L (5-31); Bilirubin Total 0.6 mg/dL (0.0-1.0); Blood Urea Nitrogen 12 mg/dL (9-16); Calcium 8.3 mg/dL (8.4-10.2); Carbon Dioxide 24 mmol/L (22-29); Chloride 106 mmol/L (96-108); Estimated Glomerular Filt Rate > 60; Glucose Random 77 mg/dL (60-115); Potassium 3.6 mmol/L (3.3-5.1); Sodium 138 mmol/L (135-145); Total Protein 5.8 g/dL (6.5-8.0)
--- NOTE | 2021-03-13 11:14 | MHC.HEMONC ---
hgb at home draw 10.6. Pt called and is aware no Procrit this week.
== END 2021-03-13 00:01 | disposition home or self-care (01) ==
LOC: HO.LHD
PROVIDERS: Absent Provider Internal Medicine; Visit Provider Internal Medicine Medical Oncology
DX: D46.9 Myelodysplastic syndrome, unspecified (principal)
CPT/HCPCS: 36415; 80053; 85007; 85025; 85027

== ENCOUNTER 2021-03-20 13:23 | Outpatient (REF) | payer MEDICARE, SELFPAY ==
[2021-03-20 10:49] LABS: PLT CLUMP 1
[2021-03-20 10:52] LABS: Hematocrit 32.7 % (37.0-47.0); Hemoglobin 9.7 g/dl (12.0-16.0); Mean Corpuscular HGB Conc 29.7 g/dl (31.0-35.0); Mean Corpuscular Hemoglobin 28.2 pg (27.0-33.0); Mean Corpuscular Volume 95.1 fL (80.0-98.0); Platelet Count 103 X10*3/uL (160-400); Red Blood Count 3.44 X10*6/uL (4.20-5.50); Red Cell Distribution Width 21.8 % (11.0-16.0)
[2021-03-20 11:13] LABS: NRBC Pct Auto 1.4 /100WBC (0.0-0.2); PLT ABN DIST 1; WBC ABN SCTR FOR CBC 1
[2021-03-20 11:14] LABS: White Blood Count 59.6 X10*3/uL (4.8-10.8)
[2021-03-20 11:25] LABS: Alanine Aminotransferase 9 U/L (0-31); Albumin Level 3.3 g/dL (3.5-5.0); Alkaline Phosphatase 49 U/L (39-117); Anion Gap 11 (12-20); Aspartate Amino Transferase 22 U/L (5-31); Bilirubin Total 0.5 mg/dL (0.0-1.0); Blood Urea Nitrogen 15 mg/dL (9-16); Calcium 8.8 mg/dL (8.4-10.2); Carbon Dioxide 27 mmol/L (22-29); Chloride 104 mmol/L (96-108); Estimated Glomerular Filt Rate > 60; Glucose Random 75 mg/dL (60-115); Potassium 4.3 mmol/L (3.3-5.1); Sodium 138 mmol/L (135-145); Total Protein 5.7 g/dL (6.5-8.0)
[2021-03-20 11:55] LABS: Acanthocytes 1+ (0-2) /OIF; Band Neutrophils Percent 30 % (3-5); Basophils Abs Manual 0.6 X10*3/uL (0.0-0.2); Basophils Percent Manual 1 % (0-2); Blast Percent 2 %; Blastocytes Absolute 1.2 X10*3/uL; Lymphocytes Absolute Manual 1.8 X10*3/uL (1.2-4.9); Lymphocytes Percent Manual 3 % (20-40); Macrocytosis 1+ (5-14) /OIF; Metamyelocytes Percent 10 %; Microcytosis 1+ (5-14) /OIF; Monocytes Absolute Manual 0.6 X10*3/uL (0.1-1.2); Monocytes Percent Manual 1 % (2-11); Myelocytes Absolute 1.2 X10*/uL; Myelocytes Percent 2 %; Neutrophils Absolute Manual 47.7 X10*3/uL (2.0-8.3); Neutrophils Percent Manual 50 % (45-73); Nucleated Red Blood Cells 3 /100WBC (0-0); Ovalocytes 1+ (5-14) /OIF; Promyelocytes Absolute 0.6 X10*3/uL; Promyelocytes Percent 1 %; RBC Morphology NOTED
[2021-03-20 11:56] LABS: Hypochromasia 1+ (5-14) /OIF
[2021-03-20 11:57] LABS: Large Platelet PRESENT; Platelet Estimate DECREASED (NORMAL); Platelet Morphology Comment NOTED; Polychromasia 1+ (0-2) /OIF
== END 2021-03-20 13:24 | disposition home or self-care (01) ==
LOC: HO.LHD 13:23
PROVIDERS: Internal Medicine; Visit Provider Internal Medicine Medical Oncology
DX: D46.9 Myelodysplastic syndrome, unspecified (principal)
CPT/HCPCS: 36415; 80053; 85007; 85025; 85027

== ENCOUNTER 2021-03-28 11:05 | Outpatient (REF) | payer MEDICARE, SELFPAY ==
[2021-03-28 10:22] LABS: Hematocrit 31.2 % (37.0-47.0); Hemoglobin 9.5 g/dl (12.0-16.0); Mean Corpuscular HGB Conc 30.4 g/dl (31.0-35.0); Mean Corpuscular Hemoglobin 28.4 pg (27.0-33.0); Mean Corpuscular Volume 93.1 fL (80.0-98.0); PLT CLUMP 1; Red Blood Count 3.35 X10*6/uL (4.20-5.50)
[2021-03-28 10:27] LABS: Alanine Aminotransferase 7 U/L (0-31); Albumin Level 3.4 g/dL (3.5-5.0); Alkaline Phosphatase 53 U/L (39-117); Anion Gap 16 (12-20); Aspartate Amino Transferase 20 U/L (5-31); Bilirubin Total 0.5 mg/dL (0.0-1.0); Blood Urea Nitrogen 13 mg/dL (9-16); Calcium 8.6 mg/dL (8.4-10.2); Carbon Dioxide 20 mmol/L (22-29); Chloride 105 mmol/L (96-108); Estimated Glomerular Filt Rate > 60; Glucose Random 100 mg/dL (60-115); Potassium 3.8 mmol/L (3.3-5.1); Sodium 137 mmol/L (135-145); Total Protein 5.9 g/dL (6.5-8.0)
[2021-03-28 10:32] LABS: NRBC Pct Auto 1.7 /100WBC (0.0-0.2); Platelet Count 156 X10*3/uL (160-400); WBC ABN SCTR FOR CBC 1
[2021-03-28 10:43] LABS: Band Neutrophils Percent 16 % (3-5); Blast Percent 1 %; Lymphocytes Percent Manual 2 % (20-40); Metamyelocytes Percent 7 %; Monocytes Percent Manual 2 % (2-11); Myelocytes Percent 5 %; Neutrophils Percent Manual 65 % (45-73); Nucleated Red Blood Cells 3 /100WBC (0-0); Promyelocytes Percent 2 %
[2021-03-28 10:46] LABS: Hypochromasia 1+ (5-14) /OIF; Macrocytosis 1+ (5-14) /OIF; Microcytosis 1+ (5-14) /OIF; Ovalocytes 1+ (5-14) /OIF; Platelet Estimate SLIGHTLY DECREASED (NORMAL); Polychromasia 1+ (0-2) /OIF; RBC Morphology NOTED; Spherocytes 1+ (0-2) /OIF; Tear Drop Cells 1+ (0-2) /OIF
[2021-03-28 10:47] LABS: Acanthocytes 1+ (0-2) /OIF; Large Platelet PRESENT; Platelet Morphology Comment NOTED
[2021-03-28 10:56] LABS: Blastocytes Absolute 0.8 X10*3/uL; Lymphocytes Absolute Manual 1.5 X10*3/uL (1.2-4.9); Metamyelocytes Absolute 5.3 X10*3/uL; Monocytes Absolute Manual 1.5 X10*3/uL (0.1-1.2); Myelocytes Absolute 3.8 X10*/uL; Neutrophils Absolute Manual 60.8 X10*3/uL (2.0-8.3); Promyelocytes Absolute 1.5 X10*3/uL
== END 2021-03-28 11:06 | disposition home or self-care (01) ==
LOC: HO.LHD 11:05
PROVIDERS: Visit Provider Internal Medicine Medical Oncology
DX: D46.9 Myelodysplastic syndrome, unspecified (principal)
CPT/HCPCS: 36415; 80053; 85007; 85025; 85027

== ENCOUNTER 2021-04-03 12:02 | Outpatient (REF) | payer MEDICARE, SELFPAY ==
[2021-04-03 10:34] LABS: Hemoglobin 9.5 g/dl (12.0-16.0)
[2021-04-03 10:36] LABS: Mean Corpuscular HGB Conc 29.7 g/dl (31.0-35.0); Mean Corpuscular Volume 94.4 fL (80.0-98.0); Mean Platelet Volume 13.6 fL (9.4-12.3); PLT CLUMP 1; Red Blood Count 3.39 X10*6/uL (4.20-5.50)
[2021-04-03 10:46] LABS: NRBC Pct Auto 4.6 /100WBC (0.0-0.2); PLT ABN DIST 1; WBC ABN SCTR FOR CBC 1
[2021-04-03 10:47] LABS: Platelet Count 203 X10*3/uL (160-400); White Blood Count 78.1 X10*3/uL (4.8-10.8)
[2021-04-03 11:05] LABS: Atypical Lymph Absolute Manual 0.8 x10*3/uL; Atypical Lymphs Percent Manual 1 % (0-6); Band Neutrophils Percent 15 % (3-5); Lymphocytes Absolute Manual 3.1 X10*3/uL (1.2-4.9); Lymphocytes Percent Manual 4 % (20-40); Metamyelocytes Absolute 6.2 X10*3/uL; Metamyelocytes Percent 8 %; Monocytes Absolute Manual 3.9 X10*3/uL (0.1-1.2); Monocytes Percent Manual 5 % (2-11); Myelocytes Absolute 4.7 X10*/uL; Myelocytes Percent 6 %; Neutrophils Absolute Manual 56.2 X10*3/uL (2.0-8.3); Neutrophils Percent Manual 57 % (45-73); Nucleated Red Blood Cells 3 /100WBC (0-0); Promyelocytes Absolute 1.6 X10*3/uL; Promyelocytes Percent 2 %
[2021-04-03 11:06] LABS: Blast Percent 2 %; Blastocytes Absolute 1.6 X10*3/uL
[2021-04-03 11:07] LABS: Macrocytosis 1+ (5-14) /OIF; Microcytosis 1+ (5-14) /OIF; Polychromasia 1+ (0-2) /OIF; RBC Morphology NOTED; Spherocytes 1+ (0-2) /OIF; Tear Drop Cells 1+ (0-2) /OIF
[2021-04-03 11:08] LABS: Hypochromasia 1+ (5-14) /OIF; Large Platelet PRESENT; Platelet Estimate NORMAL (NORMAL); Platelet Morphology Comment NORMAL
[2021-04-03 11:10] LABS: Alanine Aminotransferase 10 U/L (0-31); Albumin Level 3.4 g/dL (3.5-5.0); Alkaline Phosphatase 54 U/L (39-117); Anion Gap 15 (12-20); Aspartate Amino Transferase 24 U/L (5-31); Bilirubin Total 0.7 mg/dL (0.0-1.0); Blood Urea Nitrogen 12 mg/dL (9-16); Calcium 8.8 mg/dL (8.4-10.2); Carbon Dioxide 23 mmol/L (22-29); Chloride 104 mmol/L (96-108); Estimated Glomerular Filt Rate > 60; Glucose Random 75 mg/dL (60-115); Potassium 3.9 mmol/L (3.3-5.1); Sodium 138 mmol/L (135-145); Total Protein 5.9 g/dL (6.5-8.0)
== END 2021-04-03 12:03 | disposition home or self-care (01) ==
LOC: HO.LHD 12:02
PROVIDERS: Visit Provider Internal Medicine Medical Oncology
DX: D46.9 Myelodysplastic syndrome, unspecified (principal); D63.8 Anemia in other chronic diseases classified elsewhere
CPT/HCPCS: 36415; 80053; 85007; 85027

== ENCOUNTER 2021-04-15 10:15 | Outpatient (REF) | payer MEDICARE, SELFPAY ==
[2021-04-10 10:05] LABS: Mean Corpuscular Volume 92.7 fL (80.0-98.0)
[2021-04-10 10:07] LABS: Hematocrit 29.3 % (37.0-47.0); Hemoglobin 8.9 g/dl (12.0-16.0); Mean Corpuscular HGB Conc 30.4 g/dl (31.0-35.0); Mean Corpuscular Hemoglobin 28.2 pg (27.0-33.0); Platelet Count 101 X10*3/uL (160-400); Red Blood Count 3.16 X10*6/uL (4.20-5.50); Red Cell Distribution Width 21.5 % (11.0-16.0); White Blood Count 11.1 X10*3/uL (4.8-10.8)
[2021-04-10 10:09] LABS: NRBC Pct Auto 3.1 /100WBC (0.0-0.2); PLT ABN DIST 1
[2021-04-10 10:26] LABS: Atypical Lymph Absolute Manual 0.1 x10*3/uL; Atypical Lymphs Percent Manual 1 % (0-6); Band Neutrophils Percent 11 % (3-5); Basophils Abs Manual 0.1 X10*3/uL (0.0-0.2); Basophils Percent Manual 1 % (0-2); Lymphocytes Absolute Manual 0.8 X10*3/uL (1.2-4.9); Lymphocytes Percent Manual 7 % (20-40); Metamyelocytes Absolute 0.4 X10*3/uL; Metamyelocytes Percent 4 %; Monocytes Absolute Manual 0.3 X10*3/uL (0.1-1.2); Monocytes Percent Manual 3 % (2-11); Myelocytes Absolute 0.1 X10*/uL; Myelocytes Percent 1 %; Neutrophils Absolute Manual 8.9 X10*3/uL (2.0-8.3); Neutrophils Percent Manual 69 % (45-73)
[2021-04-10 10:27] LABS: Blast Percent 3 %; Blastocytes Absolute 0.3 X10*3/uL; Nucleated Red Blood Cells 1 /100WBC (0-0)
[2021-04-10 10:30] LABS: Macrocytosis 1+ (5-14) /OIF; Microcytosis 1+ (5-14) /OIF; Ovalocytes 1+ (5-14) /OIF; RBC Morphology NOTED; Tear Drop Cells 1+ (0-2) /OIF
[2021-04-10 10:31] LABS: Hypochromasia 2+ (15-30) /OIF; Large Platelet PRESENT; Platelet Estimate DECREASED (NORMAL); Platelet Morphology Comment NOTED; Polychromasia 1+ (0-2) /OIF
[2021-04-10 10:46] LABS: Appearance Urine CLOUDY; Color Urine YELLOW; Glucose Urine UA NEG (NEG); Leukocyte Esterase Urine NEG (NEG); Nitrite Urine POS (NEG); UACC Culture Trigger YES; Urine Blood NEG (NEG); Urine Ketones NEG (NEG); Urine Protein NEG (NEG-TRACE)
[2021-04-10 11:03] LABS: Amorphous Sediment Urine 4+ /LPF
[2021-04-10 11:04] LABS: Alanine Aminotransferase 7 U/L (0-31); Albumin Level 3.4 g/dL (3.5-5.0); Alkaline Phosphatase 47 U/L (39-117); Anion Gap 13 (12-20); Aspartate Amino Transferase 16 U/L (5-31); Bilirubin Total 0.5 mg/dL (0.0-1.0); Blood Urea Nitrogen 27 mg/dL (9-16); Calcium 8.8 mg/dL (8.4-10.2); Carbon Dioxide 24 mmol/L (22-29); Chloride 103 mmol/L (96-108); Estimated Glomerular Filt Rate > 60; Glucose Random 95 mg/dL (60-115); Potassium 4.4 mmol/L (3.3-5.1); Sodium 136 mmol/L (135-145); Total Protein 5.8 g/dL (6.5-8.0)
[2021-04-10 11:05] LABS: Urine Talc Crystals 3+ /LPF
[2021-04-10 11:06] LABS: Bacteria Urine TRACE /LPF; RBC Urine 0 /HPF (0); WBC Urine 0 /HPF (0-4)
== END 2021-04-15 10:16 | disposition home or self-care (01) ==
LOC: HO.LHD 10:15
PROVIDERS: Absent Provider Internal Medicine; Visit Provider Internal Medicine Medical Oncology
DX: D46.9 Myelodysplastic syndrome, unspecified (principal)
CPT/HCPCS: 36415; 80053; 81001; 85007; 85027; 87086; 87088

== ENCOUNTER 2021-04-17 07:01 | Outpatient (REF) | payer MEDICARE, SELFPAY ==
[2021-04-17 11:16] LABS: Hematocrit 28.9 % (37.0-47.0); Mean Corpuscular Volume 95.1 fL (80.0-98.0); Red Blood Count 3.04 X10*6/uL (4.20-5.50)
[2021-04-17 11:19] LABS: Hemoglobin 8.7 g/dl (12.0-16.0); Mean Corpuscular HGB Conc 30.1 g/dl (31.0-35.0); Mean Corpuscular Hemoglobin 28.6 pg (27.0-33.0); Mean Platelet Volume 12.7 fL (9.4-12.3); Platelet Count 105 X10*3/uL (160-400); Red Cell Distribution Width 23.7 % (11.0-16.0)
[2021-04-17 11:33] LABS: Alanine Aminotransferase 7 U/L (0-31); Albumin Level 3.4 g/dL (3.5-5.0); Alkaline Phosphatase 42 U/L (39-117); Anion Gap 12 (12-20); Aspartate Amino Transferase 12 U/L (5-31); Bilirubin Total 0.4 mg/dL (0.0-1.0); Blood Urea Nitrogen 19 mg/dL (9-16); Calcium 8.5 mg/dL (8.4-10.2); Carbon Dioxide 20 mmol/L (22-29); Chloride 108 mmol/L (96-108); Estimated Glomerular Filt Rate > 60; Glucose Random 71 mg/dL (60-115); Potassium 4.7 mmol/L (3.3-5.1); Sodium 135 mmol/L (135-145); Total Protein 5.9 g/dL (6.5-8.0)
[2021-04-17 11:45] LABS: NRBC Pct Auto 2.4 /100WBC (0.0-0.2); PLT ABN DIST 1; White Blood Count 2.1 X10*3/uL (4.8-10.8)
[2021-04-17 14:41] LABS: Band Neutrophils Percent 1 % (3-5); Basophils Percent Manual 1 % (0-2); Lymphocytes Absolute Manual 0.3 X10*3/uL (1.2-4.9); Lymphocytes Percent Manual 12 % (20-40); Monocytes Absolute Manual 0.2 X10*3/uL (0.1-1.2); Monocytes Percent Manual 9 % (2-11); Neutrophils Absolute Manual 1.6 X10*3/uL (2.0-8.3); Neutrophils Percent Manual 77 % (45-73); Nucleated Red Blood Cells 3 /100WBC (0-0)
[2021-04-17 14:46] LABS: Acanthocytes 1+ (0-2) /OIF; RBC Morphology NOTED
[2021-04-17 14:47] LABS: Macrocytosis 1+ (5-14) /OIF; Platelet Estimate DECREASED (NORMAL); Platelet Morphology Comment NORMAL; Spherocytes 1+ (0-2) /OIF
[2021-04-17 14:48] LABS: Schistocytes 1+ (0-2) /OIF
[2021-04-17 14:49] LABS: Tear Drop Cells 1+ (0-2) /OIF
== END 2021-04-17 07:02 | disposition home or self-care (01) ==
LOC: HO.LHD 07:01
PROVIDERS: Visit Provider Internal Medicine Medical Oncology
DX: D46.9 Myelodysplastic syndrome, unspecified (principal)
CPT/HCPCS: 36415; 80053; 85007; 85025; 85027

== ENCOUNTER 2021-04-24 07:59 | Outpatient (REF) | payer MEDICARE, SELFPAY ==
[2021-04-24 12:02] LABS: Hematocrit 28.8 % (37.0-47.0); Hemoglobin 8.6 g/dl (12.0-16.0); Mean Corpuscular HGB Conc 29.9 g/dl (31.0-35.0); Mean Platelet Volume 12.5 fL (9.4-12.3); Red Blood Count 2.97 X10*6/uL (4.20-5.50); Red Cell Distribution Width 25.1 % (11.0-16.0); White Blood Count 3.7 X10*3/uL (4.8-10.8)
[2021-04-24 12:05] LABS: NRBC Pct Auto 1.9 /100WBC (0.0-0.2); Platelet Count 97 X10*3/uL (160-400)
[2021-04-24 12:11] LABS: Alanine Aminotransferase 7 U/L (0-31); Albumin Level 3.3 g/dL (3.5-5.0); Alkaline Phosphatase 46 U/L (39-117); Anion Gap 9 (12-20); Aspartate Amino Transferase 13 U/L (5-31); Bilirubin Total 0.6 mg/dL (0.0-1.0); Blood Urea Nitrogen 10 mg/dL (9-16); Calcium 8.8 mg/dL (8.4-10.2); Carbon Dioxide 28 mmol/L (22-29); Chloride 104 mmol/L (96-108); Estimated Glomerular Filt Rate > 60; Glucose Random 70 mg/dL (60-115); Potassium 4.6 mmol/L (3.3-5.1); Sodium 136 mmol/L (135-145); Total Protein 5.6 g/dL (6.5-8.0)
[2021-04-24 12:50] LABS: Band Neutrophils Percent 4 % (3-5); Basophils Abs Manual 0.1 X10*3/uL (0.0-0.2); Basophils Percent Manual 4 % (0-2); Lymphocytes Absolute Manual 0.6 X10*3/uL (1.2-4.9); Lymphocytes Percent Manual 15 % (20-40); Metamyelocytes Absolute 0.2 X10*3/uL; Metamyelocytes Percent 5 %; Monocytes Absolute Manual 1.1 X10*3/uL (0.1-1.2); Monocytes Percent Manual 30 % (2-11); Myelocytes Absolute 0.1 X10*/uL; Myelocytes Percent 2 %; Neutrophils Absolute Manual 1.6 X10*3/uL (2.0-8.3); Neutrophils Percent Manual 40 % (45-73); Nucleated Red Blood Cells 1 /100WBC (0-0)
[2021-04-24 12:55] LABS: Basophilic Stippling 1+ (0-2) /OIF; Hypochromasia 1+ (5-14) /OIF; Large Platelet PRESENT; Macrocytosis 1+ (5-14) /OIF; Microcytosis 1+ (5-14) /OIF; Ovalocytes 1+ (5-14) /OIF; Platelet Estimate DECREASED (NORMAL); Platelet Morphology Comment NOTED; Polychromasia 1+ (0-2) /OIF; RBC Morphology NOTED; Tear Drop Cells 1+ (0-2) /OIF
== END 2021-04-24 08:00 | disposition home or self-care (01) ==
LOC: HO.LHD 07:59
PROVIDERS: Visit Provider Internal Medicine Medical Oncology
DX: D64.9 Anemia, unspecified (principal)
CPT/HCPCS: 36415; 80053; 85007; 85025; 85027

== ENCOUNTER 2021-05-01 12:42 | Outpatient (REF) | payer MEDICARE, SELFPAY ==
[2021-05-01 11:45] LABS: Hematocrit 34.6 % (37.0-47.0); Mean Corpuscular HGB Conc 28.9 g/dl (31.0-35.0); Mean Corpuscular Hemoglobin 28.7 pg (27.0-33.0); Mean Corpuscular Volume 99.1 fL (80.0-98.0); Mean Platelet Volume 12.3 fL (9.4-12.3); NRBC Pct Auto 0.4 /100WBC (0.0-0.2); Platelet Count 319 X10*3/uL (160-400); Red Blood Count 3.49 X10*6/uL (4.20-5.50); Red Cell Distribution Width 25.3 % (11.0-16.0)
[2021-05-01 11:47] LABS: WBC ABN SCTR FOR CBC 1; White Blood Count 24.9 X10*3/uL (4.8-10.8)
[2021-05-01 11:50] LABS: Appearance Urine HAZY; Color Urine YELLOW; Glucose Urine UA NEG (NEG); Leukocyte Esterase Urine 1+ (NEG); Nitrite Urine POS (NEG); PH 6.5 (5.0-8.0); Specific Gravity - Urine <= 1.005 (1.005-1.025); UACC Culture Trigger YES; Urine Blood TRACE (NEG); Urine Ketones NEG (NEG); Urine Protein NEG (NEG-TRACE)
--- NOTE | 2021-05-01 12:00 | MHC.HEMONC ---
wbc 24.9 today and hgb 10. Pt to get Procrit.
[2021-05-01 12:04] LABS: Alanine Aminotransferase 9 U/L (0-31); Albumin Level 3.4 g/dL (3.5-5.0); Alkaline Phosphatase 57 U/L (39-117); Anion Gap 12 (12-20); Aspartate Amino Transferase 14 U/L (5-31); Bilirubin Total 0.5 mg/dL (0.0-1.0); Blood Urea Nitrogen 15 mg/dL (9-16); Calcium 8.9 mg/dL (8.4-10.2); Carbon Dioxide 28 mmol/L (22-29); Chloride 101 mmol/L (96-108); Estimated Glomerular Filt Rate > 60; Glucose Random 90 mg/dL (60-115); Potassium 4.1 mmol/L (3.3-5.1); Sodium 137 mmol/L (135-145)
[2021-05-01 12:15] LABS: Bacteria Urine 3+ /LPF
[2021-05-01 12:16] LABS: Urine Talc Crystals 4+ /LPF
[2021-05-01 12:17] LABS: RBC Urine 0-2 /HPF (0); WBC Clumps Urine NOTED
[2021-05-01 12:23] LABS: Band Neutrophils Percent 9 % (3-5); Basophils Abs Manual 0.2 X10*3/uL (0.0-0.2); Basophils Percent Manual 1 % (0-2); Blast Percent 1 %; Blastocytes Absolute 0.2 X10*3/uL; Eosinophils Absolute Manual 0.2 X10*3/uL (0.0-0.4); Eosinophils Percent Manual 1 % (0-4); Lymphocytes Absolute Manual 1.7 X10*3/uL (1.2-4.9); Lymphocytes Percent Manual 7 % (20-40); Metamyelocytes Absolute 1.2 X10*3/uL; Metamyelocytes Percent 5 %; Monocytes Absolute Manual 3.2 X10*3/uL (0.1-1.2); Monocytes Percent Manual 13 % (2-11); Myelocytes Percent 4 %; Neutrophils Absolute Manual 16.9 X10*3/uL (2.0-8.3); Neutrophils Percent Manual 59 % (45-73); Nucleated Red Blood Cells 1 /100WBC (0-0)
[2021-05-01 12:24] LABS: RBC Morphology NOTED
[2021-05-01 12:25] LABS: Acanthocytes 1+ (0-2) /OIF; Hypochromasia 1+ (5-14) /OIF; Macrocytosis 1+ (5-14) /OIF; Microcytosis 1+ (5-14) /OIF; Ovalocytes 1+ (5-14) /OIF; Platelet Estimate NORMAL (NORMAL); Platelet Morphology Comment NOTED; Polychromasia 1+ (0-2) /OIF; Tear Drop Cells 1+ (0-2) /OIF
[2021-05-01 12:26] LABS: Large Platelet PRESENT
== END 2021-05-01 12:43 | disposition home or self-care (01) ==
LOC: HO.LHD 12:42
PROVIDERS: Internal Medicine; Visit Provider Internal Medicine Medical Oncology
DX: D46.9 Myelodysplastic syndrome, unspecified (principal)
CPT/HCPCS: 36415; 80053; 81001; 85007; 85027; 87086; 87088; 87186

== ENCOUNTER 2021-05-08 | Outpatient (REF) | payer MEDICARE, SELFPAY ==
[2021-05-08 12:49] LABS: Hematocrit 32.2 % (37.0-47.0); Hemoglobin 9.4 g/dl (12.0-16.0); Mean Corpuscular HGB Conc 29.2 g/dl (31.0-35.0); Mean Corpuscular Hemoglobin 29.2 pg (27.0-33.0); Mean Platelet Volume 12.4 fL (9.4-12.3); NRBC Pct Auto 0.5 /100WBC (0.0-0.2); Platelet Count 244 X10*3/uL (160-400); Red Blood Count 3.22 X10*6/uL (4.20-5.50); Red Cell Distribution Width 24.5 % (11.0-16.0)
[2021-05-08 13:16] LABS: WBC ABN SCTR FOR CBC 1
[2021-05-08 13:41] LABS: Band Neutrophils Percent 13 % (3-5); Basophils Abs Manual 0.6 X10*3/uL (0.0-0.2); Basophils Percent Manual 1 % (0-2); Blast Percent 2 %; Blastocytes Absolute 1.2 X10*3/uL; Lymphocytes Absolute Manual 1.8 X10*3/uL (1.2-4.9); Lymphocytes Percent Manual 3 % (20-40); Metamyelocytes Absolute 3.1 X10*3/uL; Metamyelocytes Percent 5 %; Monocytes Absolute Manual 6.1 X10*3/uL (0.1-1.2); Monocytes Percent Manual 10 % (2-11); Myelocytes Absolute 8.5 X10*/uL; Myelocytes Percent 14 %; Neutrophils Absolute Manual 37.8 X10*3/uL (2.0-8.3); Neutrophils Percent Manual 49 % (45-73); Promyelocytes Absolute 1.8 X10*3/uL; Promyelocytes Percent 3 %
[2021-05-08 13:51] LABS: Macrocytosis 2+ (15-30) /OIF; Microcytosis 2+ (15-30) /OIF; Ovalocytes 1+ (5-14) /OIF; RBC Morphology NOTED; Schistocytes 1+ (0-2) /OIF
[2021-05-08 13:52] LABS: Platelet Estimate NORMAL (NORMAL); Platelet Morphology Comment NORMAL; Smudge Cells PRESENT; Tear Drop Cells 1+ (0-2) /OIF
== END 2021-05-08 00:01 ==
LOC: HO.LHD
PROVIDERS: Visit Provider Internal Medicine Medical Oncology
DX: D46.9 Myelodysplastic syndrome, unspecified (principal)
CPT/HCPCS: 36415; 85007; 85025; 85027

== ENCOUNTER 2021-05-15 11:10 | Outpatient (REF) | payer MEDICARE, SELFPAY ==
[2021-05-15 11:54] LABS: Appearance Urine HAZY; Color Urine YELLOW; Glucose Urine UA NEG (NEG); Leukocyte Esterase Urine NEG (NEG); Nitrite Urine NEG (NEG); PH 5.5 (5.0-8.0); Specific Gravity - Urine 1.025 (1.005-1.025); Urine Blood NEG (NEG); Urine Ketones NEG (NEG); Urine Protein NEG (NEG-TRACE)
[2021-05-15 11:56] LABS: Red Cell Distribution Width 24.3 % (11.0-16.0)
[2021-05-15 11:58] LABS: Hematocrit 34.8 % (37.0-47.0); Hemoglobin 10.3 g/dl (12.0-16.0); Mean Corpuscular HGB Conc 29.6 g/dl (31.0-35.0); Mean Corpuscular Hemoglobin 29.9 pg (27.0-33.0); Mean Corpuscular Volume 100.9 fL (80.0-98.0); Mean Platelet Volume 12.9 fL (9.4-12.3); NRBC Pct Auto 0.7 /100WBC (0.0-0.2); Platelet Count 216 X10*3/uL (160-400); Red Blood Count 3.45 X10*6/uL (4.20-5.50)
[2021-05-15 12:02] LABS: PLT ABN DIST 1; WBC ABN SCTR FOR CBC 1
[2021-05-15 12:30] LABS: Band Neutrophils Percent 10 % (3-5); Blast Percent 1 %; Blastocytes Absolute 0.4 X10*3/uL; Lymphocytes Absolute Manual 1.3 X10*3/uL (1.2-4.9); Lymphocytes Percent Manual 3 % (20-40); Metamyelocytes Absolute 0.9 X10*3/uL; Metamyelocytes Percent 2 %; Monocytes Percent Manual 9 % (2-11); Myelocytes Absolute 0.9 X10*/uL; Myelocytes Percent 2 %; Neutrophils Absolute Manual 36.5 X10*3/uL (2.0-8.3); Neutrophils Percent Manual 73 % (45-73)
[2021-05-15 12:34] LABS: Hypochromasia 1+ (5-14) /OIF; Large Platelet PRESENT; Macrocytosis 1+ (5-14) /OIF; Microcytosis 1+ (5-14) /OIF; Ovalocytes 1+ (5-14) /OIF; Platelet Estimate NORMAL (NORMAL); Platelet Morphology Comment NORMAL; Polychromasia 1+ (0-2) /OIF; RBC Morphology NOTED; Schistocytes 1+ (0-2) /OIF; Tear Drop Cells 1+ (0-2) /OIF
[2021-05-15 12:40] LABS: Alanine Aminotransferase 7 U/L (0-31); Albumin Level 3.6 g/dL (3.5-5.0); Alkaline Phosphatase 50 U/L (39-117); Anion Gap 12 (12-20); Aspartate Amino Transferase 13 U/L (5-31); Bilirubin Total 0.4 mg/dL (0.0-1.0); Blood Urea Nitrogen 28 mg/dL (9-16); Calcium 9.6 mg/dL (8.4-10.2); Carbon Dioxide 24 mmol/L (22-29); Chloride 105 mmol/L (96-108); Estimated Glomerular Filt Rate 54; Glucose Random 76 mg/dL (60-115); Potassium 4.8 mmol/L (3.3-5.1); Sodium 136 mmol/L (135-145); Total Protein 6.3 g/dL (6.5-8.0)
== END 2021-05-15 11:11 | disposition home or self-care (01) ==
LOC: HO.LHD 11:10
PROVIDERS: Internal Medicine; Visit Provider Internal Medicine Medical Oncology
DX: D46.9 Myelodysplastic syndrome, unspecified (principal); R33.9 Retention of urine, unspecified
CPT/HCPCS: 36415; 80053; 81003; 85007; 85027

== ENCOUNTER 2021-05-22 13:26 | Outpatient (REF) | payer MEDICARE, SELFPAY ==
[2021-05-22 10:15] LABS: Hematocrit 37.3 % (37.0-47.0); Hemoglobin 10.9 g/dl (12.0-16.0); Mean Corpuscular HGB Conc 29.2 g/dl (31.0-35.0); Mean Corpuscular Volume 102.8 fL (80.0-98.0); Mean Platelet Volume 12.8 fL (9.4-12.3); NRBC Pct Auto 0.8 /100WBC (0.0-0.2); Platelet Count 287 X10*3/uL (160-400); Red Blood Count 3.63 X10*6/uL (4.20-5.50); Red Cell Distribution Width 24.5 % (11.0-16.0); White Blood Count 13.7 X10*3/uL (4.8-10.8)
[2021-05-22 10:59] LABS: Atypical Lymph Absolute Manual 0.5 x10*3/uL; Atypical Lymphs Percent Manual 4 % (0-6); Band Neutrophils Percent 6 % (3-5); Basophils Abs Manual 0.4 X10*3/uL (0.0-0.2); Basophils Percent Manual 3 % (0-2); Blast Percent 2 %; Blastocytes Absolute 0.3 X10*3/uL; Lymphocytes Absolute Manual 0.7 X10*3/uL (1.2-4.9); Lymphocytes Percent Manual 5 % (20-40); Metamyelocytes Absolute 0.1 X10*3/uL; Metamyelocytes Percent 1 %; Monocytes Absolute Manual 1.4 X10*3/uL (0.1-1.2); Monocytes Percent Manual 10 % (2-11); Myelocytes Absolute 0.5 X10*/uL; Myelocytes Percent 4 %; Neutrophils Absolute Manual 9.7 X10*3/uL (2.0-8.3); Neutrophils Percent Manual 65 % (45-73); Nucleated Red Blood Cells 1 /100WBC (0-0)
[2021-05-22 11:03] LABS: Macrocytosis 2+ (15-30) /OIF; Microcytosis 1+ (5-14) /OIF; RBC Morphology NOTED
[2021-05-22 11:04] LABS: Basophilic Stippling 1+ (0-2) /OIF; Ovalocytes 1+ (5-14) /OIF; Polychromasia 2+ (3-5) /OIF; Schistocytes 1+ (0-2) /OIF; Sickle Cells 1+ (0-2) /OIF
[2021-05-22 11:05] LABS: Large Platelet PRESENT; Platelet Estimate NORMAL (NORMAL); Platelet Morphology Comment NOTED; Tear Drop Cells 1+ (0-2) /OIF
[2021-05-22 11:13] LABS: Alanine Aminotransferase < 6 U/L (0-31); Albumin Level 3.5 g/dL (3.5-5.0); Alkaline Phosphatase 44 U/L (39-117); Anion Gap 13 (12-20); Aspartate Amino Transferase 13 U/L (5-31); Bilirubin Total 0.6 mg/dL (0.0-1.0); Blood Urea Nitrogen 21 mg/dL (9-16); Calcium 8.9 mg/dL (8.4-10.2); Carbon Dioxide 26 mmol/L (22-29); Chloride 104 mmol/L (96-108); Estimated Glomerular Filt Rate > 60; Glucose Random 68 mg/dL (60-115); Potassium 4.7 mmol/L (3.3-5.1); Sodium 138 mmol/L (135-145); Total Protein 6.1 g/dL (6.5-8.0)
== END 2021-05-22 13:27 | disposition home or self-care (01) ==
LOC: HO.LHD 13:26
PROVIDERS: Absent Provider Internal Medicine; Visit Provider Internal Medicine Medical Oncology
DX: D46.9 Myelodysplastic syndrome, unspecified (principal)
CPT/HCPCS: 36415; 80053; 85007; 85027

== ENCOUNTER 2021-05-29 14:13 | Outpatient (REF) | payer MEDICARE, SELFPAY ==
[2021-05-29 10:18] LABS: Hematocrit 34.2 % (37.0-47.0); Mean Corpuscular HGB Conc 29.2 g/dl (31.0-35.0); Mean Corpuscular Hemoglobin 29.9 pg (27.0-33.0); Mean Corpuscular Volume 102.1 fL (80.0-98.0); Mean Platelet Volume 12.9 fL (9.4-12.3); Platelet Count 170 X10*3/uL (160-400); Red Blood Count 3.35 X10*6/uL (4.20-5.50); Red Cell Distribution Width 22.6 % (11.0-16.0); White Blood Count 8.2 X10*3/uL (4.8-10.8)
[2021-05-29 10:36] LABS: Alanine Aminotransferase 6 U/L (0-31); Albumin Level 3.4 g/dL (3.5-5.0); Alkaline Phosphatase 45 U/L (39-117); Anion Gap 10 (12-20); Aspartate Amino Transferase 14 U/L (5-31); Bilirubin Total 0.4 mg/dL (0.0-1.0); Blood Urea Nitrogen 23 mg/dL (9-16); Calcium 8.8 mg/dL (8.4-10.2); Carbon Dioxide 28 mmol/L (22-29); Chloride 102 mmol/L (96-108); Estimated Glomerular Filt Rate > 60; Glucose Random 82 mg/dL (60-115); Potassium 4.3 mmol/L (3.3-5.1); Sodium 136 mmol/L (135-145)
[2021-05-29 10:49] LABS: Band Neutrophils Percent 4 % (3-5); Basophils Abs Manual 0.2 X10*3/uL (0.0-0.2); Basophils Percent Manual 2 % (0-2); Eosinophils Absolute Manual 0.1 X10*3/uL (0.0-0.4); Eosinophils Percent Manual 1 % (0-4); Lymphocytes Absolute Manual 0.6 X10*3/uL (1.2-4.9); Lymphocytes Percent Manual 7 % (20-40); Metamyelocytes Absolute 0.1 X10*3/uL; Metamyelocytes Percent 1 %; Monocytes Percent Manual 12 % (2-11); Myelocytes Absolute 0.2 X10*/uL; Myelocytes Percent 2 %; Neutrophils Absolute Manual 6.2 X10*3/uL (2.0-8.3); Neutrophils Percent Manual 71 % (45-73); Nucleated Red Blood Cells 1 /100WBC (0-0)
[2021-05-29 10:52] LABS: RBC Morphology NOTED
[2021-05-29 10:54] LABS: Acanthocytes 1+ (0-2) /OIF; Macrocytosis 2+ (15-30) /OIF; Ovalocytes 1+ (5-14) /OIF; Polychromasia 1+ (0-2) /OIF
[2021-05-29 10:55] LABS: Platelet Estimate NORMAL (NORMAL); Platelet Morphology Comment NORMAL
== END 2021-05-29 14:14 | disposition home or self-care (01) ==
LOC: HO.LHD 14:13
PROVIDERS: Visit Provider Internal Medicine Medical Oncology
DX: D46.9 Myelodysplastic syndrome, unspecified (principal)
CPT/HCPCS: 36415; 80053; 85007; 85027

== ENCOUNTER 2021-06-05 10:31 | Outpatient (REF) | payer MEDICARE, SELFPAY ==
[2021-06-05 09:32] LABS: Hematocrit 32.5 % (37.0-47.0); Hemoglobin 9.6 g/dl (12.0-16.0); Mean Corpuscular HGB Conc 29.5 g/dl (31.0-35.0); Mean Corpuscular Volume 101.6 fL (80.0-98.0); Mean Platelet Volume 13.8 fL (9.4-12.3); Platelet Count 118 X10*3/uL (160-400); Red Cell Distribution Width 21.7 % (11.0-16.0); White Blood Count 8.9 X10*3/uL (4.8-10.8)
[2021-06-05 09:34] LABS: PLT ABN DIST 1
[2021-06-05 10:09] LABS: Band Neutrophils Percent 7 % (3-5); Basophils Abs Manual 0.6 X10*3/uL (0.0-0.2); Basophils Percent Manual 7 % (0-2); Eosinophils Absolute Manual 0.1 X10*3/uL (0.0-0.4); Eosinophils Percent Manual 1 % (0-4); Lymphocytes Absolute Manual 0.5 X10*3/uL (1.2-4.9); Lymphocytes Percent Manual 6 % (20-40); Metamyelocytes Absolute 0.4 X10*3/uL; Metamyelocytes Percent 4 %; Monocytes Absolute Manual 1.2 X10*3/uL (0.1-1.2); Monocytes Percent Manual 14 % (2-11); Myelocytes Absolute 0.3 X10*/uL; Myelocytes Percent 3 %; Neutrophils Absolute Manual 5.8 X10*3/uL (2.0-8.3); Neutrophils Percent Manual 58 % (45-73)
[2021-06-05 10:11] LABS: Acanthocytes 1+ (0-2) /OIF; Macrocytosis 1+ (5-14) /OIF; Ovalocytes 1+ (5-14) /OIF; Platelet Estimate DECREASED (NORMAL); Platelet Morphology Comment NORMAL; RBC Morphology NOTED; Stomatocytes 1+ (5-14) /OIF; Tear Drop Cells 1+ (0-2) /OIF
[2021-06-05 10:12] LABS: Polychromasia 1+ (0-2) /OIF
[2021-06-05 10:14] LABS: Alanine Aminotransferase 6 U/L (0-31); Albumin Level 3.5 g/dL (3.5-5.0); Alkaline Phosphatase 43 U/L (39-117); Anion Gap 11 (12-20); Aspartate Amino Transferase 12 U/L (5-31); Bilirubin Total 0.4 mg/dL (0.0-1.0); Blood Urea Nitrogen 18 mg/dL (9-16); Carbon Dioxide 28 mmol/L (22-29); Chloride 105 mmol/L (96-108); Estimated Glomerular Filt Rate > 60; Glucose Random 81 mg/dL (60-115); Potassium 4.2 mmol/L (3.3-5.1); Sodium 140 mmol/L (135-145); Total Protein 5.9 g/dL (6.5-8.0)
== END 2021-06-05 10:32 | disposition home or self-care (01) ==
LOC: HO.LHD 10:31
PROVIDERS: Visit Provider Internal Medicine Medical Oncology
DX: I10 Essential (primary) hypertension (principal); D46.9 Myelodysplastic syndrome, unspecified
CPT/HCPCS: 36415; 80053; 85007; 85027

== ENCOUNTER 2021-06-12 08:32 | Outpatient (REF) | payer MEDICARE, SELFPAY ==
[2021-06-12 12:11] LABS: Hematocrit 31.3 % (37.0-47.0); Hemoglobin 9.2 g/dl (12.0-16.0); Mean Corpuscular HGB Conc 29.4 g/dl (31.0-35.0); Mean Corpuscular Hemoglobin 29.8 pg (27.0-33.0); Mean Corpuscular Volume 101.3 fL (80.0-98.0); Mean Platelet Volume 12.3 fL (9.4-12.3); Platelet Count 183 X10*3/uL (160-400); Red Blood Count 3.09 X10*6/uL (4.20-5.50); Red Cell Distribution Width 22.2 % (11.0-16.0); White Blood Count 11.2 X10*3/uL (4.8-10.8)
[2021-06-12 12:41] LABS: Atypical Lymph Absolute Manual 0.1 x10*3/uL; Atypical Lymphs Percent Manual 1 % (0-6); Band Neutrophils Percent 5 % (3-5); Basophils Abs Manual 0.1 X10*3/uL (0.0-0.2); Basophils Percent Manual 1 % (0-2); Blast Percent 3 %; Blastocytes Absolute 0.3 X10*3/uL; Eosinophils Absolute Manual 0.1 X10*3/uL (0.0-0.4); Eosinophils Percent Manual 1 % (0-4); Lymphocytes Absolute Manual 0.7 X10*3/uL (1.2-4.9); Lymphocytes Percent Manual 6 % (20-40); Metamyelocytes Absolute 0.4 X10*3/uL; Metamyelocytes Percent 4 %; Monocytes Absolute Manual 1.3 X10*3/uL (0.1-1.2); Monocytes Percent Manual 12 % (2-11); Myelocytes Absolute 0.1 X10*/uL; Myelocytes Percent 1 %; Neutrophils Percent Manual 66 % (45-73)
[2021-06-12 12:42] LABS: Nucleated Red Blood Cells 1 /100WBC (0-0)
[2021-06-12 12:51] LABS: Macrocytosis 2+ (15-30) /OIF; Microcytosis 1+ (5-14) /OIF; RBC Morphology NOTED
[2021-06-12 13:01] LABS: Ovalocytes 1+ (5-14) /OIF; Tear Drop Cells 1+ (0-2) /OIF
[2021-06-12 13:02] LABS: Polychromasia 2+ (3-5) /OIF; Spherocytes 1+ (0-2) /OIF
[2021-06-12 13:03] LABS: Platelet Estimate NORMAL (NORMAL); Platelet Morphology Comment NORMAL; Schistocytes 1+ (0-2) /OIF
[2021-06-12 13:07] LABS: Alanine Aminotransferase < 6 U/L (0-31); Albumin Level 3.5 g/dL (3.5-5.0); Alkaline Phosphatase 42 U/L (39-117); Anion Gap 13 (12-20); Aspartate Amino Transferase 12 U/L (5-31); Bilirubin Total 0.5 mg/dL (0.0-1.0); Blood Urea Nitrogen 23 mg/dL (9-16); Carbon Dioxide 28 mmol/L (22-29); Chloride 102 mmol/L (96-108); Estimated Glomerular Filt Rate 57; Glucose Random 91 mg/dL (60-115); Potassium 4.1 mmol/L (3.3-5.1); Sodium 139 mmol/L (135-145); Total Protein 6.1 g/dL (6.5-8.0)
== END 2021-06-12 08:33 | disposition home or self-care (01) ==
LOC: HO.LHD 08:32
PROVIDERS: Visit Provider Internal Medicine Medical Oncology
DX: D46.9 Myelodysplastic syndrome, unspecified (principal)
CPT/HCPCS: 36415; 80053; 85007; 85025; 85027

== ENCOUNTER 2021-06-19 13:25 | Outpatient (REF) | payer MEDICARE, SELFPAY ==
[2021-06-19 11:02] LABS: Hematocrit 30.8 % (37.0-47.0); Hemoglobin 8.9 g/dl (12.0-16.0); Mean Corpuscular HGB Conc 28.9 g/dl (31.0-35.0); Mean Corpuscular Hemoglobin 30.2 pg (27.0-33.0); Mean Corpuscular Volume 104.4 fL (80.0-98.0); Mean Platelet Volume 12.5 fL (9.4-12.3); NRBC Pct Auto 0.2 /100WBC (0.0-0.2); Platelet Count 199 X10*3/uL (160-400); Red Blood Count 2.95 X10*6/uL (4.20-5.50); Red Cell Distribution Width 22.7 % (11.0-16.0); White Blood Count 11.6 X10*3/uL (4.8-10.8)
[2021-06-19 11:39] LABS: Alanine Aminotransferase < 6 U/L (0-31); Albumin Level 3.4 g/dL (3.5-5.0); Alkaline Phosphatase 48 U/L (39-117); Anion Gap 12 (12-20); Aspartate Amino Transferase 13 U/L (5-31); Bilirubin Total 0.4 mg/dL (0.0-1.0); Blood Urea Nitrogen 21 mg/dL (9-16); Calcium 8.7 mg/dL (8.4-10.2); Carbon Dioxide 27 mmol/L (22-29); Chloride 106 mmol/L (96-108); Estimated Glomerular Filt Rate > 60; Glucose Random 73 mg/dL (60-115); Potassium 4.5 mmol/L (3.3-5.1); Sodium 140 mmol/L (135-145); Total Protein 5.8 g/dL (6.5-8.0)
[2021-06-19 11:53] LABS: Band Neutrophils Percent 7 % (3-5); Basophils Abs Manual 0.2 X10*3/uL (0.0-0.2); Basophils Percent Manual 2 % (0-2); Blast Percent 1 %; Blastocytes Absolute 0.1 X10*3/uL; Eosinophils Absolute Manual 0.1 X10*3/uL (0.0-0.4); Eosinophils Percent Manual 1 % (0-4); Lymphocytes Absolute Manual 0.6 X10*3/uL (1.2-4.9); Lymphocytes Percent Manual 5 % (20-40); Metamyelocytes Absolute 0.1 X10*3/uL; Metamyelocytes Percent 1 %; Monocytes Percent Manual 9 % (2-11); Myelocytes Absolute 0.1 X10*/uL; Myelocytes Percent 1 %; Neutrophils Absolute Manual 9.2 X10*3/uL (2.0-8.3); Neutrophils Percent Manual 72 % (45-73); Promyelocytes Absolute 0.1 X10*3/uL; Promyelocytes Percent 1 %
[2021-06-19 11:54] LABS: Macrocytosis 2+ (15-30) /OIF; RBC Morphology NOTED
[2021-06-19 11:55] LABS: Hypochromasia 1+ (5-14) /OIF; Ovalocytes 1+ (5-14) /OIF; Platelet Estimate NORMAL (NORMAL); Platelet Morphology Comment NORMAL; Spherocytes 1+ (0-2) /OIF
== END 2021-06-19 13:26 | disposition home or self-care (01) ==
LOC: HO.LHD 13:25
PROVIDERS: Absent Provider Internal Medicine; Visit Provider Internal Medicine Medical Oncology
DX: D46.9 Myelodysplastic syndrome, unspecified (principal)
CPT/HCPCS: 36415; 80053; 85007; 85025; 85027

== ENCOUNTER 2021-06-26 07:27 | Outpatient (REF) | payer MEDICARE, SELFPAY ==
[2021-06-26 10:33] LABS: Hematocrit 30.1 % (37.0-47.0); Hemoglobin 8.7 g/dl (12.0-16.0); Mean Corpuscular HGB Conc 28.9 g/dl (31.0-35.0); Mean Corpuscular Hemoglobin 30.3 pg (27.0-33.0); Mean Corpuscular Volume 104.9 fL (80.0-98.0); Mean Platelet Volume 12.3 fL (9.4-12.3); Platelet Count 210 X10*3/uL (160-400); Red Blood Count 2.87 X10*6/uL (4.20-5.50); Red Cell Distribution Width 22.2 % (11.0-16.0); White Blood Count 10.5 X10*3/uL (4.8-10.8)
[2021-06-26 11:02] LABS: Band Neutrophils Percent 1 % (3-5); Basophils Abs Manual 0.2 X10*3/uL (0.0-0.2); Basophils Percent Manual 2 % (0-2); Blast Percent 1 %; Blastocytes Absolute 0.1 X10*3/uL; Eosinophils Absolute Manual 0.4 X10*3/uL (0.0-0.4); Eosinophils Percent Manual 4 % (0-4); Lymphocytes Absolute Manual 1.3 X10*3/uL (1.2-4.9); Lymphocytes Percent Manual 12 % (20-40); Metamyelocytes Absolute 0.2 X10*3/uL; Metamyelocytes Percent 2 %; Monocytes Absolute Manual 1.1 X10*3/uL (0.1-1.2); Monocytes Percent Manual 10 % (2-11); Myelocytes Absolute 0.2 X10*/uL; Myelocytes Percent 2 %; Neutrophils Percent Manual 66 % (45-73)
[2021-06-26 11:04] LABS: Macrocytosis 1+ (5-14) /OIF; Microcytosis 1+ (5-14) /OIF; RBC Morphology NOTED
[2021-06-26 11:05] LABS: Polychromasia 1+ (0-2) /OIF; Spherocytes 1+ (0-2) /OIF
[2021-06-26 11:06] LABS: Large Platelet PRESENT; Platelet Estimate NORMAL (NORMAL); Platelet Morphology Comment NOTED
== END 2021-06-26 07:28 | disposition home or self-care (01) ==
LOC: HO.LHD 07:27
PROVIDERS: Visit Provider Internal Medicine
DX: D46.9 Myelodysplastic syndrome, unspecified (principal)
CPT/HCPCS: 36415; 85007; 85027

== ENCOUNTER 2021-07-03 11:14 | Outpatient (REF) | payer MEDICARE, SELFPAY ==
[2021-07-03 11:56] LABS: Hemoglobin 9.5 g/dl (12.0-16.0); Mean Corpuscular HGB Conc 28.8 g/dl (31.0-35.0); Mean Corpuscular Hemoglobin 30.8 pg (27.0-33.0); Mean Corpuscular Volume 107.1 fL (80.0-98.0); Mean Platelet Volume 12.7 fL (9.4-12.3); Platelet Count 164 X10*3/uL (160-400); Red Blood Count 3.08 X10*6/uL (4.20-5.50); Red Cell Distribution Width 21.9 % (11.0-16.0); White Blood Count 10.7 X10*3/uL (4.8-10.8)
[2021-07-03 13:40] LABS: Band Neutrophils Percent 8 % (3-5); Basophils Abs Manual 0.1 X10*3/uL (0.0-0.2); Basophils Percent Manual 1 % (0-2); Blast Percent 3 %; Blastocytes Absolute 0.3 X10*3/uL; Eosinophils Absolute Manual 0.2 X10*3/uL (0.0-0.4); Eosinophils Percent Manual 2 % (0-4); Lymphocytes Percent Manual 9 % (20-40); Macrocytosis 2+ (15-30) /OIF; Monocytes Absolute Manual 1.3 X10*3/uL (0.1-1.2); Monocytes Percent Manual 12 % (2-11); Myelocytes Absolute 0.4 X10*/uL; Myelocytes Percent 4 %; Neutrophils Absolute Manual 7.3 X10*3/uL (2.0-8.3); Neutrophils Percent Manual 60 % (45-73); Promyelocytes Absolute 0.1 X10*3/uL; Promyelocytes Percent 1 %; RBC Morphology NORMAL
[2021-07-03 13:41] LABS: Giant Platelet PRESENT; Microcytosis 1+ (5-14) /OIF; Platelet Estimate NORMAL (NORMAL); Platelet Morphology Comment NOTED; Schistocytes 1+ (0-2) /OIF; Tear Drop Cells 2+ (3-5) /OIF
== END 2021-07-03 11:15 | disposition home or self-care (01) ==
LOC: HO.LHD 11:14
PROVIDERS: Internal Medicine; Visit Provider Internal Medicine Medical Oncology
DX: D46.9 Myelodysplastic syndrome, unspecified (principal)
CPT/HCPCS: 36415; 85007; 85027

== ENCOUNTER 2021-07-04 10:06 | Outpatient (REF) | payer MEDICARE, SELFPAY ==
[2021-07-04 10:13] LABS: Appearance Urine CLOUDY; Color Urine YELLOW; Glucose Urine UA NEG (NEG); Leukocyte Esterase Urine 1+ (NEG); Nitrite Urine POS (NEG); UACC Culture Trigger YES; Urine Blood NEG (NEG); Urine Ketones NEG (NEG); Urine Protein TRACE MG/DL (NEG-TRACE)
[2021-07-04 10:17] LABS: Bacteria Urine 4+ /LPF; Calcium Oxalate Crystals Urine TRACE /LPF; RBC Urine 0 /HPF (0); Urine Talc Crystals 4+ /LPF; WBC Urine 30-49 /HPF (0-4)
== END 2021-07-04 10:07 | disposition home or self-care (01) ==
LOC: HO.LNP 10:06
PROVIDERS: Visit Provider Internal Medicine
DX: R30.0 Dysuria (principal)
CPT/HCPCS: 81001; 87086; 87088; 87186

== ENCOUNTER 2021-07-10 06:02 | Outpatient (REF) | payer MEDICARE, SELFPAY ==
[2021-07-10 10:05] LABS: Hematocrit 31.2 % (37.0-47.0); Mean Corpuscular HGB Conc 28.8 g/dl (31.0-35.0); Mean Corpuscular Hemoglobin 30.9 pg (27.0-33.0); Mean Corpuscular Volume 107.2 fL (80.0-98.0); Mean Platelet Volume 12.8 fL (9.4-12.3); Platelet Count 141 X10*3/uL (160-400); Red Blood Count 2.91 X10*6/uL (4.20-5.50); Red Cell Distribution Width 21.3 % (11.0-16.0); White Blood Count 9.7 X10*3/uL (4.8-10.8)
[2021-07-10 10:59] LABS: Band Neutrophils Percent 14 % (3-5); Basophils Abs Manual 0.3 X10*3/uL (0.0-0.2); Basophils Percent Manual 3 % (0-2); Eosinophils Absolute Manual 0.1 X10*3/uL (0.0-0.4); Eosinophils Percent Manual 1 % (0-4); Lymphocytes Absolute Manual 0.7 X10*3/uL (1.2-4.9); Lymphocytes Percent Manual 7 % (20-40); Metamyelocytes Absolute 0.1 X10*3/uL; Metamyelocytes Percent 1 %; Monocytes Absolute Manual 0.9 X10*3/uL (0.1-1.2); Monocytes Percent Manual 9 % (2-11); Myelocytes Absolute 0.2 X10*/uL; Myelocytes Percent 2 %; Neutrophils Absolute Manual 7.5 X10*3/uL (2.0-8.3); Neutrophils Percent Manual 63 % (45-73); Nucleated Red Blood Cells 1 /100WBC (0-0)
[2021-07-10 11:01] LABS: Acanthocytes 1+ (0-2) /OIF; Ovalocytes 1+ (5-14) /OIF; Polychromasia 1+ (0-2) /OIF; Schistocytes 1+ (0-2) /OIF; Tear Drop Cells 1+ (0-2) /OIF
[2021-07-10 11:02] LABS: Large Platelet PRESENT; Platelet Estimate SLIGHTLY DECREASED (NORMAL); Platelet Morphology Comment NOTED
[2021-07-10 11:38] LABS: RBC Morphology NOTED
[2021-07-10 12:48] LABS: Appearance Urine HAZY; Color Urine YELLOW; Glucose Urine UA NEG (NEG); Leukocyte Esterase Urine NEG (NEG); Nitrite Urine NEG (NEG); Specific Gravity - Urine 1.025 (1.005-1.025); Urine Blood NEG (NEG); Urine Ketones NEG (NEG); Urine Protein NEG (NEG-TRACE)
== END 2021-07-10 06:03 | disposition home or self-care (01) ==
LOC: HO.LHD 06:02
PROVIDERS: Absent Provider Internal Medicine; Visit Provider Internal Medicine Medical Oncology
DX: D46.9 Myelodysplastic syndrome, unspecified (principal); R30.0 Dysuria
CPT/HCPCS: 36415; 81003; 85007; 85027

== ENCOUNTER 2021-07-17 12:00 | Outpatient (REF) | payer MEDICARE, SELFPAY ==
[2021-07-17 11:24] LABS: Hematocrit 36.1 % (37.0-47.0); Hemoglobin 10.3 g/dl (12.0-16.0); Mean Corpuscular HGB Conc 28.5 g/dl (31.0-35.0); Mean Corpuscular Hemoglobin 30.7 pg (27.0-33.0); Mean Corpuscular Volume 107.4 fL (80.0-98.0); Mean Platelet Volume 12.2 fL (9.4-12.3); Platelet Count 172 X10*3/uL (160-400); Red Blood Count 3.36 X10*6/uL (4.20-5.50); Red Cell Distribution Width 20.7 % (11.0-16.0); White Blood Count 9.5 X10*3/uL (4.8-10.8)
[2021-07-17 12:23] LABS: Atypical Lymph Absolute Manual 0.1 x10*3/uL; Atypical Lymphs Percent Manual 1 % (0-6); Band Neutrophils Percent 5 % (3-5); Basophils Abs Manual 0.2 X10*3/uL (0.0-0.2); Basophils Percent Manual 2 % (0-2); Blast Percent 1 %; Blastocytes Absolute 0.1 X10*3/uL; Eosinophils Absolute Manual 0.2 X10*3/uL (0.0-0.4); Eosinophils Percent Manual 2 % (0-4); Lymphocytes Absolute Manual 0.6 X10*3/uL (1.2-4.9); Lymphocytes Percent Manual 6 % (20-40); Metamyelocytes Absolute 0.1 X10*3/uL; Metamyelocytes Percent 1 %; Monocytes Absolute Manual 1.3 X10*3/uL (0.1-1.2); Monocytes Percent Manual 14 % (2-11); Myelocytes Absolute 0.1 X10*/uL; Myelocytes Percent 1 %; Neutrophils Absolute Manual 6.8 X10*3/uL (2.0-8.3); Neutrophils Percent Manual 67 % (45-73)
[2021-07-17 12:24] LABS: Hypochromasia 1+ (5-14) /OIF; Macrocytosis 1+ (5-14) /OIF; RBC Morphology NOTED
[2021-07-17 12:25] LABS: Acanthocytes 1+ (0-2) /OIF; Platelet Estimate NORMAL (NORMAL); Platelet Morphology Comment NORMAL; Tear Drop Cells 2+ (3-5) /OIF
== END 2021-07-17 12:01 | disposition home or self-care (01) ==
LOC: HO.LHD 12:00
PROVIDERS: Internal Medicine; Visit Provider Internal Medicine Medical Oncology
DX: D46.9 Myelodysplastic syndrome, unspecified (principal)
CPT/HCPCS: 36415; 85007; 85027

== ENCOUNTER 2021-07-24 10:57 | Outpatient (REF) | payer MEDICARE, SELFPAY ==
[2021-07-24 11:22] LABS: Hematocrit 35.5 % (37.0-47.0); Hemoglobin 10.3 g/dl (12.0-16.0); Mean Corpuscular Hemoglobin 31.3 pg (27.0-33.0); Mean Corpuscular Volume 107.9 fL (80.0-98.0); Mean Platelet Volume 12.3 fL (9.4-12.3); Platelet Count 151 X10*3/uL (160-400); Red Blood Count 3.29 X10*6/uL (4.20-5.50); Red Cell Distribution Width 20.5 % (11.0-16.0); White Blood Count 9.4 X10*3/uL (4.8-10.8)
[2021-07-24 12:48] LABS: Band Neutrophils Percent 4 % (3-5); Basophils Abs Manual 0.3 X10*3/uL (0.0-0.2); Basophils Percent Manual 3 % (0-2); Lymphocytes Absolute Manual 0.4 X10*3/uL (1.2-4.9); Lymphocytes Percent Manual 4 % (20-40); Metamyelocytes Absolute 0.1 X10*3/uL; Metamyelocytes Percent 1 %; Monocytes Percent Manual 11 % (2-11); Myelocytes Absolute 0.2 X10*/uL; Myelocytes Percent 2 %; Neutrophils Absolute Manual 7.3 X10*3/uL (2.0-8.3); Neutrophils Percent Manual 74 % (45-73); Promyelocytes Absolute 0.1 X10*3/uL; Promyelocytes Percent 1 %
[2021-07-24 12:49] LABS: RBC Morphology NOTED
[2021-07-24 12:50] LABS: Ovalocytes 1+ (5-14) /OIF
[2021-07-24 12:51] LABS: Macrocytosis 2+ (15-30) /OIF; Microcytosis 1+ (5-14) /OIF; Platelet Estimate SLIGHTLY DECREASED (NORMAL); Platelet Morphology Comment NORMAL
== END 2021-07-24 10:58 | disposition home or self-care (01) ==
LOC: HO.LHD 10:57
PROVIDERS: Internal Medicine; Visit Provider Internal Medicine Medical Oncology
DX: D46.9 Myelodysplastic syndrome, unspecified (principal)
CPT/HCPCS: 36415; 85007; 85027

== ENCOUNTER 2021-07-31 11:33 | Outpatient (REF) | payer MEDICARE, SELFPAY ==
[2021-07-31 11:48] LABS: Basophils Absolute Auto 0.1 X10*3/uL (0.0-0.2); Basophils Percent Auto 0.9 % (0-2); Eosinophils Absolute Auto 0.1 X10*3/uL (0.0-0.4); Eosinophils Percent Auto 1.3 % (0-4); Hematocrit 33.5 % (37.0-47.0); Hemoglobin 9.7 g/dl (12.0-16.0); Imm Gran Abs Auto 0.36 X10*3/uL (0.00-0.03); Imm Gran Pct Auto 4.7 % (0.0-0.4); Lymphocytes Absolute Auto 0.4 X10*3/uL (1.2-4.9); Lymphocytes Percent Auto 5.1 % (20-40); MANUAL DIFF FLAG SCAN; Mean Corpuscular Hemoglobin 31.7 pg (27.0-33.0); Mean Corpuscular Volume 109.5 fL (80.0-98.0); Monocytes Absolute Auto 1.8 X10*3/uL (0.1-1.2); Neutrophils Absolute Auto 4.9 x10*3/uL (2.0-8.3); Platelet Count 135 X10*3/uL (160-400); Red Blood Count 3.06 X10*6/uL (4.20-5.50); Red Cell Distribution Width 20.5 % (11.0-16.0); SCAN SMEAR FLAG 1; White Blood Count 7.7 X10*3/uL (4.8-10.8)
[2021-07-31 12:15] LABS: Alanine Aminotransferase 8 U/L (0-31); Albumin Level 3.4 g/dL (3.5-5.0); Alkaline Phosphatase 37 U/L (39-117); Anion Gap 11 (12-20); Aspartate Amino Transferase 11 U/L (5-31); Bilirubin Total 0.3 mg/dL (0.0-1.0); Blood Urea Nitrogen 24 mg/dL (9-16); Calcium 8.6 mg/dL (8.4-10.2); Carbon Dioxide 26 mmol/L (22-29); Chloride 108 mmol/L (96-108); Estimated Glomerular Filt Rate 51; Glucose Random 66 mg/dL (60-115); Potassium 4.3 mmol/L (3.3-5.1); Sodium 141 mmol/L (135-145); Total Protein 5.8 g/dL (6.5-8.0)
[2021-07-31 12:51] LABS: SLIDE REVIEW VERIFIED
== END 2021-07-31 11:34 | disposition home or self-care (01) ==
LOC: HO.LHD 11:33
PROVIDERS: Internal Medicine; Visit Provider Internal Medicine Medical Oncology
DX: D46.9 Myelodysplastic syndrome, unspecified (principal); I10 Essential (primary) hypertension
CPT/HCPCS: 36415; 80053; 85025

== ENCOUNTER 2021-08-07 06:01 | Outpatient (REF) | payer MEDICARE, SELFPAY ==
[2021-08-07 10:59] LABS: Hematocrit 31.8 % (37.0-47.0); Hemoglobin 9.5 g/dl (12.0-16.0); Mean Corpuscular HGB Conc 29.9 g/dl (31.0-35.0); Mean Corpuscular Hemoglobin 32.1 pg (27.0-33.0); Mean Corpuscular Volume 107.4 fL (80.0-98.0); Mean Platelet Volume 12.8 fL (9.4-12.3); Platelet Count 111 X10*3/uL (160-400); Red Blood Count 2.96 X10*6/uL (4.20-5.50); Red Cell Distribution Width 20.1 % (11.0-16.0); White Blood Count 8.7 X10*3/uL (4.8-10.8)
[2021-08-07 12:10] LABS: Band Neutrophils Percent 2 % (3-5); Basophils Abs Manual 0.3 X10*3/uL (0.0-0.2); Basophils Percent Manual 3 % (0-2); Eosinophils Absolute Manual 0.1 X10*3/uL (0.0-0.4); Eosinophils Percent Manual 1 % (0-4); Lymphocytes Absolute Manual 0.9 X10*3/uL (1.2-4.9); Lymphocytes Percent Manual 10 % (20-40); Monocytes Absolute Manual 2.3 X10*3/uL (0.1-1.2); Monocytes Percent Manual 26 % (2-11); Neutrophils Absolute Manual 5.2 X10*3/uL (2.0-8.3); Neutrophils Percent Manual 58 % (45-73); Nucleated Red Blood Cells 1 /100WBC (0-0)
[2021-08-07 12:12] LABS: Hypochromasia 1+ (5-14) /OIF; Large Platelet PRESENT; Macrocytosis 2+ (15-30) /OIF; Platelet Estimate DECREASED (NORMAL); Platelet Morphology Comment NOTED; Polychromasia 1+ (0-2) /OIF; RBC Morphology NOTED
== END 2021-08-07 06:02 | disposition home or self-care (01) ==
LOC: HO.LHD 06:01
PROVIDERS: Visit Provider Internal Medicine
DX: D46.9 Myelodysplastic syndrome, unspecified (principal)
CPT/HCPCS: 36415; 85007; 85025; 85027

== ENCOUNTER 2021-08-14 07:17 | Outpatient (REF) | payer MEDICARE, SELFPAY ==
[2021-08-14 10:59] LABS: Hematocrit 34.1 % (37.0-47.0); Hemoglobin 10.1 g/dl (12.0-16.0); Mean Corpuscular HGB Conc 29.6 g/dl (31.0-35.0); Mean Corpuscular Hemoglobin 31.4 pg (27.0-33.0); Mean Corpuscular Volume 105.9 fL (80.0-98.0); Mean Platelet Volume 12.3 fL (9.4-12.3); Platelet Count 133 X10*3/uL (160-400); Red Blood Count 3.22 X10*6/uL (4.20-5.50); White Blood Count 11.8 X10*3/uL (4.8-10.8)
[2021-08-14 11:55] LABS: Band Neutrophils Percent 7 % (3-5); Basophils Abs Manual 0.1 X10*3/uL (0.0-0.2); Basophils Percent Manual 1 % (0-2); Lymphocytes Absolute Manual 0.2 X10*3/uL (1.2-4.9); Lymphocytes Percent Manual 2 % (20-40); Metamyelocytes Absolute 0.2 X10*3/uL; Metamyelocytes Percent 2 %; Monocytes Absolute Manual 1.7 X10*3/uL (0.1-1.2); Monocytes Percent Manual 14 % (2-11); Myelocytes Absolute 0.1 X10*/uL; Myelocytes Percent 1 %; Neutrophils Absolute Manual 9.4 X10*3/uL (2.0-8.3); Neutrophils Percent Manual 73 % (45-73)
[2021-08-14 11:57] LABS: Macrocytosis 2+ (15-30) /OIF; Platelet Estimate DECREASED (NORMAL); Platelet Morphology Comment NORMAL; RBC Morphology NORMAL
[2021-08-14 11:58] LABS: Acanthocytes 1+ (0-2) /OIF; Ovalocytes 1+ (5-14) /OIF; Tear Drop Cells 1+ (0-2) /OIF
== END 2021-08-14 07:18 | disposition home or self-care (01) ==
LOC: HO.LHD 07:17
PROVIDERS: Visit Provider Internal Medicine Medical Oncology
DX: D46.9 Myelodysplastic syndrome, unspecified (principal)
CPT/HCPCS: 36415; 85007; 85025; 85027

== ENCOUNTER 2021-08-21 10:33 | Outpatient (REF) | payer MEDICARE, SELFPAY ==
[2021-08-21 10:17] LABS: Hematocrit 39.5 % (37.0-47.0); Hemoglobin 11.6 g/dl (12.0-16.0); Mean Corpuscular HGB Conc 29.4 g/dl (31.0-35.0); Mean Corpuscular Hemoglobin 31.6 pg (27.0-33.0); Mean Corpuscular Volume 107.6 fL (80.0-98.0); Mean Platelet Volume 12.8 fL (9.4-12.3); Platelet Count 169 X10*3/uL (160-400); Red Blood Count 3.67 X10*6/uL (4.20-5.50); Red Cell Distribution Width 20.3 % (11.0-16.0)
[2021-08-21 11:04] LABS: Alanine Aminotransferase 7 U/L (0-31); Albumin Level 3.8 g/dL (3.5-5.0); Alkaline Phosphatase 40 U/L (39-117); Anion Gap 12 (12-20); Aspartate Amino Transferase 14 U/L (5-31); Bilirubin Total 0.8 mg/dL (0.0-1.0); Blood Urea Nitrogen 28 mg/dL (9-16); Carbon Dioxide 29 mmol/L (22-29); Chloride 102 mmol/L (96-108); Estimated Glomerular Filt Rate 50; Glucose Random 89 mg/dL (60-115); Potassium 3.9 mmol/L (3.3-5.1); Sodium 139 mmol/L (135-145); Total Protein 6.4 g/dL (6.5-8.0)
[2021-08-21 11:10] LABS: Band Neutrophils Percent 8 % (3-5); Basophils Abs Manual 1.1 X10*3/uL (0.0-0.2); Basophils Percent Manual 6 % (0-2); Blast Percent 1 %; Blastocytes Absolute 0.2 X10*3/uL; Eosinophils Absolute Manual 0.4 X10*3/uL (0.0-0.4); Eosinophils Percent Manual 2 % (0-4); Lymphocytes Absolute Manual 1.1 X10*3/uL (1.2-4.9); Lymphocytes Percent Manual 6 % (20-40); Metamyelocytes Absolute 0.2 X10*3/uL; Metamyelocytes Percent 1 %; Monocytes Absolute Manual 2.5 X10*3/uL (0.1-1.2); Monocytes Percent Manual 14 % (2-11); Myelocytes Absolute 0.5 X10*/uL; Myelocytes Percent 3 %; Neutrophils Absolute Manual 12.1 X10*3/uL (2.0-8.3); Neutrophils Percent Manual 59 % (45-73)
[2021-08-21 11:13] LABS: RBC Morphology NOTED
[2021-08-21 11:14] LABS: Macrocytosis 2+ (15-30) /OIF; Spherocytes 2+ (3-5) /OIF
[2021-08-21 11:15] LABS: Platelet Estimate NORMAL (NORMAL); Platelet Morphology Comment NORMAL; Polychromasia 1+ (0-2) /OIF; Tear Drop Cells 1+ (0-2) /OIF
== END 2021-08-21 10:34 | disposition home or self-care (01) ==
LOC: HO.LHD 10:33
PROVIDERS: Visit Provider Internal Medicine Medical Oncology
DX: D46.9 Myelodysplastic syndrome, unspecified (principal)
CPT/HCPCS: 36415; 80053; 85007; 85027

== ENCOUNTER 2021-08-26 07:59 | Outpatient (RCR) | payer MEDICARE, SELFPAY | END 2021-11-11 12:00 | disposition home or self-care (01) | LOC: HO.WCC 07:59 | PROVIDERS: PCP Internal Medicine; Visit Provider Physician Assistant | DX: I70.245 Atherosclerosis of native arteries of left leg with ulceration of other part of foot (principal); L97.522 Non-pressure chronic ulcer of other part of left foot with fat layer exposed; G62.9 Polyneuropathy, unspecified; D46.9 Myelodysplastic syndrome, unspecified; E44.1 Mild protein-calorie malnutrition; I11.0 Hypertensive heart disease with heart failure; I50.9 Heart failure, unspecified; E03.9 Hypothyroidism, unspecified; J44.9 Chronic obstructive pulmonary disease, unspecified; Z87.891 Personal history of nicotine dependence; Z86.73 Personal history of transient ischemic attack (TIA), and cerebral infarction without residual deficits | CPT/HCPCS: 11042; 11043; 97597; 97602 ==

== ENCOUNTER 2021-08-28 | Outpatient (REF) | payer MEDICARE, SELFPAY ==
[2021-08-28 10:54] LABS: Hematocrit 36.7 % (37.0-47.0); Hemoglobin 10.8 g/dl (12.0-16.0); Mean Corpuscular HGB Conc 29.4 g/dl (31.0-35.0); Mean Corpuscular Hemoglobin 30.9 pg (27.0-33.0); Mean Corpuscular Volume 104.9 fL (80.0-98.0); Mean Platelet Volume 12.2 fL (9.4-12.3); Platelet Count 168 X10*3/uL (160-400); Red Cell Distribution Width 18.3 % (11.0-16.0); White Blood Count 17.6 X10*3/uL (4.8-10.8)
[2021-08-28 11:53] LABS: Band Neutrophils Percent 5 % (3-5); Basophils Abs Manual 0.7 X10*3/uL (0.0-0.2); Basophils Percent Manual 4 % (0-2); Lymphocytes Absolute Manual 0.5 X10*3/uL (1.2-4.9); Lymphocytes Percent Manual 3 % (20-40); Metamyelocytes Absolute 0.7 X10*3/uL; Metamyelocytes Percent 4 %; Monocytes Absolute Manual 2.1 X10*3/uL (0.1-1.2); Monocytes Percent Manual 12 % (2-11); Myelocytes Absolute 0.5 X10*/uL; Myelocytes Percent 3 %; Neutrophils Percent Manual 69 % (45-73)
[2021-08-28 11:57] LABS: Macrocytosis 1+ (5-14) /OIF; Microcytosis 1+ (5-14) /OIF; Platelet Estimate NORMAL (NORMAL); Platelet Morphology Comment NOTED; Polychromasia 1+ (0-2) /OIF; RBC Morphology NORMAL; Tear Drop Cells 1+ (0-2) /OIF
[2021-08-28 11:58] LABS: Large Platelet PRESENT
== END 2021-08-28 00:01 | disposition home or self-care (01) ==
LOC: HO.LHD
PROVIDERS: Internal Medicine; Visit Provider Internal Medicine Medical Oncology
DX: D46.9 Myelodysplastic syndrome, unspecified (principal)
CPT/HCPCS: 36415; 85007; 85025; 85027

== ENCOUNTER 2021-09-04 07:03 | Outpatient (REF) | payer MEDICARE, SELFPAY ==
[2021-09-04 10:52] LABS: Hemoglobin 10.4 g/dl (12.0-16.0); Mean Corpuscular HGB Conc 29.7 g/dl (31.0-35.0); Mean Corpuscular Hemoglobin 30.8 pg (27.0-33.0); Mean Corpuscular Volume 103.6 fL (80.0-98.0); Mean Platelet Volume 12.8 fL (9.4-12.3); Platelet Count 169 X10*3/uL (160-400); Red Blood Count 3.38 X10*6/uL (4.20-5.50); Red Cell Distribution Width 17.7 % (11.0-16.0)
[2021-09-04 11:43] LABS: Band Neutrophils Percent 18 % (3-5); Basophils Abs Manual 0.5 X10*3/uL (0.0-0.2); Basophils Percent Manual 2 % (0-2); Eosinophils Absolute Manual 0.3 X10*3/uL (0.0-0.4); Eosinophils Percent Manual 1 % (0-4); Lymphocytes Absolute Manual 0.5 X10*3/uL (1.2-4.9); Lymphocytes Percent Manual 2 % (20-40); Metamyelocytes Percent 4 %; Monocytes Percent Manual 8 % (2-11); Myelocytes Absolute 0.3 X10*/uL; Myelocytes Percent 1 %; Neutrophils Absolute Manual 20.3 X10*3/uL (2.0-8.3); Neutrophils Percent Manual 63 % (45-73); Promyelocytes Absolute 0.3 X10*3/uL; Promyelocytes Percent 1 %
[2021-09-04 11:46] LABS: Large Platelet PRESENT; Platelet Estimate NORMAL (NORMAL); RBC Morphology NOTED
[2021-09-04 11:47] LABS: Macrocytosis 1+ (5-14) /OIF; Microcytosis 1+ (5-14) /OIF; Platelet Morphology Comment NOTE
[2021-09-04 11:48] LABS: Acanthocytes 1+ (0-2) /OIF; Ovalocytes 1+ (5-14) /OIF; Polychromasia 1+ (0-2) /OIF; Tear Drop Cells 1+ (0-2) /OIF
== END 2021-09-04 07:04 | disposition home or self-care (01) ==
LOC: HO.LHD 07:03
PROVIDERS: Absent Provider Internal Medicine Medical Oncology; Visit Provider Internal Medicine
DX: D46.9 Myelodysplastic syndrome, unspecified (principal)
CPT/HCPCS: 36415; 85007; 85027

== ENCOUNTER 2021-09-11 13:12 | Outpatient (REF) | payer MEDICARE, SELFPAY ==
[2021-09-11 11:32] LABS: Hematocrit 29.6 % (37.0-47.0); Hemoglobin 8.6 g/dl (12.0-16.0); Mean Corpuscular HGB Conc 29.1 g/dl (31.0-35.0); Mean Corpuscular Hemoglobin 30.7 pg (27.0-33.0); Mean Corpuscular Volume 105.7 fL (80.0-98.0); NRBC Pct Auto 0.1 /100WBC (0.0-0.2); PLT CLUMP 1; Red Cell Distribution Width 18.1 % (11.0-16.0)
[2021-09-11 12:43] LABS: Band Neutrophils Percent 12 % (3-5); Basophils Percent Manual 4 % (0-2); Eosinophils Percent Manual 1 % (0-4); Lymphocytes Percent Manual 5 % (20-40); Metamyelocytes Percent 13 %; Monocytes Percent Manual 7 % (2-11); Myelocytes Percent 9 %; Neutrophils Percent Manual 45 % (45-73); Promyelocytes Percent 4 %
[2021-09-11 12:44] LABS: Large Platelet PRESENT; Platelet Estimate DECREASED (NORMAL)
[2021-09-11 12:45] LABS: Hypochromasia 1+ (5-14) /OIF
[2021-09-11 12:46] LABS: Macrocytosis 1+ (5-14) /OIF; Microcytosis 1+ (5-14) /OIF; Platelet Morphology Comment NOTE; Polychromasia 1+ (0-2) /OIF; Tear Drop Cells 1+ (0-2) /OIF
[2021-09-12 08:32] LABS: Basophils Abs Manual 1.2 X10*3/uL (0.0-0.2); Eosinophils Absolute Manual 0.3 X10*3/uL (0.0-0.4); Lymphocytes Absolute Manual 1.5 X10*3/uL (1.2-4.9); Monocytes Absolute Manual 2.2 X10*3/uL (0.1-1.2); Myelocytes Absolute 2.8 X10*/uL; Neutrophils Absolute Manual 17.6 X10*3/uL (2.0-8.3); Promyelocytes Absolute 1.2 X10*3/uL; White Blood Count 30.9 X10*3/uL (4.8-10.8)
[2021-09-12 08:33] LABS: Platelet Count 102 X10*3/uL (160-400)
[2021-09-15 08:16] LABS: RBC Morphology NOTED
== END 2021-09-11 13:13 | disposition home or self-care (01) ==
LOC: HO.LHD 13:12
PROVIDERS: Absent Provider Internal Medicine; Visit Provider Internal Medicine Medical Oncology
DX: D46.9 Myelodysplastic syndrome, unspecified (principal)
CPT/HCPCS: 36415; 85007; 85027

== ENCOUNTER 2021-09-18 07:17 | Outpatient (REF) | payer MEDICARE, SELFPAY ==
[2021-09-18 09:45] LABS: Hematocrit 28.9 % (37.0-47.0); Hemoglobin 8.7 g/dl (12.0-16.0); Mean Corpuscular HGB Conc 30.1 g/dl (31.0-35.0); Mean Corpuscular Hemoglobin 31.3 pg (27.0-33.0); NRBC Pct Auto 0.3 /100WBC (0.0-0.2); Platelet Count 212 X10*3/uL (160-400); Red Blood Count 2.78 X10*6/uL (4.20-5.50); Red Cell Distribution Width 19.7 % (11.0-16.0)
[2021-09-18 09:52] LABS: White Blood Count 60.3 X10*3/uL (4.8-10.8)
[2021-09-18 10:25] LABS: Band Neutrophils Percent 16 % (3-5); Basophils Abs Manual 0.6 X10*3/uL (0.0-0.2); Basophils Percent Manual 1 % (0-2); Blast Percent 1 %; Blastocytes Absolute 0.6 X10*3/uL; Eosinophils Absolute Manual 0.6 X10*3/uL (0.0-0.4); Eosinophils Percent Manual 1 % (0-4); Lymphocytes Absolute Manual 3.6 X10*3/uL (1.2-4.9); Lymphocytes Percent Manual 6 % (20-40); Metamyelocytes Absolute 3.6 X10*3/uL; Metamyelocytes Percent 6 %; Monocytes Absolute Manual 1.8 X10*3/uL (0.1-1.2); Monocytes Percent Manual 3 % (2-11); Myelocytes Absolute 4.8 X10*/uL; Myelocytes Percent 8 %; Neutrophils Absolute Manual 44.6 X10*3/uL (2.0-8.3); Neutrophils Percent Manual 58 % (45-73); Nucleated Red Blood Cells 1 /100WBC (0-0)
[2021-09-18 10:26] LABS: Alanine Aminotransferase 8 U/L (0-31); Albumin Level 3.5 g/dL (3.5-5.0); Alkaline Phosphatase 54 U/L (39-117); Anion Gap 14 (12-20); Aspartate Amino Transferase 19 U/L (5-31); Bilirubin Total 0.4 mg/dL (0.0-1.0); Blood Urea Nitrogen 23 mg/dL (9-16); Calcium 8.7 mg/dL (8.4-10.2); Carbon Dioxide 23 mmol/L (22-29); Chloride 105 mmol/L (96-108); Estimated Glomerular Filt Rate 51; Glucose Random 70 mg/dL (60-115); Potassium 4.2 mmol/L (3.3-5.1); Sodium 138 mmol/L (135-145); Total Protein 6.3 g/dL (6.5-8.0)
[2021-09-18 10:28] LABS: Macrocytosis 2+ (15-30) /OIF; RBC Morphology NOTED
[2021-09-18 10:29] LABS: Polychromasia 2+ (3-5) /OIF
[2021-09-18 10:30] LABS: Hypochromasia 1+ (5-14) /OIF
[2021-09-18 10:31] LABS: Ovalocytes 1+ (5-14) /OIF; Tear Drop Cells 2+ (3-5) /OIF
[2021-09-18 10:33] LABS: Platelet Estimate NORMAL (NORMAL); Platelet Morphology Comment NORMAL
== END 2021-09-18 07:18 | disposition home or self-care (01) ==
LOC: HO.LHD 07:17
PROVIDERS: Absent Provider Internal Medicine Medical Oncology; Visit Provider Internal Medicine
DX: D46.9 Myelodysplastic syndrome, unspecified (principal)
CPT/HCPCS: 36415; 80053; 85007; 85027

== ENCOUNTER 2021-09-24 12:29 | Outpatient (REF) | payer MEDICARE, SELFPAY ==
--- NOTE | ~2021-09-24 | US_ITS ---
EXAMINATION: ULTRASOUND LOWER EXTREMITY ARTERIAL, LEFT TECHNIQUE: COLOR-FLOW DUPLEX IMAGING OF THE LEFT LOWER EXTREMITY ARTERIAL SYSTEM. VELOCITY MEASUREMENTS THROUGHOUT THE FEMORAL ARTERIES. CLINICAL INFORMATION: Nonhealing wound on the history of hypertension and hyperlipidemia COMPARISON: None. FINDINGS: Atherosclerotic calcifications are noted throughout the left lower extremity. LEFT FEMORAL RUNOFF VELOCITIES: Common femoral artery measures 425cm/s and is biphasic. Collateral arteries visualized. Profunda femoral artery measures 119cm/s and is biphasic. Proximal superficial femoral artery measures 139 cm/s and is monophasic. Mid superficial femoral artery measures 105cm/s and is monophasic. Distal left superficial femoral artery [id number] and is monophasic. Collateral arteries visualized. Left popliteal velocity measures 471cm/s and is monophasic. Posterior tibial velocity is 75cm/s and flow is monophasic. Peroneal velocity is 37.1 cm/s and flow is monophasic. Anterior tibial artery not evaluated. Dorsal pedis artery not evaluated. Right KIRBY: 1.35 Left KIRBY: 1.35 US/US KIRBY complete IMPRESSION: 1. Left lower extremity hemodynamically significant stenosis with prominent elevated velocities greatest at the common femoral artery, distal superficial femoral artery and popliteal artery with patency of all visualized vessels. 2. Collateralization of arterial vasculature identified at the common femoral artery and distal superficial femoral artery. 3. Elevated KIRBY bilaterally suggesting noncompressibility of vessels likely secondary to extensive atherosclerotic calcifications. 4. Anterior tibial artery and dorsalis pedis artery not evaluated.
--- NOTE | ~2021-09-24 | US_ITS ---
EXAMINATION: ULTRASOUND LOWER EXTREMITY ARTERIAL, LEFT TECHNIQUE: COLOR-FLOW DUPLEX IMAGING OF THE LEFT LOWER EXTREMITY ARTERIAL SYSTEM. VELOCITY MEASUREMENTS THROUGHOUT THE FEMORAL ARTERIES. CLINICAL INFORMATION: Nonhealing wound on the history of hypertension and hyperlipidemia COMPARISON: None. FINDINGS: Atherosclerotic calcifications are noted throughout the left lower extremity. LEFT FEMORAL RUNOFF VELOCITIES: Common femoral artery measures 425cm/s and is biphasic. Collateral arteries visualized. Profunda femoral artery measures 119cm/s and is biphasic. Proximal superficial femoral artery measures 139 cm/s and is monophasic. Mid superficial femoral artery measures 105cm/s and is monophasic. Distal left superficial femoral artery [id number]/s and is monophasic. Collateral arteries visualized. Left popliteal velocity measures 471cm/s and is monophasic. Posterior tibial velocity is 75cm/s and flow is monophasic. Peroneal velocity is 37.1 cm/s and flow is monophasic. Anterior tibial artery not evaluated. Dorsal pedis artery not evaluated. Right KIRBY: 1.35 Left KIRBY: 1.35 US/US arterial duplex LE LT IMPRESSION: 1. Left lower extremity hemodynamically significant stenosis with prominent elevated velocities greatest at the common femoral artery, distal superficial femoral artery and popliteal artery with patency of all visualized vessels. 2. Collateralization of arterial vasculature identified at the common femoral artery and distal superficial femoral artery. 3. Elevated KIRBY bilaterally suggesting noncompressibility of vessels likely secondary to extensive atherosclerotic calcifications. 4. Anterior tibial artery and dorsalis pedis artery not evaluated.
[2021-09-24 13:38] LABS: Appearance Urine CLEAR; Color Urine YELLOW; Glucose Urine UA NEG (NEG); Leukocyte Esterase Urine NEG (NEG); Nitrite Urine NEG (NEG); Specific Gravity - Urine 1.025 (1.005-1.025); Urine Blood NEG (NEG); Urine Ketones NEG (NEG); Urine Protein NEG (NEG-TRACE)
== END 2021-09-24 12:30 | disposition home or self-care (01) ==
LOC: HO.US 12:29
PROVIDERS: Internal Medicine; Visit Provider Physician Assistant
DX: I73.9 Peripheral vascular disease, unspecified (principal); L97.529 Non-pressure chronic ulcer of other part of left foot with unspecified severity; R30.0 Dysuria
CPT/HCPCS: 81003; 93923; 93926

== ENCOUNTER 2021-09-26 06:41 | Outpatient (REF) | payer MEDICARE, SELFPAY ==
[2021-09-25 12:51] LABS: Hemoglobin 9.2 g/dl (12.0-16.0); Mean Corpuscular HGB Conc 28.8 g/dl (31.0-35.0); Mean Corpuscular Hemoglobin 31.8 pg (27.0-33.0); Mean Platelet Volume 12.9 fL (9.4-12.3); Platelet Count 200 X10*3/uL (160-400); Red Blood Count 2.89 X10*6/uL (4.20-5.50); Red Cell Distribution Width 20.7 % (11.0-16.0); White Blood Count 6.2 X10*3/uL (4.8-10.8)
[2021-09-25 12:52] LABS: Mean Corpuscular Volume 110.7 fL (80.0-98.0)
[2021-09-25 13:40] LABS: Band Neutrophils Percent 4 % (3-5); Basophils Abs Manual 0.3 X10*3/uL (0.0-0.2); Basophils Percent Manual 5 % (0-2); Blast Percent 2 %; Blastocytes Absolute 0.1 X10*3/uL; Eosinophils Absolute Manual 0.1 X10*3/uL (0.0-0.4); Eosinophils Percent Manual 2 % (0-4); Lymphocytes Absolute Manual 0.7 X10*3/uL (1.2-4.9); Lymphocytes Percent Manual 11 % (20-40); Metamyelocytes Absolute 0.1 X10*3/uL; Metamyelocytes Percent 1 %; Monocytes Absolute Manual 0.5 X10*3/uL (0.1-1.2); Monocytes Percent Manual 8 % (2-11); Myelocytes Absolute 0.1 X10*/uL; Myelocytes Percent 1 %; Neutrophils Absolute Manual 4.3 X10*3/uL (2.0-8.3); Neutrophils Percent Manual 66 % (45-73)
[2021-09-25 13:43] LABS: Acanthocytes 1+ (0-2) /OIF; Macrocytosis 2+ (15-30) /OIF; Ovalocytes 1+ (5-14) /OIF; Platelet Estimate NORMAL (NORMAL); Platelet Morphology Comment NORMAL; RBC Morphology NOTED; Schistocytes 1+ (0-2) /OIF
[2021-09-25 13:44] LABS: Burr Cells 1+ (0-2) /OIF; Polychromasia 2+ (3-5) /OIF; Tear Drop Cells 1+ (0-2) /OIF
== END 2021-09-26 06:42 | disposition home or self-care (01) ==
LOC: HO.LHD 06:41
PROVIDERS: Internal Medicine; Visit Provider Internal Medicine Medical Oncology
DX: D46.9 Myelodysplastic syndrome, unspecified (principal)
CPT/HCPCS: 36415; 85007; 85027

== ENCOUNTER 2021-10-02 06:59 | Outpatient (REF) | payer MEDICARE, SELFPAY ==
[2021-10-02 10:13] LABS: Hematocrit 31.5 % (37.0-47.0); Hemoglobin 8.8 g/dl (12.0-16.0); Mean Corpuscular HGB Conc 27.9 g/dl (31.0-35.0); Mean Corpuscular Hemoglobin 31.1 pg (27.0-33.0); Platelet Count 181 X10*3/uL (160-400); Red Blood Count 2.83 X10*6/uL (4.20-5.50); Red Cell Distribution Width 21.1 % (11.0-16.0); White Blood Count 17.6 X10*3/uL (4.8-10.8)
[2021-10-02 10:15] LABS: Mean Corpuscular Volume 111.3 fL (80.0-98.0)
[2021-10-02 11:03] LABS: Atypical Lymph Absolute Manual 0.2 x10*3/uL; Atypical Lymphs Percent Manual 1 % (0-6); Band Neutrophils Percent 10 % (3-5); Basophils Abs Manual 0.4 X10*3/uL (0.0-0.2); Basophils Percent Manual 2 % (0-2); Blast Percent 3 %; Blastocytes Absolute 0.5 X10*3/uL; Eosinophils Absolute Manual 0.2 X10*3/uL (0.0-0.4); Eosinophils Percent Manual 1 % (0-4); Metamyelocytes Absolute 0.7 X10*3/uL; Metamyelocytes Percent 4 %; Monocytes Absolute Manual 3.5 X10*3/uL (0.1-1.2); Monocytes Percent Manual 20 % (2-11); Myelocytes Absolute 0.5 X10*/uL; Myelocytes Percent 3 %; Neutrophils Absolute Manual 11.4 X10*3/uL (2.0-8.3); Neutrophils Percent Manual 55 % (45-73); Promyelocytes Absolute 0.2 X10*3/uL; Promyelocytes Percent 1 %
[2021-10-02 11:09] LABS: Macrocytosis 2+ (15-30) /OIF; RBC Morphology NOTED; Tear Drop Cells 1+ (0-2) /OIF
[2021-10-02 11:10] LABS: Burr Cells 1+ (0-2) /OIF; Hypochromasia 1+ (5-14) /OIF; Polychromasia 1+ (0-2) /OIF
[2021-10-02 11:11] LABS: Platelet Estimate NORMAL (NORMAL); Platelet Morphology Comment NORMAL
== END 2021-10-02 07:00 | disposition home or self-care (01) ==
LOC: HO.LHD 06:59
PROVIDERS: Visit Provider Internal Medicine Medical Oncology
DX: D46.9 Myelodysplastic syndrome, unspecified (principal)
CPT/HCPCS: 36415; 85007; 85027

== ENCOUNTER 2021-10-09 07:17 | Outpatient (REF) | payer MEDICARE, SELFPAY ==
[2021-10-09 13:26] LABS: Hematocrit 35.2 % (37.0-47.0); Hemoglobin 9.8 g/dl (12.0-16.0); Mean Corpuscular HGB Conc 27.8 g/dl (31.0-35.0); Mean Corpuscular Hemoglobin 31.2 pg (27.0-33.0); Mean Platelet Volume 12.4 fL (9.4-12.3); NRBC Pct Auto 0.2 /100WBC (0.0-0.2); Platelet Count 156 X10*3/uL (160-400); Red Blood Count 3.14 X10*6/uL (4.20-5.50); Red Cell Distribution Width 20.3 % (11.0-16.0)
[2021-10-09 13:35] LABS: Mean Corpuscular Volume 112.1 fL (80.0-98.0); WBC ABN SCTR FOR CBC 1
[2021-10-09 13:36] LABS: White Blood Count 63.3 X10*3/uL (4.8-10.8)
[2021-10-09 14:16] LABS: Band Neutrophils Percent 17 % (3-5); Basophils Abs Manual 0.6 X10*3/uL (0.0-0.2); Basophils Percent Manual 1 % (0-2); Blast Percent 2 %; Blastocytes Absolute 1.3 X10*3/uL; Lymphocytes Absolute Manual 1.3 X10*3/uL (1.2-4.9); Lymphocytes Percent Manual 2 % (20-40); Metamyelocytes Absolute 7.6 X10*3/uL; Metamyelocytes Percent 12 %; Monocytes Absolute Manual 4.4 X10*3/uL (0.1-1.2); Monocytes Percent Manual 7 % (2-11); Myelocytes Absolute 8.9 X10*/uL; Myelocytes Percent 14 %; Neutrophils Absolute Manual 36.1 X10*3/uL (2.0-8.3); Neutrophils Percent Manual 40 % (45-73); Promyelocytes Absolute 3.2 X10*3/uL; Promyelocytes Percent 5 %
[2021-10-09 14:21] LABS: Hypochromasia 1+ (5-14) /OIF; Macrocytosis 1+ (5-14) /OIF; Microcytosis 1+ (5-14) /OIF; Platelet Estimate NORMAL (NORMAL); Platelet Morphology Comment NORM; Polychromasia 1+ (0-2) /OIF; RBC Morphology NOTED; Tear Drop Cells 1+ (0-2) /OIF
[2021-10-09 14:22] LABS: Schistocytes 1+ (0-2) /OIF
== END 2021-10-09 07:18 | disposition home or self-care (01) ==
LOC: HO.LHD 07:17
PROVIDERS: Visit Provider Internal Medicine Medical Oncology
DX: D46.9 Myelodysplastic syndrome, unspecified (principal)
CPT/HCPCS: 36415; 85007; 85027

== ENCOUNTER 2021-10-16 06:41 | Outpatient (REF) | payer MEDICARE, SELFPAY ==
[2021-10-16 10:50] LABS: Hematocrit 31.6 % (37.0-47.0); Hemoglobin 8.7 g/dl (12.0-16.0); Mean Corpuscular HGB Conc 27.5 g/dl (31.0-35.0); Mean Corpuscular Hemoglobin 30.7 pg (27.0-33.0); Mean Platelet Volume 12.5 fL (9.4-12.3); NRBC Pct Auto 0.3 /100WBC (0.0-0.2); Platelet Count 207 X10*3/uL (160-400); Red Blood Count 2.83 X10*6/uL (4.20-5.50); Red Cell Distribution Width 20.6 % (11.0-16.0)
[2021-10-16 10:52] LABS: Mean Corpuscular Volume 111.7 fL (80.0-98.0); WBC ABN SCTR FOR CBC 1
[2021-10-16 10:55] LABS: White Blood Count 74.5 X10*3/uL (4.8-10.8)
[2021-10-16 11:13] LABS: Band Neutrophils Percent 20 % (3-5); Blast Percent 1 %; Blastocytes Absolute 0.7 X10*3/uL; Lymphocytes Absolute Manual 0.7 X10*3/uL (1.2-4.9); Lymphocytes Percent Manual 1 % (20-40); Metamyelocytes Absolute 4.5 X10*3/uL; Metamyelocytes Percent 6 %; Monocytes Absolute Manual 6.7 X10*3/uL (0.1-1.2); Monocytes Percent Manual 9 % (2-11); Myelocytes Percent 4 %; Neutrophils Absolute Manual 58.9 X10*3/uL (2.0-8.3); Neutrophils Percent Manual 59 % (45-73)
[2021-10-16 11:16] LABS: Hypochromasia 1+ (5-14) /OIF; Macrocytosis 2+ (15-30) /OIF; Platelet Estimate NORMAL (NORMAL); Platelet Morphology Comment NORMAL; Polychromasia 1+ (0-2) /OIF; RBC Morphology NOTED
--- NOTE | 2021-10-16 17:19 | MHC.HEMONC ---
[employer] LINE- SON DAY CALLED TO GET BLOOD COUNT RESULTS. VERBAL CONSENT TO READ RESULTS TO PATIENT WAS GRANTED.
== END 2021-10-16 06:42 | disposition home or self-care (01) ==
LOC: HO.LHD 06:41
PROVIDERS: Visit Provider Internal Medicine Medical Oncology
DX: D46.9 Myelodysplastic syndrome, unspecified (principal)
CPT/HCPCS: 36415; 85007; 85027

== ENCOUNTER 2021-10-23 15:05 | Outpatient (REF) | payer MEDICARE, SELFPAY ==
[2021-10-23 10:45] LABS: Hematocrit 33.9 % (37.0-47.0); Hemoglobin 9.6 g/dl (12.0-16.0); Mean Corpuscular HGB Conc 28.3 g/dl (31.0-35.0); Mean Corpuscular Hemoglobin 30.8 pg (27.0-33.0); Mean Corpuscular Volume 108.7 fL (80.0-98.0); Mean Platelet Volume 12.9 fL (9.4-12.3); NRBC Pct Auto 0.4 /100WBC (0.0-0.2); Platelet Count 218 X10*3/uL (160-400); Red Blood Count 3.12 X10*6/uL (4.20-5.50); Red Cell Distribution Width 21.2 % (11.0-16.0)
[2021-10-23 10:53] LABS: WBC ABN SCTR FOR CBC 1
[2021-10-23 11:06] LABS: Atypical Lymphs Percent Manual 1 % (0-6); Band Neutrophils Percent 13 % (3-5); Basophils Percent Manual 1 % (0-2); Blast Percent 3 %; Lymphocytes Percent Manual 8 % (20-40); Metamyelocytes Percent 5 %; Monocytes Percent Manual 4 % (2-11); Myelocytes Percent 5 %; Neutrophils Percent Manual 60 % (45-73)
[2021-10-23 11:07] LABS: Macrocytosis 2+ (15-30) /OIF; RBC Morphology NOTED
[2021-10-23 11:08] LABS: Polychromasia 1+ (0-2) /OIF; Spherocytes 2+ (3-5) /OIF
[2021-10-23 11:09] LABS: Schistocytes 1+ (0-2) /OIF
[2021-10-23 11:11] LABS: Large Platelet PRESENT; Platelet Estimate NORMAL (NORMAL); Platelet Morphology Comment NOTED
[2021-10-23 11:15] LABS: Atypical Lymph Absolute Manual 0.6 x10*3/uL; Basophils Abs Manual 0.6 X10*3/uL (0.0-0.2); Blastocytes Absolute 1.9 X10*3/uL; Lymphocytes Absolute Manual 5.2 X10*3/uL (1.2-4.9); Metamyelocytes Absolute 3.2 X10*3/uL; Monocytes Absolute Manual 2.6 X10*3/uL (0.1-1.2); Myelocytes Absolute 3.2 X10*/uL; Neutrophils Absolute Manual 47.2 X10*3/uL (2.0-8.3); White Blood Count 64.7 X10*3/uL (4.8-10.8)
[2021-10-23 11:18] LABS: Alanine Aminotransferase 7 U/L (0-31); Albumin Level 3.6 g/dL (3.5-5.0); Alkaline Phosphatase 52 U/L (39-117); Anion Gap 15 (12-20); Aspartate Amino Transferase 16 U/L (5-31); Bilirubin Total 0.4 mg/dL (0.0-1.0); Blood Urea Nitrogen 16 mg/dL (9-16); Calcium 8.9 mg/dL (8.4-10.2); Carbon Dioxide 25 mmol/L (22-29); Chloride 104 mmol/L (96-108); Estimated Glomerular Filt Rate 51; Glucose Random 47 mg/dL (60-115); Potassium 4.1 mmol/L (3.3-5.1); Sodium 140 mmol/L (135-145); Total Protein 6.4 g/dL (6.5-8.0)
--- NOTE | 2021-10-23 11:25 | MHC.HEMONC ---
Addendum entered by Codi Jenkisn RN 10/23/21 11:35: Dr Lopez informed of glucose 47 at 11:25 and agrees with plan. Original Note: Received call at 11:18 from Lab - pt home draw resulted critical glucose of 47. They said it was received at 10:20. I called her sonVikram immediately to check on her status. She is alert and walking and had a big breakfast prior to labs being drawn. She is sipping on sue radha. No new sx. Pt son is a diabetic and will check on her POC later and fasting in the morning. I advised him to call f/u with Dr Irwin if she is low. This may have been random. I will fax report to Dr Irwin's office.
== END 2021-10-23 15:06 | disposition home or self-care (01) ==
LOC: HO.LHD 15:05
PROVIDERS: Internal Medicine; Visit Provider Internal Medicine Medical Oncology
DX: D46.9 Myelodysplastic syndrome, unspecified (principal)
CPT/HCPCS: 36415; 80053; 85007; 85027

== ENCOUNTER 2021-10-30 14:03 | Outpatient (REF) | payer MEDICARE, SELFPAY ==
[2021-10-30 12:58] LABS: Hematocrit 32.8 % (37.0-47.0); Hemoglobin 9.2 g/dl (12.0-16.0); Mean Corpuscular Hemoglobin 30.9 pg (27.0-33.0); Mean Platelet Volume 12.4 fL (9.4-12.3); NRBC Pct Auto 0.8 /100WBC (0.0-0.2); Platelet Count 172 X10*3/uL (160-400); Red Blood Count 2.98 X10*6/uL (4.20-5.50); Red Cell Distribution Width 19.9 % (11.0-16.0)
[2021-10-30 12:59] LABS: Mean Corpuscular Volume 110.1 fL (80.0-98.0); WBC ABN SCTR FOR CBC 1
[2021-10-30 13:32] LABS: Atypical Lymphs Percent Manual 1 % (0-6); Band Neutrophils Percent 17 % (3-5); Basophils Percent Manual 2 % (0-2); Blast Percent 2 %; Eosinophils Percent Manual 2 % (0-4); Lymphocytes Percent Manual 1 % (20-40); Metamyelocytes Percent 10 %; Monocytes Percent Manual 8 % (2-11); Myelocytes Percent 7 %; Neutrophils Percent Manual 47 % (45-73); Nucleated Red Blood Cells 4 /100WBC (0-0); Promyelocytes Percent 3 %
[2021-10-30 13:34] LABS: Hypochromasia 1+ (5-14) /OIF; Macrocytosis 2+ (15-30) /OIF; Platelet Estimate NORMAL (NORMAL); Platelet Morphology Comment NORMAL; Polychromasia 1+ (0-2) /OIF; RBC Morphology NOTED; Tear Drop Cells 1+ (0-2) /OIF
[2021-10-30 13:36] LABS: Schistocytes 1+ (0-2) /OIF
[2021-10-30 13:41] LABS: Atypical Lymph Absolute Manual 0.9 x10*3/uL; Basophils Abs Manual 1.8 X10*3/uL (0.0-0.2); Blastocytes Absolute 1.8 X10*3/uL; Eosinophils Absolute Manual 1.8 X10*3/uL (0.0-0.4); Lymphocytes Absolute Manual 0.9 X10*3/uL (1.2-4.9); Metamyelocytes Absolute 9.2 X10*3/uL; Monocytes Absolute Manual 7.4 X10*3/uL (0.1-1.2); Myelocytes Absolute 6.4 X10*/uL; Neutrophils Absolute Manual 58.8 X10*3/uL (2.0-8.3); Promyelocytes Absolute 2.8 X10*3/uL
[2021-10-30 13:43] LABS: White Blood Count 91.9 X10*3/uL (4.8-10.8)
== END 2021-10-30 14:04 | disposition home or self-care (01) ==
LOC: HO.LHD 14:03
PROVIDERS: Internal Medicine; Visit Provider Internal Medicine Medical Oncology
DX: D46.9 Myelodysplastic syndrome, unspecified (principal)
CPT/HCPCS: 36415; 85007; 85027

== ENCOUNTER 2021-11-06 10:17 | Outpatient (REF) | payer MEDICARE, SELFPAY ==
[2021-11-06 09:17] LABS: Hematocrit 31.8 % (37.0-47.0); Hemoglobin 9.1 g/dl (12.0-16.0); Mean Corpuscular HGB Conc 28.6 g/dl (31.0-35.0); Mean Corpuscular Hemoglobin 31.2 pg (27.0-33.0); Mean Corpuscular Volume 108.9 fL (80.0-98.0); Mean Platelet Volume 12.4 fL (9.4-12.3); NRBC Pct Auto 0.9 /100WBC (0.0-0.2); Platelet Count 172 X10*3/uL (160-400); Red Blood Count 2.92 X10*6/uL (4.20-5.50); Red Cell Distribution Width 20.6 % (11.0-16.0)
[2021-11-06 09:20] LABS: WBC ABN SCTR FOR CBC 1
[2021-11-06 09:23] LABS: White Blood Count 161.4 X10*3/uL (4.8-10.8)
[2021-11-06 09:46] LABS: Band Neutrophils Percent 23 % (3-5); Blast Percent 4 %; Blastocytes Absolute 6.5 X10*3/uL; Lymphocytes Absolute Manual 4.8 X10*3/uL (1.2-4.9); Lymphocytes Percent Manual 3 % (20-40); Metamyelocytes Percent 13 %; Myelocytes Absolute 17.8 X10*/uL; Myelocytes Percent 11 %; Neutrophils Absolute Manual 98.5 X10*3/uL (2.0-8.3); Neutrophils Percent Manual 38 % (45-73); Nucleated Red Blood Cells 2 /100WBC (0-0); Promyelocytes Absolute 12.9 X10*3/uL; Promyelocytes Percent 8 %
[2021-11-06 09:49] LABS: Hypochromasia 1+ (5-14) /OIF; Macrocytosis 1+ (5-14) /OIF; Platelet Estimate NORMAL (NORMAL); Platelet Morphology Comment NORMAL; RBC Morphology NOTED
[2021-11-06 09:51] LABS: Polychromasia 2+ (3-5) /OIF
--- NOTE | 2021-11-12 08:41 | HO.HEMONCTE1 ---
[facility] Telehealth - Telehealth Location of Provider rendering services: Office. Location of Patient: Home. Patient Identification confirmed using: Name, : Yes Telehealth Method: Via Telephone. Patient verbally consented to treatment: Yes, Patient verbally consented to billing insurance company: Yes Patient informed of any privacy concerns related to visit: Yes Medical Summary - Medical Summary Date of Service: 11/12/21 Chief complaint: Follow up: AML. Medical Summary: DIAGNOSIS: AML. CURRENT THERAPY: HYDREA. Interval History Interval history: A televisit was held with her son. 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 She elected not to be treated with anti leukemia therapy. Lately she has been home, on Hydrea and Procrit fot symtomatic care. Now condition has progressively deteriorated. She has become very weak. Her legs are shaky. She is not able to stand up. She is getting lethargic. Is mostly bed bound. Complains of diffuse bodyaches, from head to toe. Has not been eating or drinking much. Has an ulcer on her foot. Was taken to the wound clinic yesterday, with two assists. No fever. No easy bruising nor bleeding. Family has been caring for her up until now. Review of Systems - Constitutional Reports system reviewed and no additional complaints, except as documented, Reports anorexia, Reports body ache(s), Reports daytime sleepiness, Reports fatigue, Reports poor appetite, Reports weakness, Reports weight loss, Denies fever(s) - Eyes Reports system reviewed and no additional complaints, except as documented, Reports blurry vision - ENT Reports system reviewed and no additional complaints, except as documented - Cardiovascular Reports system reviewed and no additional complaints, except as documented - Respiratory Reports no additional respiratory complaints - Gastrointestinal Reports system reviewed and no additional complaints, except as documented, Reports constipation, Reports feeling full early, Reports dyspepsia, Reports nausea - Genitourinary Reports no additional female genitourinary complaints - Musculoskeletal Reports system reviewed and no additional complaints, except as documented, Reports body aches - Integumentary/Breasts Skin/Breast: Reports no additional skin complaints, Reports skin ulcer, Reports sores - Neurologic Reports system reviewed and no additional complaints, except as documented - Psychiatric Reports system reviewed and no additional complaints, except as documented - Endocrine Reports no additional endocrine complaints - Hematologic/Lymphatic Reports system reviewed and no additional complaints, except as documented - Allergic/Immunologic Reports system reviewed and no additional complaints, except as documented Oncology Screenings - ECOG Performance Status ECOG Performance Status: 3 Home Medications and Allergies Home Medications Medication Instructions Recorded Confirmed Type geriatric [id number] 1 tab PO DAILY 12/24/20 10/20/21 History calcium carbonate 600 mg calcium 600 mg PO DAILY 01/21/21 10/20/21 History (1,500 mg) tablet (Calcium) Allergies Allergy/AdvReac Type Severity Reaction Status Date / Time mercury (elemental) Allergy Severe SWELLING, Verified 10/20/21 10:53 [Mercury (Elemental)] GENERALIZED WELTS amoxicillin Allergy Unknown Diarrhea Verified 10/20/21 10:53 antibiotic ointment Allergy Unknown Swelling Verified 10/20/21 10:53 aspirin [Aggrenox] Allergy Unknown Gastrointestinal Verified 10/20/21 10:53 Upset atorvastatin [ATORVASTATIN] Allergy Unknown UNKNOWN Verified 10/20/21 10:53 clavulanic acid [Augmentin] Allergy Unknown Diarrhea Verified 10/20/21 10:53 clindamycin [CLINDAMYCIN] Allergy Unknown UNKNOWN Verified 10/20/21 10:53 dipyridamole [From AGGRENOX] Allergy Unknown HEADACHE Verified 10/20/21 10:53 duloxetine [Cymbalta] Allergy Unknown Unknown Verified 10/20/21 10:53 ezetimibe [From ZETIA] Allergy Unknown UNKNOWN Verified 10/20/21 10:53 nabumetone Allergy Unknown Unknown Verified 10/20/21 10:53 pravastatin [PRAVASTATIN] Allergy Unknown UNKNOWN Verified 10/20/21 10:53 silver sulfadiazine Allergy Unknown rash Verified 10/20/21 10:53 simvastatin [SIMVASTATIN] Allergy Unknown UNKNOWN Verified 10/20/21 10:53 zinc [ZINC] Allergy Unknown BURN, Verified 10/20/21 10:53 itching dronabinol [From Marinol] AdvReac Intermediate Nausea Verified 10/20/21 10:53 nitrofurantoin AdvReac Intermediate not Verified 10/20/21 10:53 [From Macrodantin] specified Data - Labs CBC & Chem 7: 11/06/21 08:45 Labs: 11/06/21 08:45 Complete Blood Count Man Dif Routine Laboratory Last Values WBC 161.4 X10*3/uL (4.8-10.8) H* 11/06/21 08:45 RBC 2.92 X10*6/uL (4.20-5.50) L 11/06/21 08:45 Hgb 9.1 g/dl (12.0-16.0) L 11/06/21 08:45 Hct 31.8 % (37.0-47.0) L 11/06/21 08:45 MCV 108.9 fL (80.0-98.0) H 11/06/21 08:45 MCH 31.2 pg (27.0-33.0) 11/06/21 08:45 MCHC 28.6 g/dl (31.0-35.0) L 11/06/21 08:45 RDW 20.6 % (11.0-16.0) H 11/06/21 08:45 Plt Count 172 X10*3/uL (160-400) 11/06/21 08:45 MPV 12.4 fL (9.4-12.3) H 11/06/21 08:45 Immature Gran % (Auto) Cancelled 11/06/21 08:45 Neut % (Auto) Cancelled 11/06/21 08:45 Lymph % (Auto) Cancelled 11/06/21 08:45 [place] % (Auto) Cancelled 11/06/21 08:45 Eos % (Auto) Cancelled 11/06/21 08:45 Baso % (Auto) Cancelled 11/06/21 08:45 Lymph # (Auto) Cancelled 11/06/21 08:45 [place] # (Auto) Cancelled 11/06/21 08:45 Eos # (Auto) Cancelled 11/06/21 08:45 Baso # (Auto) Cancelled 11/06/21 08:45 Abs Immat Gran (auto) Cancelled 11/06/21 08:45 Absolute Neuts (auto) Cancelled 11/06/21 08:45 Absolute Nucleated RBC 1.440 X10*3/uL (0.0-0.012) H 11/06/21 08:45 Nucleated RBC % (auto) 0.9 /100WBC (0.0-0.2) H 11/06/21 08:45 Neutrophils % (Manual) 38 % (45-73) L 11/06/21 08:45 Band Neutrophils % 23 % (3-5) H 11/06/21 08:45 Lymphocytes % (Manual) 3 % (20-40) L 11/06/21 08:45 Metamyelocytes % 13 % 11/06/21 08:45 Myelocytes % 11 % 11/06/21 08:45 Promyelocytes % 8 % 11/06/21 08:45 Blast Cells % (Manual) 4 % 11/06/21 08:45 Abs Neuts (Manual) 98.5 X10*3/uL (2.0-8.3) H 11/06/21 08:45 Lymphocytes # (Manual) 4.8 X10*3/uL (1.2-4.9) 11/06/21 08:45 Metamyelocytes # 21.0 X10*3/uL 11/06/21 08:45 Myelocytes # 17.8 X10*/uL 11/06/21 08:45 Promyelocytes # 12.9 X10*3/uL 11/06/21 08:45 Blast Cells # 6.5 X10*3/uL 11/06/21 08:45 Nucleated RBCs 2 /100WBC (0-0) H 11/06/21 08:45 Platelet Estimate NORMAL (NORMAL) 11/06/21 08:45 Plt Morphology Comment NORMAL 11/06/21 08:45 RBC Morphology NOTED 11/06/21 08:45 Polychromasia 2+ (3-5) /OIF 11/06/21 08:45 Hypochromasia 1+ (5-14) /OIF 11/06/21 08:45 Macrocytosis 1+ (5-14) /OIF 11/06/21 08:45 Assessment and Plan Patient Active problem list reviewed?: Yes (1) RAEB (refractory anemia with excess blasts) Status: Acute Assessment and plan: 80 year old unfortunate lady, diagnosed with RAEB, in July of 2018. Elected to forgo any anti-leukemia therapy. Has been getting lab draws at home. Condition has been progressively deteriorating. Is extremely weak and fatigued. Unable to stand, legs are shaky. Is getting more confused and lethargic. Is bed bound. Is barely eating or drinking. Has developed foot ulcers. Stopped Hydrea since it caused an upset stomach. Now WBC Count is extremely high: 161,000. HGB down to 9.1. PLAN: Will refer to hospice care urgently, for further palliative care at home. Also for family support. Her son and daughter have been very involved in her care. I will be happy to help with anything she may need, in terms of palliative care. 26 minuted were spent cordinating her care, including the phone interview, review of labs, review of imaging and counselling the family. Thanks, CC: Dr. Irwin. 11/13, Addendum: Patient has been evaluated by the hospice team. Prescriptions sent for fentanyl patch, liquid morphine. She has been more lethargic so concern was a UTI. Liquid Bactrim has been sent for that. - Time Spent With Patient Time Spent with Patient (in minutes): 26
== END 2021-11-06 10:18 | disposition home or self-care (01) ==
LOC: HO.LHD 10:17
PROVIDERS: Visit Provider Internal Medicine Medical Oncology
DX: D46.9 Myelodysplastic syndrome, unspecified (principal)
CPT/HCPCS: 36415; 85007; 85027

== ENCOUNTER 2021-11-13 15:05 | Outpatient (REF) | payer MEDICARE, SELFPAY | END 2021-11-13 15:06 | disposition home or self-care (01) | LOC: HO.LHD 15:05 | PROVIDERS: Visit Provider Internal Medicine Medical Oncology | DX: Z13.89 Encounter for screening for other disorder (principal) ==